=== PATIENT | female | born 1960 | race African-American/Black ===

== ENCOUNTER 2019-02-08 16:18 | Inpatient (IN) | payer OTHER ==
--- NOTE | 2019-02-08 17:44 | PDOC ---
History of Present Illness - General Chief Complaint: Alcohol intoxication Stated Complaint: Alcohol intoxication Time Seen by Provider: 02/08/19 16:52 - History of Present Illness Initial Comments: 02/08/19 17:26 58 yo F with h/o IDDM, Ascites, who BIBA from rehab facility (2 [facility]), for agitation, AMS. Patient behaving violently, and uncooperative in rehab waiting area. Patient non cooperative at bedside. Pt. poor historian. Endorses sadness, but unable to provide history. Denies SI, HI. Patient discharged from [facility] earlier today from ED. Patient recalls that she was at at [facility]. PMHx: as noted above ROS: as noted SHx: Denies Etoh, IVDA Allergies: NKDA Past History - Past Medical History Allergies/Adverse Reactions: Allergies Allergy/AdvReac Type Severity Reaction Status Date / Time Fish Containing Products Allergy Severe Itching Verified 02/08/19 16:26 tomato [Tomato] Allergy Mild Itching Verified 02/08/19 16:26 Home Medications: Ambulatory Orders Aspirin 81 mg PO DAILY 05/07/13 Insulin (Levemir) [Levemir Flexpen -] 48 units SQ HS #0 pen 06/09/13 Lactulose (Oral Use) [Cephulac -] 20 gm PO TID #0 ud 06/09/13 Lisinopril [Prinivil] 10 mg PO BID #0 tablet 06/09/13 Asthma: No Cardiac Disorders: No COPD: No Diabetes: Yes GI Disorders: No Disorders: No HTN: Yes Kidney Stones: No Seizures: No - Surgical History Abdominal Surgery: No Appendectomy: No Cardiac Surgery: No Cholecystectomy: No Lung Surgery: No Neurologic Surgery: No Orthopedic Surgery: No - Reproductive History PID: No - Immunization History Immunization Up to Date: (UNKNOWN) - Suicide/Smoking/Psychosocial Hx Smoking History: Current every day smoker Have you smoked in the past 12 months: Yes Number of Cigarettes Smoked Daily: 3 Cigars Per Day: 0 Information on smoking cessation initiated: No 'Breaking Loose' booklet given: 05/07/13 Hx Alcohol Use: Yes (TODAY) Drug/Substance Use Hx: No (DENIES) Substance Use Type: Alcohol, Cocaine Hx Substance Use Treatment: Yes Review of Systems - Review of Systems Comments:: 02/08/19 18:01 Patient unable to provide 13 point ROS inspection. *Physical Exam - Vital Signs Last Vital Signs Temp Pulse Resp BP Pulse Ox 97.9 F 95 H 18 178/85 H 100 02/08/19 16:28 02/08/19 16:28 02/08/19 16:28 02/08/19 16:28 02/08/19 16:28 - Physical Exam Comments: 02/08/19 18:02 GENERAL: Awake, alert, disoriented, in no acute distress. Patient agitated, attempting to climb out of bed. HEAD: No signs of trauma, normocephalic, atraumatic EYES: PERRLA, EOMI, sclera anicteric, conjunctiva clear ENT: Auricles normal inspection, hearing grossly normal, nares patent, oropharynx clear without exudates. Moist mucosa NECK: Normal ROM, supple, no lymphadenopathy, masses LUNGS: No distress, speaks full sentences, clear to auscultation bilaterally HEART: Regular rate and rhythm, normal S1 and S2, no murmurs, rubs or gallops, peripheral pulses normal and equal bilaterally. ABDOMEN: Distneded. Soft, nontender, normoactive bowel sounds. No guarding, no rebound. No masses. Neg CVA ttp. EXTREMITIES : Normal inspection, Normal range of motion, no edema. No clubbing or cyanosis. NEUROLOGICAL: Cranial nerves II through XII grossly intact. Slurred speech, ataxic gait, no focal sensorimotor deficits SKIN: Warm, Dry, normal turgor, no rashes or lesions noted Moderate Sedation - Procedure Monitoring Vital Signs: Procedure Monitoring Vital Signs Temperature 97.9 F 02/08/19 16:28 Pulse Rate 95 H 02/08/19 16:28 Respiratory Rate 18 02/08/19 16:28 Blood Pressure 178/85 H 02/08/19 16:28 O2 Sat by Pulse Oximetry (%) 100 02/08/19 16:28 ED Treatment Course - LABORATORY CBC & Chemistry Diagram: 02/08/19 18:00 02/08/19 18:00 Medical Decision Making - Medical Decision Making 02/08/19 18:07 58 yo F with h/o IDDM, HTN, HCV, Etoh dependence, Polysubstance drug use/ IVDA, CHF, Bipolar disorder, Ascites, who BIBA from rehab facility ( [facility]), for agitation, AMS. BP 175/85, vitals otherwise wnl, patient alert, disoriented, agitated, with ataxic gait, slurred speech. Uncooperative with exam. Will assess for VBI/TIA, cardiac dysarrythmias, hypoglycemia, electrolyte abnml, metabolic and toxic derangements, acid-base disturbances, infection. ED Course: Patient seen attempting to strike staff members, and elope from ED. Placed in [place] restraint. 02/08/19 18:34 EK02/08/19 18:38 Spoke to RN at [facility]. Patient last seen in hospital on prior admission for concern of SBP ( 12/16- 12/25/2018), received paracentesis ( 12/25) 2 Liters of fluid , with absent SBP. Patient was uncooperative, and documented poor historian at that visit. Lab work at that time noted to be normal. 02/08/19 19:46 PLT: 99 BUN/Cr: 39/1.8 Ammonia 98.2 Plan to admit for hepatic encephalopathy Lactulose rectal, CTH Laboratory Tests 02/08/19 02/08/19 18:00 18:00 Total Bilirubin 1.3 H AST 91 H Ammonia 98.20 H Total Protein 8.4 H Albumin 3.0 L 02/08/19 20:00 Pt. endorsed Fernanda Blackmon. Admitted to . *DC/Admit/Observation/Transfer Diagnosis at time of Disposition: Hepatic encephalopathy - Discharge Dispostion Decision to Admit order: Yes - Referrals - Patient Instructions - Post Discharge Activity
--- NOTE | 2019-02-08 17:47 | PDOC ---
Attending Attestation - Resident Resident Name: John Mathis - ED Attending Attestation I have performed the following: I have examined & evaluated the patient, The case was reviewed & discussed with the resident, I agree w/resident's findings & plan, Exceptions are as noted - HPI HPI: 02/08/19 17:51 58y F hx of acites presenting for evaluation of altered mental status from [facility] while getting intake for detox. The patient is not a cooperative historian. refuses tell us her name, where she lives or whether anything is bothering her. The patient is documented at being at [facility] by [facility], however the patient does mention having been at work all at some point for an unclera reason. The patient does endorse being sad, however refuses to go into why she is being sad. She refuses tell us if anything is bothering her or if she is in discomfort. Patient states "I'm going to hit you" if I ask further questions. Such the history is extremely limited. general: agitated, answering questions occasionally but noncooperative in general neck: supple, no massess Card: rrr, no mrg Pulm: CTA b/l Head: atraumatic abd: large distended nontender abdomen, no focal tenderness ext: no swelling neuro: moving all 4 ext spontaneously and symmetrically, no facial assymetry, mild tremulousness of upper extremities On exam the patient is mental status cannot be terminned - she seems to exhibit somewhat logical thought. It is unclear if her confusion is organic, metabolic or psychiatric. We'll obtain blood work to screen for intoxication, hyperammonenemia, metabolic derangements. consider CT for acute intracranial process although there is no signs of trauma. Will to find further information to the hospital that she was at as well as any possible family members. - Physicial Exam PE: 02/11/19 22:02 see above - Medical Decision Making 02/08/19 19:53 labs noted for hyerammonemia suspec tthat may be the cause of her AMS, howeve after d/w [facility], she also has a history of psychiatric disorder will give pt lactulose pt signed out to evening team for further mangaement anticipate admissoi for furhter management
[2019-02-08 18:15] LABS: BASO % 0.6 % (0-2.0); EOS % 2.7 % (0-4.5); HEMATOCRIT 32.1 % (32.4-45.2); HEMOGLOBIN 11.3 GM/dL (10.7-15.3); LYMPH % 21.1 % (8-40); MCH 32.8 pg (25.7-33.7); MCHC 35.1 g/dl (32.0-36.0); MEAN CELL VOLUME 93.4 fl (80-96); MEAN PLT VOLUME 8.7 fl (7.5-11.1); MONO % 8.5 % (3.8-10.2); NEUT % 67.1 % (42.8-82.8); PLATELET COUNT 99 K/MM3 (134-434); RBC 3.44 M/mm3 (3.60-5.2); RDW 20.1 % (11.6-15.6); WHITE BLOOD COUNT 5.4 K/mm3 (4.0-10.0)
[2019-02-08 18:45] LABS: ALK PHOS 102 U/L (45-117); ANION GAP 9 MMOL/L (8-16); BILIRUBIN,TOTAL 1.3 mg/dL (0.2-1); BLOOD UREA NITROGEN 39 mg/dL (7-18); CALCIUM 9.1 mg/dL (8.5-10.1); CHLORIDE 109 mmol/L (98-107); CO2 22 mmol/L (21-32); CREATININE 1.8 mg/dL (0.55-1.3); GLUCOSE,RANDOM 254 mg/dL (74-106); POTASSIUM 4.1 mmol/L (3.5-5.1); SGOT/AST 91 U/L (15-37); SGPT/ALT 56 U/L (13-61); SODIUM 140 mmol/L (136-145); TOT PROT 8.4 g/dl (6.4-8.2)
[2019-02-08] MEDS ORDERED: LORazepam 2 MG/ML SDV VIAL ONE (19:27)
--- NOTE | 2019-02-08 19:31 | PDOC ---
*Physical Exam - Vital Signs Last Vital Signs Temp Pulse Resp BP Pulse Ox 97.9 F 95 H 18 178/85 H 100 02/08/19 16:28 02/08/19 16:28 02/08/19 16:28 02/08/19 16:28 02/08/19 16:28 ED Treatment Course - LABORATORY CBC & Chemistry Diagram: 02/20/19 05:30 02/20/19 05:30 - ADDITIONAL ORDERS Additional order review: Laboratory Results 02/08/19 02/08/19 02/08/19 18:00 18:00 18:00 Sodium 140 Potassium 4.1 Chloride 109 H Carbon Dioxide 22 Anion Gap 9 BUN 39 H Creatinine 1.8 H Creat Clearance w eGFR 28.80 Random Glucose 254 H Calcium 9.1 Total Bilirubin 1.3 H AST 91 H ALT 56 Alkaline Phosphatase 102 Ammonia 98.20 H Total Protein 8.4 H Albumin 3.0 L Alcohol, Quantitative < 3.0 02/08/19 18:00 RBC 3.44 L MCV 93.4 MCHC 35.1 RDW 20.1 H MPV 8.7 D Neutrophils % 67.1 Lymphocytes % 21.1 Monocytes % 8.5 Eosinophils % 2.7 Basophils % 0.6 Medical Decision Making - Medical Decision Making 02/20/19 23:47 Pt signed out to me. Now calm. In mandy vest. Labs demonstrate elevated ammonia level and elevated Tbili. SHe has known ascites. Pt arrived here from [facility] facility as she was altered and acting violent, Head CT and CXR normal. Otherwise labs show slight elevation of BUN and Cr. Pt will be admitted to hospitalist service. *DC/Admit/Observation/Transfer Diagnosis at time of Disposition: Hepatic encephalopathy - Referrals - Patient Instructions - Post Discharge Activity
[2019-02-08 19:36] LABS: URINE APPEARANCE CLEAR; URINE BILIRUBIN NEGATIVE (<2.0 mg/dL); URINE COLOR YELLOW; URINE GLUCOSE (UA) NEGATIVE (NEGATIVE); URINE KETONE TRACE (NEGATIVE); URINE LEUK ESTERASE NEGATIVE (NEGATIVE); URINE NITRITE NEGATIVE (NEGATIVE); URINE PROTEIN 2+ (NEGATIVE)
[2019-02-08 19:51] LABS: COCAINE, UR NEGATIVE ng/ml (CUTOFF=300); METHADONE, UR NEGATIVE ng/ml (CUTOFF=300); OPIATES, URI NEGATIVE ng/ml (CUTOFF=300); PHENCYCLIDINE,URINE NEGATIVE ng/ml (CUTOFF=25); URINE AMPHETAMINES NEGATIVE ng/ml (CUTOFF=500); URINE BARBITURATES NEGATIVE ng/ml (CUTOFF=200)
[2019-02-08] MEDS ORDERED: LACTULOSE 20 GM/30 ML UDC (FOR RECTAL USE ONLY) PR ONE (19:57)
[2019-02-08 19:58] LABS: EPI CELLS RARE /HPF (FEW); URINE BACTERIA RARE /hpf (NONE SEEN); URINE MUCUS RARE
[2019-02-08 20:06] LABS: URINE BENZODIAZEPINES POSITIVE ng/ml (CUTOFF=200)
[2019-02-08] MEDS ORDERED: LACTULOSE 20 GM/30 ML UDC (FOR ORAL USE ONLY) ONE (21:23)
--- NOTE | 2019-02-08 21:27 | PN ---
Teaching Attending Note Name of Resident: Fernanda Vanessa ATTENDING PHYSICIAN STATEMENT I saw and evaluated the patient. I reviewed the resident's note and discussed the case with the resident. I agree with the resident's findings and plan as documented. SUBJECTIVE: Patient is a 58 year old woman with history of insulin-treated DM, HTN, HCV, Etoh dependence, Polysubstance drug use/IVDA, CHF, Bipolar disorder, Ascites, who presents from [facility] for agitation and AMS. Reportedly patient was behaving violently, and uncooperative in Rehab waiting area. Patient non cooperative at bedside, poor historian, says she is sad, but unable to provide history. Denies suicidal or homicidal ideation. Patient discharged from [facility] earlier today from the ER. Patient recalls that she was at at [facility]. ER staff spoke to an RN at [facility]. Patient last seen in hospital on prior admission for concern of SBP (12/16- 12/25/2018), received paracentesis (12/25) 2 Liters of fluid , with absent SBP. Patient was uncooperative, and documented poor historian at that visit. Lab work at that time noted to be normal. Today in our ER patient seen attempting to strike staff members, and elope from ED. Placed in Juan restraint and also got ativan. OBJECTIVE: Sedated with Ativan Vital Signs Period Temp Pulse Resp BP Sys/Aguilar Pulse Ox Last 24 Hr 97.9 F 95 18 178/85 100 HEENT: No Jaundice, eye redness or discharge, PERRLA; Missing a lot of teeth; facial assymetry - left side droop (chronic?), Normocephalic, atraumatic. External ears are normal. No nasal discharge. Neck: Supple, nontender. No palpable adenopathy or thyromegaly. No JVD Chest: Good effort. Clear to auscultation and percussion. Heart: Regular. No S3, rub or murmur Abdomen: Distended, ascites; soft, nontender and no HSM. No rebound or guarding. Normal bowel sounds. Ext: Peripheral pulses intact. No leg edema. Skin: Warm and dry. No petechiae, rash or ecchymosis. Neuro: Sedated. Moves all limbs. Chronic left facial droop?; Plantar reflexes are flexor. Psych: Unable to assess. Was agitated and had to be sedated. Current Medications Generic Name Dose Route Start Last Admin Trade Name Davonq PRN Reason Stop Dose Admin Folic Acid 1 mg 02/08/19 21:45 Folic Acid Injection - SQ DAILY [facility] Insulin Aspart 0 vial 02/08/19 22:00 Novolog Vial Sliding Scale - SQ ACHS [facility] Protocol Lactulose 200 gm 02/08/19 21:45 Cephulac (Rectal Use) ND Q6H SACHIN Lorazepam 0.5 mg 02/10/19 23:00 Ativan - PO 02/11/19 23:00 Q4H PRN Symptoms of Withdrawal Lorazepam 1 mg 02/08/19 21:39 Ativan - PO 02/10/19 23:00 Q4H PRN Symptoms of Withdrawal Thiamine HCl 100 mg 02/09/19 10:00 Vitamin B1 Injection - IM DAILY [facility] Home Medications Medication Instructions Recorded Aspirin 81 mg PO DAILY 05/07/13 Insulin (Levemir) [Levemir Flexpen 48 units SQ HS #0 pen 06/09/13 -] Lactulose (Oral Use) [Cephulac -] 20 gm PO TID #0 ud 06/09/13 Lisinopril [Prinivil] 10 mg PO BID #0 tablet 06/09/13 Abnormal Lab Results 02/08/19 02/08/19 02/08/19 18:00 18:00 18:00 RBC 3.44 L Hct 32.1 L RDW 20.1 H Plt Count 99 L D Chloride 109 H BUN 39 H Creatinine 1.8 H Random Glucose 254 H Total Bilirubin 1.3 H AST 91 H Ammonia 98.20 H Total Protein 8.4 H Albumin 3.0 L Urine Protein Urine Ketones Urine Urobilinogen Benzodiazepines Screen 02/08/19 02/08/19 19:04 19:04 RBC Hct RDW Plt Count Chloride BUN Creatinine Random Glucose Total Bilirubin AST Ammonia Total Protein Albumin Urine Protein 2+ H Urine Ketones Trace H Urine Urobilinogen 2.0 H Benzodiazepines Screen Positive A* ASSESSMENT AND PLAN: 1. Altered Mental Status/Agitation - Alcohol or drug withdrawal ay explain her presentation. Head CT, EKG, abdominal sonogram and CXR are yet to be done due to her agitation. Will implement CIWA ativan alcohol withdrawal protocol, neurochecks, seizure, fall and aspiration precautions. Treat with thiamine and folic acid and monitor electrolytes (Ca,Mg,K,P). When she awakens and is lucid, will licensed mental health counselor patient about abstaining from alcohol and refer to alcohol detox upon discharge. Treat associated hepatic encephalopathy with lactulose per rectum and PO Rifaximin once it is safe for her to take PO. Thrombocytopenia likely due to liver disease. Monitor platelet count daily. 2. Hypoalbuminemia - Possibly due to combined effects of malnutrition and inflammation associated with comorbid chronic conditions. Will ensure adequate dietary protein intake and also consult sheep herder. 3. DM For now, we will hold the home diabetes drugs and implement sliding scale insulin regimen. Provide comprehensive diabetes care with patient teaching and counseling about the importance of adherence to prescribed diabetes regimen, euglycemia, eye care and foot care. 4. BOB? - Has risk factors for CKD. BOB may be due to dehydration or hepatorenal syndrome. Will hydrate her gently and monitor urine output. Avoid nephrotoxic agents such as NSAIDS, aminoglycosides, contrast dyes and certain Alternative medicine products. 5. Anemia - Likely partly due to liver disease and alcoholism. Will do basic anemia work up including serial stool guaiacs, reticulocyte count and iron studies. 6. Hypertension - Restart outpatient antihypertensive drugs and revise regimen to ensure smooth [id number] good BP control. Once she awakens, nonpharmacologic measures to control hypertension like weight loss, salt restriction and exercise will be discussed. 7. DVT prophylaxis - Lovenox 40 mg SQ q 24 hours. (Monitor platelet count daily ) 8. Advance directives - Full code
[2019-02-08] MEDS ORDERED: LORazepam 0.5 MG TABLET PO PRN (21:30)
[2019-02-08] MEDS ORDERED: LORazepam 1 MG TABLET PO PRN (21:39)
--- NOTE | 2019-02-08 21:47 | HP ---
CHIEF COMPLAINT: agitation x 1 day PCP: HISTORY OF PRESENT ILLNESS: 58 y/o F with hx HTN, HCV, polysubstance abuse, ascites, IDDM, CHF, bipolar disorder, who presents to the ED, [facility] from [facility] for AMS and agitation that occurred during alcohol detox. Upon examination, pt lethargic and unable to provide information. As per ED staff documentation, pt was at [facility] today when she became agitated, developing AMS, disorientation, slurred speech and ataxia. For this reason, she was BIBA to [facility] ED for evaluation. It is unclear whether pt had already began detox, or whether she was rejected from the facility in order to receive medical w/u and clearance. While in the ED, pt was increasingly combatative, yelling out that she was going to hit the staff. She was subsquently placed in a mandy vest and given ativan 2mg IMx1. Pt was also apparently d/c from [facility] today, and had been admitted there in November from 12/16-12/25 for ascites. At the time, SBP was r/o, and pt underwent a paracentesis where 2L of fluid were drained. ER course was notable for: (1) ativan 2mg IMx1 (2) rectal lactulose [id number] (3) Recent Travel: unable to obtain PAST MEDICAL HISTORY: as above PAST SURGICAL HISTORY: unable to obtain Social History: unable to obtain Smoking: Alcohol: alcohol dependence Drugs: polysubstance abuse Family History: see above Allergies Fish Containing Products Allergy (Severe, Verified 02/08/19 16:26) Itching tomato [Tomato] Allergy (Mild, Verified 02/08/19 16:26) Itching HOME MEDICATIONS: Home Medications Medication Instructions Recorded Aspirin 81 mg PO DAILY 05/07/13 Insulin (Levemir) [Levemir Flexpen 48 units SQ HS #0 pen 06/09/13 -] Lactulose (Oral Use) [Cephulac -] 20 gm PO TID #0 ud 06/09/13 Lisinopril [Prinivil] 10 mg PO BID #0 tablet 06/09/13 pt was lethargic, unable to verify meds will need to call [facility] tomorrow or [facility] REVIEW OF SYSTEMS CONSTITUTIONAL: +combatative Absent: fever, chills, diaphoresis, generalized weakness, malaise, loss of appetite, weight change HEENT: Absent: rhinorrhea, nasal congestion, throat pain, throat swelling, difficulty swallowing, mouth swelling, ear pain, eye pain, visual changes CARDIOVASCULAR: Absent: chest pain, syncope, palpitations, irregular heart rate, lightheadedness , peripheral edema RESPIRATORY: Absent: cough, shortness of breath, dyspnea with exertion, orthopnea, wheezing, stridor, hemoptysis GASTROINTESTINAL: Absent: abdominal pain, abdominal distension, nausea, vomiting, diarrhea, constipation, melena, hematochezia GENITOURINARY: Absent: dysuria, frequency, urgency, hesitancy, hematuria, flank pain, genital pain MUSCULOSKELETAL: Absent: myalgia, arthralgia, joint swelling, back pain, neck pain SKIN: Absent: rash, itching, pallor HEMATOLOGIC/IMMUNOLOGIC: Absent: easy bleeding, easy bruising, lymphadenopathy, frequent infections ENDOCRINE: Absent: unexplained weight gain, unexplained weight loss, heat intolerance, cold intolerance NEUROLOGIC: Absent: headache, focal weakness or paresthesias, dizziness, unsteady gait, seizure, mental status changes, bladder or bowel incontinence PSYCHIATRIC: Absent: anxiety, depression, suicidal or homicidal ideation, hallucinations. PHYSICAL EXAMINATION Vital Signs - 24 hr 02/08/19 16:28 Temperature 97.9 F Pulse Rate 95 H Respiratory 18 Rate Blood Pressure 178/85 H O2 Sat by Pulse 100 Oximetry (%) GENERAL: sleeping, mildly arousable to sternal rub HEAD: Normal with no signs of trauma. EYES: Pupils equal, round and reactive to light, extraocular movements intact, sclera anicteric, conjunctiva clear. EARS, NOSE, THROAT: Ears normal, nares patent, oropharynx clear without exudates. Moist mucous membranes. NECK: Normal range of motion, supple LUNGS: Breath sounds equal, clear to auscultation bilaterally. No wheezes, and no crackles. No accessory muscle use. HEART: +tachycardic rate and rhythm, normal S1 and S2 without murmur, rub or gallop. ABDOMEN: Soft, +significantly distended abdomen. fluid wave appreciated. no guarding or rigidity LOWER EXTREMITIES: cachectic. 2+ pt pulses,well-perfused. No calf tenderness. No peripheral edema. NEUROLOGICAL: unable to assess d/t lethargy, however able to move UE, LE. PSYCHIATRIC: lethargic SKIN: Warm, dry Laboratory Results 02/08/19 02/08/19 02/08/19 18:00 18:00 18:00 WBC 5.4 Hgb 11.3 Hct 32.1 L Plt Count 99 L D Ammonia 98.20 H Alcohol, Quantitative < 3.0 02/08/19 02/08/19 02/08/19 18:00 19:04 19:04 Sodium 140 Potassium 4.1 Chloride 109 H Carbon Dioxide 22 BUN 39 H Creatinine 1.8 H Random Glucose 254 H Total Bilirubin 1.3 H AST 91 H ALT 56 Ammonia Albumin 3.0 L Urine Protein 2+ H Urine Ketones Trace H Urine Urobilinogen 2.0 H Opiates Screen Negative Barbiturate Screen Negative Phencyclidine Screen Negative Ur Amphetamines Screen Negative MDMA (Ecstasy) Screen Negative Benzodiazepines Screen Positive A* Cocaine Screen Negative U Marijuana (THC) Screen Negative EKG: ordered, pending CXR: ordered, pending abd sono prelim: +ascites. official read pending CTH: prelim: WNL. official read pending ASSESSMENT/PLAN: 58 y/o F with hx HTN, HCV, polysubstance abuse, ascites, IDDM, CHF, bipolar disorder, who presents to the ED, BIBA from [facility] for AMS and agitation that occurred during alcohol detox. #Agitation -possible this is 2/2 alcohol withdrawal, hepatic encephalopathy (HE), psych d/ o such as bipolar -c/w ativan protocol, CIWA scoring. thiamine, folic supplementation -for HE, with elevated ammonia, hx significant alc dependence. will get abdom sono to eval for cirrhosis, ascites. will also give lactulose 200gm q6h rectally- titrate to 3-4 BM's qd. Can also give rifaximin when can take PO. f/u coags -ascites: GI input whether needs paracentesis. less concerning now for SBP clinically, afebrile, without white count -GI consult: Dr. Monge -will also do Head CT to r/o intracranial path. prelim read (-), however follow official #HTN- uncontrolled -possible 2/2 agitation or withdrawal -hold lisinopril at this time d/t BOB -will start amlodipine 5mg BID #BOB possible 2/2 hepatorenal syndrome -possible may improve with hepatic sx tx -as CXR without effusion, will gently hydrate. will be careful based on hx CHF. -monitor I/O #normocytic anemia -f/u iron studies, retic ct #IDDM -BGM, ISS ACHS #HCV -need to get records whether this has been tx #hx CHF -consider ECHO when sx alleviate -does not appear to be vol overloaded overall #bipolar disorder -will need to get records to see if tx #F/E/N gentle hydration IV NS 42 cc/hr, not in overload now continue to follow lytes, replete PRN NPO d/t lethargy #PPX DVT: SCD's at this time 2/2 thrombocytopenia #Dispo admit to med-surg Visit type - Emergency Visit Emergency Visit: Yes ED Registration Date: 02/08/19 Care time: The patient presented to the Emergency Department on the above date and was hospitalized for further evaluation of their emergent condition. - New Patient This patient is new to me today: Yes Date on this admission: 02/09/19 - Critical Care Critical Care patient: No
[2019-02-08 22:07] LABS: VENOUS PC02 35.1 mmHg (41-51); VENOUS PH 7.45 (7.31-7.41); VENOUS PO2 31.8 mmHg (30-40)
[2019-02-08] MEDS: FOLIC ACID 5 MG/1 ML SQ SCH (22:14)
[2019-02-08 22:21] LABS: INR 1.13 (0.83-1.09); PROTHROMBIN TIME (PATIENT) 13.3 SEC (9.7-13.0)
[2019-02-08 22:23] LABS: ACTIVATED PTT 37.9 SECONDS (25.2-36.5)
[2019-02-08] MEDS: LACTULOSE 20 GM/30 ML UDC (FOR RECTAL USE ONLY) PR SCH (22:50)
[2019-02-08] MEDS: INSULIN SLIDING SCALE (NOVOLOG) 1 VIAL SQ SCH (23:14)
[2019-02-08] MEDS ORDERED: INSULIN (NOVOLOG) ASPART 100 UNITS/ML 10ML VIAL ONE (23:18)
[2019-02-09] MEDS ORDERED: SODIUM CHLORIDE 1,000 ML IV SCH (01:00)
[2019-02-09] MEDS ORDERED: METOPROLOL TARTRATE 5 MG/5 ML VIAL IVPUSH ONE (03:20)
[2019-02-09] MEDS ORDERED: METOPROLOL TARTRATE 5 MG/5 ML VIAL ONE (03:29)
[2019-02-09] MEDS: amLODIPine BESYLATE 5 MG TABLET (FP) PO SCH ×3 (03:57→23:00)
[2019-02-09] MEDS: LACTULOSE 20 GM/30 ML UDC (FOR RECTAL USE ONLY) PR SCH (06:25)
[2019-02-09 06:49] LABS: BASO % 0.5 % (0-2.0); HEMATOCRIT 30.6 % (32.4-45.2); HEMOGLOBIN 10.6 GM/dL (10.7-15.3); LYMPH % 25.3 % (8-40); MCH 32.3 pg (25.7-33.7); MCHC 34.6 g/dl (32.0-36.0); MEAN CELL VOLUME 93.3 fl (80-96); MEAN PLT VOLUME 8.7 fl (7.5-11.1); MONO % 9.7 % (3.8-10.2); NEUT % 60.5 % (42.8-82.8); PLATELET COUNT 94 K/MM3 (134-434); RBC 3.28 M/mm3 (3.60-5.2); RDW 20.3 % (11.6-15.6); WHITE BLOOD COUNT 5.2 K/mm3 (4.0-10.0)
[2019-02-09 07:33] LABS: ALBUMIN 2.4 g/dl (3.4-5.0); ALK PHOS 85 U/L (45-117); ANION GAP 7 MMOL/L (8-16); BILIRUBIN,TOTAL 1.2 mg/dL (0.2-1); BLOOD UREA NITROGEN 36 mg/dL (7-18); CALCIUM 8.3 mg/dL (8.5-10.1); CHLORIDE 112 mmol/L (98-107); CO2 23 mmol/L (21-32); CREATININE 1.7 mg/dL (0.55-1.3); GLUCOSE,RANDOM 181 mg/dL (74-106); PHOSPHOROUS 3.7 mg/dL (2.5-4.9); SGOT/AST 72 U/L (15-37); SGPT/ALT 48 U/L (13-61); SODIUM 143 mmol/L (136-145); TOT PROT 7.3 g/dl (6.4-8.2)
--- NOTE | 2019-02-09 09:25 | CON.GI ---
Consult Consult Specialty:: GI Referred by:: Hospitalist service Reason for Consultation:: Hepatic Encephalopathy - History of Present Illness Chief Complaint: Patient non verbal. Sent from [facility] for agitation History of Present Illness: History obtained from chart as patient non verbal. 58 y/o F with hx HTN, HCV, polysubstance abuse, ascites, DM II (insulin dependent, CHF, bipolar disorder, who presents, BIBA from [facility] for AMS and agitation that occurred during alcohol detox. Per the ED staff documentation, pt was at [facility] today when she became agitated, developing AMS, disorientation, slurred speech and ataxia. For this reason, she was BIBA to [facility] ED for evaluation. It is unclear whether pt had already began detox, or whether she was rejected from the facility in order to receive medical w/u and clearance. While in the ED, pt was increasingly combatative, yelling out that she was going to hit the staff. She was subsquently placed in a mandy vest and given ativan 2mg IMx1. Pt was also apparently d/c from [facility] yesterday, and had been admitted there in November from 12/16-12/25 for ascites. At the time, SBP was r/o, and pt underwent a paracentesis where 2L of fluid was drained. - History Source History Provided By: Medical Record Limitations to Obtaining History: Unresponsive - Past Medical History Cardio/Vascular: Yes: HTN Hepatobiliary: Yes: Hepatitis C ...LMP: 04/28/03 Psych: Yes: Addictions (polysubstance abuse), Bipolar Endocrine: Yes: Diabetes Mellitus - Past Surgical History Additional Surgical History: Unable to obtain - Alcohol/Substance Use Hx Alcohol Use: Yes (TODAY) - Smoking History Smoking history: Current every day smoker Have you smoked in the past 12 months: Yes Aproximately how many cigarettes per day: 3 Home Medications - Allergies Allergies/Adverse Reactions: Allergies Allergy/AdvReac Type Severity Reaction Status Date / Time Fish Containing Products Allergy Severe Itching Verified 02/08/19 16:26 tomato [Tomato] Allergy Mild Itching Verified 02/08/19 16:26 - Home Medications Home Medications: Ambulatory Orders Ascorbic Acid 500 mg PO DAILY 02/09/19 Calcium Carb/Vitamin D3/Vit K1 [Calcium + D Soft Chewable Tab] 1 each PO DAILY 02/09/19 Gabapentin 100 mg PO TID 02/09/19 Hydrocortisone 0.5% Cream [Hytone 0.5% Cream -] 1 applic RC BID 02/09/19 Insulin Glargine,Hum.rec.anlog [Lantus] 25 unit SQ HS 02/09/19 Insulin Lispro [Humalog] 8 unit SQ TID 02/09/19 Multivitamins [Tab-A-Vit -] 1 tab PO DAILY 02/09/19 Sennosides/Docusate Sodium [Docusate Sodium-Senna Tablet] 1 each PO HS PRN 02/09 Thiamine HCl [Vitamin B-1] 100 mg PO DAILY 02/09/19 Family Disease History - Family Disease History Family History: Unable to Obtain Review of Systems Unable to obtain ROS, reason: paatient non verbal Physical Exam-GI Vital Signs: Vital Signs Temperature 97.9 F 02/08/19 16:28 Pulse Rate 69 02/09/19 08:00 Respiratory Rate 16 02/09/19 08:00 Blood Pressure 153/89 02/09/19 08:00 O2 Sat by Pulse Oximetry (%) 98 02/09/19 05:16 Constitutional: Yes: Calm Eyes: Yes: PERRL Cardiovascular: Yes: Regular Rate and Rhythm Respiratory: Yes: Diminished (at bases bilaterally) Gastrointestinal Inspection: No: Distention ...Auscultate: Yes: Normoactive Bowel Sounds ...Palpate: No: Tenderness (No grimacing upon palpation) ...Percussion: No: Tympanitic Edema: No (No LE edema) Neurological: Yes: Other (Not responding to verbal or tactile stimuli) Labs: CBC, BMP 02/09/19 06:15 02/09/19 06:15 INR, PTT INR 1.13 (0.83-1.09) H 02/08/19 21:56 Problem List - Problems (1) Altered mental status Assessment/Plan: Agitated on admission with need for ativan administration in the ED. Combativenes not typical presentation for HE and while ammonia level was elevated, it is unclear what her baseline ammonia level is or if she has diagnosis of hepatic encephalopathy in the past. Now she is quite somnolent and did not respond to sternal rub Advise: NGT with lactulose 20g q3 hrs. Monitor for improvement in mental status / excessive diarrhea and titrate accordingly Gentle IV hydration Avoid benzodiazapines Psych eval when patient lucid If cannot tolerate NGT, Lactulose enemas 300cc w/700 mL water Q 4 hours If continued obtundation: Transfer to ICU Code(s): R41.82 - ALTERED MENTAL STATUS, UNSPECIFIED Qualifiers: Altered mental status type: stupor Qualified Code(s): R40.1 - Stupor
[2019-02-09 10:08] LABS: RETICULOCYTES 2.79 % (0.5-1.5)
[2019-02-09 11:07] LABS: ARTERIAL BLD GAS O2 SATURATION 98.8 % (95-98); ARTERIAL BLOOD GAS BASE EXCESS -1.2 meq/l (-2-2); ARTERIAL BLOOD GAS PCO2 25.4 mmHg (35-45); ARTERIAL BLOOD GAS PO2 114 mmHg (80-105); ARTERIAL BLOOD GAS pH 7.52 (7.35-7.45)
[2019-02-09] MEDS: LACTULOSE 20 GM/30 ML UDC (FOR ORAL USE ONLY) PO SCH ×5 (11:11→23:00)
[2019-02-09] MEDS: SODIUM CHLORIDE 1,000 ML IV SCH (11:11)
[2019-02-09 11:27] LABS: ALLENS TEST POSITIVE
--- NOTE | 2019-02-09 11:44 | CONSULT ---
Consultation: REQUESTING PROVIDER: Dr. Corrigan CONSULT REQUEST: We have been asked to medically evaluate this patient for ICU evaluation. HISTORY OF PRESENT ILLNESS: 58 y/o F with hx HTN, HCV, polysubstance abuse, ascites, IDDM, CHF, bipolar disorder admitted with likely hepatic metabolic encephalopathy vs intoxication/ detox. Asked to evaluate for possible ICU transfer as patient is now obtunded and barely arousable to sternal rub. Ammonia level noted 98 in the ED yesterday , pt given lactulose enema with small hard stool following enema. GI recommended placement of NG tube as patient will not tolerate PO Lactulose. Hx taken from chart as patient unable to respond to questioning at this time. It appears patient was brought in from [facility] detox however it seems pt was transferred prior to admission or treatment for detox. Given 2 mg Ativan for agitation and verbal threats in the ED yesterday evening. Pt also reportedly was seen at another institution where 2L ascites was drained and SBP was worked up and apparently ruled out at that time. REVIEW OF SYSTEMS: Unable to obtain due to patients current mental status PHYSICAL EXAMINATION Vital Signs - 24 hr 02/08/19 02/09/19 02/09/19 16:28 00:55 03:55 Temperature 97.9 F Pulse Rate 95 H Respiratory 18 Rate Blood Pressure 178/85 H 191/100 H Blood Pressure [Right Arm] O2 Sat by Pulse 100 96 Oximetry (%) 02/09/19 02/09/19 02/09/19 05:14 05:16 08:00 Temperature Pulse Rate 69 Respiratory 16 16 16 Rate Blood Pressure 153/89 Blood Pressure 156/91 [Right Arm] O2 Sat by Pulse 98 98 Oximetry (%) GEN: Obtunded, not responding to questioning or following commands HEENT: dry mucus membranes NECK: supple HEART: Regular rate and rhythm, no murmurs noted LUNGS: CTA b/l ABDOMEN: Soft, nontender EXTREMITIES: no peripheral edema noted, good peripheral pulses throughout NEURO: Obtunded, not responding to questioning or following commands Laboratory Results - last 24 hr 02/08/19 02/08/19 02/08/19 18:00 18:00 18:00 WBC 5.4 RBC 3.44 L Hgb 11.3 Hct 32.1 L MCV 93.4 MCH 32.8 MCHC 35.1 RDW 20.1 H Plt Count 99 L D MPV 8.7 D Absolute Neuts (auto) 3.6 Neutrophils % 67.1 Lymphocytes % 21.1 Monocytes % 8.5 Eosinophils % 2.7 Basophils % 0.6 Nucleated RBC % 0 Retic Count PT with INR INR PTT (Actin FS) Puncture Site ABG pH ABG pCO2 at Pt Temp ABG pO2 at Pt Temp ABG HCO3 ABG O2 Sat (Measured) ABG O2 Content ABG Base Excess Sumit Test VBG pH POC VBG pCO2 POC VBG pO2 VBG HCO3 VBG O2 Sat ([place]) VBG Base Excess O2 Delivery Device Oxygen Flow Rate Sodium Potassium Chloride Carbon Dioxide Anion Gap BUN Creatinine Creat Clearance w eGFR POC Glucometer Random Glucose Calcium Phosphorus Magnesium Ferritin Total Bilirubin AST ALT Alkaline Phosphatase Ammonia 98.20 H Total Protein Albumin Urine Color Urine Appearance Urine pH Ur Specific [place] Urine Protein Urine Glucose (UA) Urine Ketones Urine Blood Urine Nitrite Urine Bilirubin Urine Urobilinogen Ur Leukocyte Esterase Urine WBC (Auto) Urine RBC (Auto) Ur Epithelial Cells Urine Bacteria Urine Mucus Opiates Screen Methadone Screen Barbiturate Screen Phencyclidine Screen Ur Amphetamines Screen MDMA (Ecstasy) Screen Benzodiazepines Screen Cocaine Screen U Marijuana (THC) Screen Alcohol, Quantitative < 3.0 02/08/19 02/08/19 02/08/19 18:00 19:04 19:04 WBC RBC Hgb Hct MCV MCH MCHC RDW Plt Count MPV Absolute Neuts (auto) Neutrophils % Lymphocytes % Monocytes % Eosinophils % Basophils % Nucleated RBC % Retic Count PT with INR INR PTT (Actin FS) Puncture Site ABG pH ABG pCO2 at Pt Temp ABG pO2 at Pt Temp ABG HCO3 ABG O2 Sat (Measured) ABG O2 Content ABG Base Excess Sumit Test VBG pH POC VBG pCO2 POC VBG pO2 VBG HCO3 VBG O2 Sat ([place]) VBG Base Excess O2 Delivery Device Oxygen Flow Rate Sodium 140 Potassium 4.1 Chloride 109 H Carbon Dioxide 22 Anion Gap 9 BUN 39 H Creatinine 1.8 H Creat Clearance w eGFR 28.80 POC Glucometer Random Glucose 254 H Calcium 9.1 Phosphorus Magnesium Ferritin Total Bilirubin 1.3 H AST 91 H ALT 56 Alkaline Phosphatase 102 Ammonia Total Protein 8.4 H Albumin 3.0 L Urine Color Yellow Urine Appearance Clear Urine pH 5.0 Ur Specific [place] 1.015 Urine Protein 2+ H Urine Glucose (UA) Negative Urine Ketones Trace H Urine Blood Negative Urine Nitrite Negative Urine Bilirubin Negative Urine Urobilinogen 2.0 H Ur Leukocyte Esterase Negative Urine WBC (Auto) 2 Urine RBC (Auto) 1 Ur Epithelial Cells Rare Urine Bacteria Rare Urine Mucus Rare Opiates Screen Negative Methadone Screen Negative Barbiturate Screen Negative Phencyclidine Screen Negative Ur Amphetamines Screen Negative MDMA (Ecstasy) Screen Negative Benzodiazepines Screen Positive A* Cocaine Screen Negative U Marijuana (THC) Screen Negative Alcohol, Quantitative 02/08/19 02/08/19 02/08/19 19:38 21:51 21:56 WBC RBC Hgb Hct MCV MCH MCHC RDW Plt Count MPV Absolute Neuts (auto) Neutrophils % Lymphocytes % Monocytes % Eosinophils % Basophils % Nucleated RBC % Retic Count PT with INR 13.30 H INR 1.13 H PTT (Actin FS) 37.9 H Puncture Site ABG pH ABG pCO2 at Pt Temp ABG pO2 at Pt Temp ABG HCO3 ABG O2 Sat (Measured) ABG O2 Content ABG Base Excess Sumit Test VBG pH 7.45 H POC VBG pCO2 35.1 L POC VBG pO2 31.8 VBG HCO3 23.9 VBG O2 Sat ([place]) 55.5 L VBG Base Excess 0.7 O2 Delivery Device Oxygen Flow Rate Sodium Potassium Chloride Carbon Dioxide Anion Gap BUN Creatinine Creat Clearance w eGFR POC Glucometer Random Glucose Calcium Phosphorus Magnesium 1.9 Ferritin Total Bilirubin AST ALT Alkaline Phosphatase Ammonia Total Protein Albumin Urine Color Urine Appearance Urine pH Ur Specific [place] Urine Protein Urine Glucose (UA) Urine Ketones Urine Blood Urine Nitrite Urine Bilirubin Urine Urobilinogen Ur Leukocyte Esterase Urine WBC (Auto) Urine RBC (Auto) Ur Epithelial Cells Urine Bacteria Urine Mucus Opiates Screen Methadone Screen Barbiturate Screen Phencyclidine Screen Ur Amphetamines Screen MDMA (Ecstasy) Screen Benzodiazepines Screen Cocaine Screen U Marijuana (THC) Screen Alcohol, Quantitative 02/08/19 02/09/19 02/09/19 23:11 06:00 06:15 WBC 5.2 RBC 3.28 L Hgb 10.6 L Hct 30.6 L MCV 93.3 MCH 32.3 MCHC 34.6 RDW 20.3 H Plt Count 94 L MPV 8.7 Absolute Neuts (auto) 3.2 Neutrophils % 60.5 Lymphocytes % 25.3 Monocytes % 9.7 Eosinophils % 4.0 Basophils % 0.5 Nucleated RBC % 0 Retic Count Cancelled 2.79 H PT with INR INR PTT (Actin FS) Puncture Site ABG pH ABG pCO2 at Pt Temp ABG pO2 at Pt Temp ABG HCO3 ABG O2 Sat (Measured) ABG O2 Content ABG Base Excess Sumit Test VBG pH POC VBG pCO2 POC VBG pO2 VBG HCO3 VBG O2 Sat ([place]) VBG Base Excess O2 Delivery Device Oxygen Flow Rate Sodium Potassium Chloride Carbon Dioxide Anion Gap BUN Creatinine Creat Clearance w eGFR POC Glucometer 228 Random Glucose Calcium Phosphorus Magnesium Ferritin Total Bilirubin AST ALT Alkaline Phosphatase Ammonia Total Protein Albumin Urine Color Urine Appearance Urine pH Ur Specific [place] Urine Protein Urine Glucose (UA) Urine Ketones Urine Blood Urine Nitrite Urine Bilirubin Urine Urobilinogen Ur Leukocyte Esterase Urine WBC (Auto) Urine RBC (Auto) Ur Epithelial Cells Urine Bacteria Urine Mucus Opiates Screen Methadone Screen Barbiturate Screen Phencyclidine Screen Ur Amphetamines Screen MDMA (Ecstasy) Screen Benzodiazepines Screen Cocaine Screen U Marijuana (THC) Screen Alcohol, Quantitative 02/09/19 02/09/19 02/09/19 06:15 06:15 11:00 WBC RBC Hgb Hct MCV MCH MCHC RDW Plt Count MPV Absolute Neuts (auto) Neutrophils % Lymphocytes % Monocytes % Eosinophils % Basophils % Nucleated RBC % Retic Count PT with INR INR PTT (Actin FS) Puncture Site Right radial ABG pH 7.52 H ABG pCO2 at Pt Temp 25.4 L ABG pO2 at Pt Temp 114 H ABG HCO3 20.6 L ABG O2 Sat (Measured) 98.8 H ABG O2 Content 13.0 L ABG Base Excess -1.2 Sumit Test Positive VBG pH POC VBG pCO2 POC VBG pO2 VBG HCO3 VBG O2 Sat ([place]) VBG Base Excess O2 Delivery Device Room air Oxygen Flow Rate 21% Sodium 143 Potassium 4.0 Chloride 112 H Carbon Dioxide 23 Anion Gap 7 L BUN 36 H Creatinine 1.7 H Creat Clearance w eGFR 30.76 POC Glucometer Random Glucose 181 H Calcium 8.3 L Phosphorus 3.7 Magnesium 2.0 Ferritin 493.3 H Total Bilirubin 1.2 H AST 72 H ALT 48 Alkaline Phosphatase 85 Ammonia Total Protein 7.3 Albumin 2.4 L Urine Color Urine Appearance Urine pH Ur Specific [place] Urine Protein Urine Glucose (UA) Urine Ketones Urine Blood Urine Nitrite Urine Bilirubin Urine Urobilinogen Ur Leukocyte Esterase Urine WBC (Auto) Urine RBC (Auto) Ur Epithelial Cells Urine Bacteria Urine Mucus Opiates Screen Methadone Screen Barbiturate Screen Phencyclidine Screen Ur Amphetamines Screen MDMA (Ecstasy) Screen Benzodiazepines Screen Cocaine Screen U Marijuana (THC) Screen Alcohol, Quantitative Active Medications Generic Name Dose Route Start Last Admin Trade Name Jody PRN Reason Stop Dose Admin Amlodipine Besylate 5 mg 02/08/19 22:30 02/09/19 03:57 Norvasc - PO Not Given BID SACHIN Folic Acid 1 mg 02/08/19 21:45 02/08/19 22:14 Folic Acid Injection - SQ 1 mg DAILY SACHIN Administration Sodium Chloride 1,000 mls @ 100 mls/hr 02/09/19 10:30 02/09/19 11:11 Normal Saline - IV 100 mls/hr ASDIR SACHIN Administration Insulin Aspart 1 vial 02/08/19 22:00 02/08/19 23:14 Novolog Vial Sliding Scale - SQ 4 unit ACHS SACHIN Administration Protocol Lactulose 20 gm 02/09/19 10:15 02/09/19 11:11 Cephulac (Oral Use) PO 20 gm Q3H SACHIN Administration Thiamine HCl 100 mg 02/09/19 10:00 Vitamin B1 Injection - IM DAILY SACHIN ASSESSMENT/PLAN: 58 y/o F with hx HTN, HCV, polysubstance abuse, ascites, IDDM, bipolar disorder admitted with likely hepatic metabolic encephalopathy vs intoxication/detox NEURO -Hepatic Encephalopathy as below Monitor neuro status for improvement/worsening CARDIO -HTN Continue Norvasc -CHF As per chart, however no ECHO on record at this institution and seemingly no CHF medications on home med list PULMONARY -Currently no signs of airway compromise, continue to monitor -ABG noted, likely metabolic alkalosis with some respiratory compensation GI -Hepatic Metabolic Encephalopathy GI Consult appreciated NG tube placed and pt now receiving Lactulose Monitor for improvement of mental status Ammonia noted 98 yesterday RENAL -Likely BOB, though baseline unknown, normal BUN/Cr in 2013 last on our records here NS @ 100 cc/hr, monitor for signs of acute volume overload ENDOCRINE -IDDM BGMs and Insulin Sliding Scale for glycemic control PROPHYLAXIS -SCDs -Not on chemical DVT prophylaxis at this time -No GI prophylaxis indicated FEN -NS @ 100 cc/hr -Monitor and replete -NPO DISPOSITION Will continue to follow, however patient does not need ICU monitoring at this time, will reassess and pt would require ICU transfer if further obtunded following appropriate medical management with lactulose or if any concerns for airway compromise Dispo: We will continue to follow the patient. Thank you for this consultative opportunity. Visit type - Emergency Visit Emergency Visit: Yes ED Registration Date: 02/08/19 Care time: The patient presented to the Emergency Department on the above date and was hospitalized for further evaluation of their emergent condition. - New Patient This patient is new to me today: Yes Date on this admission: 02/09/19 - Critical Care Critical Care patient: No
[2019-02-09] MEDS: INSULIN SLIDING SCALE (NOVOLOG) 1 VIAL SQ SCH ×4 (13:37→23:00)
--- NOTE | 2019-02-09 15:38 | EKG ---
Test Reason : Blood Pressure : / mmHG Vent. Rate : 072 BPM Atrial Rate : 072 BPM P-R Int : 144 ms QRS Dur : 080 ms QT Int : 438 ms P-R-T Axes : 061 023 047 degrees QTc Int : 479 ms NORMAL SINUS RHYTHM MINIMAL VOLTAGE CRITERIA FOR LVH, MAY BE NORMAL VARIANT T WAVE ABNORMALITY, CONSIDER ANTERIOR ISCHEMIA ABNORMAL ECG Confirmed by MD RANDOLPH, NERY ([id number]) on 02/09/2019 3:37:39 PM Referred By: Nhan SAMANIEGO Confirmed By:NERY DICKSON MD
[2019-02-09] MEDS: THIAMINE HCL 200 MG/2 ML VIAL IM SCH (16:07)
[2019-02-09] MEDS: FOLIC ACID 5 MG/1 ML SQ SCH (16:08)
--- NOTE | 2019-02-09 18:39 | PN ---
Progress Note (short form) - Note Progress Note: SUBJECTIVE - Obtunded, poorly responsive, uncommunicative s/p Ativan 2mg x 1 in ED OBJECTIVE: Afebrile, Hemodynamcally Stable. Maintaining airway. Last Vital Signs Temp Pulse Resp BP Pulse Ox 97.7 F 96 H 16 163/90 98 02/09/19 15:35 02/09/19 15:35 02/09/19 08:00 02/09/19 15:35 02/09/19 05:16 HEENT - Atraumatic, Normocephalic Neuro- Pupile equal and responsive but sluggish. Obtunded. Not responding to sternal rub Heart - S1, S2, RRR Lungs - Clear to auscultation, no crackles/wheeze. Abdomen - Soft, non-tender. Bowel Sounds normal Extremities - No calf swelling, no edema Laboratory Results - last 24 hr 02/08/19 02/08/19 02/08/19 18:00 18:00 18:00 WBC RBC Hgb Hct MCV MCH MCHC RDW Plt Count MPV Absolute Neuts (auto) Neutrophils % Lymphocytes % Monocytes % Eosinophils % Basophils % Nucleated RBC % Retic Count PT with INR INR PTT (Actin FS) Puncture Site ABG pH ABG pCO2 at Pt Temp ABG pO2 at Pt Temp ABG HCO3 ABG O2 Sat (Measured) ABG O2 Content ABG Base Excess Sumit Test VBG pH POC VBG pCO2 POC VBG pO2 VBG HCO3 VBG O2 Sat ([place]) VBG Base Excess O2 Delivery Device Oxygen Flow Rate Sodium 140 Potassium 4.1 Chloride 109 H Carbon Dioxide 22 Anion Gap 9 BUN 39 H Creatinine 1.8 H Creat Clearance w eGFR 28.80 POC Glucometer Random Glucose 254 H Calcium 9.1 Phosphorus Magnesium Ferritin Total Bilirubin 1.3 H AST 91 H ALT 56 Alkaline Phosphatase 102 Ammonia 98.20 H Total Protein 8.4 H Albumin 3.0 L Urine Color Urine Appearance Urine pH Ur Specific [place] Urine Protein Urine Glucose (UA) Urine Ketones Urine Blood Urine Nitrite Urine Bilirubin Urine Urobilinogen Ur Leukocyte Esterase Urine WBC (Auto) Urine RBC (Auto) Ur Epithelial Cells Urine Bacteria Urine Mucus Opiates Screen Methadone Screen Barbiturate Screen Phencyclidine Screen Ur Amphetamines Screen MDMA (Ecstasy) Screen Benzodiazepines Screen Cocaine Screen U Marijuana (THC) Screen Alcohol, Quantitative < 3.0 02/08/19 02/08/19 02/08/19 19:04 19:04 19:38 WBC RBC Hgb Hct MCV MCH MCHC RDW Plt Count MPV Absolute Neuts (auto) Neutrophils % Lymphocytes % Monocytes % Eosinophils % Basophils % Nucleated RBC % Retic Count PT with INR INR PTT (Actin FS) Puncture Site ABG pH ABG pCO2 at Pt Temp ABG pO2 at Pt Temp ABG HCO3 ABG O2 Sat (Measured) ABG O2 Content ABG Base Excess Sumit Test VBG pH POC VBG pCO2 POC VBG pO2 VBG HCO3 VBG O2 Sat ([place]) VBG Base Excess O2 Delivery Device Oxygen Flow Rate Sodium Potassium Chloride Carbon Dioxide Anion Gap BUN Creatinine Creat Clearance w eGFR POC Glucometer Random Glucose Calcium Phosphorus Magnesium 1.9 Ferritin Total Bilirubin AST ALT Alkaline Phosphatase Ammonia Total Protein Albumin Urine Color Yellow Urine Appearance Clear Urine pH 5.0 Ur Specific [place] 1.015 Urine Protein 2+ H Urine Glucose (UA) Negative Urine Ketones Trace H Urine Blood Negative Urine Nitrite Negative Urine Bilirubin Negative Urine Urobilinogen 2.0 H Ur Leukocyte Esterase Negative Urine WBC (Auto) 2 Urine RBC (Auto) 1 Ur Epithelial Cells Rare Urine Bacteria Rare Urine Mucus Rare Opiates Screen Negative Methadone Screen Negative Barbiturate Screen Negative Phencyclidine Screen Negative Ur Amphetamines Screen Negative MDMA (Ecstasy) Screen Negative Benzodiazepines Screen Positive A* Cocaine Screen Negative U Marijuana (THC) Screen Negative Alcohol, Quantitative 02/08/19 02/08/19 02/08/19 21:51 21:56 23:11 WBC RBC Hgb Hct MCV MCH MCHC RDW Plt Count MPV Absolute Neuts (auto) Neutrophils % Lymphocytes % Monocytes % Eosinophils % Basophils % Nucleated RBC % Retic Count PT with INR 13.30 H INR 1.13 H PTT (Actin FS) 37.9 H Puncture Site ABG pH ABG pCO2 at Pt Temp ABG pO2 at Pt Temp ABG HCO3 ABG O2 Sat (Measured) ABG O2 Content ABG Base Excess Sumit Test VBG pH 7.45 H POC VBG pCO2 35.1 L POC VBG pO2 31.8 VBG HCO3 23.9 VBG O2 Sat ([place]) 55.5 L VBG Base Excess 0.7 O2 Delivery Device Oxygen Flow Rate Sodium Potassium Chloride Carbon Dioxide Anion Gap BUN Creatinine Creat Clearance w eGFR POC Glucometer 228 Random Glucose Calcium Phosphorus Magnesium Ferritin Total Bilirubin AST ALT Alkaline Phosphatase Ammonia Total Protein Albumin Urine Color Urine Appearance Urine pH Ur Specific [place] Urine Protein Urine Glucose (UA) Urine Ketones Urine Blood Urine Nitrite Urine Bilirubin Urine Urobilinogen Ur Leukocyte Esterase Urine WBC (Auto) Urine RBC (Auto) Ur Epithelial Cells Urine Bacteria Urine Mucus Opiates Screen Methadone Screen Barbiturate Screen Phencyclidine Screen Ur Amphetamines Screen MDMA (Ecstasy) Screen Benzodiazepines Screen Cocaine Screen U Marijuana (THC) Screen Alcohol, Quantitative 02/09/19 02/09/19 02/09/19 06:00 06:15 06:15 WBC 5.2 RBC 3.28 L Hgb 10.6 L Hct 30.6 L MCV 93.3 MCH 32.3 MCHC 34.6 RDW 20.3 H Plt Count 94 L MPV 8.7 Absolute Neuts (auto) 3.2 Neutrophils % 60.5 Lymphocytes % 25.3 Monocytes % 9.7 Eosinophils % 4.0 Basophils % 0.5 Nucleated RBC % 0 Retic Count Cancelled 2.79 H PT with INR INR PTT (Actin FS) Puncture Site ABG pH ABG pCO2 at Pt Temp ABG pO2 at Pt Temp ABG HCO3 ABG O2 Sat (Measured) ABG O2 Content ABG Base Excess Sumit Test VBG pH POC VBG pCO2 POC VBG pO2 VBG HCO3 VBG O2 Sat ([place]) VBG Base Excess O2 Delivery Device Oxygen Flow Rate Sodium 143 Potassium 4.0 Chloride 112 H Carbon Dioxide 23 Anion Gap 7 L BUN 36 H Creatinine 1.7 H Creat Clearance w eGFR 30.76 POC Glucometer Random Glucose 181 H Calcium 8.3 L Phosphorus 3.7 Magnesium 2.0 Ferritin Total Bilirubin 1.2 H AST 72 H ALT 48 Alkaline Phosphatase 85 Ammonia Total Protein 7.3 Albumin 2.4 L Urine Color Urine Appearance Urine pH Ur Specific [place] Urine Protein Urine Glucose (UA) Urine Ketones Urine Blood Urine Nitrite Urine Bilirubin Urine Urobilinogen Ur Leukocyte Esterase Urine WBC (Auto) Urine RBC (Auto) Ur Epithelial Cells Urine Bacteria Urine Mucus Opiates Screen Methadone Screen Barbiturate Screen Phencyclidine Screen Ur Amphetamines Screen MDMA (Ecstasy) Screen Benzodiazepines Screen Cocaine Screen U Marijuana (THC) Screen Alcohol, Quantitative 02/09/19 02/09/19 02/09/19 06:15 11:00 12:14 WBC RBC Hgb Hct MCV MCH MCHC RDW Plt Count MPV Absolute Neuts (auto) Neutrophils % Lymphocytes % Monocytes % Eosinophils % Basophils % Nucleated RBC % Retic Count PT with INR INR PTT (Actin FS) Puncture Site Right radial ABG pH 7.52 H ABG pCO2 at Pt Temp 25.4 L ABG pO2 at Pt Temp 114 H ABG HCO3 20.6 L ABG O2 Sat (Measured) 98.8 H ABG O2 Content 13.0 L ABG Base Excess -1.2 Sumit Test Positive VBG pH POC VBG pCO2 POC VBG pO2 VBG HCO3 VBG O2 Sat ([place]) VBG Base Excess O2 Delivery Device Room air Oxygen Flow Rate 21% Sodium Potassium Chloride Carbon Dioxide Anion Gap BUN Creatinine Creat Clearance w eGFR POC Glucometer 190 Random Glucose Calcium Phosphorus Magnesium Ferritin 493.3 H Total Bilirubin AST ALT Alkaline Phosphatase Ammonia Total Protein Albumin Urine Color Urine Appearance Urine pH Ur Specific [place] Urine Protein Urine Glucose (UA) Urine Ketones Urine Blood Urine Nitrite Urine Bilirubin Urine Urobilinogen Ur Leukocyte Esterase Urine WBC (Auto) Urine RBC (Auto) Ur Epithelial Cells Urine Bacteria Urine Mucus Opiates Screen Methadone Screen Barbiturate Screen Phencyclidine Screen Ur Amphetamines Screen MDMA (Ecstasy) Screen Benzodiazepines Screen Cocaine Screen U Marijuana (THC) Screen Alcohol, Quantitative 02/09/19 16:44 WBC RBC Hgb Hct MCV MCH MCHC RDW Plt Count MPV Absolute Neuts (auto) Neutrophils % Lymphocytes % Monocytes % Eosinophils % Basophils % Nucleated RBC % Retic Count PT with INR INR PTT (Actin FS) Puncture Site ABG pH ABG pCO2 at Pt Temp ABG pO2 at Pt Temp ABG HCO3 ABG O2 Sat (Measured) ABG O2 Content ABG Base Excess Sumit Test VBG pH POC VBG pCO2 POC VBG pO2 VBG HCO3 VBG O2 Sat ([place]) VBG Base Excess O2 Delivery Device Oxygen Flow Rate Sodium Potassium Chloride Carbon Dioxide Anion Gap BUN Creatinine Creat Clearance w eGFR POC Glucometer 216 Random Glucose Calcium Phosphorus Magnesium Ferritin Total Bilirubin AST ALT Alkaline Phosphatase Ammonia Total Protein Albumin Urine Color Urine Appearance Urine pH Ur Specific [place] Urine Protein Urine Glucose (UA) Urine Ketones Urine Blood Urine Nitrite Urine Bilirubin Urine Urobilinogen Ur Leukocyte Esterase Urine WBC (Auto) Urine RBC (Auto) Ur Epithelial Cells Urine Bacteria Urine Mucus Opiates Screen Methadone Screen Barbiturate Screen Phencyclidine Screen Ur Amphetamines Screen MDMA (Ecstasy) Screen Benzodiazepines Screen Cocaine Screen U Marijuana (THC) Screen Alcohol, Quantitative Current Medications Generic Name Dose Route Start Last Admin Trade Name Freq PRN Reason Stop Dose Admin Amlodipine Besylate 5 mg 02/08/19 22:30 02/09/19 13:39 Norvasc - PO Not Given BID SACHIN Folic Acid 1 mg 02/08/19 21:45 02/09/19 16:08 Folic Acid Injection - SQ 1 mg DAILY SACHIN Administration Sodium Chloride 1,000 mls @ 100 mls/hr 02/09/19 10:30 02/09/19 11:11 Normal Saline - IV 100 mls/hr ASDIR SACHIN Administration Insulin Aspart 1 vial 02/08/19 22:00 02/09/19 17:20 Novolog Vial Sliding Scale - SQ 4 unit ACHS SACHIN Administration Protocol Lactulose 20 gm 02/09/19 10:15 02/09/19 17:20 Cephulac (Oral Use) PO 20 gm Q3H SACHIN Administration Thiamine HCl 100 mg 02/09/19 10:00 02/09/19 16:07 Vitamin B1 Injection - IM 100 mg DAILY SACHIN Administration Home Medications Medication Instructions Recorded Ascorbic Acid 500 mg PO DAILY 02/09/19 Calcium Carb/Vitamin D3/Vit K1 1 each PO DAILY 02/09/19 [Calcium + D Soft Chewable Tab] Gabapentin 100 mg PO TID 02/09/19 Hydrocortisone 0.5% Cream [Hytone 1 applic RC BID 02/09/19 0.5% Cream -] Insulin Glargine,Hum.rec.anlog 25 unit SQ HS 02/09/19 [Lantus] Insulin Lispro [Humalog] 8 unit SQ TID 02/09/19 Multivitamins [Tab-A-Vit -] 1 tab PO DAILY 02/09/19 Sennosides/Docusate Sodium 1 each PO HS PRN 02/09/19 [Docusate Sodium-Senna Tablet] Thiamine HCl [Vitamin B-1] 100 mg PO DAILY 02/09/19 ASSESSMENT/PLAN 58 year old female with history of Liver Cirrhosis, Alcohol Abuse, Hepatitis C, recent history of SBP 12/14, DM 2, HTN, Polysubstance Abuse (including Alcohol), Bipolar Disorder, sent to ED from [facility] for agitation, combativeness, and altered mental status while undergoing detox. She received Ativan in ED and is now unresponsive and obtunded. 1. Acute Hepatic Encephalopathy versus Toxic Encephalopathy secondary to Ativan +/- Acute Alcohol withdrawal Head CT - negative for acute intracranial findings. Hold further Ativan for now. Continue Thiamine and Folic acid. NG tube for lactulose as patient not awake enough to safely swallow. GI Consulted. Transferred from [facility] where she was undergoing detox - will consult Addiction Medicine. If no improvement in mental status or deterioration in airway maintenance, will possibly require ICU, consult placed. 2. History of Liver Cirrhosis with prior SBP Abdominal US - Ascites. No evidence of SBP currently. Afebrile, Hemodynamically stable. 3. DM 2 Maintain on insulin sliding scale. 4. BOB - likely secondary to dehydration. Last Creat on record was normal in 2012. Will hydrate and request Renal US to exclude obstruction. 5. Thrombocytopenia - secondary to Liver Cirrhosis/Alcohol excess. No evidence of bruising/bleeding. 6. HTN - Started on Norvasc DVT Px - SCDs - Heparin/Lovenox held due to thrombocytopenia Visit type - Emergency Visit Emergency Visit: Yes ED Registration Date: 02/08/19 Care time: The patient presented to the Emergency Department on the above date and was hospitalized for further evaluation of their emergent condition. - New Patient This patient is new to me today: Yes Date on this admission: 02/09/19 - Critical Care Critical Care patient: No - Discharge Referral Referred to [facility] Med P.C.: No
[2019-02-10] MEDS: LACTULOSE 20 GM/30 ML UDC (FOR ORAL USE ONLY) PO SCH ×8 (02:44→22:19)
[2019-02-10] MEDS: INSULIN SLIDING SCALE (NOVOLOG) 1 VIAL SQ SCH ×4 (06:39→22:19)
[2019-02-10 07:07] LABS: SERUM IRON SATURATION 22 % (15-55); TOTAL IRON BINDING CAPACITY 223 ug/dL (250-450); UIBC 173 ug/dL (131-425)
[2019-02-10 09:25] LABS: ALBUMIN 2.8 g/dl (3.4-5.0); ALK PHOS 90 U/L (45-117); ANION GAP 11 MMOL/L (8-16); BILIRUBIN,TOTAL 1.3 mg/dL (0.2-1); BLOOD UREA NITROGEN 33 mg/dL (7-18); CHLORIDE 120 mmol/L (98-107); CO2 18 mmol/L (21-32); CREATININE 1.9 mg/dL (0.55-1.3); GLUCOSE,RANDOM 140 mg/dL (74-106); POTASSIUM 3.5 mmol/L (3.5-5.1); SGOT/AST 92 U/L (15-37); SGPT/ALT 53 U/L (13-61); SODIUM 148 mmol/L (136-145); TOT PROT 8.1 g/dl (6.4-8.2)
[2019-02-10] MEDS: amLODIPine BESYLATE 5 MG TABLET (FP) PO SCH (10:47)
[2019-02-10] MEDS: SODIUM CHLORIDE 1,000 ML IV SCH (10:47)
[2019-02-10] MEDS: THIAMINE HCL 200 MG/2 ML VIAL IM SCH (10:47)
[2019-02-10] MEDS: FOLIC ACID 5 MG/1 ML SQ SCH (10:47)
[2019-02-10] MEDS: LACTULOSE 20 GM/30 ML UDC (FOR RECTAL USE ONLY) PR SCH (11:45)
--- NOTE | 2019-02-10 12:36 | CONSULT ---
Admitting History and Physical - Primary Care Physician PCP: Tristen Corrigan - Admission History of Present Illness: 58 year old female with history of Liver Cirrhosis, Alcohol Abuse, Hepatitis C, recent history of SBP 12/14, DM 2, HTN, Polysubstance Abuse (including Alcohol), Bipolar Disorder, sent to ED from [facility] for agitation, combativeness, and altered mental status while undergoing detox. She received Ativan in ED and was unresponsive and obtunded. Eyes closed today but arousable, resistent to care, verbal, cofused History Source: Medical Record Limitations to Obtaining History: Clinical Condition - Past Medical History Cardiovascular: Yes: HTN Hepatobiliary: Yes: Hepatitis C ...LMP: 04/28/03 Psych: Yes: Addictions (polysubstance abuse), Bipolar Endocrine: Yes: Diabetes Mellitus - Smoking History Smoking history: Current every day smoker Have you smoked in the past 12 months: Yes Aproximately how many cigarettes per day: 3 - Alcohol/Substance Use Hx Alcohol Use: Yes (TODAY) History - Admission Reason For Visit: HEPATIC ENCEPHALOPATHY - Diagnostics X-ray: Report Reviewed CT Scan: Report Reviewed - General Mental Status: Able to Follow Commands, Combative (verbally), Confused, Lethargic Attention: Distractible, Mild Impairment, Moderate Impairment Ability to Follow Directions: Fair Head/Neck Control: Fair - Hearing Hearing: Normal Speech Evaluation - Communication Primary Language: [place] Communication: Yes: Within Normal Limits, Simple Responses - Speech Production Able to Make Needs Known: Yes: WNL Intelligibility: Yes: WNL - Speech Characteristics Voice Loudness: Normal Voice Pitch: Yes: Normal Voice Phonatory-based Quality: Yes: Normal Speech Pattern: Normal Speech Clarity: < 100% Nasal Resonance: Normal Articulation: Yes: Precise - Language/Auditory Comprehension Follows: Yes: 1 Stage Simple Commands - Language/Verbal Expression Able to Communicate Wants and Needs: Yes: WNL - Swallow Evaluation/Bedside Assessment Current Nutritional Intake: NPO, Other (meds with sips) Oral Secretions: Yes: WFL Dentition: Yes: Edentulous Facial Symmetry at Rest: Symmetrical Lingual Movement: Normal, Symmetric Velopharyngeal Movement: Normal Laryngeal Movement: Able to Palpate Rate of Intake: Slow/Holding (distractible. Needs reminders to swallow) Bolus Size: WFL Labial Seal: WFL Oral Prep Time: Increased Timing of Swallow: Delayed Coughing/Throat Clear: No Change in Voice: No Recommendations - Speech Evaluation, Impression/Plan Impression: Lethargic but arousable. Oral holding sec to lethargy and distractiblty. Swallow delayed byt brisk. Tolerated water via straw withut overt difficulty - Dysphagia Impressions/Plan Dysphagia Impressions: Risk of Aspiration (due to lethargy and distractibility) *Silent aspiration: cannot be R/O at bedside Dysphagia Treatment Plan: Small Bites, Chin Tuck/Down, Clear Pocket Food, Trial Feedings, Safe Rate, 1/2 tsp. at a time, Elevate HOB during feed, Other (tell pt to swallow with each 1/2 tsp, monitor for swallow reflex and po tolerance) Recommendations: Other (Feed only when sufficently alert) - Recommendations Diet Consistency: Dysphagia Pureed Medication Administration: Crushed with applesauce Liquids: Thin Liquids Supplement: Ensure, Magic Cup
[2019-02-10] MEDS ORDERED: ACETAMINOPHEN 325 MG TABLET (FP) PO ONE ×2 (12:53→23:59)
--- NOTE | 2019-02-10 13:30 | PN ---
Physical Exam: SUBJECTIVE: Patient seen and examined at bedside. Improving alertness and orientation. OBJECTIVE: Vital Signs Period Temp Pulse Resp BP Sys/Aguilar Pulse Ox Last 24 Hr 97.7 F-98.1 F 89-97 18-20 153-174/79-99 GENERAL: Lethargic but alerts to noxious stimuli, oriented to self only at time of encounter but mental status improving HEENT: NC/AT, PERRLA, EOMI, MMM NECK: Trachea midline, full range of motion, supple. LUNGS: CTA b/l HEART: RRR no m/r/g ABDOMEN: +bs, soft, NT, ND EXTREMITIES: 2+ pulses, warm, well-perfused, no edema. 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 SKIN: Warm, dry, normal turgor, no rashes or lesions noted Laboratory Results - last 24 hr 02/09/19 02/09/19 02/09/19 06:15 16:44 22:59 Sodium Potassium Chloride Carbon Dioxide Anion Gap BUN Creatinine Creat Clearance w eGFR POC Glucometer 216 128 Random Glucose Calcium Iron 50 TIBC 223 L Iron Saturation 22 Total Bilirubin AST ALT Alkaline Phosphatase Total Protein Albumin 02/10/19 02/10/19 02/10/19 06:38 08:40 11:29 Sodium 148 H Potassium 3.5 Chloride 120 H Carbon Dioxide 18 L Anion Gap 11 BUN 33 H Creatinine 1.9 H Creat Clearance w eGFR 27.06 POC Glucometer 162 125 Random Glucose 140 H Calcium 8.0 L Iron TIBC Iron Saturation Total Bilirubin 1.3 H AST 92 H ALT 53 Alkaline Phosphatase 90 Total Protein 8.1 Albumin 2.8 L Active Medications Generic Name Dose Route Start Last Admin Trade Name Freq PRN Reason Stop Dose Admin Amlodipine Besylate 5 mg 02/08/19 22:30 02/10/19 10:47 Norvasc - PO 5 mg BID SACHIN Administration Folic Acid 1 mg 02/08/19 21:45 02/10/19 10:47 Folic Acid Injection - SQ 1 mg DAILY SACHIN Administration Sodium Chloride 1,000 mls @ 100 mls/hr 02/09/19 10:30 02/10/19 10:47 Normal Saline - IV 100 mls/hr ASDIR SACHIN Administration Insulin Aspart 1 vial 02/08/19 22:00 02/10/19 11:33 Novolog Vial Sliding Scale - SQ Not Given ACHS SACHIN Protocol Lactulose 20 gm 02/09/19 10:15 02/10/19 10:47 Cephulac (Oral Use) PO 20 gm Q3H SACHIN Administration Thiamine HCl 100 mg 02/09/19 10:00 02/10/19 10:47 Vitamin B1 Injection - IM 100 mg DAILY SACHIN Administration ASSESSMENT/PLAN: 58 y/o F w/ PMHx cirrhosis, hep C, polysubstance abuse including EtOH, DM, HTN, bipolar disorder, recent h/o SBP 12/14, presents from [facility] for agitation, combativeness, AMS while undergoing detox #hepatic encephalopathy vs. acute withdrawal -HCT negative -mental status improving on lactulose -no further benzodiazepines at this time -cont thiamine, folate -cont lactulose, titrate to BMs -speech/swallow consulted, recommendations implemented -cont IVF #cirrhosis w/ prior SBP -ascites on US -afebrile, hemodynamically stable -GI consulted, recommendations appreciated #BOB vs CKD -last known Cr in 2012 was wnl -no obstruction on renal US -monitor BMP -cont IVF #DM -SSI, BGM #thrombocytopenia -likely 2/2 liver disease, no evidence of bleeding #HTN -cont amlodipine #bipolar -psych consult when fully alert or f/u as outpt #FEN -NS @ 100 -monitor and correct electrolytes -dysphagia puree w/ thin liquids as per S/S #PPx -DVT: mechanical only -GI: not indicated #code -full #dispo -cont to monitor on med/surg Visit type - Emergency Visit Emergency Visit: No - New Patient This patient is new to me today: Yes Date on this admission: 02/10/19 - Critical Care Critical Care patient: No
--- NOTE | 2019-02-10 14:56 | PN ---
Progress Note (short form) - Note Progress Note: GI follow up Patient is asleep in bed in vest and arm restraints Vital Signs Temp 98.1 F 02/10/19 09:20 Pulse 89 02/10/19 09:20 Resp 20 02/10/19 09:20 BP 160/79 02/10/19 09:20 Pulse Ox 98 02/09/19 05:16 Sleepy but arousable Abdomen soft, NT, moderate distension CBC, BMP 02/09/19 06:15 02/10/19 08:40 Hepatic Panel Total Bilirubin 1.3 mg/dL (0.2-1) H 02/10/19 08:40 AST 92 U/L (15-37) H 02/10/19 08:40 ALT 53 U/L (13-61) 02/10/19 08:40 Alkaline Phosphatase 90 U/L (45-117) 02/10/19 08:40 Albumin 2.8 g/dl (3.4-5.0) L 02/10/19 08:40 INR, PTT INR 1.13 (0.83-1.09) H 02/08/19 21:56 Impression: Xiao-systemic encephalopathy. Would bolaños culture (blood, urine), get CXR, needs diagnostic tap to rule out SBP. Continue lactulose, titrate to 3 bm per day.
[2019-02-10] MEDS ORDERED: ZINC OXIDE/PANTHENOL/VITAMIN E 56 GM TUBE TP PRN (15:16)
--- NOTE | 2019-02-10 15:21 | PN ---
Progress Note (short form) - Note Progress Note: Called by nurse to evaluate scantly bleeding and inflamed anorectal lesion. In setting of liver disease, may represent anorectal varices. Treating with topical zinc at this time. Avoid any rectal insertion/instrumentation.
[2019-02-10 15:24] LABS: URINE APPEARANCE SLCLOUDY; URINE BILIRUBIN NEGATIVE (<2.0 mg/dL); URINE COLOR YELLOW; URINE GLUCOSE (UA) NEGATIVE (NEGATIVE); URINE KETONE TRACE (NEGATIVE); URINE LEUK ESTERASE NEGATIVE (NEGATIVE); URINE NITRITE NEGATIVE (NEGATIVE); URINE PROTEIN 2+ (NEGATIVE)
[2019-02-10 15:26] LABS: URINE BACTERIA MANY /hpf (NONE SEEN); URINE HYALINE CAST 1 /lpf; URINE MUCUS RARE
[2019-02-10] MEDS ORDERED: amLODIPine BESYLATE 5 MG TABLET (FP) PO SCH ×2 (15:31→15:44)
[2019-02-10] MEDS ORDERED: hydrALAZINE HCL 25 MG TABLET (FP) PO ONE (16:45)
[2019-02-10] MEDS ORDERED: amLODIPine BESYLATE 5 MG TABLET (FP) PO ONE (16:45)
--- NOTE | 2019-02-10 18:57 | PN ---
Teaching Attending Note Name of Resident: Houston Melo ATTENDING PHYSICIAN STATEMENT I saw and evaluated the patient. I reviewed the resident's note and discussed the case with the resident. I agree with the resident's findings and plan as documented. SUBJECTIVE - More awake, making eye contact, still combative, verbally abusive. Pulled out NG tube overnight. OBJECTIVE: Afebrile, Hemodynamcally Stable. Last Vital Signs Temp Pulse Resp BP Pulse Ox 98.1 F 105 H 20 169/91 98 02/10/19 09:20 02/10/19 18:20 02/10/19 18:20 02/10/19 18:20 02/10/19 09:00 HEENT - Atraumatic, Normocephalic Neuro - Pupils equal and responsive to light. More awake, slightly agitated. Not oriented. Heart - S1, S2, SM Lungs - Clear to auscultation, no crackles/wheeze. Abdomen - Soft, non-tender. Bowel Sounds normal Extremities - No calf swelling, no edema Laboratory Results - last 24 hr 02/09/19 02/09/19 02/10/19 06:15 22:59 06:38 Sodium Potassium Chloride Carbon Dioxide Anion Gap BUN Creatinine Creat Clearance w eGFR POC Glucometer 128 162 Random Glucose Calcium Iron 50 TIBC 223 L Iron Saturation 22 Total Bilirubin AST ALT Alkaline Phosphatase Total Protein Albumin Urine Color Urine Appearance Urine pH Ur Specific [place] Urine Protein Urine Glucose (UA) Urine Ketones Urine Blood Urine Nitrite Urine Bilirubin Urine Urobilinogen Ur Leukocyte Esterase Urine WBC (Auto) Urine RBC (Auto) Urine Bacteria Hyaline Casts Urine Mucus 02/10/19 02/10/19 02/10/19 08:40 11:29 13:00 Sodium 148 H Potassium 3.5 Chloride 120 H Carbon Dioxide 18 L Anion Gap 11 BUN 33 H Creatinine 1.9 H Creat Clearance w eGFR 27.06 POC Glucometer 125 Random Glucose 140 H Calcium 8.0 L Iron TIBC Iron Saturation Total Bilirubin 1.3 H AST 92 H ALT 53 Alkaline Phosphatase 90 Total Protein 8.1 Albumin 2.8 L Urine Color Yellow Urine Appearance Slcloudy Urine pH 5.0 Ur Specific [place] 1.014 Urine Protein 2+ H Urine Glucose (UA) Negative Urine Ketones Trace H Urine Blood Negative Urine Nitrite Negative Urine Bilirubin Negative Urine Urobilinogen 2.0 H Ur Leukocyte Esterase Negative Urine WBC (Auto) 6 Urine RBC (Auto) 1 Urine Bacteria Many Hyaline Casts 1 Urine Mucus Rare 02/10/19 16:35 Sodium Potassium Chloride Carbon Dioxide Anion Gap BUN Creatinine Creat Clearance w eGFR POC Glucometer 284 Random Glucose Calcium Iron TIBC Iron Saturation Total Bilirubin AST ALT Alkaline Phosphatase Total Protein Albumin Urine Color Urine Appearance Urine pH Ur Specific [place] Urine Protein Urine Glucose (UA) Urine Ketones Urine Blood Urine Nitrite Urine Bilirubin Urine Urobilinogen Ur Leukocyte Esterase Urine WBC (Auto) Urine RBC (Auto) Urine Bacteria Hyaline Casts Urine Mucus Current Medications Generic Name Dose Route Start Last Admin Trade Name Freq PRN Reason Stop Dose Admin Amlodipine Besylate 5 mg 02/11/19 10:00 Norvasc - PO BID SACHIN Folic Acid 1 mg 02/08/19 21:45 02/10/19 10:47 Folic Acid Injection - SQ 1 mg DAILY SACHIN Administration Sodium Chloride 1,000 mls @ 100 mls/hr 02/09/19 10:30 02/10/19 10:47 Normal Saline - IV 100 mls/hr ASDIR SACHIN Administration Insulin Aspart 1 vial 02/08/19 22:00 02/10/19 16:46 Novolog Vial Sliding Scale - SQ 6 unit ACHS SACHIN Administration Protocol Lactulose 20 gm 02/09/19 10:15 02/10/19 18:48 Cephulac (Oral Use) PO Not Given Q3H SACHIN Thiamine HCl 100 mg 02/09/19 10:00 02/10/19 10:47 Vitamin B1 Injection - IM 100 mg DAILY SACHIN Administration Zinc Oxide/Panthenol/Vitamin E 1 applic 02/10/19 15:16 02/10/19 17:21 Balmex Cream - TP 1 applic ASDIR PRN Administration HYGEINE ASSESSMENT/PLAN 58 year old female with history of Liver Cirrhosis, Alcohol Abuse, Hepatitis C, recent history of SBP 12/14, DM 2, HTN, Polysubstance Abuse (including Alcohol), Bipolar Disorder, sent to ED from [facility] for agitation, combativeness, and altered mental status while undergoing detox. She received Ativan in ED and became unresponsive and obtunded. 1. Acute Hepatic Encephalopathy versus Toxic Encephalopathy secondary to Ativan +/- Acute Alcohol withdrawal Head CT - negative for acute intracranial findings. Hold further Ativan for now. Continue Thiamine and Folic acid. NG tube placed for lactulose but she pulled out overnight - now more awake and passed swallow eval. GI following - recommend bolaños-culture, CXR, and Paracentesis to exclude SBP Transferred from [facility] where she was undergoing detox - Addiction Medicine consulted. 2. History of Liver Cirrhosis with prior SBP Abdominal US - Ascites. No clinical evidence of SBP currently - for paracentesis Afebrile, Hemodynamically stable. 3. DM 2 Maintain on insulin sliding scale. 4. BOB - likely secondary to dehydration. Last Creat on record was normal in 2012. Renal US - echogenic kidneys suggestive of medical renal disease. Continue IV hydration - change to half-normal saline due to hypernatremia. 5. Thrombocytopenia - secondary to Liver Cirrhosis/Alcohol excess. No evidence of bruising/bleeding. 6. HTN - Started on Norvasc DVT Px - SCDs - Heparin/Lovenox held due to thrombocytopenia
[2019-02-10] MEDS ORDERED: SODIUM CHLORIDE 0.45% 1,000 ML IV SCH (19:15)
[2019-02-10] MEDS ORDERED: LORazepam 0.5 MG TABLET PO PRN (23:00)
[2019-02-10] MEDS ORDERED: METOPROLOL TARTRATE 5 MG/5 ML VIAL IVPUSH ONE (23:59)
[2019-02-11] MEDS ORDERED: METOPROLOL TARTRATE 25 MG TABLET (FP) PO ONE (00:30)
[2019-02-11] MEDS: LACTULOSE 20 GM/30 ML UDC (FOR ORAL USE ONLY) PO SCH ×4 (01:30→21:12)
[2019-02-11] MEDS: INSULIN SLIDING SCALE (NOVOLOG) 1 VIAL SQ SCH ×4 (06:42→21:18)
[2019-02-11 07:13] LABS: BASO % 0.5 % (0-2.0); EOS % 2.9 % (0-4.5); HEMATOCRIT 25.1 % (32.4-45.2); HEMOGLOBIN 8.5 GM/dL (10.7-15.3); LYMPH % 23.5 % (8-40); MCH 32.3 pg (25.7-33.7); MCHC 33.8 g/dl (32.0-36.0); MEAN CELL VOLUME 95.6 fl (80-96); MEAN PLT VOLUME 8.3 fl (7.5-11.1); MONO % 9.1 % (3.8-10.2); PLATELET COUNT 94 K/MM3 (134-434); RBC 2.62 M/mm3 (3.60-5.2); RDW 21.3 % (11.6-15.6); WHITE BLOOD COUNT 8.3 K/mm3 (4.0-10.0)
[2019-02-11 08:00] LABS: ALBUMIN 2.2 g/dl (3.4-5.0); ALK PHOS 92 U/L (45-117); ANION GAP 8 MMOL/L (8-16); BILIRUBIN,TOTAL 1.4 mg/dL (0.2-1); BLOOD UREA NITROGEN 36 mg/dL (7-18); CALCIUM 7.3 mg/dL (8.5-10.1); CHLORIDE 116 mmol/L (98-107); CO2 17 mmol/L (21-32); CREATININE 1.8 mg/dL (0.55-1.3); GLUCOSE,RANDOM 292 mg/dL (74-106); MAGNESIUM 1.8 mg/dL (1.8-2.4); PHOSPHOROUS 2.9 mg/dL (2.5-4.9); POTASSIUM 4.4 mmol/L (3.5-5.1); SGOT/AST 84 U/L (15-37); SGPT/ALT 49 U/L (13-61); SODIUM 141 mmol/L (136-145); TOT PROT 6.6 g/dl (6.4-8.2)
[2019-02-11] MEDS: THIAMINE HCL 100 MG TABLET (FP) PO SCH ×2 (09:50→12:02)
[2019-02-11] MEDS: FOLIC ACID 1 MG TABLET (FP) PO SCH ×2 (09:50→12:03)
[2019-02-11] MEDS: amLODIPine BESYLATE 5 MG TABLET (FP) PO SCH ×2 (09:50→12:03)
[2019-02-11] MEDS ORDERED: CEFTRIAXONE 1 GM in DEXTROSE 5%-WATER - 50 ML IVPB SCH (10:15)
--- NOTE | 2019-02-11 10:31 | PN ---
GI Progress Note Subjective: Somnolent today. Nurse states that NGT pulled out BGT yesterday but was able to cooperate with PO meds yesterday Nurse also describes dark BMs - Objective Vital Signs: Vital Signs Temperature 98.3 F 02/11/19 07:11 Pulse Rate 99 H 02/11/19 07:11 Respiratory Rate 02/11/19 07:11 Blood Pressure 145/40 L 02/11/19 07:11 O2 Sat by Pulse Oximetry (%) 98 02/10/19 21:00 Constitutional: Calm Eyes: No: Sclera Icterus Cardiovascular: Yes: Tachycardia Gastrointestinal Inspection: No: Distention ...Auscultate: Yes: Normoactive Bowel Sounds ...Percussion: No: Tympanitic ...Rectal Exam: Yes: Other (+ external hemorrhoids, maroon stool in rectal vault ) Edema: No Neurological: Yes: Other (somnolent) Labs: CBC, BMP 02/11/19 06:30 02/11/19 06:30 INR, PTT INR 1.13 (0.83-1.09) H 02/08/19 21:56 Hepatic Panel Total Bilirubin 1.4 mg/dL (0.2-1) H 02/11/19 06:30 AST 84 U/L (15-37) H 02/11/19 06:30 ALT 49 U/L (13-61) 02/11/19 06:30 Alkaline Phosphatase 92 U/L (45-117) 02/11/19 06:30 Albumin 2.2 g/dl (3.4-5.0) L 02/11/19 06:30 Problem List - Problems (1) Altered mental status Assessment/Plan: Receiving Abx. Having BM's still lethargic Monitor DAILY ammonia levels Continue evaluation for precipitating causes of altered mental status ? if bleeding playing a role. Given medical history, variceal bleeding would need to be considered in the differential. advised starting octreotide drip, transferring to ICU, NPO. Explained the current clinical situation to her sister , Leana Youngblood, who was the contact provided in the chart. Discussed plan for EGD to exclude gastric/esophageal varices along with alternate causes of upper GI bleeding. Discussed potential need for banding of esophageal varices. Discussed potential risks of the procedure like but not limited to bleeding, perforation requiring surgery to repair, infection, sedation medication effects all of which could be potentially life threatening. Explained that given Ms. Germain's altered mental status, she would likely need intubation prior to the procedure to protect her airway. She has agreed to the procedure but wanted to speak with her older sister as well as Ms. Germain's daughter Addy. I gave her my office number and she stated that she would have Addy call me to discuss the plan and obtain consent for the procedure. Her sister explained that her blood count was 6 at [facility] last week and that she was transfused. For now: NPO IV Hydration IV Abx Repeat CBC ordered for 1 pm Transfer to ICU notified and case discussed w/ Dr. Mckeon Primary team attending notified Start octreotide drip Protonix drip Will need eventual diagnostic paracentesis with fluid sent for culture, cell count with diff, albumin, total protein, cytology, AFB culture/smear, LDH, Glucose. Will need hepatic panel drawn the same day of the paracentesis. Code(s): R41.82 - ALTERED MENTAL STATUS, UNSPECIFIED Qualifiers: Altered mental status type: stupor Qualified Code(s): R40.1 - Stupor
--- NOTE | 2019-02-11 11:03 | PN ---
Teaching Attending Note Name of Resident: Coleen Cruz ATTENDING PHYSICIAN STATEMENT I saw and evaluated the patient. I reviewed the resident's note and discussed the case with the resident. I agree with the resident's findings and plan as documented. SUBJECTIVE: Called to assess patient due to being obtunded and GI bleed. History of HTN, HCV, polysubstance abuse, ascites, IDDM, CHF, and bipolar disorder. Admitted via the ER due to suspected hepatic/metabolic encephalopathy. Apparently has been receiving lactulose via NGT. Noted to have maroon colored/dark stool this AM by GI. Drop in H&H noted. Noted to be hypoxic to 80% on RA. Intake & Output 02/08/19 02/09/19 02/10/19 02/11/19 23:59 23:59 23:59 23:59 Intake Total 0 300 Output Total 250 Balance 0 50 Weight 115 lb 101 lb Last Vital Signs Temp Pulse Resp BP Pulse Ox 98.3 F 99 H 19 145/40 L 98 02/11/19 07:11 02/11/19 07:11 02/11/19 07:11 02/11/19 07:11 02/10/19 21:00 Active Medications Amlodipine Besylate (Norvasc -) 5 mg PO BID [facility] Last Admin: 02/11/19 09:50 Dose: 5 mg Folic Acid (Folic Acid -) 1 mg PO DAILY [facility] Last Admin: 02/11/19 09:50 Dose: 1 mg Sodium Chloride (1/2 Normal Saline) 1,000 mls @ 100 mls/hr IV ASDIR SACHIN Last Admin: 02/10/19 19:35 Dose: 100 mls/hr Ceftriaxone Sodium 1 gm/ (Dextrose) 50 mls @ 100 mls/hr IVPB DAILY [facility]; Protocol Insulin Aspart (Novolog Vial Sliding Scale -) 1 vial SQ ACHS SACHIN; Protocol Last Admin: 02/11/19 06:42 Dose: 6 unit Lactulose (Cephulac (Oral Use)) 20 gm PO TID SACHIN Thiamine HCl (Vitamin B1 -) 100 mg PO DAILY [facility] Last Admin: 02/11/19 09:50 Dose: 100 mg Zinc Oxide/Panthenol/Vitamin E (Balmex Cream -) 1 applic TP ASDIR PRN PRN Reason: HYGEINE Last Admin: 02/10/19 17:21 Dose: 1 applic GEN: Poorly responsive unable to arouse HEENT: dry mucus membranes NECK: supple HEART: Regular rate and rhythm, no murmurs noted LUNGS: few scattered rhonchi ABDOMEN: Soft, distended EXTREMITIES: no peripheral edema NEURO: Poorly responsive Laboratory Results - last 24 hr 02/10/19 02/10/19 02/10/19 11:29 13:00 16:35 WBC RBC Hgb Hct MCV MCH MCHC RDW Plt Count MPV Absolute Neuts (auto) Neutrophils % Lymphocytes % Monocytes % Eosinophils % Basophils % Nucleated RBC % Sodium Potassium Chloride Carbon Dioxide Anion Gap BUN Creatinine Creat Clearance w eGFR POC Glucometer 125 284 Random Glucose Calcium Phosphorus Magnesium Total Bilirubin AST ALT Alkaline Phosphatase Total Protein Albumin Urine Color Yellow Urine Appearance Slcloudy Urine pH 5.0 Ur Specific [place] 1.014 Urine Protein 2+ H Urine Glucose (UA) Negative Urine Ketones Trace H Urine Blood Negative Urine Nitrite Negative Urine Bilirubin Negative Urine Urobilinogen 2.0 H Ur Leukocyte Esterase Negative Urine WBC (Auto) 6 Urine RBC (Auto) 1 Urine Bacteria Many Hyaline Casts 1 Urine Mucus Rare 02/10/19 02/11/19 02/11/19 22:18 06:30 06:30 WBC 8.3 RBC 2.62 L Hgb 8.5 L Hct 25.1 L D MCV 95.6 MCH 32.3 MCHC 33.8 RDW 21.3 H Plt Count 94 L MPV 8.3 Absolute Neuts (auto) 5.3 Neutrophils % 64.0 Lymphocytes % 23.5 Monocytes % 9.1 Eosinophils % 2.9 Basophils % 0.5 Nucleated RBC % 0 Sodium 141 Potassium 4.4 Chloride 116 H Carbon Dioxide 17 L Anion Gap 8 BUN 36 H Creatinine 1.8 H Creat Clearance w eGFR 28.80 POC Glucometer 267 Random Glucose 292 H Calcium 7.3 L Phosphorus 2.9 Magnesium 1.8 Total Bilirubin 1.4 H AST 84 H ALT 49 Alkaline Phosphatase 92 Total Protein 6.6 Albumin 2.2 L Urine Color Urine Appearance Urine pH Ur Specific [place] Urine Protein Urine Glucose (UA) Urine Ketones Urine Blood Urine Nitrite Urine Bilirubin Urine Urobilinogen Ur Leukocyte Esterase Urine WBC (Auto) Urine RBC (Auto) Urine Bacteria Hyaline Casts Urine Mucus 02/11/19 06:41 WBC RBC Hgb Hct MCV MCH MCHC RDW Plt Count MPV Absolute Neuts (auto) Neutrophils % Lymphocytes % Monocytes % Eosinophils % Basophils % Nucleated RBC % Sodium Potassium Chloride Carbon Dioxide Anion Gap BUN Creatinine Creat Clearance w eGFR POC Glucometer 269 Random Glucose Calcium Phosphorus Magnesium Total Bilirubin AST ALT Alkaline Phosphatase Total Protein Albumin Urine Color Urine Appearance Urine pH Ur Specific [place] Urine Protein Urine Glucose (UA) Urine Ketones Urine Blood Urine Nitrite Urine Bilirubin Urine Urobilinogen Ur Leukocyte Esterase Urine WBC (Auto) Urine RBC (Auto) Urine Bacteria Hyaline Casts Urine Mucus ASSESSMENT/PLAN: Encephalopathy: Hepatic versus Metabolic. R/O hypercapnea GI Bleed: R/O Variceal Hypoxemia HTN HCV Polysubstance abuse Ascites R/O SBO IDDM Bipolar disorder Follow CBC Check ABG O2 to maintain saturation Aspiration precautions May need repeat paracentesis Check coags Check BGM Glycemic control Lactulose VTE prophylaxis Check CXR Low threshold for intubation Transfer to ICU Dr Mckeon Critical care time spent in reviewing chart, evaluating patient and formulating plan - 36 minutes.
[2019-02-11] MEDS ORDERED: PANTOPRAZOLE SODIUM 40 MG VIAL IVPUSH ONE (11:14)
[2019-02-11] MEDS ORDERED: OCTREOTIDE ACETATE 50 MCG/1 ML - 1 ML VIAL IVPB ONE (11:14)
[2019-02-11] MEDS ORDERED: PANTOPRAZOLE SODIUM 80 MG in SODIUM CHLORIDE 100 ML IVPB SCH (11:15)
[2019-02-11] MEDS ORDERED: OCTREOTIDE ACETATE 1,200 MCG in DEXTROSE 5%-WATER - 488 ML IVPB SCH (11:15)
[2019-02-11] MEDS ORDERED: cefTRIAXone SODIUM 1 GM VIAL ONE (12:04)
[2019-02-11] MEDS ORDERED: DEXTROSE 5%-WATER - 50 ML IVPB ONE (12:04)
[2019-02-11 12:23] LABS: ANISOCYTOSIS 1+; MACROCYTOSIS 1+; OVALOCYTE 1+
--- NOTE | 2019-02-11 12:25 | PN ---
Physical Exam: SUBJECTIVE: Patient seen and examined by me at bedside I was called to come assess patient for ICU transfer due to worsening altered mental status and Active rectal bleeding. On my examination, patient was altered and unable to follow commands or respond. When checking her diapers she had maroon and dark colored stools. Patient also had a 2gm drop in Hgb within two days. During my examination, patient was hypoxic to 80% on RA. NC was placed and patient saturated to 99%. Otherwise, unable to obtain any information from patient due to being obtunded and minimally responsive. OBJECTIVE: Vital Signs Period Temp Pulse Resp BP Sys/Aguilar Pulse Ox Last 24 Hr 98.3 F-98.4 F 79-113 19-20 134-197/40-113 98 GENERAL: Obtunded, minimally responsive HEAD: Normal with no signs of trauma. EYES: PERR ENT: Unable to assess as patient is uncooperative LUNGS: Breath sounds equal, clear to auscultation bilaterally, no wheezes, no crackles, no accessory muscle use. HEART: Regular rate and rhythm, S1, S2 without murmur, rub or gallop. ABDOMEN: Soft, nontender, nondistended, normoactive bowel sounds RECTAL: Maroon stool EXTREMITIES: 2+ pulses, warm, well-perfused, no edema. NEUROLOGICAL: Unable to assess due to patients medical condition and uncooperative Laboratory Results 02/11/19 06:30 02/11/19 06:30 02/11/19 06:30 Phosphorus 2.9 Magnesium 1.8 Total Bilirubin 1.4 H AST 84 H ALT 49 Alkaline Phosphatase 92 Active Medications Generic Name Dose Route Start Last Admin Trade Name Davonq PRN Reason Stop Dose Admin Amlodipine Besylate 5 mg 02/11/19 10:00 02/11/19 12:03 Norvasc - PO Not Given BID SACHIN Folic Acid 1 mg 02/11/19 10:00 02/11/19 12:03 Folic Acid - PO Not Given DAILY SACHIN Sodium Chloride 1,000 mls @ 100 mls/hr 02/10/19 19:15 02/10/19 19:35 1/2 Normal Saline IV 100 mls/hr ASDIR SACHIN Administration Ceftriaxone Sodium 1 gm/ 50 mls @ 100 mls/hr 02/11/19 10:15 02/11/19 12:13 Dextrose IVPB 100 mls/hr DAILY SACHIN Administration Protocol Octreotide Acetate 1,200 mcg/ 500 mls @ 20.83 mls/hr 02/11/19 11:15 Dextrose IVPB Q20H SACHIN 50 MCG/HR Pantoprazole Sodium 80 mg/ 100 mls @ 10 mls/hr 02/11/19 11:15 Sodium Chloride IVPB Q10H SACHIN 8 MG/HR Insulin Aspart 1 vial 02/08/19 22:00 02/11/19 11:46 Novolog Vial Sliding Scale - SQ Not Given ACHS SACHIN Protocol Lactulose 20 gm 02/11/19 14:00 Cephulac (Oral Use) PO TID SACHIN Thiamine HCl 100 mg 02/11/19 10:00 02/11/19 12:02 Vitamin B1 - PO Not Given DAILY SACHIN Zinc Oxide/Panthenol/Vitamin E 1 applic 02/10/19 15:16 02/10/19 17:21 Balmex Cream - TP 1 applic ASDIR PRN Administration HYGEINE ASSESSMENT/PLAN: Patient is a 58 year old female who presented with altered mental status and was found to have hepatic metabolic encephalopathy and GI bleed. Patient admitted to ICU and was then stable for transfer to the floors. However, patient had worsening AMS with Active GI bleed and is now transferred back to ICU for further monitoring and management. NEURO/PSYCH #Hepatic Encephalopathy -Patient was receiving Lactulose with >3 bowel movements daily -Remains Obtunded and will need ICU monitoring as patient may experience respiratory compromise -Avoid benozo's at this time #Polysubstance Abuse -Avoid benzo's -Currently obtunded -Continue folate and thiamine -Will need rehab after patient is stable CARDIO #HTN -Hold Anti-HTN medications as patient is actively bleeding -Continue to monitor BP and will treat as needed PULMONARY #Acute Hypoxic Respiratory Failire -Rule out Hypercapnea -ABG ordered -Patient now on NC and saturating well -Maintain 02 saturation >95% -Aspiration precautions GASTROENTEROLOGY #GI Bleed -Rule out Variceal bleeding -Octreotide drip started -Protonix drip started -Continue IV hydration @100CC/HR -Repeat CBC at 1300 today -Will likely require EGD today #Liver Cirrhosis with Hepatic Encephalopathy -History of prior SBP -Ascites on U/S -Will need diagnostic paracentesis with cytology once patient is stable #History of Hepatitis C -Unsure if patient was treated -Will need old records HEMATOLOGY #Thrombocytopenia -Likely secondary to liver disease -Will need to continue and monitor -Maintain >50 RENAL #BOB -Unsure if patient has CKD as last normal BUN/Cr in 2013 last on our records here -NS @ 100 cc/hr, monitor for signs of acute volume overload ENDOCRINE #IDDM II -BGM -ISS PROPHYLAXIS -SCDs for DVT. Avoid AC due to GI bleed -Protonix drip for GI FEN -NS @ 100 cc/hr -Monitor and replete -NPO Disposition -Full code -ICU monitoring due to active GI bleed. EGD to be done today Coleen Cruz [id number] Visit type - Emergency Visit Emergency Visit: Yes ED Registration Date: 02/08/19 Care time: The patient presented to the Emergency Department on the above date and was hospitalized for further evaluation of their emergent condition. - New Patient This patient is new to me today: Yes Date on this admission: 02/11/19 - Critical Care Critical Care patient: Yes Total Critical Care Time (in minutes): 36 Critical Care Statement: The care of this patient involved high complexity decision making to prevent further life threatening deterioration of the patient 's condition and/or to evaluate & treat vital organ system(s) failure or risk of failure.
--- NOTE | 2019-02-11 12:34 | PN ---
Physical Exam: SUBJECTIVE: Patient seen and examined at bedside. Highly disoriented. Dark blood per rectum collecting in diaper. OBJECTIVE: Vital Signs Period Temp Pulse Resp BP Sys/Aguilar Pulse Ox Last 24 Hr 98.3 F-98.4 F 79-113 19-20 134-197/40-113 98 GENERAL: Alternating lethargy and agitation, responds to her name, otherwise incoherent HEENT: NC/AT, PERRLA, EOMI, MMM NECK: Trachea midline, full range of motion, supple. LUNGS: CTA b/l HEART: RRR no m/r/g ABDOMEN: +bs, soft, NT, ND EXTREMITIES: 2+ pulses, warm, well-perfused, no edema. 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 SKIN: Warm, dry, normal turgor, no rashes or lesions noted Laboratory Results - last 24 hr 02/10/19 02/10/19 02/10/19 13:00 16:35 22:18 WBC RBC Hgb Hct MCV MCH MCHC RDW Plt Count MPV Absolute Neuts (auto) Neutrophils % Lymphocytes % Monocytes % Eosinophils % Basophils % Nucleated RBC % Sodium Potassium Chloride Carbon Dioxide Anion Gap BUN Creatinine Creat Clearance w eGFR POC Glucometer 284 267 Random Glucose Calcium Phosphorus Magnesium Total Bilirubin AST ALT Alkaline Phosphatase Total Protein Albumin Urine Color Yellow Urine Appearance Slcloudy Urine pH 5.0 Ur Specific [place] 1.014 Urine Protein 2+ H Urine Glucose (UA) Negative Urine Ketones Trace H Urine Blood Negative Urine Nitrite Negative Urine Bilirubin Negative Urine Urobilinogen 2.0 H Ur Leukocyte Esterase Negative Urine WBC (Auto) 6 Urine RBC (Auto) 1 Urine Bacteria Many Hyaline Casts 1 Urine Mucus Rare 02/11/19 02/11/19 02/11/19 06:30 06:30 06:41 WBC 8.3 RBC 2.62 L Hgb 8.5 L Hct 25.1 L D MCV 95.6 MCH 32.3 MCHC 33.8 RDW 21.3 H Plt Count 94 L MPV 8.3 Absolute Neuts (auto) 5.3 Neutrophils % 64.0 Lymphocytes % 23.5 Monocytes % 9.1 Eosinophils % 2.9 Basophils % 0.5 Nucleated RBC % 0 Sodium 141 Potassium 4.4 Chloride 116 H Carbon Dioxide 17 L Anion Gap 8 BUN 36 H Creatinine 1.8 H Creat Clearance w eGFR 28.80 POC Glucometer 269 Random Glucose 292 H Calcium 7.3 L Phosphorus 2.9 Magnesium 1.8 Total Bilirubin 1.4 H AST 84 H ALT 49 Alkaline Phosphatase 92 Total Protein 6.6 Albumin 2.2 L Urine Color Urine Appearance Urine pH Ur Specific [place] Urine Protein Urine Glucose (UA) Urine Ketones Urine Blood Urine Nitrite Urine Bilirubin Urine Urobilinogen Ur Leukocyte Esterase Urine WBC (Auto) Urine RBC (Auto) Urine Bacteria Hyaline Casts Urine Mucus 02/11/19 11:29 WBC RBC Hgb Hct MCV MCH MCHC RDW Plt Count MPV Absolute Neuts (auto) Neutrophils % Lymphocytes % Monocytes % Eosinophils % Basophils % Nucleated RBC % Sodium Potassium Chloride Carbon Dioxide Anion Gap BUN Creatinine Creat Clearance w eGFR POC Glucometer 130 Random Glucose Calcium Phosphorus Magnesium Total Bilirubin AST ALT Alkaline Phosphatase Total Protein Albumin Urine Color Urine Appearance Urine pH Ur Specific [place] Urine Protein Urine Glucose (UA) Urine Ketones Urine Blood Urine Nitrite Urine Bilirubin Urine Urobilinogen Ur Leukocyte Esterase Urine WBC (Auto) Urine RBC (Auto) Urine Bacteria Hyaline Casts Urine Mucus Active Medications Generic Name Dose Route Start Last Admin Trade Name Freq PRN Reason Stop Dose Admin Amlodipine Besylate 5 mg 02/11/19 10:00 02/11/19 12:03 Norvasc - PO Not Given BID SACHIN Folic Acid 1 mg 02/11/19 10:00 02/11/19 12:03 Folic Acid - PO Not Given DAILY SACHIN Sodium Chloride 1,000 mls @ 100 mls/hr 02/10/19 19:15 02/10/19 19:35 1/2 Normal Saline IV 100 mls/hr ASDIR SACHIN Administration Ceftriaxone Sodium 1 gm/ 50 mls @ 100 mls/hr 02/11/19 10:15 02/11/19 12:13 Dextrose IVPB 100 mls/hr DAILY SACHIN Administration Protocol Octreotide Acetate 1,200 mcg/ 500 mls @ 20.83 mls/hr 02/11/19 11:15 Dextrose IVPB Q20H SACHIN 50 MCG/HR Pantoprazole Sodium 80 mg/ 100 mls @ 10 mls/hr 02/11/19 11:15 Sodium Chloride IVPB Q10H SACHIN 8 MG/HR Insulin Aspart 1 vial 02/08/19 22:00 02/11/19 11:46 Novolog Vial Sliding Scale - SQ Not Given ACHS SACHIN Protocol Lactulose 20 gm 03/19/19 14:00 Cephulac (Oral Use) PO TID [facility] Thiamine HCl 100 mg 02/11/19 10:00 02/11/19 12:02 Vitamin B1 - PO Not Given DAILY [facility] Zinc Oxide/Panthenol/Vitamin E 1 applic 02/10/19 15:16 02/10/19 17:21 Balmex Cream - TP 1 applic ASDIR PRN Administration HYGEINE ASSESSMENT/PLAN: 58 y/o F w/ PMHx cirrhosis, hep C, polysubstance abuse including EtOH, DM, HTN, bipolar disorder, recent h/o SBP 12/14, presents from [facility] for agitation, combativeness, AMS while undergoing detox #GI -cirrhosis w/ prior SBP -ascites on US -GI consulted, recommendations appreciated -significant melenic blood noted -for transfer to ICU and endoscopic resolution -octreotide and PTX gtt -NPO #heme -thrombocytopenia 2/2 liver disease -treating active bleeding as per GI recommendations #CV -hold further anti-hypertensives while actively bleeding -maintain MAP > 65 -hemodynamic support as per ICU team #pulmonary -desaturating while actively bleeding, saturation restored on supplemental O2 -cont oxygen therapy as per ICU team #neuro -HCT negative -mental status improving on lactulose -no further benzodiazepines at this time -cont thiamine, folate -cont lactulose, titrate to BMs -cont IVF #ID -UCx growing enterococcus, BCx pending -ID consulted -initiated Ceftriaxone #renal -last known Cr in 2012 was wnl -no obstruction on renal US -monitor BMP -cont IVF #endocrine -SSI, BGM #FEN -IVF as per ICU team -monitor and correct electrolytes -NPO #PPx -DVT: mechanical only -GI: PTX gtt #code -full #dispo -transfer to ICU Visit type - Emergency Visit Emergency Visit: No - New Patient This patient is new to me today: No - Critical Care Critical Care patient: Yes Total Critical Care Time (in minutes): 40 Critical Care Statement: The care of this patient involved high complexity decision making to prevent further life threatening deterioration of the patient 's condition and/or to evaluate & treat vital organ system(s) failure or risk of failure.
--- NOTE | 2019-02-11 12:55 | PN ---
Progress Note, [facility] - Note Progress Note: Selected Entries 02/10/19 02/10/19 02/11/19 15:01 18:30 07:11 Lunch 75% Supper 75% Temperature 98.3 F Laboratory Tests 02/11/19 06:30 WBC 8.3
[2019-02-11 13:16] LABS: HEMATOCRIT 26.2 % (32.4-45.2); HEMOGLOBIN 8.8 GM/dL (10.7-15.3); MCH 32.1 pg (25.7-33.7); MCHC 33.8 g/dl (32.0-36.0); MEAN CELL VOLUME 94.9 fl (80-96); MEAN PLT VOLUME 8.7 fl (7.5-11.1); PLATELET COUNT 100 K/MM3 (134-434); RBC 2.76 M/mm3 (3.60-5.2); RDW 20.6 % (11.6-15.6); WHITE BLOOD COUNT 7.3 K/mm3 (4.0-10.0)
--- NOTE | 2019-02-11 13:19 | PN ---
Progress Note (short form) - Note Progress Note: Anesthesia note Attempted to obtain consent for anesthesia for EGD. Called the telephone number on the chart, spoke with the patient's sister. she is not the person who had the health care proxi. Another member of the patient' s family is, Pepe Germain tel [phone]. Number called, no answer.
[2019-02-11 13:46] LABS: INR 1.28 (0.83-1.09); PROTHROMBIN TIME (PATIENT) 15.1 SEC (9.7-13.0)
[2019-02-11 13:51] LABS: ALLENS TEST POSITIVE; ARTERIAL BLD GAS O2 SATURATION 99.6 % (95-98); ARTERIAL BLOOD GAS BASE EXCESS -4.2 meq/l (-2-2); ARTERIAL BLOOD GAS PCO2 21.8 mmHg (35-45); ARTERIAL BLOOD GAS PO2 145 mmHg (80-105); ARTERIAL BLOOD GAS pH 7.51 (7.35-7.45)
[2019-02-11] MEDS ORDERED: LACTULOSE 20 GM/30 ML UDC (FOR ORAL USE ONLY) PO SCH (14:00)
--- NOTE | 2019-02-11 14:39 | PN ---
Progress Note (short form) - Note Progress Note: ID consult dictated imp/reccd enterococcal UTI hepatic encephalopathy-patient is obtunded GI bleed poly substance use including etoh diabetes with CKD hep c unkown HIV status switch to unasyn to cover UTI icu transfer for possible endscopy Problem List - Problems (1) UTI (urinary tract infection) Code(s): N39.0 - URINARY TRACT INFECTION, SITE NOT SPECIFIED (2) Hepatic encephalopathy Code(s): K72.90 - HEPATIC FAILURE, UNSPECIFIED WITHOUT COMA (3) GI bleed Code(s): K92.2 - GASTROINTESTINAL HEMORRHAGE, UNSPECIFIED (4) Diabetes Code(s): E11.9 - TYPE 2 DIABETES MELLITUS WITHOUT COMPLICATIONS (5) CKD (chronic kidney disease) Code(s): N18.9 - CHRONIC KIDNEY DISEASE, UNSPECIFIED
[2019-02-11] MEDS ORDERED: SODIUM CHLORIDE 0.45% 1,000 ML IV SCH (16:03)
[2019-02-11] MEDS ORDERED: ZINC OXIDE/PANTHENOL/VITAMIN E 56 GM TUBE TP PRN (16:03)
[2019-02-11] MEDS: AMPICILLIN NA/SULBACTAM NA 1.5 GM in SODIUM CHLORIDE 100 ML IVPB SCH ×2 (16:04→18:36)
[2019-02-11] MEDS ORDERED: PT OWN MED DRAWER 7, Y5N ONE ×2 (17:51→17:52)
--- NOTE | 2019-02-11 18:44 | PN ---
Progress Note (short form) - Note Progress Note: Called back patient's king Dueñas as I had not received a call from her daughter as of yet. She gave me Addy Germain's (patient's daughter) number [phone]. Addy explained to me that she does not want to make decisions regarding her mother's care at this point and would prefer that her mother be "made comfortable". She feels that her mother would not want interventions. She feels that the remainder of her family should be making decisons, including her grandmother (Patient's mother). I called back Leana and discussed my converation with Addy. she stated that she would be calling her family to discuss. I gave her the number to the ICU. Prior to any interventions, the proper decision maker will need to be clarified. I explained this to the ICU team. Problem List - Problems (1) Altered mental status Code(s): R41.82 - ALTERED MENTAL STATUS, UNSPECIFIED Qualifiers: Altered mental status type: stupor Qualified Code(s): R40.1 - Stupor
--- NOTE | 2019-02-11 20:17 | PN ---
Teaching Attending Note Name of Resident: Houston Melo ATTENDING PHYSICIAN STATEMENT I saw and evaluated the patient. I reviewed the resident's note and discussed the case with the resident. I agree with the resident's findings and plan as documented. SUBJECTIVE - Awake, making eye contact, still slightly agitated. Nursing report bleeding hemorrhoid. OBJECTIVE: Afebrile, Hemodynamcally Stable. Last Vital Signs Temp Pulse Resp BP Pulse Ox 97.5 F L 82 22 H 107/62 98 02/11/19 18:05 02/11/19 18:00 02/11/19 18:00 02/11/19 18:00 02/11/19 15:10 HEENT - Atraumatic, Normocephalic Neuro - Pupils equal and responsive to light. Awake, Not oriented. Heart - S1, S2, SM Lungs - Clear to auscultation, no crackles/wheeze. Abdomen - Soft, non-tender. Bowel Sounds normal Extremities - No calf swelling, no edema Rectum - external hemorrhoid, not bleeding currently. Digital exam deferred due to concern for rectal varices. Laboratory Results - last 24 hr 02/10/19 02/11/19 02/11/19 22:18 06:30 06:30 WBC 8.3 RBC 2.62 L Hgb 8.5 L Hct 25.1 L D MCV 95.6 MCH 32.3 MCHC 33.8 RDW 21.3 H Plt Count 94 L MPV 8.3 Absolute Neuts (auto) 5.3 Neutrophils % 64.0 Lymphocytes % 23.5 Monocytes % 9.1 Eosinophils % 2.9 Basophils % 0.5 Nucleated RBC % 0 Anisocytosis 1+ Macrocytosis 1+ Ovalocytes 1+ PT with INR INR Anticoagulation Therapy Puncture Site ABG pH ABG pCO2 at Pt Temp ABG pO2 at Pt Temp ABG HCO3 ABG O2 Sat (Measured) ABG O2 Content ABG Base Excess Sumit Test O2 Delivery Device Oxygen Flow Rate Vent Mode Vent Rate Mechanical Rate Pressure Support Vent Sodium 141 Potassium 4.4 Chloride 116 H Carbon Dioxide 17 L Anion Gap 8 BUN 36 H Creatinine 1.8 H Creat Clearance w eGFR 28.80 POC Glucometer 267 Random Glucose 292 H Calcium 7.3 L Phosphorus 2.9 Magnesium 1.8 Total Bilirubin 1.4 H AST 84 H ALT 49 Alkaline Phosphatase 92 Total Protein 6.6 Albumin 2.2 L Stool Occult Blood 02/11/19 02/11/19 02/11/19 06:41 09:00 11:29 WBC RBC Hgb Hct MCV MCH MCHC RDW Plt Count MPV Absolute Neuts (auto) Neutrophils % Lymphocytes % Monocytes % Eosinophils % Basophils % Nucleated RBC % Anisocytosis Macrocytosis Ovalocytes PT with INR INR Anticoagulation Therapy Puncture Site ABG pH ABG pCO2 at Pt Temp ABG pO2 at Pt Temp ABG HCO3 ABG O2 Sat (Measured) ABG O2 Content ABG Base Excess Sumit Test O2 Delivery Device Oxygen Flow Rate Vent Mode Vent Rate Mechanical Rate Pressure Support Vent Sodium Potassium Chloride Carbon Dioxide Anion Gap BUN Creatinine Creat Clearance w eGFR POC Glucometer 269 130 Random Glucose Calcium Phosphorus Magnesium Total Bilirubin AST ALT Alkaline Phosphatase Total Protein Albumin Stool Occult Blood Positive 02/11/19 02/11/19 02/11/19 13:05 13:05 13:36 WBC 7.3 RBC 2.76 L Hgb 8.8 L Hct 26.2 L MCV 94.9 MCH 32.1 MCHC 33.8 RDW 20.6 H Plt Count 100 L MPV 8.7 Absolute Neuts (auto) Neutrophils % Lymphocytes % Monocytes % Eosinophils % Basophils % Nucleated RBC % Anisocytosis Macrocytosis Ovalocytes PT with INR 15.10 H INR 1.28 H Anticoagulation Therapy No Result Required. Puncture Site Right brachial ABG pH 7.51 H ABG pCO2 at Pt Temp 21.8 L ABG pO2 at Pt Temp 145 H ABG HCO3 17.5 L ABG O2 Sat (Measured) 99.6 H ABG O2 Content 12.6 L ABG Base Excess -4.2 L Sumit Test Positive O2 Delivery Device No Result Required. Oxygen Flow Rate 2l Vent Mode No Result Required. Vent Rate No Result Required. Mechanical Rate No Result Required. Pressure Support Vent No Result Required. Sodium Potassium Chloride Carbon Dioxide Anion Gap BUN Creatinine Creat Clearance w eGFR POC Glucometer Random Glucose Calcium Phosphorus Magnesium Total Bilirubin AST ALT Alkaline Phosphatase Total Protein Albumin Stool Occult Blood 02/11/19 15:15 WBC RBC Hgb Hct MCV MCH MCHC RDW Plt Count MPV Absolute Neuts (auto) Neutrophils % Lymphocytes % Monocytes % Eosinophils % Basophils % Nucleated RBC % Anisocytosis Macrocytosis Ovalocytes PT with INR INR Anticoagulation Therapy Puncture Site ABG pH ABG pCO2 at Pt Temp ABG pO2 at Pt Temp ABG HCO3 ABG O2 Sat (Measured) ABG O2 Content ABG Base Excess Sumit Test O2 Delivery Device Oxygen Flow Rate Vent Mode Vent Rate Mechanical Rate Pressure Support Vent Sodium Potassium Chloride Carbon Dioxide Anion Gap BUN Creatinine Creat Clearance w eGFR POC Glucometer 144 Random Glucose Calcium Phosphorus Magnesium Total Bilirubin AST ALT Alkaline Phosphatase Total Protein Albumin Stool Occult Blood Current Medications Generic Name Dose Route Start Last Admin Trade Name Freq PRN Reason Stop Dose Admin Chlorhexidine Gluconate 1 applic 02/11/19 22:00 Hibiclens For Decolonization - TP HS SACHIN Folic Acid 1 mg 02/12/19 10:00 Folic Acid - PO DAILY SACHIN Ampicillin Sodium/Sulbactam 100 mls @ 200 mls/hr 02/11/19 15:00 02/11/19 18: 36 Sodium 1.5 gm/ Sodium Chloride IVPB 200 mls/hr Q8H-IV SACHIN Administration Pantoprazole Sodium 80 mg/ 100 mls @ 10 mls/hr 02/11/19 21:15 Sodium Chloride IVPB Q10H SACHIN 8 MG/HR Octreotide Acetate 1,200 mcg/ 500 mls @ 20.83 mls/hr 02/12/19 07:15 Dextrose IVPB Q20H SACHIN 50 MCG/HR Sodium Chloride 1,000 mls @ 100 mls/hr 02/11/19 16:03 02/11/19 15:00 1/2 Normal Saline IV 100 mls/hr ASDIR SACHIN Administration Insulin Aspart 1 vial 02/11/19 16:30 02/11/19 17:05 Novolog Vial Sliding Scale - SQ Not Given ACHS [facility] Protocol Lactulose 20 gm 02/11/19 22:00 Cephulac (Oral Use) PO TID SACHIN Mupirocin 1 applic 02/11/19 22:00 Bactroban Ointment (For Decolonization) - NS 02/16/19 21:59 BID SACHIN Thiamine HCl 100 mg 02/12/19 10:00 Vitamin B1 - PO DAILY SACHIN Zinc Oxide/Panthenol/Vitamin E 1 applic 02/11/19 16:03 Balmex Cream - TP DAILY PRN HYGEINE ASSESSMENT/PLAN 58 year old female with history of Liver Cirrhosis, Alcohol Abuse, Hepatitis C, recent history of SBP 12/14, DM 2, HTN, Polysubstance Abuse (including Alcohol), Bipolar Disorder, sent to ED from [facility] for agitation, combativeness, and altered mental status while undergoing detox. She received Ativan in ED and became unresponsive and obtunded. 1. Acute Hepatic Encephalopathy versus Toxic Encephalopathy secondary to Ativan +/- Acute Alcohol withdrawal Head CT - negative for acute intracranial findings. Hold further Ativan for now. Continue Thiamine and Folic acid. NG tube placed for lactulose but she pulled out - now more awake, passed swallow eval, tolerated PO meds yesterday. . GI following - recommend diagnostic Paracentesis to exclude SBP She was transferred from [facility] where she was undergoing detox - Addiction Medicine consulted. 2. Bleeding per Rectum ?Lower secondary to possible rectal varices/hemorrhoids versus upper GI from possible esophageal varices but no hematemesis currently as would be expected from esophageal variceal bleeding H/H down from 11.3/32.1 to 8.8/26.2 - no active bleeding currently. GI following - for possible EGD. Started on Octreotide and Protonix drips. Monitor H/H 3. UTI - Urine Cx positive for Group D strep and enterococcus - Started on Unasyn. Afebrile.Hemodynamically stable. 4. History of Liver Cirrhosis with prior SBP Abdominal US - Ascites. No clinical evidence of SBP currently - paracentesis requested by GI Afebrile, Hemodynamically stable. 5. DM 2 Maintain on insulin sliding scale. 6. BOB versus CKD. Creat 1.8. Last Creat on record was normal in 2012. Renal US - echogenic kidneys suggestive of medical renal disease, no obstruction/ hydronephrosis. Continue IV hydration and monitor renal response. 7. Thrombocytopenia - secondary to Liver Cirrhosis/Alcohol excess. Bleeding per rectum currently. Plts above transfusion threshold. 8. HTN - Started on Norvasc DVT Px - SCDs - Heparin/Lovenox held due to thrombocytopenia and rectal bleeding.
--- NOTE | 2019-02-11 20:33 | CONS ---
DATE OF CONSULTATION: DATE OF DICTATION: 02/11/2019 INFECTIOUS DISEASE CONSULTATION REQUESTING PHYSICIAN: Hospitalist Service CONSULTING PHYSICIAN: Tiara Polanco M.D. HISTORY OF PRESENT ILLNESS: This is a 58-year-old woman who is sent from [facility] on the from the emergency room, apparently earlier that day she was seen at [facility] and sent over for detox admission. She was noted to be lethargic and transferred from [facility]. She was apparently agitated, disoriented, with slurred speech. She has a past medical history of hypertension, hepatitis C, polysubstance use, ascites, diabetes, heart failure, bipolar disorder. History of her HIV status is not known. She was apparently recently discharged from [facility] in November when she was there for ascites; at that time, spontaneous bacterial peritonitis was ruled out, and she had had a paracentesis. No other history was obtainable. ALLERGIES: She is allergic to FISH and TOMATOES. MEDICATION: Medication list was aspirin, insulin, lactulose, and lisinopril, which were not verified. After a hospital stay she was noted to have an elevated ammonia level and she was started on treatment with lactulose. She pulled out her NG tube. This morning she was apparently awake, requesting food, as the morning progressed she developed GI bleeding and she became progressively more obtunded. She is currently quite lethargic. She sometimes spontaneously opens her eyes and is following no commands. PHYSICAL EXAMINATION: GENERAL: She is a thin woman resting comfortably. VITAL SIGNS: Temperature 97.4, blood pressure 138/77, respiratory rate 20, pulse is 78, she is saturating 98% on 2 L. HEENT: Normocephalic. Eyes are anicteric. NECK: Completely supple. She has no meningeal signs. LUNGS: Clear to auscultation. HEART: Regular rate and rhythm. ABDOMEN: Soft. It is distended. She has a fluid wave. EXTREMITIES: Without edema. LABORATORY: Her white count is 7.3, hemoglobin 8.8. It was 11.3 on admission, and her platelets are 100,000. Her INR is 1.2. BUN and creatinine are 36 and 1.8. Total bilirubin at 1.4 with an AST of 84. Urinalysis is 6 white cells. Stool occult blood is positive, and her toxicology screen was notable for benzodiazepines. She had a head CT in the ER that was normal. And she has had a chest x-ray yesterday that was normal as well. Her blood cultures are negative at 24 hours, and urine culture has greater than 100,000 group B enterococcus. IMPRESSION: In summary, this is a woman with history of liver disease with progressive encephalopathy in the setting of a gastrointestinal bleed. I suspect this is hepatic encephalopathy. She has polysubstance use including alcohol and it is unknown what her HIV status is. I would switch her to Unasyn to cover for urinary tract infection. She has had no fever since admission. White count is normal. She has nothing to suggest an acute , and she is without fever. She is for intensive care unit transfer and possible endoscopy. Further recommendations to follow. TIARA POLANCO M.D. [id number]
[2019-02-11] MEDS: PANTOPRAZOLE SODIUM 80 MG in SODIUM CHLORIDE 100 ML IVPB SCH (21:12)
[2019-02-11] MEDS: MUPIROCIN 2% TOPICAL OINTMENT FOR DECOLONIZATION NS SCH (21:17)
[2019-02-11] MEDS: CHLORHEXIDINE GLUCONATE 4% CLEANSER FOR DECOLONIZATION TP SCH (21:18)
--- NOTE | 2019-02-11 21:32 | PN ---
[facility] Progress Note (SOAP) Subjective: 58 y.o. female patient w/ PMHX IDDM, HTN, HCV, Etoh dependence, Polysubstance drug use/ IVDA, CHF, Bipolar disorder, Ascites , transferred from [facility] prior to admission for dehydration, admitted for hepatic enephalopathy / BOB , on 02/08/19 per MR pt denied etoh use . Pt currently in ICU , lethargic , does not respond to verbal commands . Seen by ID today with dx enterococcal UTI , hepatic encephalopathy, GI bleed, diabetes with CKD , hep c, unkown HIV status . Active Medications Chlorhexidine Gluconate (Hibiclens For Decolonization -) 1 applic TP HS SACHIN Last Admin: 02/11/19 21:18 Dose: 1 applic Folic Acid (Folic Acid -) 1 mg PO DAILY [facility] Ampicillin Sodium/Sulbactam (Sodium 1.5 gm/ Sodium Chloride) 100 mls @ 200 mls/ hr IVPB Q8H-IV SACHIN Last Admin: 02/11/19 18:36 Dose: 200 mls/hr Pantoprazole Sodium 80 mg/ (Sodium Chloride) 100 mls @ 10 mls/hr IVPB Q10H SACHIN Last Admin: 02/11/19 21:12 Dose: Not Given Octreotide Acetate 1,200 mcg/ (Dextrose) 500 mls @ 20.83 mls/hr IVPB Q20H SACHIN Sodium Chloride (1/2 Normal Saline) 1,000 mls @ 100 mls/hr IV ASDIR SACHIN Last Admin: 02/11/19 15:00 Dose: 100 mls/hr Insulin Aspart (Novolog Vial Sliding Scale -) 1 vial SQ ACHS [facility]; Protocol Last Admin: 02/11/19 21:18 Dose: Not Given Lactulose (Cephulac (Oral Use)) 20 gm PO TID SACHIN Last Admin: 02/11/19 21:12 Dose: Not Given Mupirocin (Bactroban Ointment (For Decolonization) -) 1 applic NS BID SACHIN Stop: 02/16/19 21:59 Last Admin: 02/11/19 21:17 Dose: 1 applic Thiamine HCl (Vitamin B1 Injection -) 200 mg IVPB DAILY SACHIN Zinc Oxide/Panthenol/Vitamin E (Balmex Cream -) 1 applic TP DAILY PRN PRN Reason: HYGEINE Objective: pt in ICU bed , does not answer to verbal commands , does not open eyes , spontaneously breathing , O2 NC . ext : mild dependent edema GCS 3 CBC, BMP 02/11/19 13:05 02/11/19 06:30 Vital Signs - 24 hr 02/10/19 02/11/19 02/11/19 23:45 03:00 07:11 Temperature 98.3 F Pulse Rate 113 H 79 99 H Respiratory 19 Rate Blood Pressure 167/97 134/79 145/40 L O2 Sat by Pulse Oximetry (%) 02/11/19 02/11/19 02/11/19 11:00 13:29 15:00 Temperature 97.4 F L Pulse Rate 78 67 Respiratory 20 18 Rate Blood Pressure 138/77 97/59 L O2 Sat by Pulse 100 Oximetry (%) 02/11/19 02/11/19 02/11/19 15:10 16:00 17:00 Temperature Pulse Rate 75 78 Respiratory 19 20 21 H Rate Blood Pressure 108/63 117/55 L O2 Sat by Pulse 98 Oximetry (%) 02/11/19 02/11/19 02/11/19 18:00 18:05 20:57 Temperature 97.8 F 97.5 F L Pulse Rate 82 Respiratory 22 H 22 H Rate Blood Pressure 107/62 O2 Sat by Pulse 98 Oximetry (%) utox 02/08/19 negative for ETOH , + benzodiazepine , negative for opiates, methadone, cocaine, PCP . 02/11/19 21:41 02/11/19 21:46 Assessment: alcohol use - unclear history from chart pt denied alcohol use upon initial interview at [facility] 02/08/19 , utox negative for ETOH Plan: suggest neurology evaluation . pt denies etoh use on arrival to detox 02/08/19
--- NOTE | 2019-02-11 23:07 | PN ---
Progress Note (short form) - Note Progress Note: Case discussed with Dr. Garner. Recommends neurology evaluation. Placed Neurology consult.
[2019-02-12] MEDS: AMPICILLIN NA/SULBACTAM NA 1.5 GM in SODIUM CHLORIDE 100 ML IVPB SCH (01:14)
[2019-02-12] MEDS ORDERED: FUROSEMIDE 100 MG/10 ML INJECTABLE VIAL IVPB ONE (01:46)
[2019-02-12 02:23] LABS: ARTERIAL BLD GAS O2 SATURATION 99.7 % (95-98); ARTERIAL BLOOD GAS BASE EXCESS -9.7 meq/l (-2-2); ARTERIAL BLOOD GAS PO2 144 mmHg (80-105)
[2019-02-12 02:24] LABS: ALLENS TEST POSITIVE; ARTERIAL BLOOD GAS pH 7.56 (7.35-7.45); HEMATOCRIT 22.2 % (32.4-45.2); HEMOGLOBIN 7.7 GM/dL (10.7-15.3); MCH 32.7 pg (25.7-33.7); MCHC 34.7 g/dl (32.0-36.0); MEAN CELL VOLUME 94.3 fl (80-96); PLATELET COUNT 103 K/MM3 (134-434); RBC 2.35 M/mm3 (3.60-5.2); RDW 20.5 % (11.6-15.6); WHITE BLOOD COUNT 6.2 K/mm3 (4.0-10.0)
[2019-02-12] MEDS ORDERED: RAPID SEQUENCE INTUBATION KIT NR ONE (03:12)
--- NOTE | 2019-02-12 04:01 | PN ---
Progress Note (short form) - Note Progress Note: Anesthesia Intubation Called to ICU for Intubation. Pat with Hepatic Encephalopathy, in respiratory distress/ pulmonary edema. Non responsive. Bilateral crackles. EZ intubation. VSS after intubation. See Anesthesia chart.
[2019-02-12] MEDS ORDERED: VANCOMYCIN 1 GRAM (PRE-DOCKED) 1,000 MG/250 ML BAG IVPB ONE (04:45)
--- NOTE | 2019-02-12 04:54 | PROC ---
Intubation - Intubation Reason for Intubation: Respiratory Insufficiency, Airway Protection Intubation Method: orotracheal Blade used: Mac Tube Size (cm): 7.5 Tube position confirmed by: Chest x-ray Breath Sounds after Intubation: equal Post Intubation Xray: Yes (Intubated by Dr. Tee.)
[2019-02-12] MEDS ORDERED: fentaNYL CITRATE 250 MCG/5 ML VIAL ONE (05:20)
[2019-02-12] MEDS: FENTANYL INJECTION 500 MCG in DEXTROSE 5%-WATER - 90 ML IVPB SCH (05:46)
[2019-02-12 05:54] LABS: ARTERIAL BLD GAS O2 SATURATION 98.1 % (95-98); ARTERIAL BLOOD GAS BASE EXCESS -10.4 meq/l (-2-2)
[2019-02-12 05:55] LABS: ALLENS TEST POSITIVE; ARTERIAL BLOOD GAS PCO2 15.1 mmHg (35-45)
[2019-02-12] MEDS ORDERED: LORazepam 2 MG/ML SDV VIAL ONE (06:03)
[2019-02-12 06:22] LABS: BASO % 0.3 % (0-2.0); EOS % 2.5 % (0-4.5); HEMATOCRIT 21.7 % (32.4-45.2); HEMOGLOBIN 7.4 GM/dL (10.7-15.3); LYMPH % 23.2 % (8-40); MCH 32.2 pg (25.7-33.7); MCHC 34.3 g/dl (32.0-36.0); MEAN CELL VOLUME 93.9 fl (80-96); MEAN PLT VOLUME 8.7 fl (7.5-11.1); MONO % 7.9 % (3.8-10.2); NEUT % 66.1 % (42.8-82.8); PLATELET COUNT 100 K/MM3 (134-434); RBC 2.31 M/mm3 (3.60-5.2); RDW 20.1 % (11.6-15.6); WHITE BLOOD COUNT 6.5 K/mm3 (4.0-10.0)
[2019-02-12] MEDS: INSULIN SLIDING SCALE (NOVOLOG) 1 VIAL SQ SCH ×5 (06:44→23:55)
[2019-02-12 06:47] LABS: ALK PHOS 71 U/L (45-117); ANION GAP 13 MMOL/L (8-16); BILIRUBIN,TOTAL 1.4 mg/dL (0.2-1); BLOOD UREA NITROGEN 42 mg/dL (7-18); CHLORIDE 119 mmol/L (98-107); CO2 12 mmol/L (21-32); CREATININE 2.2 mg/dL (0.55-1.3); GLUCOSE,RANDOM 184 mg/dL (74-106); MAGNESIUM 1.7 mg/dL (1.8-2.4); PHOSPHOROUS 2.8 mg/dL (2.5-4.9); POTASSIUM 4.1 mmol/L (3.5-5.1); SGOT/AST 100 U/L (15-37); SGPT/ALT 50 U/L (13-61); SODIUM 143 mmol/L (136-145); TOT PROT 5.9 g/dl (6.4-8.2)
[2019-02-12] MEDS ORDERED: PIPERACILLIN/TAZOB 2.25 GM 2.25 GM in DEXTROSE 5%-WATER - 50 ML IVPB ONE (06:52)
[2019-02-12] MEDS ORDERED: ALBUMIN HUMAN 25% 12.5 GM/50 ML VIAL IVPB ONE (06:53)
[2019-02-12] MEDS: LACTULOSE 20 GM/30 ML UDC (FOR ORAL USE ONLY) PO SCH ×3 (06:59→23:53)
[2019-02-12 07:06] LABS: CALCIUM 6.9 mg/dL (8.5-10.1)
[2019-02-12] MEDS ORDERED: OCTREOTIDE ACETATE 1,200 MCG in DEXTROSE 5%-WATER - 488 ML IVPB SCH (07:15)
[2019-02-12 07:31] LABS: INR 1.69 (0.83-1.09)
[2019-02-12] MEDS ORDERED: MAGNESIUM SULF 50% (8.12 MEQ/2 ML-1 GM VIAL) IVPB ONE (07:35)
[2019-02-12] MEDS ORDERED: NAPH,MB-DB/K PH,MBDB POWDER PACKET PO ONE (07:36)
[2019-02-12] MEDS ORDERED: LACTATED RINGERS SOLUTION 1,000 ML/1,000 ML INFUS.BAG IV SCH (07:45)
[2019-02-12] MEDS ORDERED: PT OWN MED DRAWER 7, Y5N ONE (08:09)
[2019-02-12] MEDS ORDERED: DEXTROSE 5%-WATER - 50 ML IVPB ONE ×2 (08:10→10:31)
[2019-02-12] MEDS ORDERED: PIPERACILLIN/TAZOBACTAM 2.25 GM VIAL IVPB ONE (08:10)
[2019-02-12] MEDS: DEXTROSE 5%-0.45% SALINE 1,000 ML IV SCH (08:30)
--- NOTE | 2019-02-12 08:40 | PN ---
Physical Exam: SUBJECTIVE: Patient seen and examined at bedside. Transferred to ICU for presumed UGIB yesterday. Developed pulmonary edema requiring intubation overnight. OBJECTIVE: Vital Signs Period Temp Pulse Resp BP Sys/Aguilar Pulse Ox Last 24 Hr 96.0 F-97.8 F 67-87 12-26 97-156/55-77 98-100 GENERAL: Intubated and sedated. Cachectic HEENT: NC/AT, PERRLA, +icterus NECK: Trachea midline, supple LUNGS: Limited exam, no adventitious sounds appreciated over ventilator HEART: RRR no m/r/g ABDOMEN: +bs, soft, NT, ND EXTREMITIES: 2+ pulses, wwp, no edema appreciated NEUROLOGICAL: Intubated and sedated PSYCH: Unable to assess SKIN: Warm, dry, jaundiced Laboratory Results - last 24 hr 02/11/19 02/11/19 02/11/19 06:30 09:00 11:29 WBC RBC Hgb Hct MCV MCH MCHC RDW Plt Count MPV Absolute Neuts (auto) Neutrophils % Lymphocytes % Monocytes % Eosinophils % Basophils % Nucleated RBC % Anisocytosis 1+ Macrocytosis 1+ Ovalocytes 1+ PT with INR INR Anticoagulation Therapy Puncture Site ABG pH ABG pCO2 at Pt Temp ABG pO2 at Pt Temp ABG HCO3 ABG O2 Sat (Measured) ABG O2 Content ABG Base Excess Sumit Test O2 Delivery Device Oxygen Flow Rate Vent Mode Vent Rate Mechanical Rate PEEP Pressure Support Vent Sodium Potassium Chloride Carbon Dioxide Anion Gap BUN Creatinine Creat Clearance w eGFR POC Glucometer 130 Random Glucose Calcium Phosphorus Magnesium Total Bilirubin AST ALT Alkaline Phosphatase Ammonia Total Protein Albumin Stool Occult Blood Positive Blood Type Antibody Screen Crossmatch 02/11/19 02/11/19 02/11/19 13:05 13:05 13:05 WBC 7.3 RBC 2.76 L Hgb 8.8 L Hct 26.2 L MCV 94.9 MCH 32.1 MCHC 33.8 RDW 20.6 H Plt Count 100 L MPV 8.7 Absolute Neuts (auto) Neutrophils % Lymphocytes % Monocytes % Eosinophils % Basophils % Nucleated RBC % Anisocytosis Macrocytosis Ovalocytes PT with INR 15.10 H INR 1.28 H Anticoagulation Therapy Puncture Site ABG pH ABG pCO2 at Pt Temp ABG pO2 at Pt Temp ABG HCO3 ABG O2 Sat (Measured) ABG O2 Content ABG Base Excess Sumit Test O2 Delivery Device Oxygen Flow Rate Vent Mode Vent Rate Mechanical Rate PEEP Pressure Support Vent Sodium Potassium Chloride Carbon Dioxide Anion Gap BUN Creatinine Creat Clearance w eGFR POC Glucometer Random Glucose Calcium Phosphorus Magnesium Total Bilirubin AST ALT Alkaline Phosphatase Ammonia Total Protein Albumin Stool Occult Blood Blood Type O POSITIVE Antibody Screen Crossmatch 02/11/19 02/11/19 02/11/19 13:36 15:15 21:13 WBC RBC Hgb Hct MCV MCH MCHC RDW Plt Count MPV Absolute Neuts (auto) Neutrophils % Lymphocytes % Monocytes % Eosinophils % Basophils % Nucleated RBC % Anisocytosis Macrocytosis Ovalocytes PT with INR INR Anticoagulation Therapy No Result Required. Puncture Site Right brachial ABG pH 7.51 H ABG pCO2 at Pt Temp 21.8 L ABG pO2 at Pt Temp 145 H ABG HCO3 17.5 L ABG O2 Sat (Measured) 99.6 H ABG O2 Content 12.6 L ABG Base Excess -4.2 L Sumit Test Positive O2 Delivery Device No Result Required. Oxygen Flow Rate 2l Vent Mode No Result Required. Vent Rate No Result Required. Mechanical Rate No Result Required. PEEP Pressure Support Vent No Result Required. Sodium Potassium Chloride Carbon Dioxide Anion Gap BUN Creatinine Creat Clearance w eGFR POC Glucometer 144 147 Random Glucose Calcium Phosphorus Magnesium Total Bilirubin AST ALT Alkaline Phosphatase Ammonia Total Protein Albumin Stool Occult Blood Blood Type Antibody Screen Crossmatch 02/12/19 02/12/19 02/12/19 02:00 02:00 02:00 WBC 6.2 RBC 2.35 L Hgb 7.7 L Hct 22.2 L D MCV 94.3 MCH 32.7 MCHC 34.7 RDW 20.5 H Plt Count 103 L MPV 9.0 Absolute Neuts (auto) Neutrophils % Lymphocytes % Monocytes % Eosinophils % Basophils % Nucleated RBC % Anisocytosis Macrocytosis Ovalocytes PT with INR INR Anticoagulation Therapy No Result Required. Puncture Site Right radial ABG pH 7.56 H ABG pCO2 at Pt Temp 13.0 L* ABG pO2 at Pt Temp 144 H ABG HCO3 11.7 L ABG O2 Sat (Measured) 99.7 H ABG O2 Content 10.3 L ABG Base Excess -9.7 L Sumit Test Positive O2 Delivery Device Nasal Oxygen Flow Rate 2l Vent Mode No Result Required. Vent Rate No Result Required. Mechanical Rate No Result Required. PEEP 0.0 Pressure Support Vent No Result Required. Sodium Potassium Chloride Carbon Dioxide Anion Gap BUN Creatinine Creat Clearance w eGFR POC Glucometer Random Glucose Calcium Phosphorus Magnesium Total Bilirubin AST ALT Alkaline Phosphatase Ammonia 272.70 H Total Protein Albumin Stool Occult Blood Blood Type Antibody Screen Crossmatch 02/12/19 02/12/19 02/12/19 02:00 05:30 05:30 WBC 6.5 RBC 2.31 L Hgb 7.4 L Hct 21.7 L MCV 93.9 MCH 32.2 MCHC 34.3 RDW 20.1 H Plt Count 100 L MPV 8.7 Absolute Neuts (auto) 4.3 Neutrophils % 66.1 Lymphocytes % 23.2 Monocytes % 7.9 Eosinophils % 2.5 Basophils % 0.3 Nucleated RBC % 0 Anisocytosis Macrocytosis Ovalocytes PT with INR 20.00 H INR 1.69 H Anticoagulation Therapy Puncture Site ABG pH ABG pCO2 at Pt Temp ABG pO2 at Pt Temp ABG HCO3 ABG O2 Sat (Measured) ABG O2 Content ABG Base Excess Sumit Test O2 Delivery Device Oxygen Flow Rate Vent Mode Vent Rate Mechanical Rate PEEP Pressure Support Vent Sodium Potassium Chloride Carbon Dioxide Anion Gap BUN Creatinine Creat Clearance w eGFR POC Glucometer Random Glucose Calcium Phosphorus Magnesium Total Bilirubin AST ALT Alkaline Phosphatase Ammonia Total Protein Albumin Stool Occult Blood Blood Type O POSITIVE Antibody Screen Negative Crossmatch See Detail 02/12/19 02/12/19 02/12/19 05:30 05:50 06:30 WBC RBC Hgb Hct MCV MCH MCHC RDW Plt Count MPV Absolute Neuts (auto) Neutrophils % Lymphocytes % Monocytes % Eosinophils % Basophils % Nucleated RBC % Anisocytosis Macrocytosis Ovalocytes PT with INR INR Anticoagulation Therapy Puncture Site Left radial ABG pH 7.50 H ABG pCO2 at Pt Temp 15.1 L ABG pO2 at Pt Temp 99.0 ABG HCO3 11.7 L ABG O2 Sat (Measured) 98.1 H ABG O2 Content 10.0 L ABG Base Excess -10.4 L Sumit Test Positive O2 Delivery Device Mech vent Oxygen Flow Rate 35% Vent Mode A/c Vent Rate 12 Mechanical Rate Yes PEEP 5.0 Pressure Support Vent 400 Sodium 143 Potassium 4.1 Chloride 119 H Carbon Dioxide 12 L Anion Gap 13 BUN 42 H Creatinine 2.2 H Creat Clearance w eGFR 22.85 POC Glucometer 231 Random Glucose 184 H Calcium 6.9 L* Phosphorus 2.8 Magnesium 1.7 L Total Bilirubin 1.4 H AST 100 H ALT 50 Alkaline Phosphatase 71 Ammonia Total Protein 5.9 L Albumin 2.0 L Stool Occult Blood Blood Type Antibody Screen Crossmatch Active Medications Generic Name Dose Route Start Last Admin Trade Name Davonq PRN Reason Stop Dose Admin Chlorhexidine Gluconate 1 applic 02/11/19 22:00 02/11/19 21:18 Hibiclens For Decolonization - TP 1 applic HS SACHIN Administration Folic Acid 1 mg 02/12/19 10:00 Folic Acid - PO DAILY SACHIN Ampicillin Sodium/Sulbactam 100 mls @ 200 mls/hr 02/11/19 15:00 02/12/19 01: 14 Sodium 1.5 gm/ Sodium Chloride IVPB 200 mls/hr Q8H-IV SACHIN Administration Pantoprazole Sodium 80 mg/ 100 mls @ 10 mls/hr 02/11/19 21:15 02/11/19 21:12 Sodium Chloride IVPB Not Given Q10H SACHIN 8 MG/HR Octreotide Acetate 1,200 mcg/ 500 mls @ 20.83 mls/hr 02/12/19 07:15 Dextrose IVPB Q20H SACHIN 50 MCG/HR Fentanyl 500 mcg/ Dextrose 100 mls @ 5 mls/hr 02/12/19 05:15 02/12/19 05:46 IVPB 25 mcg/hr TITR SACHIN 5 mls/hr Administration Protocol 25 MCG/HR Dextrose/Sodium Chloride 1,000 mls @ 100 mls/hr 02/12/19 08:30 D5-1/2ns - IV ASDIR SACHIN Insulin Aspart 1 vial 02/11/19 16:30 02/12/19 06:59 Novolog Vial Sliding Scale - SQ Not Given ACHS SACHIN Protocol Lactulose 20 gm 02/11/19 22:00 02/12/19 06:59 Cephulac (Oral Use) PO 20 gm TID SACHIN Administration Mupirocin 1 applic 02/11/19 22:00 02/11/19 21:17 Bactroban Ointment (For Decolonization) - NS 02/16/19 21:59 1 applic BID SACHIN Administration Rifaximin 550 mg 02/12/19 10:00 Xifaxan - PO BID SACHIN Thiamine HCl 200 mg 02/12/19 10:00 Vitamin B1 Injection - IVPB DAILY SACHIN Zinc Oxide/Panthenol/Vitamin E 1 applic 02/11/19 16:03 Balmex Cream - TP DAILY PRN HYGEINE ASSESSMENT/PLAN: 58 y/o F w/ PMHx cirrhosis, hep C, polysubstance abuse including EtOH, DM, HTN, bipolar disorder, recent h/o SBP 12/14, presents from [facility] for agitation, combativeness, AMS while undergoing detox #GI -cirrhosis w/ prior SBP -ascites on US -GI consulted, recommendations appreciated -significant melenic blood noted -pending endoscopy w/ consent from family -octreotide and PTX gtt -albumin infusions as per ICU team -initiating steroids given Maddrey score >40 -NPO -D51/2NS #heme -thrombocytopenia 2/2 liver disease -Hb continues to drop, now 7.4 (11.3 on admission) -2U PRBC on deck -1U Plts on deck -worsening INR now 1.69 #CV -hold further anti-hypertensives while actively bleeding -maintain MAP > 65 -no indication for pressors -hemodynamic support as per ICU team #pulmonary -pulmonary edema developed overnight non-responsive to Lasix, required intubation -vent settings as per ICU team #neuro -on sedation -cont thiamine, folate -cont lactulose, titrate to BMs -cont IVF #ID -UCx growing enterococcus, BCx pending -ID consulted -Unasyn day 1, ABx day 2 #renal -progressively worsening Cr, now 2.2 -hepatorenal picture -monitor BMP -cont IVF #endocrine -SSI, BGM #GOC -grave prognosis -extensive family, multiple children and siblings, no appointed HCP -will attempt to identify single decision maker -consider comfort care -palliative team consulted #FEN -D51/2NS @ 100cc/hr -monitor and correct electrolytes -NPO #PPx -DVT: mechanical only -GI: PTX gtt #code -full #dispo -cont to monitor in ICU Visit type - Emergency Visit Emergency Visit: No - New Patient This patient is new to me today: No - Critical Care Critical Care patient: Yes Total Critical Care Time (in minutes): 40 Critical Care Statement: The care of this patient involved high complexity decision making to prevent further life threatening deterioration of the patient 's condition and/or to evaluate & treat vital organ system(s) failure or risk of failure.
--- NOTE | 2019-02-12 09:06 | PN ---
Progress Note (short form) - Note Progress Note: ammonia level 272 obtunded and intubated +GI bleed no fever no hypotension required intubation overnight Vital Signs Period Temp Pulse Resp BP Sys/Aguilar Pulse Ox Last 24 Hr 96.0 F-97.8 F 67-87 12-26 97-156/55-77 98-100 cor-rrr lungs decreased bs at bases abd soft,+fluid wave, not tense shrestha with clear urine ext no edema CBC, BMP 02/12/19 05:30 02/12/19 05:30 Microbiology 02/10/19 11:18 Blood - Peripheral Venous Blood Culture - Preliminary NO GROWTH OBTAINED AFTER 24 HOURS, INCUBATION TO CONTINUE FOR 4 DAYS. 02/10/19 11:10 Blood - Peripheral Venous Blood Culture - Preliminary NO GROWTH OBTAINED AFTER 24 HOURS, INCUBATION TO CONTINUE FOR 4 DAYS. 02/10/19 13:00 Urine - Urine - Catheterized Urine Culture - Preliminary Group D Strep Or Entero Coccus imp/reccd enterococcal UTI hepatic encephalopathy-patient is obtunded GI bleed poly substance use including etoh diabetes with CKD hep c unkown HIV status received rocephin/unasyn yesterday vanco/zosyn this am resume rocephin for GI coverage f/u vancomycin level in am possible endoscopy d/w ICU resident
[2019-02-12] MEDS ORDERED: THIAMINE HCL 100 MG TABLET (FP) PO SCH (10:00)
[2019-02-12] MEDS ORDERED: THIAMINE HCL 200 MG/2 ML VIAL IVPB SCH ×2 (10:00→14:00)
[2019-02-12] MEDS ORDERED: PIPERACILLIN/TAZOB 2.25 GM 2.25 GM in DEXTROSE 5%-WATER - 50 ML IVPB SCH (10:00)
[2019-02-12] MEDS ORDERED: VANCOMYCIN 750 MG in DEXTROSE 5%-WATER - 250 ML IVPB ONE (10:00)
[2019-02-12] MEDS: FOLIC ACID 1 MG TABLET (FP) PO SCH (10:22)
[2019-02-12] MEDS: RIFAXIMIN 550 MG TABLET (UD) PO SCH ×2 (10:22→23:56)
[2019-02-12] MEDS: MUPIROCIN 2% TOPICAL OINTMENT FOR DECOLONIZATION NS SCH ×2 (10:29→23:53)
[2019-02-12] MEDS ORDERED: cefTRIAXone SODIUM 1 GM VIAL ONE (10:30)
[2019-02-12] MEDS: CEFTRIAXONE 1 GM in DEXTROSE 5%-WATER - 50 ML IVPB SCH (10:31)
[2019-02-12] MEDS: methylPREDNISolone NA SUCC 40 MG/1 ML VIAL IVPUSH SCH (10:33)
[2019-02-12] MEDS ORDERED: INSULIN (NOVOLOG) ASPART 100 UNITS/ML 10ML VIAL ONE (10:50)
--- NOTE | 2019-02-12 10:58 | CONSULT ---
Consult - text type - Consultation Consultation Note: NEUROLOGY CONSULT APPRECIATED: Events reviewed and discussed with staff. Consults read and appreciated. This 58 yo F with pmhx of IDDM, HTN, HCV, ETOH dependence, Polysubstance drug use/ IVDA, CHF, Bipolar disorder, alcoholoc cirrhosis and ascites. Initially admitted for agitation from presumed ETOH withdrawal, sedated with IV Ativan. Stay complicated by GI bleeding and respiratory depression. Transferred to ICU, now on NGT and intubated. In interim, required transfusion for dropping HCT. On Ceftriaxone for Pos UTI. Sedated on Fentanyl IV. Head CT (reviewed): some motion artifact, essentially normal study alb 2.2 ammonia 98 -> 272 PTT, INR, PT are all elevated LEIF: thin, frail. Intubated on vent. NGT in place. Vanegas in situ. Ab distended. NEURO: Unresponsive. No response to voice or sternum rub. Eyes closed. Fixed and dilated pupils. No EOM's to Doll's head maneuver. Corneals depressed. No purposefull movement. Reflexes brisk throughout. Toes downgoing. No withdrawal to pinch in all 4's Impression: 1. Severe B/L cerebral dysfunction due to Toxic-Metabolic Encephalopathy (hyperammonemia) 2. Iatrogenic contribution Suggest: Increase Thiamine to 250 mg IVP TID Continue supportive care GI F/U appreciated, treatment of GI bleed may improve ammonia level and level of consciousness Decrease sedatives, including IV Fentanyl 25 mcg drip Thank you very much, Koffi Ravi MD
--- NOTE | 2019-02-12 11:01 | PN ---
Teaching Attending Note Name of Resident: Houston Melo ATTENDING PHYSICIAN STATEMENT I saw and evaluated the patient. I reviewed the resident's note and discussed the case with the resident. I agree with the resident's findings and plan as documented. SUBJECTIVE:intubated/sedated OBJECTIVE: Last Vital Signs Temp Pulse Resp BP Pulse Ox 96.0 F L 75 15 98/69 100 02/12/19 02:00 02/12/19 08:23 02/12/19 09:30 02/12/19 06:00 02/12/19 09:30 Intake & Output 02/09/19 02/10/19 02/11/19 02/12/19 23:59 23:59 23:59 23:59 Intake Total 0 300 1770 960 Output Total 250 900 Balance 0 50 1770 60 Weight 101 lb 102 lb 6.4 oz 97 lb 9 oz General intubated/sedated CV S1 S2 RRR Lungs coarse breath sounds anteriorly Abdomen soft slightly distended, +BS Extremities no pedal edema ASSESSMENT AND PLAN: 58 year old female with history of Liver Cirrhosis, Alcohol Abuse, Hepatitis C, recent history of SBP 12/14, DM 2, HTN, Polysubstance Abuse (including Alcohol), Bipolar Disorder, sent to ED from [facility] for agitation, combativeness, and altered mental status while undergoing detox. with no improvement and was intubated 02/11 to protect airway and now in the MICU with course complicated with development of melena. 1. Acute Hepatic Encephalopathy versus Toxic Encephalopathy secondary to Ativan and decompensating liver failure- with worsening ammonia level. on lactulose which was increased yesterday. add rifampin. Head CT on admission was negative for acute pathology. UTox on admission only +BZD. 2. Acute respiratory failure- intubated last night to protect airway with worsening mental status. full vent support. management per ICU team 3. Melena- likely upper GI bleed with high suspicion for esophageal varices. acute drop in hgb with thrombocytopenia leads for suspicion of active bleeding. will transfuse 2 unit PRBC. would recommend platelets at this time but will hold based on GI recommendations. plan for EGD today. cont NPO, on PPI and octreotide ggt. 4. Acute blood loss anemia- due to suspected Esophageal varices. 2 units PRBC ordered. check post-transfusion CBC. monitor Hgb Q8H. 5. Acute decompensated liver failure- uptrending INR/thrombocytopenia/ encephalopathic. madrys score 35. will start steroids at this time. monitor INR and bilirubin. 6. UTI- on ceftriaxone 7. Ascites- seen on u/s. had recent treatment for SBP. will need to consider SBP at this time however unable to perform paracentesis. will try to obtain one once more stabilized. empiric treatement with ceftriaxone. ID on board 8. Thrombocytopenia-due to cirrhosis. +active bleeding. platelet transfusion on hold. monitor platelet count 9. BOB- unknown baseline Cr. on IVF. will need to monitor closely for hepatorenal syndrome. albumin given by ICU team. on IVF. avoid nephrotoxic agents. 10. DM- hold oral agents. iss and Bgm. 11. Continuous ETOH abuse- no signs of withdrawals. counselling once medically stabilized. on thiamine/folate/MVI 12. HTN- on norvasc. 13. DVT PPI- SCD. hold pharmacologic in setting of active bleeding 14. MICU monitoring The care of this patient involved high complexity decision making to prevent further life threatening deterioration of the patient's condition and/or to evaluate & treat vital organ system(s) failure or risk of failure. 45 mins
--- NOTE | 2019-02-12 11:17 | PN ---
Teaching Attending Note Name of Resident: Huy Mejia ATTENDING PHYSICIAN STATEMENT I saw and evaluated the patient. I reviewed the resident's note and discussed the case with the resident. I agree with the resident's findings and plan as documented. SUBJECTIVE: Pt seen and examined in the ICU. Intubated overnight for increasing labored breaths and altered mental status. OBJECTIVE: Vital Signs Period Temp Pulse Resp BP Sys/Aguilar Pulse Ox Last 24 Hr 96.0 F-97.8 F 67-87 12-26 97-156/55-77 98-100 Intake & Output 02/09/19 02/10/19 02/11/19 02/12/19 23:59 23:59 23:59 23:59 Intake Total 0 300 1770 960 Output Total 250 900 Balance 0 50 1770 60 Weight 45.813 kg 46.448 kg 44.254 kg Gen: intubated, obtunded Heart: RRR Lung: decreased breath sounds at the bases Abd: softly distended, nontender Ext: no edema CBC, BMP 02/12/19 05:30 02/12/19 05:30 Active Medications Chlorhexidine Gluconate (Hibiclens For Decolonization -) 1 applic TP HS SACHIN Last Admin: 02/11/19 21:18 Dose: 1 applic Folic Acid (Folic Acid -) 1 mg PO DAILY SACHIN Last Admin: 02/12/19 10:22 Dose: 1 mg Pantoprazole Sodium 80 mg/ (Sodium Chloride) 100 mls @ 10 mls/hr IVPB Q10H SACHIN Last Admin: 02/11/19 21:12 Dose: Not Given Octreotide Acetate 1,200 mcg/ (Dextrose) 500 mls @ 20.83 mls/hr IVPB Q20H SACHIN Fentanyl 500 mcg/ Dextrose 100 mls @ 5 mls/hr IVPB TITR SACHIN; Protocol Last Admin: 02/12/19 05:46 Dose: 25 mcg/hr, 5 mls/hr Dextrose/Sodium Chloride (D5-1/2ns -) 1,000 mls @ 100 mls/hr IV ASDIR SACHIN Last Admin: 02/12/19 08:30 Dose: 100 mls/hr Ceftriaxone Sodium 1 gm/ (Dextrose) 50 mls @ 100 mls/hr IVPB DAILY SACHIN; Protocol Last Admin: 02/12/19 10:31 Dose: 100 mls/hr Insulin Aspart (Novolog Vial Sliding Scale -) 1 vial SQ ACHS [facility]; Protocol Last Admin: 02/12/19 06:59 Dose: Not Given Lactulose (Cephulac (Oral Use)) 20 gm PO TID [facility] Last Admin: 02/12/19 06:59 Dose: 20 gm Methylprednisolone Sodium Succinate (Solu-Medrol -) 40 mg IVPUSH DAILY [facility] Last Admin: 02/12/19 10:33 Dose: 40 mg Mupirocin (Bactroban Ointment (For Decolonization) -) 1 applic NS BID [facility] Stop: 02/16/19 21:59 Last Admin: 02/12/19 10:29 Dose: 1 applic Rifaximin (Xifaxan -) 550 mg PO BID [facility] Last Admin: 02/12/19 10:22 Dose: 550 mg Thiamine HCl (Vitamin B1 Injection -) 250 mg IVPB TID [facility] Zinc Oxide/Panthenol/Vitamin E (Balmex Cream -) 1 applic TP DAILY PRN PRN Reason: HYGEINE ASSESSMENT AND PLAN: Acute Respiratory Failure Hepatic Encephalopathy GI Bleed Acute Blood Loss Anemia Acute Kidney Injury Liver Cirrhosis Alcohol Abuse Hep C Thrombocytopenia h/o SBP UTI HTN DM - monitor H/H, coags - transfuse as needed - lactulose, rifaximin - trend ammonia level - GI f/u for EGD - continue protonix, octreotide gtts - continue antibiotics - IVF - monitor urine output, creatinine - keep intubated for airway protection - spontaneous breathing trials as tolerated - DVT/GI prophylaxis - continue ICU monitoring critical care time spent in reviewing chart, evaluating patient and formulating plan 35 min
[2019-02-12] MEDS ORDERED: PHYTONADIONE 10 MG/1 ML AMP SQ ONE (11:30)
--- NOTE | 2019-02-12 11:38 | PN ---
Physical Exam: SUBJECTIVE: Patient seen and examined this AM. Intubated and Sedated OBJECTIVE: Vital Signs Period Temp Pulse Resp BP Sys/Aguilar Pulse Ox Last 24 Hr 96.0 F-97.8 F 67-87 12-26 97-156/55-77 98-100 GEN: Intubated and sedated HEENT: dry mucus membranes NECK: supple HEART: Regular rate and rhythm, no murmurs noted LUNGS: CTA b/l ABDOMEN: Soft, nontender, distension noted EXTREMITIES: no peripheral edema noted, good peripheral pulses throughout NEURO: Intubated and sedated Laboratory Results - last 24 hr 02/11/19 02/11/19 02/11/19 06:30 09:00 13:05 WBC 7.3 RBC 2.76 L Hgb 8.8 L Hct 26.2 L MCV 94.9 MCH 32.1 MCHC 33.8 RDW 20.6 H Plt Count 100 L MPV 8.7 Absolute Neuts (auto) Neutrophils % Lymphocytes % Monocytes % Eosinophils % Basophils % Nucleated RBC % Anisocytosis 1+ Macrocytosis 1+ Ovalocytes 1+ PT with INR INR Anticoagulation Therapy Puncture Site ABG pH ABG pCO2 at Pt Temp ABG pO2 at Pt Temp ABG HCO3 ABG O2 Sat (Measured) ABG O2 Content ABG Base Excess Sumit Test O2 Delivery Device Oxygen Flow Rate Vent Mode Vent Rate Mechanical Rate PEEP Pressure Support Vent Sodium Potassium Chloride Carbon Dioxide Anion Gap BUN Creatinine Creat Clearance w eGFR POC Glucometer Random Glucose Calcium Phosphorus Magnesium Total Bilirubin AST ALT Alkaline Phosphatase Ammonia Total Protein Albumin Stool Occult Blood Positive Blood Type Antibody Screen Crossmatch 02/11/19 02/11/19 02/11/19 13:05 13:05 13:36 WBC RBC Hgb Hct MCV MCH MCHC RDW Plt Count MPV Absolute Neuts (auto) Neutrophils % Lymphocytes % Monocytes % Eosinophils % Basophils % Nucleated RBC % Anisocytosis Macrocytosis Ovalocytes PT with INR 15.10 H INR 1.28 H Anticoagulation Therapy No Result Required. Puncture Site Right brachial ABG pH 7.51 H ABG pCO2 at Pt Temp 21.8 L ABG pO2 at Pt Temp 145 H ABG HCO3 17.5 L ABG O2 Sat (Measured) 99.6 H ABG O2 Content 12.6 L ABG Base Excess -4.2 L Sumit Test Positive O2 Delivery Device No Result Required. Oxygen Flow Rate 2l Vent Mode No Result Required. Vent Rate No Result Required. Mechanical Rate No Result Required. PEEP Pressure Support Vent No Result Required. Sodium Potassium Chloride Carbon Dioxide Anion Gap BUN Creatinine Creat Clearance w eGFR POC Glucometer Random Glucose Calcium Phosphorus Magnesium Total Bilirubin AST ALT Alkaline Phosphatase Ammonia Total Protein Albumin Stool Occult Blood Blood Type O POSITIVE Antibody Screen Crossmatch 02/11/19 02/11/19 02/12/19 15:15 21:13 02:00 WBC RBC Hgb Hct MCV MCH MCHC RDW Plt Count MPV Absolute Neuts (auto) Neutrophils % Lymphocytes % Monocytes % Eosinophils % Basophils % Nucleated RBC % Anisocytosis Macrocytosis Ovalocytes PT with INR INR Anticoagulation Therapy Puncture Site ABG pH ABG pCO2 at Pt Temp ABG pO2 at Pt Temp ABG HCO3 ABG O2 Sat (Measured) ABG O2 Content ABG Base Excess Sumit Test O2 Delivery Device Oxygen Flow Rate Vent Mode Vent Rate Mechanical Rate PEEP Pressure Support Vent Sodium Potassium Chloride Carbon Dioxide Anion Gap BUN Creatinine Creat Clearance w eGFR POC Glucometer 144 147 Random Glucose Calcium Phosphorus Magnesium Total Bilirubin AST ALT Alkaline Phosphatase Ammonia 272.70 H Total Protein Albumin Stool Occult Blood Blood Type Antibody Screen Crossmatch 02/12/19 02/12/19 02/12/19 02:00 02:00 02:00 WBC 6.2 RBC 2.35 L Hgb 7.7 L Hct 22.2 L D MCV 94.3 MCH 32.7 MCHC 34.7 RDW 20.5 H Plt Count 103 L MPV 9.0 Absolute Neuts (auto) Neutrophils % Lymphocytes % Monocytes % Eosinophils % Basophils % Nucleated RBC % Anisocytosis Macrocytosis Ovalocytes PT with INR INR Anticoagulation Therapy No Result Required. Puncture Site Right radial ABG pH 7.56 H ABG pCO2 at Pt Temp 13.0 L* ABG pO2 at Pt Temp 144 H ABG HCO3 11.7 L ABG O2 Sat (Measured) 99.7 H ABG O2 Content 10.3 L ABG Base Excess -9.7 L Sumit Test Positive O2 Delivery Device Nasal Oxygen Flow Rate 2l Vent Mode No Result Required. Vent Rate No Result Required. Mechanical Rate No Result Required. PEEP 0.0 Pressure Support Vent No Result Required. Sodium Potassium Chloride Carbon Dioxide Anion Gap BUN Creatinine Creat Clearance w eGFR POC Glucometer Random Glucose Calcium Phosphorus Magnesium Total Bilirubin AST ALT Alkaline Phosphatase Ammonia Total Protein Albumin Stool Occult Blood Blood Type O POSITIVE Antibody Screen Negative Crossmatch See Detail 02/12/19 02/12/19 02/12/19 05:30 05:30 05:30 WBC 6.5 RBC 2.31 L Hgb 7.4 L Hct 21.7 L MCV 93.9 MCH 32.2 MCHC 34.3 RDW 20.1 H Plt Count 100 L MPV 8.7 Absolute Neuts (auto) 4.3 Neutrophils % 66.1 Lymphocytes % 23.2 Monocytes % 7.9 Eosinophils % 2.5 Basophils % 0.3 Nucleated RBC % 0 Anisocytosis Macrocytosis Ovalocytes PT with INR 20.00 H INR 1.69 H Anticoagulation Therapy Puncture Site ABG pH ABG pCO2 at Pt Temp ABG pO2 at Pt Temp ABG HCO3 ABG O2 Sat (Measured) ABG O2 Content ABG Base Excess Sumit Test O2 Delivery Device Oxygen Flow Rate Vent Mode Vent Rate Mechanical Rate PEEP Pressure Support Vent Sodium 143 Potassium 4.1 Chloride 119 H Carbon Dioxide 12 L Anion Gap 13 BUN 42 H Creatinine 2.2 H Creat Clearance w eGFR 22.85 POC Glucometer Random Glucose 184 H Calcium 6.9 L* Phosphorus 2.8 Magnesium 1.7 L Total Bilirubin 1.4 H AST 100 H ALT 50 Alkaline Phosphatase 71 Ammonia Total Protein 5.9 L Albumin 2.0 L Stool Occult Blood Blood Type Antibody Screen Crossmatch 02/12/19 02/12/19 05:50 06:30 WBC RBC Hgb Hct MCV MCH MCHC RDW Plt Count MPV Absolute Neuts (auto) Neutrophils % Lymphocytes % Monocytes % Eosinophils % Basophils % Nucleated RBC % Anisocytosis Macrocytosis Ovalocytes PT with INR INR Anticoagulation Therapy Puncture Site Left radial ABG pH 7.50 H ABG pCO2 at Pt Temp 15.1 L ABG pO2 at Pt Temp 99.0 ABG HCO3 11.7 L ABG O2 Sat (Measured) 98.1 H ABG O2 Content 10.0 L ABG Base Excess -10.4 L Sumit Test Positive O2 Delivery Device Mech vent Oxygen Flow Rate 35% Vent Mode A/c Vent Rate 12 Mechanical Rate Yes PEEP 5.0 Pressure Support Vent 400 Sodium Potassium Chloride Carbon Dioxide Anion Gap BUN Creatinine Creat Clearance w eGFR POC Glucometer 231 Random Glucose Calcium Phosphorus Magnesium Total Bilirubin AST ALT Alkaline Phosphatase Ammonia Total Protein Albumin Stool Occult Blood Blood Type Antibody Screen Crossmatch Active Medications Generic Name Dose Route Start Last Admin Trade Name Freq PRN Reason Stop Dose Admin Chlorhexidine Gluconate 1 applic 02/11/19 22:00 02/11/19 21:18 Hibiclens For Decolonization - TP 1 applic HS SACHIN Administration Folic Acid 1 mg 02/12/19 10:00 02/12/19 10:22 Folic Acid - PO 1 mg DAILY SACHIN Administration Pantoprazole Sodium 80 mg/ 100 mls @ 10 mls/hr 02/11/19 21:15 02/11/19 21:12 Sodium Chloride IVPB Not Given Q10H SACHIN 8 MG/HR Octreotide Acetate 1,200 mcg/ 500 mls @ 20.83 mls/hr 02/12/19 07:15 Dextrose IVPB Q20H SACHIN 50 MCG/HR Fentanyl 500 mcg/ Dextrose 100 mls @ 5 mls/hr 02/12/19 05:15 02/12/19 05:46 IVPB 25 mcg/hr TITR SACHIN 5 mls/hr Administration Protocol 25 MCG/HR Dextrose/Sodium Chloride 1,000 mls @ 100 mls/hr 02/12/19 08:30 02/12/19 08:30 D5-1/2ns - IV 100 mls/hr ASDIR SACHIN Administration Ceftriaxone Sodium 1 gm/ 50 mls @ 100 mls/hr 02/12/19 10:00 02/12/19 10:31 Dextrose IVPB 100 mls/hr DAILY SACHIN Administration Protocol Insulin Aspart 1 vial 02/11/19 16:30 02/12/19 06:59 Novolog Vial Sliding Scale - SQ Not Given ACHS SACHIN Protocol Lactulose 20 gm 02/11/19 22:00 02/12/19 06:59 Cephulac (Oral Use) PO 20 gm TID SACHIN Administration Methylprednisolone Sodium Succinate 40 mg 02/12/19 10:00 02/12/19 10:33 Solu-Medrol - IVPUSH 40 mg DAILY SACHIN Administration Mupirocin 1 applic 02/11/19 22:00 02/12/19 10:29 Bactroban Ointment (For Decolonization) - NS 02/16/19 21:59 1 applic BID SACHIN Administration Phytonadione 2.5 mg 02/12/19 11:30 Aqua Mephyton Injection - SQ 02/12/19 11:31 ONCE ONE Rifaximin 550 mg 02/12/19 10:00 02/12/19 10:22 Xifaxan - PO 550 mg BID SACHIN Administration Thiamine HCl 250 mg 02/12/19 14:00 Vitamin B1 Injection - IVPB TID SACHIN Zinc Oxide/Panthenol/Vitamin E 1 applic 02/11/19 16:03 Balmex Cream - TP DAILY PRN HYGEINE ASSESSMENT/PLAN: Patient is a 58 year old female who presented with altered mental status and was found to have hepatic metabolic encephalopathy and GI bleed. Patient evaluated by ICU and deemed stable for Med/Surg initially. However, patient had worsening AMS with Active GI bleed and is now transferred to ICU for further monitoring and management. NEURO/PSYCH -Hepatic Encephalopathy Continue Laculose and Rifaximin GI consult appreciated Repeat ammonia 270, increasing from admission -Polysubstance Abuse Avoid benzo's Continue folate and thiamine Will need rehab after patient is stable CARDIO -HTN Hold Anti-HTN medications as patient is actively bleeding Continue to monitor BP and will treat as needed PULMONARY -Acute Hypoxic Respiratory Failire Intubated overnight, currently saturating well on CPAP, will maintain for now and convert to AC if needed Maintain 02 saturation >95% Will maintain airway protection with ET tube until neuro status improves GASTROENTEROLOGY -GI Bleed Rule out Variceal bleeding Octreotide drip Protonix drip Continue IV hydration Trend CBC, 2units PRBCs ordered due to acute bleeding and dropping H/H, repeat CBC to monitor for appropriate response and further bleeding Plan for EGD today once consented by family -Liver Cirrhosis with Hepatic Encephalopathy History of prior SBP Ascites on U/S Diagnostic paracentesis with cytology once patient is stable -History of Hepatitis C Unsure if patient was treated Likely source of Liver cirrhosis HEMATOLOGY -Thrombocytopenia Likely secondary to liver disease Will need to continue and monitor currently > 100, maintain > 50 with active bleeding RENAL -BOB Unsure of baseline Renal Consulted and will evaluate IV fluids, monitor for overload ENDOCRINE -IDDM II BGMs ISS PROPHYLAXIS -SCDs for DVT. Avoid AC due to GI bleed -Protonix drip FEN -D5 1/2 NS @ 100 cc/hr -Monitor and replete -NPO Disposition -Full code -ICU monitoring due to active GI bleed. EGD to be done today Visit type - Emergency Visit Emergency Visit: Yes ED Registration Date: 02/08/19 Care time: The patient presented to the Emergency Department on the above date and was hospitalized for further evaluation of their emergent condition. - New Patient This patient is new to me today: No - Critical Care Critical Care patient: Yes Total Critical Care Time (in minutes): 50 Critical Care Statement: The care of this patient involved high complexity decision making to prevent further life threatening deterioration of the patient 's condition and/or to evaluate & treat vital organ system(s) failure or risk of failure.
--- NOTE | 2019-02-12 13:46 | CONSULT ---
Consult Consult Specialty:: Nephrology Reason for Consultation:: BOB - History of Present Illness Chief Complaint: initially presented from rehab with violent behavior History of Present Illness: Pt is a 58 year old female with pmhx of DM, etoh abuse, hep c, liver cirrhosis and ascites who initially presented from rehab with violent behavior and change in mental status. She has history of etoh abuse. She was admitted to the hospital. She was intubated for airway protection. She is unable to give history. I was called to evaluate her today for elevated creatinine. She is now intubated and lethargic. She was given lasix yesterday for presumed congestion. She did have melena. I discussed the care with the ICU team. - History Source History Provided By: Medical Record - Past Medical History Cardio/Vascular: Yes: HTN Hepatobiliary: Yes: Cirrhosis, Hepatitis C ...LMP: 04/28/03 Psych: Yes: Addictions (polysubstance abuse), Bipolar Endocrine: Yes: Diabetes Mellitus - Past Surgical History Additional Surgical History: Unable to obtain - Alcohol/Substance Use Hx Alcohol Use: Yes (TODAY) - Smoking History Smoking history: Current every day smoker Have you smoked in the past 12 months: Yes Aproximately how many cigarettes per day: 3 Home Medications - Allergies Allergies/Adverse Reactions: Allergies Allergy/AdvReac Type Severity Reaction Status Date / Time Fish Containing Products Allergy Severe Itching Verified 02/08/19 16:26 tomato [Tomato] Allergy Mild Itching Verified 02/08/19 16:26 - Home Medications Home Medications: Ambulatory Orders Calcium Carb/Vitamin D3/Vit K1 [Calcium + D Soft Chewable Tab] 1 each PO DAILY 02/09/19 Gabapentin 100 mg PO TID 02/09/19 Multivitamins [Tab-A-Vit -] 1 tab PO DAILY 02/09/19 Sennosides/Docusate Sodium [Docusate Sodium-Senna Tablet] 1 each PO HS PRN 02/09 Amlodipine Besylate 10 mg PO DAILY 02/10/19 Furosemide 20 mg PO DAILY 02/10/19 Insulin Aspart [Novolog] 0.1 ml IM DAILY 02/10/19 Insulin Detemir [Levemir Flextouch] 0.25 ml IM HS 02/10/19 Spironolactone 50 mg PO DAILY 02/10/19 Family Disease History - Family Disease History Family History: Unable to Obtain Review of Systems Unable to obtain ROS, reason: pt intubated Physical Exam Vital Signs: Vital Signs Temperature 96.0 F L 02/12/19 02:00 Pulse Rate 75 02/12/19 08:23 Respiratory Rate 14 02/12/19 10:56 Blood Pressure 98/69 02/12/19 06:00 O2 Sat by Pulse Oximetry (%) 100 02/12/19 09:30 Constitutional: Yes: Calm HENT: Yes: Atraumatic Cardiovascular: Yes: S1, S2 Respiratory: Yes: Mechanically Ventilated Gastrointestinal: Yes: Soft Renal/: Yes: Vanegas Present Musculoskeletal: Yes: Muscle Weakness Edema: No Neurological: Yes: Lethargy Labs: CBC, BMP 02/12/19 05:30 02/12/19 05:30 Laboratory Tests 05/07/13 05/23/13 02/08/19 12:50 08:50 18:00 BUN Creatinine 0.7 0.5 L D 1.8 H 02/09/19 02/10/19 02/11/19 06:15 08:40 06:30 BUN Creatinine 1.7 H 1.9 H 1.8 H 02/12/19 05:30 BUN 42 H Creatinine 2.2 H Imaging - Results Chest X-ray: Report Reviewed Ultrasound: Report Reviewed Problem List - Problems (1) Altered mental status Code(s): R41.82 - ALTERED MENTAL STATUS, UNSPECIFIED Qualifiers: Altered mental status type: stupor Qualified Code(s): R40.1 - Stupor (2) Hepatic encephalopathy Code(s): K72.90 - HEPATIC FAILURE, UNSPECIFIED WITHOUT COMA (3) Alcohol dependence Code(s): F10.20 - ALCOHOL DEPENDENCE, UNCOMPLICATED (4) Cocaine dependence Code(s): F14.20 - COCAINE DEPENDENCE, UNCOMPLICATED Assessment/Plan Current Medications Generic Name Dose Route Start Last Admin Trade Name Freq PRN Reason Stop Dose Admin Chlorhexidine Gluconate 1 applic 02/11/19 22:00 02/11/19 21:18 Hibiclens For Decolonization - TP 1 applic HS SACHIN Administration Folic Acid 1 mg 02/12/19 10:00 02/12/19 10:22 Folic Acid - PO 1 mg DAILY SACHIN Administration Pantoprazole Sodium 80 mg/ 100 mls @ 10 mls/hr 02/11/19 21:15 02/11/19 21:12 Sodium Chloride IVPB Not Given Q10H SACHIN 8 MG/HR Octreotide Acetate 1,200 mcg/ 500 mls @ 20.83 mls/hr 02/12/19 07:15 Dextrose IVPB Q20H SACHIN 50 MCG/HR Fentanyl 500 mcg/ Dextrose 100 mls @ 5 mls/hr 02/12/19 05:15 02/12/19 05:46 IVPB 25 mcg/hr TITR SACHIN 5 mls/hr Administration Protocol 25 MCG/HR Dextrose/Sodium Chloride 1,000 mls @ 100 mls/hr 02/12/19 08:30 02/12/19 08:30 D5-1/2ns - IV 100 mls/hr ASDIR SACHIN Administration Ceftriaxone Sodium 1 gm/ 50 mls @ 100 mls/hr 02/12/19 10:00 02/12/19 10:31 Dextrose IVPB 100 mls/hr DAILY SACHIN Administration Protocol Insulin Aspart 1 vial 02/11/19 16:30 02/12/19 06:59 Novolog Vial Sliding Scale - SQ Not Given ACHS [facility] Protocol Lactulose 20 gm 02/11/19 22:00 02/12/19 06:59 Cephulac (Oral Use) PO 20 gm TID SACHIN Administration Methylprednisolone Sodium Succinate 40 mg 02/12/19 10:00 02/12/19 10:33 Solu-Medrol - IVPUSH 40 mg DAILY SACHIN Administration Mupirocin 1 applic 02/11/19 22:00 02/12/19 10:29 Bactroban Ointment (For Decolonization) - NS 02/16/19 21:59 1 applic BID SACHIN Administration Rifaximin 550 mg 02/12/19 10:00 02/12/19 10:22 Xifaxan - PO 550 mg BID SACHIN Administration Thiamine HCl 250 mg 02/12/19 14:00 Vitamin B1 Injection - IVPB TID SACHIN Zinc Oxide/Panthenol/Vitamin E 1 applic 02/11/19 16:03 Balmex Cream - TP DAILY PRN HYGEINE Impression 1. CKD 2. BOB 3. resp failure 4. etoh abuse 5. liver cirrhosis 6. bipolar 7. change in mental status 8. 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
[2019-02-12] MEDS ORDERED: CALCIUM GLUCONATE 10% - 1,000 MG/10 ML VIAL IVPUSH ONE (13:51)
[2019-02-12] MEDS ORDERED: SODIUM BICARBONATE 8.4% 50 MEQ/50 ML DISP.SYRIN IVPUSH ONE (13:51)
[2019-02-12] MEDS: PANTOPRAZOLE SODIUM 80 MG in SODIUM CHLORIDE 100 ML IVPB SCH (14:29)
[2019-02-12] MEDS ORDERED: FUROSEMIDE 40 MG/4 ML INJECTABLE VIAL IVPUSH ONE (14:45)
[2019-02-12] MEDS ORDERED: FUROSEMIDE 40 MG/4 ML INJECTABLE VIAL ONE (14:51)
--- NOTE | 2019-02-12 15:38 | PN ---
Progress Note (short form) - Note Progress Note: Post endoscopy today: Bright red blood noted in oropharynx on intubation, possibly ET or NGT trauma. Possible small distal esophageal varices with 1-2 cords, flattening on insufflation, no high risk stigmata Small erosion near the GEJ, without bleeding Mild portal HTN gastropathy Mild antral erythema 10mm ulceration in duod bulb /sweep with pigmentation, no high risk stigmata or evidence of bleeding Biopsies not taken in setting of coagulopathy/thrombocytopenia Recommendations per GI: ICU monitoring Hgb monitoring dc octreotide IV PPI bid Avoid NSAIDS Check stool H pylori Ag Notify GI if further Hgb drop for therapeutic EGD
--- NOTE | 2019-02-12 15:49 | PN ---
Progress Note (short form) - Note Progress Note: EGD performed today to evaluate melena and anemia, revealing bright red blood in oropharynx on intubation, possibly ET or NGT trauma. Possible small distal esophageal varices with 1-2 cords, flattening on insufflation, no high risk stigmata, mild portal HTN gastropathy, and 10mm ulceration in duodenal bulb /sweep with pigmentation, no high risk stigmata or evidence of bleeding. Suspected duodenal ulceration to be the likely source of bleeding at this time. See scanned report for full details. Recommendations: -Continue ICU monitoring -Continue to closely monitor Hb and for evidence of bleeding, maintain plts >50 , aim Hb >7 though avoid overtransfusion in setting of portal htn -DC octreotide -IV PPI BID -Check stool H pylori -If further overt bleeding with acute drop in Hb not responding to prbc transfusion please notify GI for possible repeat EGD with therapeutic intent
[2019-02-12] MEDS ORDERED: THIAMINE HCL 200 MG/2 ML VIAL IVPB ONE (16:11)
[2019-02-12] MEDS ORDERED: NOREPINEPHRINE BITARTRATE 8,000 MCG in DEXTROSE 5%-WATER - 492 ML IV SCH (16:15)
[2019-02-12 17:28] LABS: BASO % 0.1 % (0-2.0); EOS % 0.4 % (0-4.5); HEMATOCRIT 30.6 % (32.4-45.2); HEMOGLOBIN 10.7 GM/dL (10.7-15.3); LYMPH % 5.5 % (8-40); MCH 32.6 pg (25.7-33.7); MEAN CELL VOLUME 93.1 fl (80-96); MEAN PLT VOLUME 8.9 fl (7.5-11.1); MONO % 2.9 % (3.8-10.2); NEUT % 91.1 % (42.8-82.8); PLATELET COUNT 102 K/MM3 (134-434); RBC 3.28 M/mm3 (3.60-5.2); WHITE BLOOD COUNT 7.2 K/mm3 (4.0-10.0)
[2019-02-12 18:01] LABS: ANISOCYTOSIS 1+; PLATELET ESTIMATE DECREASED
[2019-02-12 18:10] LABS: EPI CELLS 0.6 /HPF (FEW); HYALINE CASTS 9 /hpf (NEGATIVE); URINE APPEARANCE CLEAR; URINE BACTERIA 1.512 /hpf (NEGATIVE); URINE BILIRUBIN NEGATIVE (<2.0 mg/dL); URINE COLOR YELLOW; URINE GLUCOSE (UA) NEGATIVE (NEGATIVE); URINE KETONE NEGATIVE (NEGATIVE); URINE LEUK ESTERASE TRACE (NEGATIVE); URINE NITRITE NEGATIVE (NEGATIVE); URINE PROTEIN NEGATIVE (NEGATIVE); URINE RBC 1 /hpf (0-3); URINE UROBILINOGEN 0.2 mg/dL (0.2-1.0); URINE WBC 8 /hpf (3-5)
[2019-02-12 19:51] LABS: ALBUMIN 2.5 g/dl (3.4-5.0); ALK PHOS 78 U/L (45-117); ANION GAP 12 MMOL/L (8-16); BILIRUBIN,TOTAL 1.9 mg/dL (0.2-1); BLOOD UREA NITROGEN 42 mg/dL (7-18); CHLORIDE 113 mmol/L (98-107); CO2 17 mmol/L (21-32); CREATININE 2.4 mg/dL (0.55-1.3); PHOSPHOROUS 4.2 mg/dL (2.5-4.9); POTASSIUM 3.4 mmol/L (3.5-5.1); SGOT/AST 98 U/L (15-37); SGPT/ALT 51 U/L (13-61); SODIUM 142 mmol/L (136-145); TOT PROT 6.6 g/dl (6.4-8.2)
[2019-02-12 19:54] LABS: GLUCOSE,RANDOM 302 mg/dL (74-106)
[2019-02-12] MEDS: CHLORHEXIDINE GLUCONATE 4% CLEANSER FOR DECOLONIZATION TP SCH (23:54)
[2019-02-13] MEDS: FENTANYL INJECTION 500 MCG in DEXTROSE 5%-WATER - 90 ML IVPB SCH (05:51)
[2019-02-13] MEDS: LACTULOSE 20 GM/30 ML UDC (FOR ORAL USE ONLY) PO SCH ×3 (06:15→21:23)
[2019-02-13] MEDS: INSULIN SLIDING SCALE (NOVOLOG) 1 VIAL SQ SCH ×4 (06:16→21:34)
[2019-02-13 07:03] LABS: BASO % 0.2 % (0-2.0); HEMATOCRIT 29.7 % (32.4-45.2); HEMOGLOBIN 10.5 GM/dL (10.7-15.3); LYMPH % 10.9 % (8-40); MCH 32.2 pg (25.7-33.7); MCHC 35.4 g/dl (32.0-36.0); MEAN CELL VOLUME 90.9 fl (80-96); MEAN PLT VOLUME 8.8 fl (7.5-11.1); MONO % 9.6 % (3.8-10.2); NEUT % 79.3 % (42.8-82.8); PLATELET COUNT 128 K/MM3 (134-434); RBC 3.26 M/mm3 (3.60-5.2); RDW 17.7 % (11.6-15.6); WHITE BLOOD COUNT 8.9 K/mm3 (4.0-10.0)
[2019-02-13 07:31] LABS: ALBUMIN 2.4 g/dl (3.4-5.0); ALK PHOS 80 U/L (45-117); ANION GAP 13 MMOL/L (8-16); BILIRUBIN,TOTAL 1.1 mg/dL (0.2-1); BLOOD UREA NITROGEN 48 mg/dL (7-18); CHLORIDE 113 mmol/L (98-107); CO2 16 mmol/L (21-32); CREATININE 2.7 mg/dL (0.55-1.3); GLUCOSE,RANDOM 297 mg/dL (74-106); PHOSPHOROUS 3.8 mg/dL (2.5-4.9); POTASSIUM 3.5 mmol/L (3.5-5.1); SGOT/AST 104 U/L (15-37); SGPT/ALT 55 U/L (13-61); SODIUM 141 mmol/L (136-145); TOT PROT 6.8 g/dl (6.4-8.2)
[2019-02-13 07:40] LABS: CALCIUM 6.8 mg/dL (8.5-10.1)
[2019-02-13 07:50] LABS: INR 1.29 (0.83-1.09); PROTHROMBIN TIME (PATIENT) 15.3 SEC (9.7-13.0)
[2019-02-13 08:25] LABS: ARTERIAL BLD GAS O2 SATURATION 99.5 % (95-98); ARTERIAL BLOOD GAS PCO2 19.4 mmHg (35-45); ARTERIAL BLOOD GAS PO2 161 mmHg (80-105); ARTERIAL BLOOD GAS pH 7.53 (7.35-7.45)
[2019-02-13 08:27] LABS: ALLENS TEST POSITIVE
[2019-02-13] MEDS ORDERED: DEXTROSE 5%-WATER - 50 ML IVPB ONE (08:29)
[2019-02-13] MEDS ORDERED: cefTRIAXone SODIUM 1 GM VIAL ONE (08:29)
[2019-02-13] MEDS: methylPREDNISolone NA SUCC 40 MG/1 ML VIAL IVPUSH SCH (09:04)
[2019-02-13] MEDS: PANTOPRAZOLE SODIUM 40 MG VIAL IVPUSH SCH ×3 (09:04→21:23)
[2019-02-13] MEDS: CEFTRIAXONE 1 GM in DEXTROSE 5%-WATER - 50 ML IVPB SCH (09:04)
--- NOTE | 2019-02-13 09:08 | PN ---
Physical Exam: SUBJECTIVE: Patient seen and examined this AM. Intubated but off sedation, not responding or following commands OBJECTIVE: Vital Signs Period Temp Pulse Resp BP Sys/Aguilar Pulse Ox Last 24 Hr 98 F-99.4 F 83-98 14-20 137-155/70-92 100-100 GEN: Intubated, off sedation, not responding or following commands. unresponsive to sternal rub/nail bed pressure HEENT: dry mucus membranes NECK: supple HEART: Regular rate and rhythm, no murmurs noted LUNGS: CTA b/l ABDOMEN: Soft, nontender, distension noted EXTREMITIES: no peripheral edema noted, good peripheral pulses throughout NEURO: Intubated and sedated Laboratory Results - last 24 hr 02/12/19 02/12/19 02/12/19 02:00 12:00 12:00 WBC RBC Hgb Hct MCV MCH MCHC RDW Plt Count MPV Absolute Neuts (auto) Total Counted Neutrophils % Neutrophils % (Manual) Band Neutrophils % Lymphocytes % Lymphocytes % (Manual) Monocytes % Monocytes % (Manual) Eosinophils % Eosinophils % (Manual) Basophils % Nucleated RBC % Hypochromia Platelet Estimate Platelet Comment Polychromasia Anisocytosis Microcytosis PT with INR INR Puncture Site ABG pH ABG pCO2 at Pt Temp ABG pO2 at Pt Temp ABG HCO3 ABG O2 Sat (Measured) ABG O2 Content ABG Base Excess Sumit Test O2 Delivery Device Oxygen Flow Rate Vent Mode Mechanical Rate PEEP Sodium Potassium Chloride Carbon Dioxide Anion Gap BUN Creatinine Creat Clearance w eGFR POC Glucometer Random Glucose Calcium Phosphorus Magnesium Total Bilirubin AST ALT Alkaline Phosphatase Ammonia Total Protein Albumin Urine Color Urine Appearance Urine pH Ur Specific [place] Urine Protein Urine Glucose (UA) Urine Ketones Urine Blood Urine Nitrite Urine Bilirubin Urine Urobilinogen Ur Leukocyte Esterase Urine WBC (Auto) Urine RBC (Auto) Urine Casts (Auto) U Epithel Cells (Auto) Urine Crystals (Auto) Urine Bacteria (Auto) Calcium Oxalate Crystal Uric Acid Crystals Triple Phos Crystals Amorphous Phosphates Amorphous Urates Amorphous Sediment Hyaline Casts Granular Casts Waxy Casts RBC Casts WBC Casts Urine Mucus Urine Other Urine Trichomonas Urine Yeast (Auto) Ur Random Sodium 96 Ur Random Potassium 34.1 Ur Random Chloride 131 Ur Random Urea Nitrogn 185 L Cancelled Urine Creatinine 31.0 Cancelled Random Vancomycin Vancomycin Pre-Dose Blood Type O POSITIVE Antibody Screen Negative Crossmatch See Detail 02/12/19 02/12/1919 12:03 16:15 16:45 WBC 7.2 RBC 3.28 L Hgb 10.7 Hct 30.6 L D MCV 93.1 MCH 32.6 MCHC 35.0 RDW 18.0 H Plt Count 102 L MPV 8.9 Absolute Neuts (auto) 6.5 Total Counted 100 Neutrophils % 91.1 H D Neutrophils % (Manual) 90.0 H Band Neutrophils % 2.0 Lymphocytes % 5.5 L D Lymphocytes % (Manual) 4.0 L Monocytes % 2.9 L Monocytes % (Manual) 3 L Eosinophils % 0.4 D Eosinophils % (Manual) 1.0 Basophils % 0.1 Nucleated RBC % 0 Hypochromia 1+ Platelet Estimate Decreased Platelet Comment No clumping noted Polychromasia 1+ Anisocytosis 1+ Microcytosis 1+ PT with INR INR Puncture Site ABG pH ABG pCO2 at Pt Temp ABG pO2 at Pt Temp ABG HCO3 ABG O2 Sat (Measured) ABG O2 Content ABG Base Excess Sumit Test O2 Delivery Device Oxygen Flow Rate Vent Mode Mechanical Rate PEEP Sodium Potassium Chloride Carbon Dioxide Anion Gap BUN Creatinine Creat Clearance w eGFR POC Glucometer 244 Random Glucose Calcium Phosphorus Magnesium Total Bilirubin AST ALT Alkaline Phosphatase Ammonia Total Protein Albumin Urine Color Urine Appearance Urine pH Ur Specific [place] Urine Protein Urine Glucose (UA) Urine Ketones Urine Blood Urine Nitrite Urine Bilirubin Urine Urobilinogen Ur Leukocyte Esterase Urine WBC (Auto) Urine RBC (Auto) Urine Casts (Auto) U Epithel Cells (Auto) Urine Crystals (Auto) Urine Bacteria (Auto) Calcium Oxalate Crystal Uric Acid Crystals Triple Phos Crystals Amorphous Phosphates Amorphous Urates Amorphous Sediment Hyaline Casts Granular Casts Waxy Casts RBC Casts WBC Casts Urine Mucus Urine Other Urine Trichomonas Urine Yeast (Auto) Ur Random Sodium 125 Ur Random Potassium 18.0 L Ur Random Chloride 141 Ur Random Urea Nitrogn Urine Creatinine Random Vancomycin Vancomycin Pre-Dose Blood Type Antibody Screen Crossmatch 02/12/19 02/12/19 02/12/19 16:45 16:45 16:45 WBC RBC Hgb Hct MCV MCH MCHC RDW Plt Count MPV Absolute Neuts (auto) Total Counted Neutrophils % Neutrophils % (Manual) Band Neutrophils % Lymphocytes % Lymphocytes % (Manual) Monocytes % Monocytes % (Manual) Eosinophils % Eosinophils % (Manual) Basophils % Nucleated RBC % Hypochromia Platelet Estimate Platelet Comment Polychromasia Anisocytosis Microcytosis PT with INR INR Puncture Site ABG pH ABG pCO2 at Pt Temp ABG pO2 at Pt Temp ABG HCO3 ABG O2 Sat (Measured) ABG O2 Content ABG Base Excess Sumit Test O2 Delivery Device Oxygen Flow Rate Vent Mode Mechanical Rate PEEP Sodium Potassium Chloride Carbon Dioxide Anion Gap BUN Creatinine Creat Clearance w eGFR POC Glucometer Random Glucose Calcium Phosphorus Magnesium Total Bilirubin AST ALT Alkaline Phosphatase Ammonia Total Protein Albumin Urine Color Yellow Urine Appearance Clear Urine pH 5.0 Ur Specific [place] 1.008 L Urine Protein Negative Urine Glucose (UA) Negative Urine Ketones Negative Urine Blood Negative Urine Nitrite Negative Urine Bilirubin Negative Urine Urobilinogen 0.2 Ur Leukocyte Esterase Trace Urine WBC (Auto) 8 Urine RBC (Auto) 1 Urine Casts (Auto) 9 Cancelled U Epithel Cells (Auto) 0.6 Cancelled Urine Crystals (Auto) Cancelled Urine Bacteria (Auto) 1.512 Cancelled Calcium Oxalate Crystal Cancelled Uric Acid Crystals Cancelled Triple Phos Crystals Cancelled Amorphous Phosphates Cancelled Amorphous Urates Cancelled Amorphous Sediment Cancelled Hyaline Casts Cancelled Granular Casts Cancelled Waxy Casts Cancelled RBC Casts Cancelled WBC Casts Cancelled Urine Mucus Cancelled Urine Other Cancelled Urine Trichomonas Cancelled Urine Yeast (Auto) Cancelled Ur Random Sodium Ur Random Potassium Ur Random Chloride Ur Random Urea Nitrogn Urine Creatinine < 13.0 L Random Vancomycin Vancomycin Pre-Dose Blood Type Antibody Screen Crossmatch 02/12/19 02/12/19 02/12/19 17:30 18:00 21:47 WBC RBC Hgb Hct MCV MCH MCHC RDW Plt Count MPV Absolute Neuts (auto) Total Counted Neutrophils % Neutrophils % (Manual) Band Neutrophils % Lymphocytes % Lymphocytes % (Manual) Monocytes % Monocytes % (Manual) Eosinophils % Eosinophils % (Manual) Basophils % Nucleated RBC % Hypochromia Platelet Estimate Platelet Comment Polychromasia Anisocytosis Microcytosis PT with INR INR Puncture Site ABG pH ABG pCO2 at Pt Temp ABG pO2 at Pt Temp ABG HCO3 ABG O2 Sat (Measured) ABG O2 Content ABG Base Excess Sumit Test O2 Delivery Device Oxygen Flow Rate Vent Mode Mechanical Rate PEEP Sodium 142 Potassium 3.4 L Chloride 113 H Carbon Dioxide 17 L Anion Gap 12 BUN 42 H Creatinine 2.4 H Creat Clearance w eGFR 20.66 POC Glucometer 290 276 Random Glucose 302 H* Calcium 7.0 L Phosphorus 4.2 Magnesium 2.0 Total Bilirubin 1.9 H AST 98 H ALT 51 Alkaline Phosphatase 78 Ammonia Total Protein 6.6 Albumin 2.5 L Urine Color Urine Appearance Urine pH Ur Specific [place] Urine Protein Urine Glucose (UA) Urine Ketones Urine Blood Urine Nitrite Urine Bilirubin Urine Urobilinogen Ur Leukocyte Esterase Urine WBC (Auto) Urine RBC (Auto) Urine Casts (Auto) U Epithel Cells (Auto) Urine Crystals (Auto) Urine Bacteria (Auto) Calcium Oxalate Crystal Uric Acid Crystals Triple Phos Crystals Amorphous Phosphates Amorphous Urates Amorphous Sediment Hyaline Casts Granular Casts Waxy Casts RBC Casts WBC Casts Urine Mucus Urine Other Urine Trichomonas Urine Yeast (Auto) Ur Random Sodium Ur Random Potassium Ur Random Chloride Ur Random Urea Nitrogn Urine Creatinine Random Vancomycin Vancomycin Pre-Dose Blood Type Antibody Screen Crossmatch 02/13/19 02/13/19 02/13/19 05:30 05:30 05:30 WBC 8.9 RBC 3.26 L Hgb 10.5 L Hct 29.7 L MCV 90.9 MCH 32.2 MCHC 35.4 RDW 17.7 H Plt Count 128 L D MPV 8.8 Absolute Neuts (auto) 7.1 Total Counted Neutrophils % 79.3 Neutrophils % (Manual) Band Neutrophils % Lymphocytes % 10.9 D Lymphocytes % (Manual) Monocytes % 9.6 D Monocytes % (Manual) Eosinophils % 0.0 D Eosinophils % (Manual) Basophils % 0.2 Nucleated RBC % 0 Hypochromia Platelet Estimate Platelet Comment Polychromasia Anisocytosis Microcytosis PT with INR 15.30 H INR 1.29 H Puncture Site ABG pH ABG pCO2 at Pt Temp ABG pO2 at Pt Temp ABG HCO3 ABG O2 Sat (Measured) ABG O2 Content ABG Base Excess Sumit Test O2 Delivery Device Oxygen Flow Rate Vent Mode Mechanical Rate PEEP Sodium Potassium Chloride Carbon Dioxide Anion Gap BUN Creatinine Creat Clearance w eGFR POC Glucometer Random Glucose Calcium Phosphorus Magnesium Total Bilirubin AST ALT Alkaline Phosphatase Ammonia 39.30 H Total Protein Albumin Urine Color Urine Appearance Urine pH Ur Specific [place] Urine Protein Urine Glucose (UA) Urine Ketones Urine Blood Urine Nitrite Urine Bilirubin Urine Urobilinogen Ur Leukocyte Esterase Urine WBC (Auto) Urine RBC (Auto) Urine Casts (Auto) U Epithel Cells (Auto) Urine Crystals (Auto) Urine Bacteria (Auto) Calcium Oxalate Crystal Uric Acid Crystals Triple Phos Crystals Amorphous Phosphates Amorphous Urates Amorphous Sediment Hyaline Casts Granular Casts Waxy Casts RBC Casts WBC Casts Urine Mucus Urine Other Urine Trichomonas Urine Yeast (Auto) Ur Random Sodium Ur Random Potassium Ur Random Chloride Ur Random Urea Nitrogn Urine Creatinine Random Vancomycin Vancomycin Pre-Dose Blood Type Antibody Screen Crossmatch 02/13/19 02/13/19 02/13/19 05:59 06:00 06:00 WBC RBC Hgb Hct MCV MCH MCHC RDW Plt Count MPV Absolute Neuts (auto) Total Counted Neutrophils % Neutrophils % (Manual) Band Neutrophils % Lymphocytes % Lymphocytes % (Manual) Monocytes % Monocytes % (Manual) Eosinophils % Eosinophils % (Manual) Basophils % Nucleated RBC % Hypochromia Platelet Estimate Platelet Comment Polychromasia Anisocytosis Microcytosis PT with INR INR Puncture Site ABG pH ABG pCO2 at Pt Temp ABG pO2 at Pt Temp ABG HCO3 ABG O2 Sat (Measured) ABG O2 Content ABG Base Excess Sumit Test O2 Delivery Device Oxygen Flow Rate Vent Mode Mechanical Rate PEEP Sodium Potassium Chloride Carbon Dioxide Anion Gap BUN Creatinine Creat Clearance w eGFR POC Glucometer 138 Random Glucose Calcium Phosphorus Magnesium Total Bilirubin AST ALT Alkaline Phosphatase Ammonia Total Protein Albumin Urine Color Urine Appearance Urine pH Ur Specific [place] Urine Protein Urine Glucose (UA) Urine Ketones Urine Blood Urine Nitrite Urine Bilirubin Urine Urobilinogen Ur Leukocyte Esterase Urine WBC (Auto) Urine RBC (Auto) Urine Casts (Auto) U Epithel Cells (Auto) Urine Crystals (Auto) Urine Bacteria (Auto) Calcium Oxalate Crystal Uric Acid Crystals Triple Phos Crystals Amorphous Phosphates Amorphous Urates Amorphous Sediment Hyaline Casts Granular Casts Waxy Casts RBC Casts WBC Casts Urine Mucus Urine Other Urine Trichomonas Urine Yeast (Auto) Ur Random Sodium Ur Random Potassium Ur Random Chloride Ur Random Urea Nitrogn Urine Creatinine Random Vancomycin 16.9 L Vancomycin Pre-Dose 14.3 L Blood Type Antibody Screen Crossmatch 02/13/19 02/13/19 02/13/19 06:00 06:09 08:10 WBC RBC Hgb Hct MCV MCH MCHC RDW Plt Count MPV Absolute Neuts (auto) Total Counted Neutrophils % Neutrophils % (Manual) Band Neutrophils % Lymphocytes % Lymphocytes % (Manual) Monocytes % Monocytes % (Manual) Eosinophils % Eosinophils % (Manual) Basophils % Nucleated RBC % Hypochromia Platelet Estimate Platelet Comment Polychromasia Anisocytosis Microcytosis PT with INR INR Puncture Site Right radial ABG pH 7.53 H ABG pCO2 at Pt Temp 19.4 L ABG pO2 at Pt Temp 161 H ABG HCO3 16.2 L ABG O2 Sat (Measured) 99.5 H ABG O2 Content 14.2 L ABG Base Excess -5.0 L Sumit Test Positive O2 Delivery Device Other Oxygen Flow Rate 35% Vent Mode Cpap ps+7 Mechanical Rate Espirit PEEP 5.0 Sodium 141 Potassium 3.5 Chloride 113 H Carbon Dioxide 16 L Anion Gap 13 BUN 48 H Creatinine 2.7 H Creat Clearance w eGFR 18.04 POC Glucometer 297 Random Glucose 297 H Calcium 6.8 L* Phosphorus 3.8 Magnesium 2.0 Total Bilirubin 1.1 H AST 104 H ALT 55 Alkaline Phosphatase 80 Ammonia Total Protein 6.8 Albumin 2.4 L Urine Color Urine Appearance Urine pH Ur Specific [place] Urine Protein Urine Glucose (UA) Urine Ketones Urine Blood Urine Nitrite Urine Bilirubin Urine Urobilinogen Ur Leukocyte Esterase Urine WBC (Auto) Urine RBC (Auto) Urine Casts (Auto) U Epithel Cells (Auto) Urine Crystals (Auto) Urine Bacteria (Auto) Calcium Oxalate Crystal Uric Acid Crystals Triple Phos Crystals Amorphous Phosphates Amorphous Urates Amorphous Sediment Hyaline Casts Granular Casts Waxy Casts RBC Casts WBC Casts Urine Mucus Urine Other Urine Trichomonas Urine Yeast (Auto) Ur Random Sodium Ur Random Potassium Ur Random Chloride Ur Random Urea Nitrogn Urine Creatinine Random Vancomycin Vancomycin Pre-Dose Blood Type Antibody Screen Crossmatch Active Medications Generic Name Dose Route Start Last Admin Trade Name Davonq PRN Reason Stop Dose Admin Chlorhexidine Gluconate 1 applic 02/11/19 22:00 02/12/19 23:54 Hibiclens For Decolonization - TP 1 applic HS SACHIN Administration Folic Acid 1 mg 02/12/19 10:00 02/12/19 10:22 Folic Acid - PO 1 mg DAILY SACHIN Administration Fentanyl 500 mcg/ Dextrose 100 mls @ 5 mls/hr 02/12/19 05:15 02/13/19 05:51 IVPB Not Given TITR SACHIN Protocol 25 MCG/HR Dextrose/Sodium Chloride 1,000 mls @ 100 mls/hr 02/12/19 08:30 02/12/19 08:30 D5-1/2ns - IV 100 mls/hr ASDIR SACHIN Administration Ceftriaxone Sodium 1 gm/ 50 mls @ 100 mls/hr 02/12/19 10:00 02/13/19 09:04 Dextrose IVPB 100 mls/hr DAILY SACHIN Administration Protocol Insulin Aspart 1 vial 02/11/19 16:30 02/13/19 06:16 Novolog Vial Sliding Scale - SQ 6 units ACHS SACHIN Administration Protocol Lactulose 20 gm 02/11/19 22:00 02/13/19 06:15 Cephulac (Oral Use) PO Not Given TID SACHIN Methylprednisolone Sodium Succinate 40 mg 02/12/19 10:00 02/13/19 09:04 Solu-Medrol - IVPUSH 40 mg DAILY SACHIN Administration Mupirocin 1 applic 02/11/19 22:00 02/12/19 23:53 Bactroban Ointment (For Decolonization) - NS 02/16/19 21:59 1 applic BID SACHIN Administration Pantoprazole Sodium 40 mg 02/12/19 22:00 02/13/19 09:04 Protonix Iv IVPUSH 40 mg BID SACHIN Administration Rifaximin 550 mg 02/12/19 10:00 02/12/19 23:56 Xifaxan - PO Not Given BID SACHIN Zinc Oxide/Panthenol/Vitamin E 1 applic 02/11/19 16:03 Balmex Cream - TP DAILY PRN HYGEINE ASSESSMENT/PLAN: Patient is a 58 year old female who presented with altered mental status and was found to have hepatic metabolic encephalopathy and GI bleed. Patient evaluated by ICU and deemed stable for Med/Surg initially. However, patient had worsening AMS with Active GI bleed and is now transferred to ICU for further monitoring and management. NEURO/PSYCH -Hepatic Encephalopathy Continue Laculose and Rifaximin GI consult appreciated Ammonia down to 39 from 279, continue Lactulose [place] if unable to place NG tube due to recent NG tube trauma Head CT pending as pt off sedation and no improvement in mental status for 2 days -Polysubstance Abuse Avoid benzo's Continue folate and thiamine Consider rehab placement once stable for d/c CARDIO -HTN Hold Anti-HTN medications as patient is actively bleeding Continue to monitor BP and will treat as needed PULMONARY -Acute Hypoxic Respiratory Failire Intubated, currently saturating well on CPAP, will maintain for now and convert to AC if needed Maintain 02 saturation >95% Will maintain airway protection with ET tube until neuro status improves GASTROENTEROLOGY -GI Bleed Rule out Variceal bleeding Protonix BID Continue IV hydration s/p 2 units PRBCs with appropriate response, H/H stable EGD without signs of significant varices or bleeding source Lactic acid pending -Liver Cirrhosis with Hepatic Encephalopathy History of prior SBP Ascites on U/S Diagnostic paracentesis with cytology once patient is stable -History of Hepatitis C Unsure if patient was treated Likely source of Liver cirrhosis HEMATOLOGY -Thrombocytopenia Likely secondary to liver disease Will need to continue and monitor currently > 100, maintain > 50 with active bleeding RENAL -BOB Unsure of baseline Renal Consult appreciated Workup pending, given NaHCO3 yesterday IV fluids, monitor for overload ENDOCRINE -IDDM II BGMs ISS PROPHYLAXIS -SCDs -Protonix BID FEN -D5 1/2 NS @ 100 cc/hr -Monitor and replete -NPO Disposition -Full code -Continue to monitor in the ICU Visit type - Emergency Visit Emergency Visit: Yes ED Registration Date: 02/08/19 Care time: The patient presented to the Emergency Department on the above date and was hospitalized for further evaluation of their emergent condition. - New Patient This patient is new to me today: No - Critical Care Critical Care patient: Yes Total Critical Care Time (in minutes): 40 Critical Care Statement: The care of this patient involved high complexity decision making to prevent further life threatening deterioration of the patient 's condition and/or to evaluate & treat vital organ system(s) failure or risk of failure.
[2019-02-13] MEDS: DEXTROSE 5%-0.45% SALINE 1,000 ML IV SCH (11:37)
[2019-02-13] MEDS: RIFAXIMIN 550 MG TABLET (UD) PO SCH ×2 (11:38→21:23)
[2019-02-13] MEDS: FOLIC ACID 1 MG TABLET (FP) PO SCH (11:38)
[2019-02-13] MEDS: MUPIROCIN 2% TOPICAL OINTMENT FOR DECOLONIZATION NS SCH ×2 (11:38→21:22)
[2019-02-13] MEDS ORDERED: INSULIN (NOVOLOG) ASPART 100 UNITS/ML 10ML VIAL ONE (11:41)
--- NOTE | 2019-02-13 11:59 | PN ---
Teaching Attending Note Name of Resident: Houston Melo ATTENDING PHYSICIAN STATEMENT I saw and evaluated the patient. I reviewed the resident's note and discussed the case with the resident. I agree with the resident's findings and plan as documented. SUBJECTIVE:intubated OBJECTIVE: Last Vital Signs Temp Pulse Resp BP Pulse Ox 98.9 F 90 17 146/83 100 02/13/19 08:00 02/13/19 08:15 02/13/19 10:40 02/13/19 08:00 02/13/19 10:34 Intake & Output 02/10/19 02/11/19 02/12/19 02/13/19 23:59 23:59 23:59 23:59 Intake Total 300 1770 3477.2 1400 Output Total 250 2750 300 Balance 50 1770 727.2 1100 Weight 102 lb 6.4 oz 97 lb 9 oz 100 lb 15.547 oz General intubated, +gag, sluggish pupil reflex. does not withdraw to pain, no decorticate posturing CV S1 S2 RRR Lungs coarse breath sounds anteriorly Abdomen soft slightly distended, +BS Extremities no pedal edema ASSESSMENT AND PLAN: 58 year old female with history of Liver Cirrhosis, Alcohol Abuse, Hepatitis C, recent history of SBP 12/14, DM 2, HTN, Polysubstance Abuse (including Alcohol), Bipolar Disorder, sent to ED from [facility] for agitation, combativeness, and altered mental status while undergoing detox. with no improvement and was intubated 02/11 to protect airway and now in the MICU with course complicated with development of melena. 1. Acute Hepatic Encephalopathy versus Toxic Encephalopathy secondary to Ativan and decompensating liver failure- no response now off sedation. will cont to do frequent neuro checks. ammonia level near normal at this time. cont lactulose and rifampin. treating empirically for infection. Head CT on admission was negative for acute pathology. UTox on admission only +BZD. 2. Acute respiratory failure- s/p intubation for airway protection. not breathing over the vent. full vent support. management per ICU team 3. Melena-s/p EGD 02/12 showing esophageal ulcer and esophageal varices but no stigmata of recent bleeding. received 2 units PRBC and HGb is stable. off octreotide ggt. if Hgb remains stable can consider TF. GI on board. PPI BID 4. Acute blood loss anemia- due to suspected Esophageal varices. s/p 2 units PRBC this hospital stay. cont to trend Q12H. normal transfusion threshold. 5. Acute decompensated liver failure-now all improving. bili 1.1 with decreased INR. s/p vit K on medrol 40mg daily. 6. UTI- on ceftriaxone 7. Ascites- seen on u/s. had recent treatment for SBP. will d/w GI about tap at this point to check for Cx. on empiric ceftriaxone/vanco dosed by level. GI and ID on board 8. Thrombocytopenia-due to cirrhosis. s/p 1 unit platelets. no signs of bleeding. monitor platelet count 9. BOB- unknown baseline Cr. continues to trend up. nephro on board. workup sent. on low dose IVF. monitor UOP. avoid nephrotoxic agents. 10. DM- hold oral agents. iss and Bgm. 11. Continuous ETOH abuse- no signs of withdrawals. counselling once medically stabilized. on thiamine/folate/MVI 12. HTN- currently normotensive off oral agents 13. DVT PPI- SCD. hold pharmacologic in setting of active bleeding 14. MICU monitoring The care of this patient involved high complexity decision making to prevent further life threatening deterioration of the patient's condition and/or to evaluate & treat vital organ system(s) failure or risk of failure. 40 mins
[2019-02-13] MEDS ORDERED: LACTULOSE 20 GM/30 ML UDC (FOR RECTAL USE ONLY) PR SCH (12:00)
--- NOTE | 2019-02-13 12:16 | PN ---
Teaching Attending Note Name of Resident: Huy Mejia ATTENDING PHYSICIAN STATEMENT I saw and evaluated the patient. I reviewed the resident's note and discussed the case with the resident. I agree with the resident's findings and plan as documented. SUBJECTIVE: Pt seen and examined in the ICU. Remains intubated, obtunded off sedation. s/p EGD showing nonbleeding distal esophageal varices, portal gastropathy, small ulcer. H/H stable. OBJECTIVE: Vital Signs Period Temp Pulse Resp BP Sys/Aguilar Pulse Ox Last 24 Hr 98.4 F-99.4 F 90-98 15-20 137-155/82-92 98-100 Intake & Output 02/10/19 02/11/19 02/12/19 02/13/19 23:59 23:59 23:59 23:59 Intake Total 300 1770 3477.2 1400 Output Total 250 2750 300 Balance 50 1770 727.2 1100 Weight 46.448 kg 44.254 kg 45.8 kg Gen: intubated, obtunded Heart: RRR Lung: decreased breath sounds at the bases Abd: soft, +ascites Ext: no edema CBC, BMP 02/13/19 05:30 02/13/19 06:00 Active Medications Chlorhexidine Gluconate (Hibiclens For Decolonization -) 1 applic TP HS SACHIN Last Admin: 02/12/19 23:54 Dose: 1 applic Folic Acid (Folic Acid -) 1 mg PO DAILY SACHIN Last Admin: 02/13/19 11:38 Dose: Not Given Fentanyl 500 mcg/ Dextrose 100 mls @ 5 mls/hr IVPB TITR SACHIN; Protocol Last Admin: 02/13/19 05:51 Dose: Not Given Dextrose/Sodium Chloride (D5-1/2ns -) 1,000 mls @ 100 mls/hr IV ASDIR SACHIN Last Admin: 02/13/19 11:37 Dose: 100 mls/hr Ceftriaxone Sodium 1 gm/ (Dextrose) 50 mls @ 100 mls/hr IVPB DAILY [facility]; Protocol Last Admin: 02/13/19 09:04 Dose: 100 mls/hr Insulin Aspart (Novolog Vial Sliding Scale -) 1 vial SQ ACHS SACHIN; Protocol Last Admin: 02/13/19 11:44 Dose: 6 units Lactulose (Cephulac (Rectal Use)) 200 gm MT Q6HPO SACHIN Methylprednisolone Sodium Succinate (Solu-Medrol -) 40 mg IVPUSH DAILY [facility] Last Admin: 02/13/19 09:04 Dose: 40 mg Mupirocin (Bactroban Ointment (For Decolonization) -) 1 applic NS BID [facility] Stop: 02/16/19 21:59 Last Admin: 02/13/19 11:38 Dose: 1 applic Pantoprazole Sodium (Protonix Iv) 40 mg IVPUSH BID [facility] Last Admin: 02/13/19 09:04 Dose: 40 mg Rifaximin (Xifaxan -) 550 mg PO BID [facility] Last Admin: 02/13/19 11:38 Dose: Not Given Zinc Oxide/Panthenol/Vitamin E (Balmex Cream -) 1 applic TP DAILY PRN PRN Reason: HYGEINE ASSESSMENT AND PLAN: Acute Respiratory Failure Altered Mental Status Hepatic Encephalopathy GI Bleed Acute Blood Loss Anemia Acute Kidney Injury Liver Cirrhosis Alcohol Abuse Hep C Thrombocytopenia h/o SBP UTI HTN DM - check CT head today - monitor H/H, coags - transfuse as needed - lactulose, rifaximin - protonix - continue antibiotics - IVF - monitor urine output, creatinine - keep intubated for airway protection - spontaneous breathing trials as tolerated - DVT/GI prophylaxis - continue ICU monitoring - prognosis guarded critical care time spent in reviewing chart, evaluating patient and formulating plan 35 min
[2019-02-13] MEDS ORDERED: PT OWN MED DRAWER 7, Y5N ONE (13:15)
--- NOTE | 2019-02-13 13:26 | PN.GI ---
GI Progress Note Subjective: Remains intubated No overt bleeding Reviewed Dr. Hernandez's EGD findings. No obvious bleeding source. Small esophageal varices without stigmata of hemorrhage - Objective Vital Signs: Vital Signs Temperature 98.9 F 02/13/19 08:00 Pulse Rate 107 H 02/13/19 12:00 Respiratory Rate 22 H 02/13/19 13:10 Blood Pressure 156/78 02/13/19 12:00 O2 Sat by Pulse Oximetry (%) 100 02/13/19 10:34 Constitutional: Calm Eyes: No: Sclera Icterus Cardiovascular: Yes: Tachycardia Gastrointestinal Inspection: Yes: Distention (Softly protuberant) ...Auscultate: Yes: Normoactive Bowel Sounds ...Palpate: Yes: Soft. No: Tenderness (No grimacing or involuntary guarding upon palpation) ...Percussion: No: Tympanitic Edema: No (No LE edema) Neurological: Yes: Other (Intubated) Labs: CBC, BMP 02/13/19 05:30 02/13/19 06:00 INR, PTT INR 1.29 (0.83-1.09) H 02/13/19 05:30 Laboratory Tests 02/13/19 05:30 Ammonia 39.30 H Problem List - Problems (1) Altered mental status Assessment/Plan: Ammonia level improved OK for OGT placement for med administration Diagnostic paracentesis when able by IR: Fluid should be sent for culture, cell count with diff, AFB culture/smear, cytology, albumin, total protein, LDH, Glucose Evaluate for alternate causes of altered mental status Continue Rifaximin / Lactulose. Code(s): R41.82 - ALTERED MENTAL STATUS, UNSPECIFIED Qualifiers: Altered mental status type: stupor Qualified Code(s): R40.1 - Stupor
--- NOTE | 2019-02-13 14:25 | PN ---
Physical Exam: SUBJECTIVE: Patient seen and examined at bedside in ICU. Intubated, off sedation , however mental status is vegetative. OBJECTIVE: Vital Signs Period Temp Pulse Resp BP Sys/Aguilar Pulse Ox Last 24 Hr 98.4 F-99.4 F 90-107 15-22 137-156/78-92 98-100 GENERAL: Intubated, off sedation, mental status is vegetative, spontaneous eye opening but does not alert to noxious stimuli HEENT: NC/AT, PERRLA, +icterus NECK: Trachea midline LUNGS: Limited exam, no adventitious sounds appreciated over ventilator HEART: RRR no m/r/g ABDOMEN: +bs, soft EXTREMITIES: 2+ pulses, wwp, no edema appreciated NEUROLOGICAL: Intubated and sedated PSYCH: Unable to assess SKIN: Warm, dry, jaundiced Laboratory Results - last 24 hr 02/12/19 02/12/19 02/12/19 12:00 16:15 16:45 WBC 7.2 RBC 3.28 L Hgb 10.7 Hct 30.6 L D MCV 93.1 MCH 32.6 MCHC 35.0 RDW 18.0 H Plt Count 102 L MPV 8.9 Absolute Neuts (auto) 6.5 Total Counted 100 Neutrophils % 91.1 H D Neutrophils % (Manual) 90.0 H Band Neutrophils % 2.0 Lymphocytes % 5.5 L D Lymphocytes % (Manual) 4.0 L Monocytes % 2.9 L Monocytes % (Manual) 3 L Eosinophils % 0.4 D Eosinophils % (Manual) 1.0 Basophils % 0.1 Nucleated RBC % 0 Hypochromia 1+ Platelet Estimate Decreased Platelet Comment No clumping noted Polychromasia 1+ Anisocytosis 1+ Microcytosis 1+ PT with INR INR Puncture Site ABG pH ABG pCO2 at Pt Temp ABG pO2 at Pt Temp ABG HCO3 ABG O2 Sat (Measured) ABG O2 Content ABG Base Excess Sumit Test O2 Delivery Device Oxygen Flow Rate Vent Mode Mechanical Rate PEEP Sodium Potassium Chloride Carbon Dioxide Anion Gap BUN Creatinine Creat Clearance w eGFR POC Glucometer Random Glucose Lactic Acid Calcium Phosphorus Magnesium Total Bilirubin AST ALT Alkaline Phosphatase Ammonia Total Protein Albumin Urine Color Urine Appearance Urine pH Ur Specific [place] Urine Protein Urine Glucose (UA) Urine Ketones Urine Blood Urine Nitrite Urine Bilirubin Urine Urobilinogen Ur Leukocyte Esterase Urine WBC (Auto) Urine RBC (Auto) Urine Casts (Auto) U Epithel Cells (Auto) Urine Crystals (Auto) Urine Bacteria (Auto) Calcium Oxalate Crystal Uric Acid Crystals Triple Phos Crystals Amorphous Phosphates Amorphous Urates Amorphous Sediment Hyaline Casts Granular Casts Waxy Casts RBC Casts WBC Casts Urine Mucus Urine Other Urine Trichomonas Urine Yeast (Auto) Ur Random Sodium 125 Ur Random Potassium 34.1 18.0 L Ur Random Chloride 141 Urine Creatinine Random Vancomycin Vancomycin Pre-Dose 02/12/19 02/12/19 02/12/19 16:45 16:45 16:45 WBC RBC Hgb Hct MCV MCH MCHC RDW Plt Count MPV Absolute Neuts (auto) Total Counted Neutrophils % Neutrophils % (Manual) Band Neutrophils % Lymphocytes % Lymphocytes % (Manual) Monocytes % Monocytes % (Manual) Eosinophils % Eosinophils % (Manual) Basophils % Nucleated RBC % Hypochromia Platelet Estimate Platelet Comment Polychromasia Anisocytosis Microcytosis PT with INR INR Puncture Site ABG pH ABG pCO2 at Pt Temp ABG pO2 at Pt Temp ABG HCO3 ABG O2 Sat (Measured) ABG O2 Content ABG Base Excess Sumit Test O2 Delivery Device Oxygen Flow Rate Vent Mode Mechanical Rate PEEP Sodium Potassium Chloride Carbon Dioxide Anion Gap BUN Creatinine Creat Clearance w eGFR POC Glucometer Random Glucose Lactic Acid Calcium Phosphorus Magnesium Total Bilirubin AST ALT Alkaline Phosphatase Ammonia Total Protein Albumin Urine Color Yellow Urine Appearance Clear Urine pH 5.0 Ur Specific [place] 1.008 L Urine Protein Negative Urine Glucose (UA) Negative Urine Ketones Negative Urine Blood Negative Urine Nitrite Negative Urine Bilirubin Negative Urine Urobilinogen 0.2 Ur Leukocyte Esterase Trace Urine WBC (Auto) 8 Urine RBC (Auto) 1 Urine Casts (Auto) 9 Cancelled U Epithel Cells (Auto) 0.6 Cancelled Urine Crystals (Auto) Cancelled Urine Bacteria (Auto) 1.512 Cancelled Calcium Oxalate Crystal Cancelled Uric Acid Crystals Cancelled Triple Phos Crystals Cancelled Amorphous Phosphates Cancelled Amorphous Urates Cancelled Amorphous Sediment Cancelled Hyaline Casts Cancelled Granular Casts Cancelled Waxy Casts Cancelled RBC Casts Cancelled WBC Casts Cancelled Urine Mucus Cancelled Urine Other Cancelled Urine Trichomonas Cancelled Urine Yeast (Auto) Cancelled Ur Random Sodium Ur Random Potassium Ur Random Chloride Urine Creatinine < 13.0 L Random Vancomycin Vancomycin Pre-Dose 02/12/19 02/12/19 02/12/19 17:30 18:00 21:47 WBC RBC Hgb Hct MCV MCH MCHC RDW Plt Count MPV Absolute Neuts (auto) Total Counted Neutrophils % Neutrophils % (Manual) Band Neutrophils % Lymphocytes % Lymphocytes % (Manual) Monocytes % Monocytes % (Manual) Eosinophils % Eosinophils % (Manual) Basophils % Nucleated RBC % Hypochromia Platelet Estimate Platelet Comment Polychromasia Anisocytosis Microcytosis PT with INR INR Puncture Site ABG pH ABG pCO2 at Pt Temp ABG pO2 at Pt Temp ABG HCO3 ABG O2 Sat (Measured) ABG O2 Content ABG Base Excess Sumit Test O2 Delivery Device Oxygen Flow Rate Vent Mode Mechanical Rate PEEP Sodium 142 Potassium 3.4 L Chloride 113 H Carbon Dioxide 17 L Anion Gap 12 BUN 42 H Creatinine 2.4 H Creat Clearance w eGFR 20.66 POC Glucometer 290 276 Random Glucose 302 H* Lactic Acid Calcium 7.0 L Phosphorus 4.2 Magnesium 2.0 Total Bilirubin 1.9 H AST 98 H ALT 51 Alkaline Phosphatase 78 Ammonia Total Protein 6.6 Albumin 2.5 L Urine Color Urine Appearance Urine pH Ur Specific [place] Urine Protein Urine Glucose (UA) Urine Ketones Urine Blood Urine Nitrite Urine Bilirubin Urine Urobilinogen Ur Leukocyte Esterase Urine WBC (Auto) Urine RBC (Auto) Urine Casts (Auto) U Epithel Cells (Auto) Urine Crystals (Auto) Urine Bacteria (Auto) Calcium Oxalate Crystal Uric Acid Crystals Triple Phos Crystals Amorphous Phosphates Amorphous Urates Amorphous Sediment Hyaline Casts Granular Casts Waxy Casts RBC Casts WBC Casts Urine Mucus Urine Other Urine Trichomonas Urine Yeast (Auto) Ur Random Sodium Ur Random Potassium Ur Random Chloride Urine Creatinine Random Vancomycin Vancomycin Pre-Dose 02/13/19 02/13/19 02/13/19 05:30 05:30 05:30 WBC 8.9 RBC 3.26 L Hgb 10.5 L Hct 29.7 L MCV 90.9 MCH 32.2 MCHC 35.4 RDW 17.7 H Plt Count 128 L D MPV 8.8 Absolute Neuts (auto) 7.1 Total Counted Neutrophils % 79.3 Neutrophils % (Manual) Band Neutrophils % Lymphocytes % 10.9 D Lymphocytes % (Manual) Monocytes % 9.6 D Monocytes % (Manual) Eosinophils % 0.0 D Eosinophils % (Manual) Basophils % 0.2 Nucleated RBC % 0 Hypochromia Platelet Estimate Platelet Comment Polychromasia Anisocytosis Microcytosis PT with INR 15.30 H INR 1.29 H Puncture Site ABG pH ABG pCO2 at Pt Temp ABG pO2 at Pt Temp ABG HCO3 ABG O2 Sat (Measured) ABG O2 Content ABG Base Excess Sumit Test O2 Delivery Device Oxygen Flow Rate Vent Mode Mechanical Rate PEEP Sodium Potassium Chloride Carbon Dioxide Anion Gap BUN Creatinine Creat Clearance w eGFR POC Glucometer Random Glucose Lactic Acid Calcium Phosphorus Magnesium Total Bilirubin AST ALT Alkaline Phosphatase Ammonia 39.30 H Total Protein Albumin Urine Color Urine Appearance Urine pH Ur Specific [place] Urine Protein Urine Glucose (UA) Urine Ketones Urine Blood Urine Nitrite Urine Bilirubin Urine Urobilinogen Ur Leukocyte Esterase Urine WBC (Auto) Urine RBC (Auto) Urine Casts (Auto) U Epithel Cells (Auto) Urine Crystals (Auto) Urine Bacteria (Auto) Calcium Oxalate Crystal Uric Acid Crystals Triple Phos Crystals Amorphous Phosphates Amorphous Urates Amorphous Sediment Hyaline Casts Granular Casts Waxy Casts RBC Casts WBC Casts Urine Mucus Urine Other Urine Trichomonas Urine Yeast (Auto) Ur Random Sodium Ur Random Potassium Ur Random Chloride Urine Creatinine Random Vancomycin Vancomycin Pre-Dose 02/13/19 02/13/19 02/13/19 05:59 06:00 06:00 WBC RBC Hgb Hct MCV MCH MCHC RDW Plt Count MPV Absolute Neuts (auto) Total Counted Neutrophils % Neutrophils % (Manual) Band Neutrophils % Lymphocytes % Lymphocytes % (Manual) Monocytes % Monocytes % (Manual) Eosinophils % Eosinophils % (Manual) Basophils % Nucleated RBC % Hypochromia Platelet Estimate Platelet Comment Polychromasia Anisocytosis Microcytosis PT with INR INR Puncture Site ABG pH ABG pCO2 at Pt Temp ABG pO2 at Pt Temp ABG HCO3 ABG O2 Sat (Measured) ABG O2 Content ABG Base Excess Sumit Test O2 Delivery Device Oxygen Flow Rate Vent Mode Mechanical Rate PEEP Sodium Potassium Chloride Carbon Dioxide Anion Gap BUN Creatinine Creat Clearance w eGFR POC Glucometer 138 Random Glucose Lactic Acid Calcium Phosphorus Magnesium Total Bilirubin AST ALT Alkaline Phosphatase Ammonia Total Protein Albumin Urine Color Urine Appearance Urine pH Ur Specific [place] Urine Protein Urine Glucose (UA) Urine Ketones Urine Blood Urine Nitrite Urine Bilirubin Urine Urobilinogen Ur Leukocyte Esterase Urine WBC (Auto) Urine RBC (Auto) Urine Casts (Auto) U Epithel Cells (Auto) Urine Crystals (Auto) Urine Bacteria (Auto) Calcium Oxalate Crystal Uric Acid Crystals Triple Phos Crystals Amorphous Phosphates Amorphous Urates Amorphous Sediment Hyaline Casts Granular Casts Waxy Casts RBC Casts WBC Casts Urine Mucus Urine Other Urine Trichomonas Urine Yeast (Auto) Ur Random Sodium Ur Random Potassium Ur Random Chloride Urine Creatinine Random Vancomycin 16.9 L Vancomycin Pre-Dose 14.3 L 02/13/19 02/13/19 02/13/19 06:00 06:09 08:10 WBC RBC Hgb Hct MCV MCH MCHC RDW Plt Count MPV Absolute Neuts (auto) Total Counted Neutrophils % Neutrophils % (Manual) Band Neutrophils % Lymphocytes % Lymphocytes % (Manual) Monocytes % Monocytes % (Manual) Eosinophils % Eosinophils % (Manual) Basophils % Nucleated RBC % Hypochromia Platelet Estimate Platelet Comment Polychromasia Anisocytosis Microcytosis PT with INR INR Puncture Site Right radial ABG pH 7.53 H ABG pCO2 at Pt Temp 19.4 L ABG pO2 at Pt Temp 161 H ABG HCO3 16.2 L ABG O2 Sat (Measured) 99.5 H ABG O2 Content 14.2 L ABG Base Excess -5.0 L Sumit Test Positive O2 Delivery Device Other Oxygen Flow Rate 35% Vent Mode Cpap ps+7 Mechanical Rate Espirit PEEP 5.0 Sodium 141 Potassium 3.5 Chloride 113 H Carbon Dioxide 16 L Anion Gap 13 BUN 48 H Creatinine 2.7 H Creat Clearance w eGFR 18.04 POC Glucometer 297 Random Glucose 297 H Lactic Acid Calcium 6.8 L* Phosphorus 3.8 Magnesium 2.0 Total Bilirubin 1.1 H AST 104 H ALT 55 Alkaline Phosphatase 80 Ammonia Total Protein 6.8 Albumin 2.4 L Urine Color Urine Appearance Urine pH Ur Specific [place] Urine Protein Urine Glucose (UA) Urine Ketones Urine Blood Urine Nitrite Urine Bilirubin Urine Urobilinogen Ur Leukocyte Esterase Urine WBC (Auto) Urine RBC (Auto) Urine Casts (Auto) U Epithel Cells (Auto) Urine Crystals (Auto) Urine Bacteria (Auto) Calcium Oxalate Crystal Uric Acid Crystals Triple Phos Crystals Amorphous Phosphates Amorphous Urates Amorphous Sediment Hyaline Casts Granular Casts Waxy Casts RBC Casts WBC Casts Urine Mucus Urine Other Urine Trichomonas Urine Yeast (Auto) Ur Random Sodium Ur Random Potassium Ur Random Chloride Urine Creatinine Random Vancomycin Vancomycin Pre-Dose 02/13/19 02/13/19 11:10 12:40 WBC RBC Hgb Hct MCV MCH MCHC RDW Plt Count MPV Absolute Neuts (auto) Total Counted Neutrophils % Neutrophils % (Manual) Band Neutrophils % Lymphocytes % Lymphocytes % (Manual) Monocytes % Monocytes % (Manual) Eosinophils % Eosinophils % (Manual) Basophils % Nucleated RBC % Hypochromia Platelet Estimate Platelet Comment Polychromasia Anisocytosis Microcytosis PT with INR INR Puncture Site ABG pH ABG pCO2 at Pt Temp ABG pO2 at Pt Temp ABG HCO3 ABG O2 Sat (Measured) ABG O2 Content ABG Base Excess Sumit Test O2 Delivery Device Oxygen Flow Rate Vent Mode Mechanical Rate PEEP Sodium Potassium Chloride Carbon Dioxide Anion Gap BUN Creatinine Creat Clearance w eGFR POC Glucometer 295 Random Glucose Lactic Acid 1.9 Calcium Phosphorus Magnesium Total Bilirubin AST ALT Alkaline Phosphatase Ammonia Total Protein Albumin Urine Color Urine Appearance Urine pH Ur Specific [place] Urine Protein Urine Glucose (UA) Urine Ketones Urine Blood Urine Nitrite Urine Bilirubin Urine Urobilinogen Ur Leukocyte Esterase Urine WBC (Auto) Urine RBC (Auto) Urine Casts (Auto) U Epithel Cells (Auto) Urine Crystals (Auto) Urine Bacteria (Auto) Calcium Oxalate Crystal Uric Acid Crystals Triple Phos Crystals Amorphous Phosphates Amorphous Urates Amorphous Sediment Hyaline Casts Granular Casts Waxy Casts RBC Casts WBC Casts Urine Mucus Urine Other Urine Trichomonas Urine Yeast (Auto) Ur Random Sodium Ur Random Potassium Ur Random Chloride Urine Creatinine Random Vancomycin Vancomycin Pre-Dose Active Medications Generic Name Dose Route Start Last Admin Trade Name Freq PRN Reason Stop Dose Admin Chlorhexidine Gluconate 1 applic 02/11/19 22:00 02/12/19 23:54 Hibiclens For Decolonization - TP 1 applic HS SACHIN Administration Folic Acid 1 mg 02/12/19 10:00 02/13/19 11:38 Folic Acid - PO Not Given DAILY SACHIN Dextrose/Sodium Chloride 1,000 mls @ 100 mls/hr 02/12/19 08:30 02/13/19 11:37 D5-1/2ns - IV 100 mls/hr ASDIR SACHIN Administration Ceftriaxone Sodium 1 gm/ 50 mls @ 100 mls/hr 02/12/19 10:00 02/13/19 09:04 Dextrose IVPB 100 mls/hr DAILY SACHIN Administration Protocol Insulin Aspart 1 vial 02/11/19 16:30 02/13/19 11:44 Novolog Vial Sliding Scale - SQ 6 units ACHS SACHIN Administration Protocol Lactulose 200 gm 02/13/19 12:00 Cephulac (Rectal Use) IL Q6HPO SACHIN Methylprednisolone Sodium Succinate 40 mg 02/12/19 10:00 02/13/19 09:04 Solu-Medrol - IVPUSH 40 mg DAILY SACHIN Administration Mupirocin 1 applic 02/11/19 22:00 02/13/19 11:38 Bactroban Ointment (For Decolonization) - NS 02/16/19 21:59 1 applic BID SACHIN Administration Pantoprazole Sodium 40 mg 02/12/19 22:00 02/13/19 09:04 Protonix Iv IVPUSH 40 mg BID SACHIN Administration Rifaximin 550 mg 02/12/19 10:00 02/13/19 11:38 Xifaxan - PO Not Given BID SACHIN Zinc Oxide/Panthenol/Vitamin E 1 applic 02/11/19 16:03 Balmex Cream - TP DAILY PRN HYGEINE ASSESSMENT/PLAN: 58 y/o F w/ PMHx cirrhosis, hep C, polysubstance abuse including EtOH, DM, HTN, bipolar disorder, recent h/o SBP 12/14, presents from [facility] for agitation, combativeness, AMS while undergoing detox #GI -cirrhosis w/ prior SBP -ascites on US -GI consulted -no active bleeding identified on EGD -H/H stable this AM -transitioned to BID IV PTX, no further octreotide -albumin infusions as per ICU team -cont steroids -NPO -D51/2NS -for paracentesis -NH3 improved to 40 -T bilirubin improved to 1.1 #heme -thrombocytopenia 2/2 liver disease -H/H stable s/p 2U PRBC and 1 U Plts -INR improved to 1.29 #CV -holding anti-hypertensives -maintain MAP > 65 -no indication for pressors at this time -hemodynamic support as per ICU team #pulmonary -vent settings as per ICU team -unable to protect airway at this time #neuro -vegetative off sedation, no response to noxious stimuli, does open eyes sporadically, pupils are reactive -cont thiamine, folate -cont lactulose, titrate to BMs -cont IVF #ID -UCx growing enterococcus, BCx NGTD -ID consulted -cont Ceftriaxone #renal -progressively worsening Cr, now 2.7 -hepatorenal picture -monitor BMP -cont IVF -multiple immunologic/serologic panels pending #endocrine -SSI, BGM #GOC -grave prognosis -extensive family, multiple children and siblings, no appointed HCP -will attempt to identify single decision maker -consider comfort care -palliative team consulted #FEN -D51/2NS @ 100cc/hr -monitor and correct electrolytes -NPO #PPx -DVT: mechanical only -GI: IV PTX BID #code -full #dispo -cont to monitor in ICU Visit type - Emergency Visit Emergency Visit: No - New Patient This patient is new to me today: No - Critical Care Critical Care patient: Yes Total Critical Care Time (in minutes): 40 Critical Care Statement: The care of this patient involved high complexity decision making to prevent further life threatening deterioration of the patient 's condition and/or to evaluate & treat vital organ system(s) failure or risk of failure.
--- NOTE | 2019-02-13 14:51 | PN ---
Progress Note (short form) - Note Progress Note: remains intubated remains unresponsive egd didnot show any active bleeding Vital Signs Period Temp Pulse Resp BP Sys/Aguilar Pulse Ox Last 24 Hr 98.4 F-99.4 F 90-107 15-22 137-156/78-92 98-100 no nuchal rigidity cor-rrr llungs decreased bs at bases abd soft, +ascites ext no edema Microbiology 02/10/19 11:18 Blood - Peripheral Venous Blood Culture - Preliminary NO GROWTH OBTAINED AFTER 72 HOURS, INCUBATION TO CONTINUE FOR 2 DAYS. 02/10/19 11:10 Blood - Peripheral Venous Blood Culture - Preliminary NO GROWTH OBTAINED AFTER 72 HOURS, INCUBATION TO CONTINUE FOR 2 DAYS. 02/10/19 13:00 Urine - Urine - Catheterized Urine Culture - Final Enterococcus Faecalis CBC, BMP 02/13/19 05:30 02/13/19 06:00 Current Medications Chlorhexidine Gluconate (Hibiclens For Decolonization -) 1 applic TP HS [facility] Last Admin: 02/12/19 23:54 Dose: 1 applic Folic Acid (Folic Acid -) 1 mg PO DAILY [facility] Last Admin: 02/13/19 11:38 Dose: Not Given Dextrose/Sodium Chloride (D5-1/2ns -) 1,000 mls @ 100 mls/hr IV ASDIR [facility] Last Admin: 02/13/19 11:37 Dose: 100 mls/hr Ceftriaxone Sodium 1 gm/ (Dextrose) 50 mls @ 100 mls/hr IVPB DAILY [facility]; Protocol Last Admin: 02/13/19 09:04 Dose: 100 mls/hr Insulin Aspart (Novolog Vial Sliding Scale -) 1 vial SQ ACHS [facility]; Protocol Last Admin: 02/13/19 11:44 Dose: 6 units Lactulose (Cephulac (Oral Use)) 20 gm PO TID [facility] Methylprednisolone Sodium Succinate (Solu-Medrol -) 40 mg IVPUSH DAILY [facility] Last Admin: 02/13/19 09:04 Dose: 40 mg Mupirocin (Bactroban Ointment (For Decolonization) -) 1 applic NS BID [facility] Stop: 02/16/19 21:59 Last Admin: 02/13/19 11:38 Dose: 1 applic Pantoprazole Sodium (Protonix Iv) 40 mg IVPUSH BID [facility] Last Admin: 02/13/19 09:04 Dose: 40 mg Rifaximin (Xifaxan -) 550 mg PO BID SACHIN Last Admin: 02/13/19 11:38 Dose: Not Given Zinc Oxide/Panthenol/Vitamin E (Balmex Cream -) 1 applic TP DAILY PRN PRN Reason: HYGEINE imp/reccd enterococcal UTI hepatic encephalopathy-remains obtunded-ct scan unchanged GI bleed poly substance use including etoh diabetes with CKD hep c unkown HIV status- check serum cryptococcal antigen neurology f/u consider LP if she fails to improve neurologically was briefly on a fentanyl drip 02/12 vanco level in am continue ceftriaxone d/w icu team
--- NOTE | 2019-02-13 15:29 | PN ---
Progress Note, Physician History of Present Illness: Pt seen and examined at bedside. She remains in the ICU. She remains intubated. Her mental status has not improved. - Current Medication List Current Medications: Active Medications Chlorhexidine Gluconate (Hibiclens For Decolonization -) 1 applic TP HS [facility] Last Admin: 02/12/19 23:54 Dose: 1 applic Folic Acid (Folic Acid -) 1 mg PO DAILY [facility] Last Admin: 02/13/19 11:38 Dose: Not Given Dextrose/Sodium Chloride (D5-1/2ns -) 1,000 mls @ 100 mls/hr IV [facility]IR [facility] Last Admin: 02/13/19 11:37 Dose: 100 mls/hr Ceftriaxone Sodium 1 gm/ (Dextrose) 50 mls @ 100 mls/hr IVPB DAILY [facility]; Protocol Last Admin: 02/13/19 09:04 Dose: 100 mls/hr Insulin Aspart (Novolog Vial Sliding Scale -) 1 vial SQ ACHS [facility]; Protocol Last Admin: 02/13/19 11:44 Dose: 6 units Lactulose (Cephulac (Oral Use)) 20 gm PO TID [facility] Last Admin: 02/13/19 15:24 Dose: 20 gm Methylprednisolone Sodium Succinate (Solu-Medrol -) 40 mg IVPUSH DAILY [facility] Last Admin: 02/13/19 09:04 Dose: 40 mg Mupirocin (Bactroban Ointment (For Decolonization) -) 1 applic NS BID [facility] Stop: 02/16/19 21:59 Last Admin: 02/13/19 11:38 Dose: 1 applic Pantoprazole Sodium (Protonix Iv) 40 mg IVPUSH BID [facility] Last Admin: 02/13/19 09:04 Dose: 40 mg Rifaximin (Xifaxan -) 550 mg PO BID [facility] Last Admin: 02/13/19 11:38 Dose: Not Given Zinc Oxide/Panthenol/Vitamin E (Balmex Cream -) 1 applic TP DAILY PRN PRN Reason: HYGEINE - Objective Vital Signs: Vital Signs Temperature 98.9 F 02/13/19 08:00 Pulse Rate 107 H 02/13/19 12:00 Respiratory Rate 22 H 02/13/19 13:10 Blood Pressure 156/78 02/13/19 12:00 O2 Sat by Pulse Oximetry (%) 100 02/13/19 10:34 Constitutional: Yes: Calm Eyes: Yes: Conjunctiva Clear Cardiovascular: Yes: S1, S2 Respiratory: Yes: Mechanically Ventilated Gastrointestinal: Yes: Soft Genitourinary: Yes: Vanegas Present Musculoskeletal: Yes: Muscle Weakness Edema: No Neurological: Yes: Lethargy Labs: CBC, BMP 02/13/19 05:30 02/13/19 06:00 INR, PTT INR 1.29 (0.83-1.09) H 02/13/19 05:30 - ....Imaging Chest X-ray: Report Reviewed Problem List - Problems (1) Altered mental status Code(s): R41.82 - ALTERED MENTAL STATUS, UNSPECIFIED Qualifiers: Altered mental status type: stupor Qualified Code(s): R40.1 - Stupor (2) Hepatic encephalopathy Code(s): K72.90 - HEPATIC FAILURE, UNSPECIFIED WITHOUT COMA (3) Alcohol dependence Code(s): F10.20 - ALCOHOL DEPENDENCE, UNCOMPLICATED (4) Cocaine dependence Code(s): F14.20 - COCAINE DEPENDENCE, UNCOMPLICATED Assessment/Plan Current Medications Generic Name Dose Route Start Last Admin Trade Name Davonq PRN Reason Stop Dose Admin Chlorhexidine Gluconate 1 applic 02/11/19 22:00 02/12/19 23:54 Hibiclens For Decolonization - TP 1 applic HS [facility] Administration Folic Acid 1 mg 02/12/19 10:00 02/13/19 11:38 Folic Acid - PO Not Given DAILY [facility] Dextrose/Sodium Chloride 1,000 mls @ 100 mls/hr 02/12/19 08:30 02/13/19 11:37 D5-1/2ns - IV 100 mls/hr ASDIR SACH[facility] Administration Ceftriaxone Sodium 1 gm/ 50 mls @ 100 mls/hr 02/12/19 10:00 02/13/19 09:04 Dextrose IVPB 100 mls/hr DAILY [facility] Administration Protocol Insulin Aspart 1 vial 02/11/19 16:30 02/13/19 11:44 Novolog Vial Sliding Scale - SQ 6 units ACHS [facility] Administration Protocol Lactulose 20 gm 02/13/19 14:30 02/13/19 15:24 Cephulac (Oral Use) PO 20 gm TID [facility] Administration Methylprednisolone Sodium Succinate 40 mg 02/12/19 10:00 02/13/19 09:04 Solu-Medrol - IVPUSH 40 mg DAILY [facility] Administration Mupirocin 1 applic 02/11/19 22:00 02/13/19 11:38 Bactroban Ointment (For Decolonization) - NS 02/16/19 21:59 1 applic BID [facility] Administration Pantoprazole Sodium 40 mg 02/12/19 22:00 02/13/19 09:04 Protonix Iv IVPUSH 40 mg BID [facility] Administration Rifaximin 550 mg 02/12/19 10:00 02/13/19 11:38 Xifaxan - PO Not Given BID [facility] Zinc Oxide/Panthenol/Vitamin E 1 applic 02/11/19 16:03 Balmex Cream - TP DAILY PRN HYGEINE Laboratory Tests 02/12/19 16:45 Urine Protein Negative Urine Blood Negative Impression 1. CKD 2. BOB 3. resp failure 4. etoh abuse 5. liver cirrhosis 6. bipolar 7. change in mental status 8. metabolic acidosis Plan - renal function is worsening - hold of giving lasix - cont fluids until feeds started - mental status not improved - bicarb is improved - monitor urine output - follow renal workup - discussed with ICU team Dr Jarrett
[2019-02-13] MEDS: CHLORHEXIDINE GLUCONATE 4% CLEANSER FOR DECOLONIZATION TP SCH (21:22)
--- NOTE | 2019-02-13 21:29 | PN ---
Progress Note (short form) - Note Progress Note: NEUROLOGY F/U: Events reviewed and discussed with Dr. Keane. Pt remains intubated but off sedation. Ammonia level is down from 270-> 40. CT of head (repeated today and compared to 02/08/19): Some suggestion of brain swelling. No CVA or acute processes. No mass effect. LEIF: Neck supple. NEURO: No response to name. + spontaneous respirations Downward eye deviation. Full EOM;s to Doll's head Opens eyes to sternal pressure. Brisk reflexes. B/L Babinkis. IMP: Non-focal exam Hepatic encephalopathy/ GI Bleed SUGGEST: Continue current regimen. Thank you very much, Koffi Ravi MD
--- NOTE | 2019-02-14 06:00 | PN ---
Progress Note (short form) - Note Progress Note: Large amount of bright red blood noticed in the diapers. Restarted IV Protonix drip. Patient is intubated on A/C, not in any sedation Vitals: BP 139/79 mmHg, P-85 bpm, Spo2-97 % Stat CBC drawn, pending H/H, will transfuse if needed
[2019-02-14 06:18] LABS: BASO % 0.1 % (0-2.0); EOS % 0.9 % (0-4.5); HEMATOCRIT 25.9 % (32.4-45.2); HEMOGLOBIN 9.2 GM/dL (10.7-15.3); LYMPH % 17.4 % (8-40); MCH 32.3 pg (25.7-33.7); MCHC 35.4 g/dl (32.0-36.0); MEAN CELL VOLUME 91.2 fl (80-96); MEAN PLT VOLUME 8.8 fl (7.5-11.1); MONO % 10.2 % (3.8-10.2); NEUT % 71.4 % (42.8-82.8); PLATELET COUNT 141 K/MM3 (134-434); RBC 2.84 M/mm3 (3.60-5.2); RDW 18.9 % (11.6-15.6); WHITE BLOOD COUNT 10.2 K/mm3 (4.0-10.0)
[2019-02-14] MEDS: LACTULOSE 20 GM/30 ML UDC (FOR ORAL USE ONLY) PO SCH ×3 (06:38→21:04)
[2019-02-14] MEDS: INSULIN SLIDING SCALE (NOVOLOG) 1 VIAL SQ SCH ×4 (06:38→21:17)
[2019-02-14] MEDS: PANTOPRAZOLE SODIUM 80 MG in SODIUM CHLORIDE 100 ML IVPB SCH ×2 (06:39→17:46)
[2019-02-14 07:38] LABS: ALBUMIN 2.1 g/dl (3.4-5.0); ALK PHOS 66 U/L (45-117); ANION GAP 10 MMOL/L (8-16); BILIRUBIN,TOTAL 0.9 mg/dL (0.2-1); BLOOD UREA NITROGEN 52 mg/dL (7-18); CHLORIDE 113 mmol/L (98-107); CO2 16 mmol/L (21-32); CREATININE 2.4 mg/dL (0.55-1.3); GLUCOSE,RANDOM 206 mg/dL (74-106); POTASSIUM 3.4 mmol/L (3.5-5.1); SGOT/AST 69 U/L (15-37); SGPT/ALT 43 U/L (13-61); SODIUM 139 mmol/L (136-145)
--- NOTE | 2019-02-14 08:26 | PN ---
Physical Exam: SUBJECTIVE: Patient seen and examined this AM. Intubated, off sedation, not following commands. OBJECTIVE: Vital Signs Period Temp Pulse Resp BP Sys/Aguilar Pulse Ox Last 24 Hr 98.8 F-99.3 F 74-107 16-24 137-157/66-85 98-100 GEN: Intubated, off sedation, not responding or following commands. HEENT: dry mucus membranes NECK: supple HEART: Regular rate and rhythm, no murmurs noted LUNGS: CTA b/l ABDOMEN: Soft, nontender, distension noted EXTREMITIES: no peripheral edema noted, good peripheral pulses throughout NEURO: Intubated, off sedation, appears mildly agitated. Laboratory Results - last 24 hr 02/12/19 02/13/19 02/13/19 02:00 08:10 11:10 WBC RBC Hgb Hct MCV MCH MCHC RDW Plt Count MPV Absolute Neuts (auto) Neutrophils % Lymphocytes % Monocytes % Eosinophils % Basophils % Nucleated RBC % Puncture Site Right radial ABG pH 7.53 H ABG pCO2 at Pt Temp 19.4 L ABG pO2 at Pt Temp 161 H ABG HCO3 16.2 L ABG O2 Sat (Measured) 99.5 H ABG O2 Content 14.2 L ABG Base Excess -5.0 L Sumit Test Positive O2 Delivery Device Other Oxygen Flow Rate 35% Vent Mode Cpap ps+7 Mechanical Rate Espirit PEEP 5.0 Sodium Potassium Chloride Carbon Dioxide Anion Gap BUN Creatinine Creat Clearance w eGFR POC Glucometer 295 Random Glucose Lactic Acid Calcium Phosphorus Magnesium Total Bilirubin AST ALT Alkaline Phosphatase Total Protein Albumin Random Vancomycin Crossmatch See Detail 02/13/19 02/13/19 02/13/19 12:40 17:51 21:33 WBC RBC Hgb Hct MCV MCH MCHC RDW Plt Count MPV Absolute Neuts (auto) Neutrophils % Lymphocytes % Monocytes % Eosinophils % Basophils % Nucleated RBC % Puncture Site ABG pH ABG pCO2 at Pt Temp ABG pO2 at Pt Temp ABG HCO3 ABG O2 Sat (Measured) ABG O2 Content ABG Base Excess Sumit Test O2 Delivery Device Oxygen Flow Rate Vent Mode Mechanical Rate PEEP Sodium Potassium Chloride Carbon Dioxide Anion Gap BUN Creatinine Creat Clearance w eGFR POC Glucometer 341 300 Random Glucose Lactic Acid 1.9 Calcium Phosphorus Magnesium Total Bilirubin AST ALT Alkaline Phosphatase Total Protein Albumin Random Vancomycin Crossmatch 02/14/19 02/14/19 02/14/19 05:30 05:30 05:30 WBC 10.2 H RBC 2.84 L Hgb 9.2 L Hct 25.9 L MCV 91.2 MCH 32.3 MCHC 35.4 RDW 18.9 H Plt Count 141 MPV 8.8 Absolute Neuts (auto) 7.3 Neutrophils % 71.4 Lymphocytes % 17.4 D Monocytes % 10.2 Eosinophils % 0.9 D Basophils % 0.1 Nucleated RBC % 0 Puncture Site ABG pH ABG pCO2 at Pt Temp ABG pO2 at Pt Temp ABG HCO3 ABG O2 Sat (Measured) ABG O2 Content ABG Base Excess Sumit Test O2 Delivery Device Oxygen Flow Rate Vent Mode Mechanical Rate PEEP Sodium 139 Potassium 3.4 L Chloride 113 H Carbon Dioxide 16 L Anion Gap 10 BUN 52 H Creatinine 2.4 H Creat Clearance w eGFR 20.66 POC Glucometer Random Glucose 206 H Lactic Acid Calcium 7.0 L Phosphorus 3.0 Magnesium 2.0 Total Bilirubin 0.9 AST 69 H ALT 43 Alkaline Phosphatase 66 Total Protein 6.0 L Albumin 2.1 L Random Vancomycin 8.6 L Crossmatch 02/14/19 05:38 WBC RBC Hgb Hct MCV MCH MCHC RDW Plt Count MPV Absolute Neuts (auto) Neutrophils % Lymphocytes % Monocytes % Eosinophils % Basophils % Nucleated RBC % Puncture Site ABG pH ABG pCO2 at Pt Temp ABG pO2 at Pt Temp ABG HCO3 ABG O2 Sat (Measured) ABG O2 Content ABG Base Excess Sumit Test O2 Delivery Device Oxygen Flow Rate Vent Mode Mechanical Rate PEEP Sodium Potassium Chloride Carbon Dioxide Anion Gap BUN Creatinine Creat Clearance w eGFR POC Glucometer 262 Random Glucose Lactic Acid Calcium Phosphorus Magnesium Total Bilirubin AST ALT Alkaline Phosphatase Total Protein Albumin Random Vancomycin Crossmatch Active Medications Generic Name Dose Route Start Last Admin Trade Name Freq PRN Reason Stop Dose Admin Chlorhexidine Gluconate 1 applic 02/11/19 22:00 02/13/19 21:22 Hibiclens For Decolonization - TP 1 applic HS [facility] Administration Folic Acid 1 mg 02/12/19 10:00 02/13/19 11:38 Folic Acid - PO Not Given DAILY [facility] Dextrose/Sodium Chloride 1,000 mls @ 100 mls/hr 02/12/19 08:30 02/13/19 11:37 D5-1/2ns - IV 100 mls/hr ASDIR SACHIN Administration Ceftriaxone Sodium 1 gm/ 50 mls @ 100 mls/hr 02/12/19 10:00 02/13/19 09:04 Dextrose IVPB 100 mls/hr DAILY [facility] Administration Protocol Pantoprazole Sodium 80 mg/ 100 mls @ 10 mls/hr 02/14/19 05:45 02/14/19 06:39 Sodium Chloride IVPB 10 mls/hr Q10H [facility] Administration 8 MG/HR Insulin Aspart 1 vial 02/11/19 16:30 02/14/19 06:38 Novolog Vial Sliding Scale - SQ 4 units ACHS [facility] Administration Protocol Lactulose 20 gm 02/13/19 14:30 02/14/19 06:38 Cephulac (Oral Use) PO Not Given TID [facility] Methylprednisolone Sodium Succinate 40 mg 02/12/19 10:00 02/13/19 09:04 Solu-Medrol - IVPUSH 40 mg DAILY [facility] Administration Mupirocin 1 applic 02/11/19 22:00 02/13/19 21:22 Bactroban Ointment (For Decolonization) - NS 02/16/19 21:59 1 applic BID [facility] Administration Rifaximin 550 mg 02/12/19 10:00 02/13/19 21:23 Xifaxan - PO 550 mg BID [facility] Administration Zinc Oxide/Panthenol/Vitamin E 1 applic 02/11/19 16:03 Balmex Cream - TP DAILY PRN HYGEINE ASSESSMENT/PLAN: Patient is a 58 year old female who presented with altered mental status and was found to have hepatic metabolic encephalopathy and GI bleed. Patient evaluated by ICU and deemed stable for Med/Surg initially. However, patient had worsening AMS with Active GI bleed and is now transferred to ICU for further monitoring and management. NEURO/PSYCH -Hepatic Encephalopathy Holding Laculose and rifaximin with Acute GI bleeding, for Endo today GI consult appreciated Ammonia down to 39 from 279, continue Lactulose MD if unable to place NG tube due to recent NG tube trauma Head CT without significant changes/pathology/bleeding noted -Polysubstance Abuse Avoid benzo's Continue folate and thiamine Consider rehab placement once stable for d/c CARDIO -HTN Hold Anti-HTN medications as patient is actively bleeding Continue to monitor BP and will treat as needed PULMONARY -Acute Hypoxic Respiratory Failire Intubated, currently saturating well on CPAP, will maintain for now and convert to AC if needed Maintain 02 saturation >95% Will maintain airway protection with ET tube until neuro status improves GASTROENTEROLOGY -GI Bleed Rule out Variceal bleeding Protonix BID Continue IV hydration s/p 2 units PRBCs with appropriate response, H/H stable EGD without signs of significant varices or bleeding source Repeat EGD with Colonoscopy today due to further episodes of melena this AM Lactic acid 1.9 yesterday -Liver Cirrhosis with Hepatic Encephalopathy History of prior SBP Ascites on U/S Diagnostic paracentesis with cytology once patient is stable -History of Hepatitis C Unsure if patient was treated Likely source of Liver cirrhosis HEMATOLOGY -Thrombocytopenia Likely secondary to liver disease Will need to continue and monitor currently > 100, maintain > 50 with active bleeding RENAL -BOB Unsure of baseline, worsening BUN Renal Consult appreciated Workup pending IV fluids, monitor for overload ENDOCRINE -IDDM II BGMs ISS PROPHYLAXIS -SCDs -Protonix BID FEN -D5 1/2 NS @ 100 cc/hr -Monitor and replete -NPO Disposition -Full code -Continue to monitor in the ICU Visit type - Emergency Visit Emergency Visit: Yes ED Registration Date: 02/08/19 Care time: The patient presented to the Emergency Department on the above date and was hospitalized for further evaluation of their emergent condition. - New Patient This patient is new to me today: No - Critical Care Critical Care patient: Yes Total Critical Care Time (in minutes): 36 Critical Care Statement: The care of this patient involved high complexity decision making to prevent further life threatening deterioration of the patient 's condition and/or to evaluate & treat vital organ system(s) failure or risk of failure.
--- NOTE | 2019-02-14 09:28 | PN ---
Progress Note (short form) - Note Progress Note: remains intubated opens eyes, more responsive Vital Signs Period Temp Pulse Resp BP Sys/Aguilar Pulse Ox Last 24 Hr 98.8 F-99.3 F 74-107 16-24 137-161/66-85 100-100 cor-rrr lungs decreased bs at bases abd soft,nt ext no edema CBC, BMP 02/14/19 05:30 02/14/19 05:30 Microbiology 02/10/19 11:18 Blood - Peripheral Venous Blood Culture - Preliminary NO GROWTH OBTAINED AFTER 72 HOURS, INCUBATION TO CONTINUE FOR 2 DAYS. 02/10/19 11:10 Blood - Peripheral Venous Blood Culture - Preliminary NO GROWTH OBTAINED AFTER 72 HOURS, INCUBATION TO CONTINUE FOR 2 DAYS. 02/10/19 13:00 Urine - Urine - Catheterized Urine Culture - Final Enterococcus Faecalis Current Medications Chlorhexidine Gluconate (Hibiclens For Decolonization -) 1 applic TP HS [facility] Last Admin: 02/13/19 21:22 Dose: 1 applic Folic Acid (Folic Acid -) 1 mg PO DAILY [facility] Last Admin: 02/13/19 11:38 Dose: Not Given Dextrose/Sodium Chloride (D5-1/2ns -) 1,000 mls @ 100 mls/hr IV [facility] Last Admin: 02/13/19 11:37 Dose: 100 mls/hr Ceftriaxone Sodium 1 gm/ (Dextrose) 50 mls @ 100 mls/hr IVPB DAILY [facility]; Protocol Last Admin: 02/13/19 09:04 Dose: 100 mls/hr Pantoprazole Sodium 80 mg/ (Sodium Chloride) 100 mls @ 10 mls/hr IVPB Q10H [facility] Last Admin: 02/14/19 06:39 Dose: 10 mls/hr Insulin Aspart (Novolog Vial Sliding Scale -) 1 vial SQ ACHS [facility]; Protocol Last Admin: 02/14/19 06:38 Dose: 4 units Lactulose (Cephulac (Oral Use)) 20 gm PO TID [facility] Last Admin: 02/14/19 06:38 Dose: Not Given Methylprednisolone Sodium Succinate (Solu-Medrol -) 40 mg IVPUSH DAILY [facility] Last Admin: 02/13/19 09:04 Dose: 40 mg Mupirocin (Bactroban Ointment (For Decolonization) -) 1 applic NS BID [facility] Stop: 02/16/19 21:59 Last Admin: 02/13/19 21:22 Dose: 1 applic Rifaximin (Xifaxan -) 550 mg PO BID [facility] Last Admin: 02/13/19 21:23 Dose: 550 mg Zinc Oxide/Panthenol/Vitamin E (Balmex Cream -) 1 applic TP DAILY PRN PRN Reason: HYGEINE imp/reccd enterococcal UTI hepatic encephalopathy-improved, on rifaximin GI bleed subsided, source not clear poly substance use including etoh diabetes with CKD-improving hep c unkown HIV status- check serum cryptococcal antigen mental status improving can d/c rocephin/vancomycin switch to ampicillin for UTI- day #3 antibiotics-treat 7 days adjust for ckd vent management per ICU
[2019-02-14] MEDS: MUPIROCIN 2% TOPICAL OINTMENT FOR DECOLONIZATION NS SCH ×2 (09:46→21:16)
[2019-02-14] MEDS: methylPREDNISolone NA SUCC 40 MG/1 ML VIAL IVPUSH SCH (09:46)
[2019-02-14] MEDS: RIFAXIMIN 550 MG TABLET (UD) PO SCH ×2 (09:46→21:05)
[2019-02-14] MEDS: FOLIC ACID 1 MG TABLET (FP) PO SCH (09:46)
[2019-02-14] MEDS ORDERED: PT OWN MED DRAWER 7, Y5N ONE ×2 (10:35→17:49)
[2019-02-14] MEDS: AMPICILLIN - 1 GM in SODIUM CHLORIDE 100 ML IVPB SCH ×2 (10:39→17:45)
[2019-02-14] MEDS: DEXTROSE 5%-0.45% SALINE 1,000 ML IV SCH ×2 (10:39→22:00)
[2019-02-14] MEDS ORDERED: PEG 3350/NA SULF BICARB CL/KCL 4000 ML SOLN.RECON NGT STA (11:00)
--- NOTE | 2019-02-14 11:09 | PN.GI ---
GI Progress Note Subjective: Advised by nurse that patient with continued bleeding last night: blood with clots and large bloody BM with clots this morning. Remains intubated on vent. - Objective Vital Signs: Vital Signs Temperature 99.3 F 02/14/19 06:00 Pulse Rate 106 H 02/14/19 10:34 Respiratory Rate 28 H 02/14/19 09:00 Blood Pressure 161/77 02/14/19 08:00 O2 Sat by Pulse Oximetry (%) 100 02/14/19 10:34 Constitutional: Calm Eyes: No: Sclera Icterus Cardiovascular: Yes: Tachycardia Respiratory: Yes: Diminished (at bases bilaterally) Gastrointestinal Inspection: Yes: Distention ...Auscultate: Yes: Normoactive Bowel Sounds ...Palpate: Yes: Soft ...Percussion: No: Tympanitic Edema: No (No LE edema) Neurological: Yes: Other (Opens eyes) Labs: CBC, BMP 02/14/19 05:30 02/14/19 05:30 INR, PTT INR 1.29 (0.83-1.09) H 02/13/19 05:30 Problem List - Problems (1) GI bleed Assessment/Plan: Continued bleeding. BP stable, remains tachycardic Discussed with daughter armando via telephone today. Explained that to reassess recurrent bleeding repeat upper endoscopy along with colonoscopy can be performed. We discussed potential risks of the procedure like but not limited to bleeding, perforation requiring surgery to repair, infection, sedation medication effects all of ehich could be potentially life threatening. She has agreed to the procedures. telephone consent was obtained. Repeat CBC @ noon Continue IV Abx Rapid Prep with golytely For EGD/Colon today Replete K Code(s): K92.2 - GASTROINTESTINAL HEMORRHAGE, UNSPECIFIED
[2019-02-14 11:22] LABS: INR 1.37 (0.83-1.09); PROTHROMBIN TIME (PATIENT) 16.2 SEC (9.7-13.0)
[2019-02-14] MEDS: KCL 10 MEQ IVPB 10 MEQ/100 ML INFUS.BAG IVPB SCH ×3 (11:25→13:48)
[2019-02-14 11:36] LABS: HEMATOCRIT 25.9 % (32.4-45.2); HEMOGLOBIN 8.9 GM/dL (10.7-15.3); MCH 32.5 pg (25.7-33.7); MCHC 34.4 g/dl (32.0-36.0); MEAN CELL VOLUME 94.7 fl (80-96); MEAN PLT VOLUME 9.6 fl (7.5-11.1); PLATELET COUNT 197 K/MM3 (134-434); RBC 2.74 M/mm3 (3.60-5.2); WHITE BLOOD COUNT 14.6 K/mm3 (4.0-10.0)
--- NOTE | 2019-02-14 11:44 | PN ---
Physical Exam: SUBJECTIVE: Patient seen and examined at bedside in ICU. Intubated, off sedation , remains vegetative. Dark red clotted blood in stool overnight. OBJECTIVE: Vital Signs Period Temp Pulse Resp BP Sys/Aguilar Pulse Ox Last 24 Hr 98.4 F-99.3 F 74-107 16-28 137-164/66-86 100-100 GENERAL: Intubated, off sedation, mental status is vegetative, spontaneous eye opening but does not alert to noxious stimuli HEENT: NC/AT, PERRLA, +icterus NECK: Trachea midline LUNGS: Limited exam, no adventitious sounds appreciated over ventilator HEART: borderline tachycardia, holosystolic murmur newly appreciated ABDOMEN: +bs, soft, increased fluid appreciated EXTREMITIES: 2+ pulses, wwp, no edema appreciated NEUROLOGICAL: Intubated and sedated PSYCH: Unable to assess SKIN: Warm, dry, jaundiced Laboratory Results - last 24 hr 02/12/19 02/13/19 02/13/19 02:00 12:40 17:51 WBC RBC Hgb Hct MCV MCH MCHC RDW Plt Count MPV Absolute Neuts (auto) Neutrophils % Lymphocytes % Monocytes % Eosinophils % Basophils % Nucleated RBC % PT with INR INR Sodium Potassium Chloride Carbon Dioxide Anion Gap BUN Creatinine Creat Clearance w eGFR POC Glucometer 341 Random Glucose Lactic Acid 1.9 Calcium Phosphorus Magnesium Total Bilirubin AST ALT Alkaline Phosphatase LD Total Total Protein Albumin Random Vancomycin Blood Type O POSITIVE Antibody Screen Negative Crossmatch See Detail 02/13/19 02/14/19 02/14/19 21:33 05:30 05:30 WBC 10.2 H RBC 2.84 L Hgb 9.2 L Hct 25.9 L MCV 91.2 MCH 32.3 MCHC 35.4 RDW 18.9 H Plt Count 141 MPV 8.8 Absolute Neuts (auto) 7.3 Neutrophils % 71.4 Lymphocytes % 17.4 D Monocytes % 10.2 Eosinophils % 0.9 D Basophils % 0.1 Nucleated RBC % 0 PT with INR INR Sodium Potassium Chloride Carbon Dioxide Anion Gap BUN Creatinine Creat Clearance w eGFR POC Glucometer 300 Random Glucose Lactic Acid Calcium Phosphorus Magnesium Total Bilirubin AST ALT Alkaline Phosphatase LD Total Total Protein Albumin Random Vancomycin 8.6 L Blood Type Antibody Screen Crossmatch 02/14/19 02/14/19 02/14/19 05:30 05:38 10:00 WBC RBC Hgb Hct MCV MCH MCHC RDW Plt Count MPV Absolute Neuts (auto) Neutrophils % Lymphocytes % Monocytes % Eosinophils % Basophils % Nucleated RBC % PT with INR 16.20 H INR 1.37 H Sodium 139 Potassium 3.4 L Chloride 113 H Carbon Dioxide 16 L Anion Gap 10 BUN 52 H Creatinine 2.4 H Creat Clearance w eGFR 20.66 POC Glucometer 262 Random Glucose 206 H Lactic Acid Calcium 7.0 L Phosphorus 3.0 Magnesium 2.0 Total Bilirubin 0.9 AST 69 H ALT 43 Alkaline Phosphatase 66 LD Total Total Protein 6.0 L Albumin 2.1 L Random Vancomycin Blood Type Antibody Screen Crossmatch 02/14/19 10:00 WBC RBC Hgb Hct MCV MCH MCHC RDW Plt Count MPV Absolute Neuts (auto) Neutrophils % Lymphocytes % Monocytes % Eosinophils % Basophils % Nucleated RBC % PT with INR INR Sodium Potassium Chloride Carbon Dioxide Anion Gap BUN Creatinine Creat Clearance w eGFR POC Glucometer Random Glucose Lactic Acid Calcium Phosphorus Magnesium Total Bilirubin AST ALT Alkaline Phosphatase LD Total Cancelled Total Protein Albumin Random Vancomycin Blood Type Antibody Screen Crossmatch Active Medications Generic Name Dose Route Start Last Admin Trade Name Freq PRN Reason Stop Dose Admin Chlorhexidine Gluconate 1 applic 02/11/19 22:00 02/13/19 21:22 Hibiclens For Decolonization - TP 1 applic HS SACHIN Administration Folic Acid 1 mg 02/12/19 10:00 02/14/19 09:46 Folic Acid - PO 1 mg DAILY SACHIN Administration Dextrose/Sodium Chloride 1,000 mls @ 100 mls/hr 02/12/19 08:30 02/14/19 10:39 D5-1/2ns - IV 100 mls/hr ASDIR SACHIN Administration Pantoprazole Sodium 80 mg/ 100 mls @ 10 mls/hr 02/14/19 05:45 02/14/19 06:39 Sodium Chloride IVPB 10 mls/hr Q10H SACHIN Administration 8 MG/HR Ampicillin Sodium 1 gm/ Sodium 100 mls @ 200 mls/hr 02/14/19 10:00 02/14/19 10:39 Chloride IVPB 200 mls/hr Q8H-IV SACHIN Administration Protocol Potassium Chloride 10 meq in 100 mls @ 100 mls/hr 02/14/19 11:15 02/14/19 11: 25 Potassium Chloride 10 Meq Premix Ivpb - IVPB 02/14/19 14:14 100 mls/hr Q60M SACHIN Administration Insulin Aspart 1 vial 02/11/19 16:30 02/14/19 11:22 Novolog Vial Sliding Scale - SQ 8 units ACHS SACHIN Administration Protocol Lactulose 20 gm 02/13/19 14:30 02/14/19 06:38 Cephulac (Oral Use) PO Not Given TID SACHIN Methylprednisolone Sodium Succinate 40 mg 02/12/19 10:00 02/14/19 09:46 Solu-Medrol - IVPUSH 40 mg DAILY SACHIN Administration Mupirocin 1 applic 02/11/19 22:00 02/14/19 09:46 Bactroban Ointment (For Decolonization) - NS 02/16/19 21:59 1 applic BID SACHIN Administration Rifaximin 550 mg 02/12/19 10:00 02/14/19 09:46 Xifaxan - PO 550 mg BID SACHIN Administration Zinc Oxide/Panthenol/Vitamin E 1 applic 02/11/19 16:03 Balmex Cream - TP DAILY PRN HYGEINE ASSESSMENT/PLAN: 58 y/o F w/ PMHx cirrhosis, hep C, polysubstance abuse including EtOH, DM, HTN, bipolar disorder, recent h/o SBP 12/14, presents from [facility] for agitation, combativeness, AMS while undergoing detox #GI -cirrhosis w/ prior SBP -ascites on US -GI consulted -no active bleeding identified on initial EGD -transitioned to BID IV PTX, no further octreotide -albumin infusions as per ICU team -bleeding overnight, decreased Hb -repeat CBC -GI to perform repeat EGD and colonoscopy, consent given by daughter as documented in GI note -cont steroids -NPO -D51/2NS -paracentesis planned -T bilirubin improved to 0.9 #heme -thrombocytopenia 2/2 liver disease -INR 1.29 -->1.37 #CV -holding anti-hypertensives -maintain MAP > 65 -no indication for pressors at this time -hemodynamic support as per ICU team #pulmonary -vent settings as per ICU team -unable to protect airway at this time #neuro -vegetative off sedation, no response to noxious stimuli, does open eyes sporadically, pupils are reactive -cont thiamine, folate -cont lactulose, titrate to BMs -cont IVF -neurology following -considering LP #ID -UCx growing enterococcus, BCx NGTD -ID consulted -transitioned to Ampicillin, day 3 of overall ABx of 7 days planned #renal -Cr improved to 2.4 -hepatorenal picture -monitor BMP -cont IVF -multiple immunologic/serologic panels pending #endocrine -SSI, BGM #GOC -grave prognosis -extensive family, multiple children and siblings, no appointed HCP -will attempt to identify single decision maker -consider comfort care -palliative team consulted #FEN -D51/2NS @ 100cc/hr -monitor and correct electrolytes -NPO #PPx -DVT: mechanical only -GI: IV PTX BID #code -full #dispo -cont to monitor in ICU Visit type - Emergency Visit Emergency Visit: No - New Patient This patient is new to me today: No - Critical Care Critical Care patient: Yes Total Critical Care Time (in minutes): 40 Critical Care Statement: The care of this patient involved high complexity decision making to prevent further life threatening deterioration of the patient 's condition and/or to evaluate & treat vital organ system(s) failure or risk of failure.
--- NOTE | 2019-02-14 11:47 | PN ---
Teaching Attending Note Name of Resident: Huy Mejia ATTENDING PHYSICIAN STATEMENT I saw and evaluated the patient. I reviewed the resident's note and discussed the case with the resident. I agree with the resident's findings and plan as documented. SUBJECTIVE: Patient seen and examined in the ICU. Remains intubated, obtunded off sedation. Noted drift in H&H. No pressors. OBJECTIVE: Intake & Output 02/11/19 02/12/19 02/13/19 02/14/19 23:59 23:59 23:59 23:59 Intake Total 1770 3477.2 2600 1200 Output Total 2750 800 200 Balance 1770 727.2 1800 1000 Weight 102 lb 6.4 oz 97 lb 9 oz 100 lb 15.547 oz 100 lb 6 oz Last Vital Signs Temp Pulse Resp BP Pulse Ox 98.4 F 106 H 20 164/86 100 02/14/19 10:00 02/14/19 10:34 02/14/19 10:00 02/14/19 10:00 02/14/19 10:34 Active Medications Chlorhexidine Gluconate (Hibiclens For Decolonization -) 1 applic TP HS [facility] Last Admin: 02/13/19 21:22 Dose: 1 applic Folic Acid (Folic Acid -) 1 mg PO DAILY [facility] Last Admin: 02/14/19 09:46 Dose: 1 mg Dextrose/Sodium Chloride (D5-1/2ns -) 1,000 mls @ 100 mls/hr IV ASDIR SACHIN Last Admin: 02/14/19 10:39 Dose: 100 mls/hr Pantoprazole Sodium 80 mg/ (Sodium Chloride) 100 mls @ 10 mls/hr IVPB Q10H SACHIN Last Admin: 02/14/19 06:39 Dose: 10 mls/hr Ampicillin Sodium 1 gm/ Sodium (Chloride) 100 mls @ 200 mls/hr IVPB Q8H-IV SACHIN ; Protocol Last Admin: 02/14/19 10:39 Dose: 200 mls/hr Potassium Chloride (Potassium Chloride 10 Meq Premix Ivpb -) 10 meq in 100 mls @ 100 mls/hr IVPB Q60M [facility] Stop: 02/14/19 14:14 Last Admin: 02/14/19 11:25 Dose: 100 mls/hr Insulin Aspart (Novolog Vial Sliding Scale -) 1 vial SQ ACHS SACHIN; Protocol Last Admin: 02/14/19 11:22 Dose: 8 units Lactulose (Cephulac (Oral Use)) 20 gm PO TID [facility] Last Admin: 02/14/19 06:38 Dose: Not Given Methylprednisolone Sodium Succinate (Solu-Medrol -) 40 mg IVPUSH DAILY [facility] Last Admin: 02/14/19 09:46 Dose: 40 mg Mupirocin (Bactroban Ointment (For Decolonization) -) 1 applic NS BID [facility] Stop: 02/16/19 21:59 Last Admin: 02/14/19 09:46 Dose: 1 applic Rifaximin (Xifaxan -) 550 mg PO BID [facility] Last Admin: 02/14/19 09:46 Dose: 550 mg Zinc Oxide/Panthenol/Vitamin E (Balmex Cream -) 1 applic TP DAILY PRN PRN Reason: HYGEINE Gen: intubated, obtunded Heart: RRR Lung: decreased breath sounds at the bases Abd: soft, +ascites Ext: no edema Laboratory Results - last 24 hr 02/12/19 02/13/19 02/13/19 02:00 12:40 17:51 WBC RBC Hgb Hct MCV MCH MCHC RDW Plt Count MPV Absolute Neuts (auto) Neutrophils % Lymphocytes % Monocytes % Eosinophils % Basophils % Nucleated RBC % PT with INR INR Sodium Potassium Chloride Carbon Dioxide Anion Gap BUN Creatinine Creat Clearance w eGFR POC Glucometer 341 Random Glucose Lactic Acid 1.9 Calcium Phosphorus Magnesium Total Bilirubin AST ALT Alkaline Phosphatase LD Total Total Protein Albumin Random Vancomycin Blood Type O POSITIVE Antibody Screen Negative Crossmatch See Detail 02/13/19 02/14/19 02/14/19 21:33 05:30 05:30 WBC 10.2 H RBC 2.84 L Hgb 9.2 L Hct 25.9 L MCV 91.2 MCH 32.3 MCHC 35.4 RDW 18.9 H Plt Count 141 MPV 8.8 Absolute Neuts (auto) 7.3 Neutrophils % 71.4 Lymphocytes % 17.4 D Monocytes % 10.2 Eosinophils % 0.9 D Basophils % 0.1 Nucleated RBC % 0 PT with INR INR Sodium Potassium Chloride Carbon Dioxide Anion Gap BUN Creatinine Creat Clearance w eGFR POC Glucometer 300 Random Glucose Lactic Acid Calcium Phosphorus Magnesium Total Bilirubin AST ALT Alkaline Phosphatase LD Total Total Protein Albumin Random Vancomycin 8.6 L Blood Type Antibody Screen Crossmatch 02/14/19 02/14/19 02/14/19 05:30 05:38 09:55 WBC 14.6 H RBC 2.74 L Hgb 8.9 L Hct 25.9 L MCV 94.7 MCH 32.5 MCHC 34.4 RDW 19.0 H Plt Count 197 D MPV 9.6 Absolute Neuts (auto) Neutrophils % Lymphocytes % Monocytes % Eosinophils % Basophils % Nucleated RBC % PT with INR INR Sodium 139 Potassium 3.4 L Chloride 113 H Carbon Dioxide 16 L Anion Gap 10 BUN 52 H Creatinine 2.4 H Creat Clearance w eGFR 20.66 POC Glucometer 262 Random Glucose 206 H Lactic Acid Calcium 7.0 L Phosphorus 3.0 Magnesium 2.0 Total Bilirubin 0.9 AST 69 H ALT 43 Alkaline Phosphatase 66 LD Total Total Protein 6.0 L Albumin 2.1 L Random Vancomycin Blood Type Antibody Screen Crossmatch 02/14/19 02/14/19 10:00 10:00 WBC RBC Hgb Hct MCV MCH MCHC RDW Plt Count MPV Absolute Neuts (auto) Neutrophils % Lymphocytes % Monocytes % Eosinophils % Basophils % Nucleated RBC % PT with INR 16.20 H INR 1.37 H Sodium Potassium Chloride Carbon Dioxide Anion Gap BUN Creatinine Creat Clearance w eGFR POC Glucometer Random Glucose Lactic Acid Calcium Phosphorus Magnesium Total Bilirubin AST ALT Alkaline Phosphatase LD Total Cancelled Total Protein Albumin Random Vancomycin Blood Type Antibody Screen Crossmatch ASSESSMENT AND PLAN: Acute Respiratory Failure Altered Mental Status Hepatic Encephalopathy GI Bleed Acute Blood Loss Anemia Acute Kidney Injury Liver Cirrhosis Alcohol Abuse Hep C Thrombocytopenia h/o SBP UTI HTN DM - For Endoscopic evaluation - monitor H/H, coags - Normal transfusion thresholds - lactulose, rifaximin - protonix - continue antibiotics - IVF - monitor urine output, creatinine - spontaneous breathing trials as tolerated once mental status improved - DVT/GI prophylaxis - continue ICU monitoring - prognosis guarded Dr Mckeon Critical care time spent in reviewing chart, evaluating patient and formulating plan 35 min
--- NOTE | 2019-02-14 11:53 | PN ---
Teaching Attending Note Name of Resident: Houston Melo ATTENDING PHYSICIAN STATEMENT I saw and evaluated the patient. I reviewed the resident's note and discussed the case with the resident. I agree with the resident's findings and plan as documented. SUBJECTIVE:spontaneous eye opening and movements. currently on cpap and holding volumes. 3 large bloody BM since last night with clots OBJECTIVE: Last Vital Signs Temp Pulse Resp BP Pulse Ox 98.4 F 106 H 20 164/86 100 02/14/19 10:00 02/14/19 10:34 02/14/19 10:00 02/14/19 10:00 02/14/19 10:34 Intake & Output 02/11/19 02/12/19 02/13/19 02/14/19 23:59 23:59 23:59 23:59 Intake Total 1770 3477.2 2600 1200 Output Total 2750 800 200 Balance 1770 727.2 1800 1000 Weight 102 lb 6.4 oz 97 lb 9 oz 100 lb 15.547 oz 100 lb 6 oz General intubated, spontaneous movements, does not withdraw to pain CV S1 S2 RRR Lungs coarse breath sounds anteriorly Abdomen soft + distended,NT +BS Extremities no pedal edema ASSESSMENT AND PLAN: 58 year old female with history of Liver Cirrhosis, Alcohol Abuse, Hepatitis C, recent history of SBP 12/14, DM 2, HTN, Polysubstance Abuse (including Alcohol), Bipolar Disorder, sent to ED from [facility] for agitation, combativeness, and altered mental status while undergoing detox. with no improvement and was intubated 02/11 to protect airway and now in the MICU with course complicated with development of melena. 1. Acute Hepatic Encephalopathy versus Toxic Encephalopathy secondary to Ativan and decompensating liver failure- concern also remains for status ellipticus with no convulsions vs menningitis. however pt is having non purposeful movements and more alert. will check EEG. consider LP if does not improve. repeat Head CT done with no acute pathology. ID and neuro on board. 2. Acute respiratory failure- s/p intubation for airway protection. tolerating cpap trials. management per ICU team 3. Melena-s/p EGD 02/12 showing esophageal ulcer and esophageal varices but no stigmata of recent bleeding. with repeat bleeding. plan for EGD/colonoscopy today. trend cbc. GI on board. PPI BID 4. Acute blood loss anemia- due to suspected Esophageal varices. s/p 2 units PRBC this hospital stay. cont to trend Q8H. normal transfusion threshold. 5. Acute decompensated liver failure-now all improving. bili 1.1 with decreased INR. s/p vit K. on medrol 40mg daily. 6. E. Faecalis UTI- ceftriaxone switched to ampicillin day 3 of 7 7. Ascites- seen on u/s. had recent treatment for SBP. plan was for paracentesis today but will need to be held in light of bleeding. GI and ID on board 8. Thrombocytopenia-due to cirrhosis. s/p 1 unit platelets. no signs of bleeding. resolved 9. BOB- unknown baseline Cr. now stabilized. nephro on board. workup sent. on low dose IVF. monitor UOP. avoid nephrotoxic agents. 10. DM- hold oral agents. iss and Bgm. 11. Continuous ETOH abuse- no signs of withdrawals. counselling once medically stabilized. on thiamine/folate/MVI 12. HTN- currently normotensive off oral agents 13. DVT PPI- SCD. hold pharmacologic in setting of active bleeding 14. MICU monitoring The care of this patient involved high complexity decision making to prevent further life threatening deterioration of the patient's condition and/or to evaluate & treat vital organ system(s) failure or risk of failure. 38 mins
[2019-02-14 12:00] LABS: LDH 291 U/L (84-246)
[2019-02-14 13:15] LABS: HBSAG SCREEN Negative (Negative); HEP A AB, IGM Negative (Negative); HEP B CORE AB, TOT Negative (Negative)
--- NOTE | 2019-02-14 13:18 | ECHO ---
Name: MARTINA QUINTANA Exam:Adult Echocardiogram Study Date: 02/14/2019 11:37 AM Age: 58 yrs Reason For Study: FRANCINE ARGUELLES [facility] [place] Height: 61 in Weight: 100 lb BSA: 1.4 m2 MMode/2D Measurements & Calculations IVSd: 0.94 cm Ao root diam: 2.6 cm LVIDd: 3.3 cm LA dimension: 3.3 cm LVIDs: 2.0 cm LVPWd: 0.81 cm EDV(Teich): 42.6 ml LVOT diam: 2.0 cm ESV(Teich): 13.1 ml LAV (MOD-bp): 38.0 ml TAPSE: 1.8 cm Doppler Measurements & Calculations MV E max jaret: 85.7 cm/sec Ao V2 max: 181.1 cm/sec MV A max jaret: 114.3 cm/sec Ao max P.3 mmHg MV E/A: 0.75 Ao V2 mean: 119.1 cm/sec MV dec time: 0.14 sec Ao mean P.7 mmHg Ao V2 VTI: 31.7 cm MARY(I,D): 3.0 cm2 MARY(V,D): 2.7 cm2 LV V1 max P.5 mmHg MR max jaret: 588.1 cm/sec LV V1 mean P.1 mmHg MR max P.5 mmHg LV V1 max: 162.0 cm/sec LV V1 mean: 117.6 cm/sec LV V1 VTI: 31.5 cm SV(LVOT): 95.8 ml TR max jaret: 231.3 cm/sec TR max P.4 mmHg Med Peak E' Jaret: 6.0 cm/sec Med E/e': 14.3 Lat Peak E' Jaret: 8.9 cm/sec Lat E/e': 9.7 Left Ventricle There is moderate concentric left ventricular hypertrophy. The left ventricle is hyperdynamic. Ejecti on Fraction = 65-70%. Right Ventricle The right ventricle is grossly normal size. The right ventricular systolic function is grossly normal . Mitral Valve There is moderate mitral annular calcification. There is no mitral valve stenosis. There is mild mitr al regurgitation. Tricuspid Valve The tricuspid valve is normal in structure and function. There is mild tricuspid regurgitation. Aortic Valve The aortic valve opens well. No hemodynamically significant valvular aortic stenosis. No aortic regur gitation is present. Pulmonic Valve The pulmonic valve is not well seen, but is grossly normal. Great Vessels The aortic root is normal size. Pericardium/Pleura Trivial pericardial effusion not hemodynamically significant. There is a pleural effusion present. Th ere is a ascites present. Interpretation Summary The left ventricle is hyperdynamic. There is moderate concentric left ventricular hypertrophy. Ejection Fraction = 65-70%. Trivial pericardial effusion not hemodynamically significant There is a pleural effusion present. There is moderate mitral annular calcification. There is mild mitral regurgitation. There is a ascites present. MD Alatorre *Tiffany 02/14/2019 01:17 PM
--- NOTE | 2019-02-14 13:46 | PN ---
Progress Note, Physician History of Present Illness: Pt seen and examined at bedside. She remains in the ICU. She remains intubated. Her eyes are open today. - Current Medication List Current Medications: Active Medications Chlorhexidine Gluconate (Hibiclens For Decolonization -) 1 applic TP HS [facility] Last Admin: 02/13/19 21:22 Dose: 1 applic Folic Acid (Folic Acid -) 1 mg PO DAILY [facility] Last Admin: 02/14/19 09:46 Dose: 1 mg Dextrose/Sodium Chloride (D5-1/2ns -) 1,000 mls @ 100 mls/hr IV ASDIR [facility] Last Admin: 02/14/19 10:39 Dose: 100 mls/hr Pantoprazole Sodium 80 mg/ (Sodium Chloride) 100 mls @ 10 mls/hr IVPB Q10H [facility] Last Admin: 02/14/19 06:39 Dose: 10 mls/hr Ampicillin Sodium 1 gm/ Sodium (Chloride) 100 mls @ 200 mls/hr IVPB Q8H-IV SACHIN ; Protocol Last Admin: 02/14/19 10:39 Dose: 200 mls/hr Potassium Chloride (Potassium Chloride 10 Meq Premix Ivpb -) 10 meq in 100 mls @ 100 mls/hr IVPB Q60M [facility] Stop: 02/14/19 14:14 Last Admin: 02/14/19 12:31 Dose: 100 mls/hr Fentanyl 500 mcg/ Dextrose 100 mls @ 5 mls/hr IVPB TITR SACHIN; Protocol Insulin Aspart (Novolog Vial Sliding Scale -) 1 vial SQ ACHS [facility]; Protocol Last Admin: 02/14/19 11:22 Dose: 8 units Lactulose (Cephulac (Oral Use)) 20 gm PO TID [facility] Last Admin: 02/14/19 06:38 Dose: Not Given Methylprednisolone Sodium Succinate (Solu-Medrol -) 40 mg IVPUSH DAILY [facility] Last Admin: 02/14/19 09:46 Dose: 40 mg Mupirocin (Bactroban Ointment (For Decolonization) -) 1 applic NS BID [facility] Stop: 02/16/19 21:59 Last Admin: 02/14/19 09:46 Dose: 1 applic Rifaximin (Xifaxan -) 550 mg PO BID [facility] Last Admin: 02/14/19 09:46 Dose: 550 mg Zinc Oxide/Panthenol/Vitamin E (Balmex Cream -) 1 applic TP DAILY PRN PRN Reason: HYGEINE - Objective Vital Signs: Vital Signs Temperature 98.4 F 02/14/19 10:00 Pulse Rate 96 H 02/14/19 12:00 Respiratory Rate 20 02/14/19 12:00 Blood Pressure 155/82 02/14/19 12:00 O2 Sat by Pulse Oximetry (%) 99 02/14/19 11:30 Constitutional: Yes: Calm HENT: Yes: Atraumatic Cardiovascular: Yes: S1, S2 Respiratory: Yes: Mechanically Ventilated Gastrointestinal: Yes: Soft Genitourinary: Yes: Vanegas Present Musculoskeletal: Yes: Muscle Weakness Edema: No Neurological: Yes: Lethargy Labs: CBC, BMP 02/14/19 09:55 02/14/19 05:30 INR, PTT INR 1.37 (0.83-1.09) H 02/14/19 10:00 Problem List - Problems (1) Altered mental status Code(s): R41.82 - ALTERED MENTAL STATUS, UNSPECIFIED Qualifiers: Altered mental status type: stupor Qualified Code(s): R40.1 - Stupor (2) Hepatic encephalopathy Code(s): K72.90 - HEPATIC FAILURE, UNSPECIFIED WITHOUT COMA (3) Alcohol dependence Code(s): F10.20 - ALCOHOL DEPENDENCE, UNCOMPLICATED (4) Cocaine dependence Code(s): F14.20 - COCAINE DEPENDENCE, UNCOMPLICATED Assessment/Plan Current Medications Generic Name Dose Route Start Last Admin Trade Name Freq PRN Reason Stop Dose Admin Chlorhexidine Gluconate 1 applic 02/11/19 22:00 02/13/19 21:22 Hibiclens For Decolonization - TP 1 applic HS SACHIN Administration Folic Acid 1 mg 02/12/19 10:00 02/14/19 09:46 Folic Acid - PO 1 mg DAILY SACHIN Administration Dextrose/Sodium Chloride 1,000 mls @ 100 mls/hr 02/12/19 08:30 02/14/19 10:39 D5-1/2ns - IV 100 mls/hr ASDIR SACHIN Administration Pantoprazole Sodium 80 mg/ 100 mls @ 10 mls/hr 02/14/19 05:45 02/14/19 06:39 Sodium Chloride IVPB 10 mls/hr Q10H SACHIN Administration 8 MG/HR Ampicillin Sodium 1 gm/ Sodium 100 mls @ 200 mls/hr 02/14/19 10:00 02/14/19 10:39 Chloride IVPB 200 mls/hr Q8H-IV SACHIN Administration Protocol Potassium Chloride 10 meq in 100 mls @ 100 mls/hr 02/14/19 11:15 02/14/19 12: 31 Potassium Chloride 10 Meq Premix Ivpb - IVPB 02/14/19 14:14 100 mls/hr Q60M SACHIN Administration Fentanyl 500 mcg/ Dextrose 100 mls @ 5 mls/hr 02/14/19 13:30 IVPB TITR SACHIN Protocol 25 MCG/HR Insulin Aspart 1 vial 02/11/19 16:30 02/14/19 11:22 Novolog Vial Sliding Scale - SQ 8 units ACHS SACHIN Administration Protocol Lactulose 20 gm 02/13/19 14:30 02/14/19 06:38 Cephulac (Oral Use) PO Not Given TID SACHIN Methylprednisolone Sodium Succinate 40 mg 02/12/19 10:00 02/14/19 09:46 Solu-Medrol - IVPUSH 40 mg DAILY SACHIN Administration Mupirocin 1 applic 02/11/19 22:00 02/14/19 09:46 Bactroban Ointment (For Decolonization) - NS 02/16/19 21:59 1 applic BID SACHIN Administration Rifaximin 550 mg 02/12/19 10:00 02/14/19 09:46 Xifaxan - PO 550 mg BID SACHIN Administration Zinc Oxide/Panthenol/Vitamin E 1 applic 02/11/19 16:03 Balmex Cream - TP DAILY PRN HYGEINE Impression 1. CKD 2. BOB 3. resp failure 4. etoh abuse 5. liver cirrhosis 6. bipolar 7. change in mental status 8. metabolic acidosis Plan - renal function is improving - replace potassium - monitor lytes - monitor hg - monitor urine output - follow renal workup - discussed with ICU team Dr Jarrett
[2019-02-14] MEDS ORDERED: CEFTRIAXONE 1 GM in DEXTROSE 5%-WATER - 50 ML IVPB SCH (17:00)
[2019-02-14] MEDS ORDERED: cefTRIAXone SODIUM 1 GM VIAL ONE (18:50)
[2019-02-14] MEDS ORDERED: DEXTROSE 5%-WATER - 50 ML IVPB ONE (18:51)
--- NOTE | 2019-02-14 18:54 | PN ---
Progress Note (short form) - Note Progress Note: Discussed findings of EGD/Colon with her daughter Addy Germain Problem List - Problems (1) GI bleed Code(s): K92.2 - GASTROINTESTINAL HEMORRHAGE, UNSPECIFIED
[2019-02-14] MEDS: CEFTRIAXONE 1 GM in DEXTROSE 5%-WATER - 50 ML IVPB SCH (18:55)
[2019-02-14] MEDS: CHLORHEXIDINE GLUCONATE 4% CLEANSER FOR DECOLONIZATION TP SCH (21:16)
[2019-02-14] MEDS ORDERED: fentaNYL CITRATE 250 MCG/5 ML VIAL ONE (22:21)
[2019-02-14] MEDS: FENTANYL INJECTION 500 MCG in DEXTROSE 5%-WATER - 90 ML IVPB SCH (22:42)
[2019-02-15] MEDS: PANTOPRAZOLE SODIUM 80 MG in SODIUM CHLORIDE 100 ML IVPB SCH ×3 (02:05→21:54)
[2019-02-15] MEDS: AMPICILLIN - 1 GM in SODIUM CHLORIDE 100 ML IVPB SCH ×3 (02:06→17:02)
[2019-02-15] MEDS: LACTULOSE 20 GM/30 ML UDC (FOR ORAL USE ONLY) PO SCH ×3 (06:26→21:58)
[2019-02-15] MEDS: INSULIN SLIDING SCALE (NOVOLOG) 1 VIAL SQ SCH ×4 (06:31→21:57)
[2019-02-15 06:39] LABS: INR 1.43 (0.83-1.09); PROTHROMBIN TIME (PATIENT) 16.9 SEC (9.7-13.0)
--- NOTE | 2019-02-15 07:23 | PN ---
Progress Note (short form) - Note Progress Note: intubated Current Medications Generic Name Dose Route Start Last Admin Trade Name Jody PRN Reason Stop Dose Admin Chlorhexidine Gluconate 1 applic 02/11/19 22:00 02/14/19 21:16 Hibiclens For Decolonization - TP 1 applic HS SACHIN Administration Folic Acid 1 mg 02/12/19 10:00 02/14/19 09:46 Folic Acid - PO 1 mg DAILY SACHIN Administration Dextrose/Sodium Chloride 1,000 mls @ 100 mls/hr 02/12/19 08:30 02/14/19 22:00 D5-1/2ns - IV 100 mls/hr ASDIR SACHIN Administration Pantoprazole Sodium 80 mg/ 100 mls @ 10 mls/hr 02/14/19 05:45 02/15/19 02:05 Sodium Chloride IVPB 10 mls/hr Q10H SACHIN Administration 8 MG/HR Ampicillin Sodium 1 gm/ Sodium 100 mls @ 200 mls/hr 02/14/19 10:00 02/15/19 02:06 Chloride IVPB 200 mls/hr Q8H-IV SACHIN Administration Protocol Fentanyl 500 mcg/ Dextrose 100 mls @ 5 mls/hr 02/14/19 13:30 02/15/19 01:00 IVPB 100 mcg/hr TITR SACHIN 20 mls/hr Titration Protocol 25 MCG/HR Ceftriaxone Sodium 1 gm/ 50 mls @ 100 mls/hr 02/14/19 18:30 02/14/19 18:55 Dextrose IVPB 100 mls/hr DAILY SACHIN Administration Protocol Insulin Aspart 1 vial 02/11/19 16:30 02/15/19 06:31 Novolog Vial Sliding Scale - SQ 6 units ACHS SACHIN Administration Protocol Lactulose 20 gm 02/13/19 14:30 02/15/19 06:26 Cephulac (Oral Use) PO Not Given TID SACHIN Methylprednisolone Sodium Succinate 40 mg 02/12/19 10:00 02/14/19 09:46 Solu-Medrol - IVPUSH 40 mg DAILY SACHIN Administration Mupirocin 1 applic 02/11/19 22:00 02/14/19 21:16 Bactroban Ointment (For Decolonization) - NS 02/16/19 21:59 1 applic BID SACHIN Administration Rifaximin 550 mg 02/12/19 10:00 02/14/19 21:05 Xifaxan - PO Not Given BID SACHIN Zinc Oxide/Panthenol/Vitamin E 1 applic 02/11/19 16:03 Balmex Cream - TP DAILY PRN HYGEINE Last Vital Signs Temp Pulse Resp BP Pulse Ox 97.5 F L 60 15 123/77 100 02/15/19 06:00 02/15/19 06:00 02/15/19 07:02 02/15/19 06:00 02/14/19 20:04 Intake & Output 02/12/19 02/13/19 02/14/19 02/15/19 23:59 23:59 23:59 23:59 Intake Total 3477.2 2600 3120 1520 Output Total 2750 800 400 200 Balance 727.2 1800 2720 1320 Weight 97 lb 9 oz 100 lb 15.547 oz 100 lb 6 oz 120 lb 5 oz General intubated, sluggish pupil reflex. does not withdraw to pain CV S1 S2 RRR Lungs coarse breath sounds anteriorly Abdomen soft + distended,NT +BS Extremities no pedal edema CBCD WBC 14.6 K/mm3 (4.0-10.0) H 02/14/19 09:55 RBC 2.74 M/mm3 (3.60-5.2) L 02/14/19 09:55 Hgb 8.9 GM/dL (10.7-15.3) L 02/14/19 09:55 Hct 25.9 % (32.4-45.2) L 02/14/19 09:55 MCV 94.7 fl (80-96) 02/14/19 09:55 MCHC 34.4 g/dl (32.0-36.0) 02/14/19 09:55 RDW 19.0 % (11.6-15.6) H 02/14/19 09:55 Plt Count 197 K/MM3 (134-434) D 02/14/19 09:55 MPV 9.6 fl (7.5-11.1) 02/14/19 09:55 CMP Sodium 134 mmol/L (136-145) L 02/15/19 05:30 Potassium 3.9 mmol/L (3.5-5.1) 02/15/19 05:30 Chloride 108 mmol/L (98-107) H 02/15/19 05:30 Carbon Dioxide 17 mmol/L (21-32) L 02/15/19 05:30 Anion Gap 9 MMOL/L (8-16) 02/15/19 05:30 BUN 54 mg/dL (7-18) H 02/15/19 05:30 Creatinine 2.7 mg/dL (0.55-1.3) H 02/15/19 05:30 Creat Clearance w eGFR 18.04 (>60) 02/15/19 05:30 Calcium 6.3 mg/dL (8.5-10.1) L* 02/15/19 05:30 Total Bilirubin 1.0 mg/dL (0.2-1) 02/15/19 05:30 AST 69 U/L (15-37) H 02/15/19 05:30 ALT 38 U/L (13-61) 02/15/19 05:30 Alkaline Phosphatase 61 U/L (45-117) 02/15/19 05:30 Total Protein 5.4 g/dl (6.4-8.2) L 02/15/19 05:30 Albumin 1.8 g/dl (3.4-5.0) L 02/15/19 05:30 ASSESSMENT AND PLAN: 58 year old female with history of Liver Cirrhosis, Alcohol Abuse, Hepatitis C, recent history of SBP 12/14, DM 2, HTN, Polysubstance Abuse (including Alcohol), Bipolar Disorder, sent to ED from [facility] for agitation, combativeness, and altered mental status while undergoing detox. with no improvement and was intubated 02/11 to protect airway and now in the MICU with course complicated with development of melena. 1. Acute Hepatic Encephalopathy versus Toxic Encephalopathy secondary to Ativan and decompensating liver failure- concern also remains for status ellipticus with no convulsions vs menningitis. no purposedul movement. EEG pending. consider LP if does not improve. repeat Head CT done with no acute pathology. ID and neuro on board. 2. Acute respiratory failure- s/p intubation for airway protection. tolerating cpap trials. management per ICU team 3. Melena-repeat EGD 02/14 showing duodenal ulcer with adherent clot. cont NPO x72H. PPI ggt re-started. no repeat episodes of bleeding. Hgb stable. CT abdomen and pelvis done to evaluate sigmoid. f/u report 4. esophageal varicces- with portal HTN. no stigmata of recent bleeding. will need routine surveillance 5. Acute blood loss anemia- due to duodenal ulcer s/p 2 units PRBC this hospital stay. cont to trend Q12H. normal transfusion threshold. 6. hypocalcemia- Corrected Ca 8.1. ca via NGT 7. Acute decompensated liver failure-now improving. will d/c steroids. 8. E. Faecalis UTI- ceftriaxone switched to ampicillin day 4 of 7 9. Ascites- seen on u/s. had recent treatment for SBP. plan was for paracentesis when medically optimized. GI and ID on board 10. Thrombocytopenia-due to cirrhosis. s/p 1 unit platelets. no signs of bleeding. resolved 11. BOB- unknown baseline Cr. now stabilized. nephro on board. workup sent. on low dose IVF. monitor UOP. avoid nephrotoxic agents. 12. DM- hold oral agents. iss and Bgm. 13. Continuous ETOH abuse- no signs of withdrawals. counselling once medically stabilized. on thiamine/folate/MVI 14. HTN- currently normotensive off oral agents 15. DVT PPI- SCD. hold pharmacologic in setting of active bleeding 16. MICU monitoring The care of this patient involved high complexity decision making to prevent further life threatening deterioration of the patient's condition and/or to evaluate & treat vital organ system(s) failure or risk of failure. 35 mins Visit type - Emergency Visit Emergency Visit: Yes ED Registration Date: 02/08/19 Care time: The patient presented to the Emergency Department on the above date and was hospitalized for further evaluation of their emergent condition. - New Patient This patient is new to me today: No - Critical Care Critical Care patient: Yes Total Critical Care Time (in minutes): 36 Critical Care Statement: The care of this patient involved high complexity decision making to prevent further life threatening deterioration of the patient 's condition and/or to evaluate & treat vital organ system(s) failure or risk of failure. - Discharge Referral Referred to [facility] No
[2019-02-15 07:27] LABS: ALBUMIN 1.8 g/dl (3.4-5.0); ALK PHOS 61 U/L (45-117); ANION GAP 9 MMOL/L (8-16); BLOOD UREA NITROGEN 54 mg/dL (7-18); CHLORIDE 108 mmol/L (98-107); CO2 17 mmol/L (21-32); CREATININE 2.7 mg/dL (0.55-1.3); GLUCOSE,RANDOM 268 mg/dL (74-106); MAGNESIUM 1.8 mg/dL (1.8-2.4); PHOSPHOROUS 4.2 mg/dL (2.5-4.9); POTASSIUM 3.9 mmol/L (3.5-5.1); SGOT/AST 69 U/L (15-37); SGPT/ALT 38 U/L (13-61); SODIUM 134 mmol/L (136-145); TOT PROT 5.4 g/dl (6.4-8.2)
[2019-02-15 08:01] LABS: CALCIUM 6.3 mg/dL (8.5-10.1)
[2019-02-15 08:19] LABS: BASO % 0.1 % (0-2.0); EOS % 0.1 % (0-4.5); LYMPH % 16.9 % (8-40); MCH 32.5 pg (25.7-33.7); MCHC 34.5 g/dl (32.0-36.0); MEAN CELL VOLUME 94.1 fl (80-96); MEAN PLT VOLUME 8.5 fl (7.5-11.1); MONO % 8.8 % (3.8-10.2); NEUT % 74.1 % (42.8-82.8); PLATELET COUNT 120 K/MM3 (134-434); RBC 2.02 M/mm3 (3.60-5.2); WHITE BLOOD COUNT 8.7 K/mm3 (4.0-10.0)
--- NOTE | 2019-02-15 08:38 | PN ---
Progress Note (short form) - Note Progress Note: PULM/CCM Pt Seen & Examined in the ICU. Remains intubated & Sedated. Active Medications Chlorhexidine Gluconate (Hibiclens For Decolonization -) 1 applic TP HS [facility] Last Admin: 02/15/19 21:57 Dose: 1 applic Folic Acid (Folic Acid -) 1 mg PO DAILY [facility] Last Admin: 02/15/19 10:07 Dose: 1 mg Dextrose/Sodium Chloride (D5-1/2ns -) 1,000 mls @ 100 mls/hr IV ASDIR SACHIN Last Admin: 02/15/19 09:42 Dose: 100 mls/hr Pantoprazole Sodium 80 mg/ (Sodium Chloride) 100 mls @ 10 mls/hr IVPB Q10H [facility] Last Admin: 02/15/19 21:54 Dose: 10 mls/hr Ampicillin Sodium 1 gm/ Sodium (Chloride) 100 mls @ 200 mls/hr IVPB Q8H-IV SACHIN ; Protocol Last Admin: 02/15/19 17:02 Dose: 200 mls/hr Fentanyl 500 mcg/ Dextrose 100 mls @ 5 mls/hr IVPB TITR SACHIN; Protocol Last Admin: 02/15/19 17:02 Dose: Not Given Ceftriaxone Sodium 1 gm/ (Dextrose) 50 mls @ 100 mls/hr IVPB DAILY [facility]; Protocol Last Admin: 02/15/19 10:07 Dose: 100 mls/hr Octreotide Acetate 1,200 mcg/ (Dextrose) 500 mls @ 20.83 mls/hr IVPB Q24H [facility] Last Admin: 02/15/19 11:34 Dose: 20.83 mls/hr Insulin Aspart (Novolog Vial Sliding Scale -) 1 vial SQ ACHS [facility]; Protocol Last Admin: 02/15/19 21:57 Dose: 2 units Lactulose (Cephulac (Oral Use)) 20 gm PO TID [facility] Last Admin: 02/15/19 21:58 Dose: 20 gm Mupirocin (Bactroban Ointment (For Decolonization) -) 1 applic NS BID [facility] Stop: 02/16/19 21:59 Last Admin: 02/15/19 21:56 Dose: 1 applic Rifaximin (Xifaxan -) 550 mg PO BID [facility] Last Admin: 02/15/19 21:58 Dose: 550 mg Zinc Oxide/Panthenol/Vitamin E (Balmex Cream -) 1 applic TP DAILY PRN PRN Reason: HYGEINE Vital Signs Period Temp Pulse Resp BP Sys/Aguilar Pulse Ox Last 24 Hr 97.3 F-97.7 F 60-74 10-21 115-152/72-82 100-100 Intake & Output 02/13/19 02/14/19 02/15/19 02/16/19 23:59 23:59 23:59 23:59 Intake Total 2600 3120 3726 Output Total 800 400 900 Balance 1800 2720 2826 Weight 45.8 kg 45.529 kg 54.573 kg Gen: intubated, obtunded Heart: RRR Lung: decreased breath sounds at the bases Abd: soft, +ascites Ext: no edema CBC, BMP 02/15/19 06:30 02/15/19 05:30 Microbiology 02/10/19 11:18 Blood - Peripheral Venous Blood Culture - Final NO GROWTH AFTER 5 DAYS INCUBATION 02/10/19 11:10 Blood - Peripheral Venous Blood Culture - Final NO GROWTH AFTER 5 DAYS INCUBATION 02/10/19 13:00 Urine - Urine - Catheterized Urine Culture - Final Enterococcus Faecalis CXR 02/14: 3 views of the chest have been submitted. An NG tube tip is in the stomach similar to that seen at 0541 hours. Endotracheal tube is present and the tip is well above the annamarie. The lungs are clear. The angles are sharp and the soft tissues are intact. Impression: NG tube tip in stomach. ASSESSMENT AND PLAN: Acute Respiratory Failure Altered Mental Status Hepatic Encephalopathy GI Bleed Acute Blood Loss Anemia Acute Kidney Injury Liver Cirrhosis Alcohol Abuse Hep C Thrombocytopenia h/o SBP UTI HTN DM - PLV - Nebs - SBTs - monitor H/H, coags - Normal transfusion thresholds - lactulose, rifaximin - protonix - continue antibiotics - IVF - monitor urine output, creatinine - DVT/GI prophylaxis - continue ICU monitoring - prognosis guarded DGL, ACNP-BC [facility] ICU PULM/CCM 0320 Critical Care Total Critical Care Time (in minutes): 35 Critical Care Statement: The care of this patient involved high complexity decision making to prevent further life threatening deterioration of the patient 's condition and/or to evaluate & treat vital organ system(s) failure or risk of failure.
[2019-02-15 08:57] LABS: HEMOGLOBIN 6.6 GM/dL (10.7-15.3)
[2019-02-15] MEDS ORDERED: PT OWN MED DRAWER 7, Y5N ONE ×4 (09:37→16:54)
[2019-02-15] MEDS ORDERED: DEXTROSE 5%-WATER - 50 ML IVPB ONE (09:37)
[2019-02-15] MEDS ORDERED: cefTRIAXone SODIUM 1 GM VIAL ONE (09:37)
[2019-02-15] MEDS: DEXTROSE 5%-0.45% SALINE 1,000 ML IV SCH (09:42)
[2019-02-15] MEDS: MUPIROCIN 2% TOPICAL OINTMENT FOR DECOLONIZATION NS SCH ×2 (10:07→21:56)
[2019-02-15] MEDS: FOLIC ACID 1 MG TABLET (FP) PO SCH (10:07)
[2019-02-15] MEDS: CEFTRIAXONE 1 GM in DEXTROSE 5%-WATER - 50 ML IVPB SCH (10:07)
[2019-02-15] MEDS: RIFAXIMIN 550 MG TABLET (UD) PO SCH ×2 (10:07→21:58)
--- NOTE | 2019-02-15 10:15 | PN.GI ---
GI Progress Note Subjective: GI NOte( covering Dr Monge) : Hb has dropped significantly but no melena reported. NG lavaged and yielded slight bile tinge but no blood. Full endoscopic options were implemented by Dr Monge yesterday. Next option would be CTA and possible embolization but this would likely cause renal failure given her azotemia. Surgery may be her best next option. Will empirically add octerotide and transfuse - Objective Vital Signs: Vital Signs Temperature 97.5 F L 02/15/19 06:00 Pulse Rate 60 02/15/19 08:18 Respiratory Rate 13 02/15/19 08:31 Blood Pressure 137/78 02/15/19 08:00 O2 Sat by Pulse Oximetry (%) 100 02/15/19 08:31 Laboratory Tests 02/14/19 02/15/19 02/15/19 09:55 05:30 06:30 WBC 8.7 Hgb 8.9 L 6.6 L* Plt Count 197 D 120 L D BUN 54 H Creatinine 2.7 H Constitutional: Other (intubated) ...Auscultate: Yes: Hypoactive Bowel Sounds ...Palpate: Yes: Soft, Other (nontender) Labs: CBC, BMP 02/15/19 06:30 02/15/19 05:30 INR, PTT INR 1.43 (0.83-1.09) H 02/15/19 05:30 Assessment/Plan Impression Despite lack of melena and blood on NG suspect recurrent DU bleed. Hepatic encephalopathy Cirrhosis with ascites related to HCV Plan: Transfuse Bolus octreotide and start drip Surgical evaluation- will discuss with Gopi Cortez If hemorrhage ensues and if surgery not an option then will need CTA embolization as she is failure to respond to endoscopic measures Problem List - Problems (1) GI bleed Code(s): K92.2 - GASTROINTESTINAL HEMORRHAGE, UNSPECIFIED (2) Hepatic encephalopathy Code(s): K72.90 - HEPATIC FAILURE, UNSPECIFIED WITHOUT COMA (3) DM Diabetes mellitus type 1 Code(s): E10.9 - TYPE 1 DIABETES MELLITUS WITHOUT COMPLICATIONS (4) Duodenal ulcer Code(s): K26.9 - DUODENAL ULCER, UNSP ACUTE OR CHRONIC, W/O HEMOR OR PERF (5) Esophageal varices determined by endoscopy Code(s): I85.00 - ESOPHAGEAL VARICES WITHOUT BLEEDING (6) Decompensated cirrhosis related to hepatitis C virus (HCV) Code(s): B19.20 - UNSPECIFIED VIRAL HEPATITIS C WITHOUT HEPATIC COMA; K74.69 - OTHER CIRRHOSIS OF LIVER
[2019-02-15] MEDS ORDERED: OCTREOTIDE ACETATE 50 MCG/1 ML - 1 ML VIAL IVPUSH ONE (10:29)
--- NOTE | 2019-02-15 10:39 | PN ---
Progress Note, Physician History of Present Illness: SEDATED ON VENTILATOR AFEBRILE WBC IMPROVED - Current Medication List Current Medications: Active Medications Chlorhexidine Gluconate (Hibiclens For Decolonization -) 1 applic TP HS SACHIN Last Admin: 02/14/19 21:16 Dose: 1 applic Folic Acid (Folic Acid -) 1 mg PO DAILY SACHIN Last Admin: 02/15/19 10:07 Dose: 1 mg Dextrose/Sodium Chloride (D5-1/2ns -) 1,000 mls @ 100 mls/hr IV ASDIR SACHIN Last Admin: 02/15/19 09:42 Dose: 100 mls/hr Pantoprazole Sodium 80 mg/ (Sodium Chloride) 100 mls @ 10 mls/hr IVPB Q10H SACHIN Last Admin: 02/15/19 02:05 Dose: 10 mls/hr Ampicillin Sodium 1 gm/ Sodium (Chloride) 100 mls @ 200 mls/hr IVPB Q8H-IV SACHIN ; Protocol Last Admin: 02/15/19 10:06 Dose: 200 mls/hr Fentanyl 500 mcg/ Dextrose 100 mls @ 5 mls/hr IVPB TITR SACHIN; Protocol Last Titration: 02/15/19 01:00 Dose: 100 mcg/hr, 20 mls/hr Ceftriaxone Sodium 1 gm/ (Dextrose) 50 mls @ 100 mls/hr IVPB DAILY [facility]; Protocol Last Admin: 02/15/19 10:07 Dose: 100 mls/hr Octreotide Acetate 1,200 mcg/ (Dextrose) 500 mls @ 20.83 mls/hr IVPB ASDIR SACHIN Insulin Aspart (Novolog Vial Sliding Scale -) 1 vial SQ ACHS [facility]; Protocol Last Admin: 02/15/19 06:31 Dose: 6 units Lactulose (Cephulac (Oral Use)) 20 gm PO TID [facility]ACHIN Last Admin: 02/15/19 06:26 Dose: Not Given Mupirocin (Bactroban Ointment (For Decolonization) -) 1 applic NS BID [facility] Stop: 02/16/19 21:59 Last Admin: 02/15/19 10:07 Dose: 1 applic Octreotide Acetate (Sandostatin -) 50 mcg IVPUSH ONCE ONE Stop: 02/15/19 10:30 Rifaximin (Xifaxan -) 550 mg PO BID [facility] Last Admin: 03/23/19 10:07 Dose: 550 mg Zinc Oxide/Panthenol/Vitamin E (Balmex Cream -) 1 applic TP DAILY PRN PRN Reason: HYGEINE - Objective Vital Signs: Vital Signs Temperature 97.3 F L 02/15/19 10:00 Pulse Rate 62 02/15/19 10:00 Respiratory Rate 11 02/15/19 10:00 Blood Pressure 137/77 02/15/19 10:00 O2 Sat by Pulse Oximetry (%) 100 02/15/19 08:31 Constitutional: Yes: No Distress, Cachectic Cardiovascular: Yes: Regular Rate and Rhythm, S1, S2 Respiratory: Yes: Mechanically Ventilated Gastrointestinal: Yes: Normal Bowel Sounds, Soft, Other (DISTENDED, TYMPANITIC) . No: Tenderness Edema: LUE: 1+, RUE: 1+, LLE: 1+, RLE: 1+ Labs: CBC, BMP 02/15/19 06:30 02/15/19 05:30 INR, PTT INR 1.43 (0.83-1.09) H 02/15/19 05:30 Assessment/Plan ENTEROCOCCAL UTI RESP FAILURE HEPATIC ENCEPHALOPATHY RENAL FAILURE S/P GI BLEED CONTINUE AMPICILLIN
[2019-02-15] MEDS: OCTREOTIDE ACETATE 1,200 MCG in DEXTROSE 5%-WATER - 488 ML IVPB SCH (11:34)
--- NOTE | 2019-02-15 14:41 | PN ---
Progress Note, Physician History of Present Illness: Pt seen and examined at [facility], [place]. She remains in the ICU. She remains intubated. - Current Medication List Current Medications: Active Medications Chlorhexidine Gluconate (Hibiclens For Decolonization -) 1 applic TP HS [facility] Last Admin: 02/14/19 21:16 Dose: 1 applic Folic Acid (Folic Acid -) 1 mg PO DAILY [facility] Last Admin: 02/15/19 10:07 Dose: 1 mg Dextrose/Sodium Chloride (D5-1/2ns -) 1,000 mls @ 100 mls/hr IV ASDIR SACHIN Last Admin: 02/15/19 09:42 Dose: 100 mls/hr Pantoprazole Sodium 80 mg/ (Sodium Chloride) 100 mls @ 10 mls/hr IVPB Q10H [facility] Last Admin: 02/15/19 11:37 Dose: 10 mls/hr Ampicillin Sodium 1 gm/ Sodium (Chloride) 100 mls @ 200 mls/hr IVPB Q8H-IV SACH[facility] ; Protocol Last Admin: 02/15/19 10:06 Dose: 200 mls/hr Fentanyl 500 mcg/ Dextrose 100 mls @ 5 mls/hr IVPB TITR [facility]; Protocol Last Titration: 02/15/19 11:34 Dose: 0 mcg/hr, 0 mls/hr Ceftriaxone Sodium 1 gm/ (Dextrose) 50 mls @ 100 mls/hr IVPB DAILY [facility]; Protocol Last Admin: 02/15/19 10:07 Dose: 100 mls/hr Octreotide Acetate 1,200 mcg/ (Dextrose) 500 mls @ 20.83 mls/hr IVPB Q24H [facility] Last Admin: 02/15/19 11:34 Dose: 20.83 mls/hr Insulin Aspart (Novolog Vial Sliding Scale -) 1 vial SQ ACHS [facility]; Protocol Last Admin: 02/15/19 12:06 Dose: 4 units Lactulose (Cephulac (Oral Use)) 20 gm PO TID [facility] Last Admin: 02/15/19 13:28 Dose: Not Given Mupirocin (Bactroban Ointment (For Decolonization) -) 1 applic NS BID [facility] Stop: 02/16/19 21:59 Last Admin: 02/15/19 10:07 Dose: 1 applic Rifaximin (Xifaxan -) 550 mg PO BID [facility] Last Admin: 02/15/19 10:07 Dose: 550 mg Zinc Oxide/Panthenol/Vitamin E (Balmex Cream -) 1 applic TP DAILY PRN PRN Reason: HYGEINE - Objective Vital Signs: Vital Signs Temperature 97.3 F L 02/15/19 14:00 Pulse Rate 68 02/15/19 14:00 Respiratory Rate 11 02/15/19 14:00 Blood Pressure 149/72 02/15/19 14:00 O2 Sat by Pulse Oximetry (%) 100 02/15/19 08:31 Constitutional: Yes: Calm Eyes: Yes: Conjunctiva Clear HENT: Yes: Atraumatic Cardiovascular: Yes: S1, S2 Respiratory: Yes: Mechanically Ventilated Gastrointestinal: Yes: Soft Genitourinary: Yes: Vanegas Present Musculoskeletal: Yes: Muscle Weakness Edema: No Neurological: Yes: Lethargy Labs: CBC, BMP 02/15/19 06:30 02/15/19 05:30 INR, PTT INR 1.43 (0.83-1.09) H 02/15/19 05:30 Problem List - Problems (1) Altered mental status Code(s): R41.82 - ALTERED MENTAL STATUS, UNSPECIFIED Qualifiers: Altered mental status type: stupor Qualified Code(s): R40.1 - Stupor (2) Hepatic encephalopathy Code(s): K72.90 - HEPATIC FAILURE, UNSPECIFIED WITHOUT COMA (3) Alcohol dependence Code(s): F10.20 - ALCOHOL DEPENDENCE, UNCOMPLICATED (4) Cocaine dependence Code(s): F14.20 - COCAINE DEPENDENCE, UNCOMPLICATED Assessment/Plan Current Medications Generic Name Dose Route Start Last Admin Trade Name Freq PRN Reason Stop Dose Admin Chlorhexidine Gluconate 1 applic 02/11/19 22:00 02/14/19 21:16 Hibiclens For Decolonization - TP 1 applic HS SACHIN Administration Folic Acid 1 mg 02/12/19 10:00 02/15/19 10:07 Folic Acid - PO 1 mg DAILY SACHIN Administration Dextrose/Sodium Chloride 1,000 mls @ 100 mls/hr 02/12/19 08:30 02/15/19 09:42 D5-1/2ns - IV 100 mls/hr ASDIR SACHIN Administration Pantoprazole Sodium 80 mg/ 100 mls @ 10 mls/hr 02/14/19 05:45 02/15/19 11:37 Sodium Chloride IVPB 10 mls/hr Q10H SACHIN Administration 8 MG/HR Ampicillin Sodium 1 gm/ Sodium 100 mls @ 200 mls/hr 02/14/19 10:00 02/15/19 10:06 Chloride IVPB 200 mls/hr Q8H-IV SACH[facility] Administration Protocol Fentanyl 500 mcg/ Dextrose 100 mls @ 5 mls/hr 02/14/19 13:30 02/15/19 11:34 IVPB 0 mcg/hr TITR SACHIN 0 mls/hr Titration Protocol 25 MCG/HR Ceftriaxone Sodium 1 gm/ 50 mls @ 100 mls/hr 02/14/19 18:30 02/15/19 10:07 Dextrose IVPB 100 mls/hr DAILY SACHIN Administration Protocol Octreotide Acetate 1,200 mcg/ 500 mls @ 20.83 mls/hr 02/15/19 11:00 02/15/19 11:34 Dextrose IVPB 20.83 mls/hr Q24H SACHIN Administration 50 MCG/HR Insulin Aspart 1 vial 02/11/19 16:30 02/15/19 12:06 Novolog Vial Sliding Scale - SQ 4 units ACHS SACHIN Administration Protocol Lactulose 20 gm 02/13/19 14:30 02/15/19 13:28 Cephulac (Oral Use) PO Not Given TID [facility]ACH[facility] Mupirocin 1 applic 02/11/19 22:00 02/15/19 10:07 Bactroban Ointment (For Decolonization) - NS 02/16/19 21:59 1 applic BID [facility] Administration Rifaximin 550 mg 02/12/19 10:00 02/15/19 10:07 Xifaxan - PO 550 mg BID [facility] Administration Zinc Oxide/Panthenol/Vitamin E 1 applic 02/11/19 16:03 Balmex Cream - TP DAILY PRN HYGEINE Laboratory Tests 02/13/19 05:30 VICENTE Screen Negative c-ANCA Pending Proteinase 3 (PR3) Pending p-ANCA Pending Atypical p-ANCA Pending Myeloperoxidase Ab Pending Double Strand DNA Ab <1 Glomerular Base Memb Ab Pending Impression 1. CKD 2. BOB 3. resp failure 4. etoh abuse 5. liver cirrhosis 6. bipolar 7. change in mental status 8. metabolic acidosis Plan - cont to monitor renal function - anemia may be contributing to worsening renal failure - follow serologies - renal workup in progress - monitor hg - monitor urine output - discussed with ICU team Dr Jarrett
[2019-02-15] MEDS: FENTANYL INJECTION 500 MCG in DEXTROSE 5%-WATER - 90 ML IVPB SCH (17:02)
[2019-02-15] MEDS: CHLORHEXIDINE GLUCONATE 4% CLEANSER FOR DECOLONIZATION TP SCH (21:57)
[2019-02-16] MEDS: AMPICILLIN - 1 GM in SODIUM CHLORIDE 100 ML IVPB SCH ×3 (03:22→17:41)
[2019-02-16] MEDS ORDERED: MIDAZOLAM HCL 2 MG/2 ML SINGLE DOSE VIAL IVPUSH STA ×2 (05:02→18:07)
[2019-02-16 06:15] LABS: HEMATOCRIT 28.4 % (32.4-45.2); MCH 31.8 pg (25.7-33.7); MCHC 35.1 g/dl (32.0-36.0); MEAN CELL VOLUME 90.7 fl (80-96); MEAN PLT VOLUME 8.3 fl (7.5-11.1); PLATELET COUNT 100 K/MM3 (134-434); RBC 3.13 M/mm3 (3.60-5.2); WHITE BLOOD COUNT 7.2 K/mm3 (4.0-10.0)
[2019-02-16] MEDS: LACTULOSE 20 GM/30 ML UDC (FOR ORAL USE ONLY) PO SCH ×3 (06:28→22:40)
[2019-02-16] MEDS: INSULIN SLIDING SCALE (NOVOLOG) 1 VIAL SQ SCH ×4 (06:41→22:40)
[2019-02-16 06:50] LABS: ALBUMIN 1.9 g/dl (3.4-5.0); ALK PHOS 73 U/L (45-117); ANION GAP 8 MMOL/L (8-16); BILIRUBIN,TOTAL 1.8 mg/dL (0.2-1); BLOOD UREA NITROGEN 45 mg/dL (7-18); CHLORIDE 107 mmol/L (98-107); CO2 17 mmol/L (21-32); CREATININE 2.2 mg/dL (0.55-1.3); GLUCOSE,RANDOM 272 mg/dL (74-106); MAGNESIUM 1.6 mg/dL (1.8-2.4); POTASSIUM 3.5 mmol/L (3.5-5.1); SGOT/AST 88 U/L (15-37); SGPT/ALT 43 U/L (13-61); SODIUM 132 mmol/L (136-145); TOT PROT 5.6 g/dl (6.4-8.2)
[2019-02-16 06:59] LABS: CALCIUM 6.6 mg/dL (8.5-10.1)
[2019-02-16] MEDS ORDERED: PT OWN MED DRAWER 7, Y5N ONE ×2 (07:59→17:41)
[2019-02-16] MEDS ORDERED: MAGNESIUM SULF 50% (8.12 MEQ/2 ML-1 GM VIAL) IVPB ONE (08:30)
--- NOTE | 2019-02-16 09:07 | PN ---
Progress Note (short form) - Note Progress Note: PULM/CCM Pt Seen & Examined in the ICU. Remains intubated, Sz activity early this AM ~ 0500 suppressed w/ IVP Versed. Pt remains Obtunded. Active Medications Chlorhexidine Gluconate (Hibiclens For Decolonization -) 1 applic TP HS [facility] Last Admin: 02/15/19 21:57 Dose: 1 applic Folic Acid (Folic Acid -) 1 mg PO DAILY SACHIN Last Admin: 02/16/19 09:14 Dose: 1 mg Dextrose/Sodium Chloride (D5-1/2ns -) 1,000 mls @ 100 mls/hr IV ASDIR SACHIN Last Admin: 02/16/19 09:41 Dose: 100 mls/hr Pantoprazole Sodium 80 mg/ (Sodium Chloride) 100 mls @ 10 mls/hr IVPB Q10H SACHIN Last Admin: 02/16/19 09:47 Dose: 10 mls/hr Ampicillin Sodium 1 gm/ Sodium (Chloride) 100 mls @ 200 mls/hr IVPB Q8H-IV SACHIN ; Protocol Last Admin: 02/16/19 09:20 Dose: 200 mls/hr Fentanyl 500 mcg/ Dextrose 100 mls @ 5 mls/hr IVPB TITR SACHIN; Protocol Last Admin: 02/15/19 17:02 Dose: Not Given Ceftriaxone Sodium 1 gm/ (Dextrose) 50 mls @ 100 mls/hr IVPB DAILY [facility]; Protocol Last Admin: 02/16/19 09:13 Dose: 100 mls/hr Octreotide Acetate 1,200 mcg/ (Dextrose) 500 mls @ 20.83 mls/hr IVPB Q24H [facility] Last Admin: 02/16/19 11:51 Dose: 20.83 mls/hr Insulin Aspart (Novolog Vial Sliding Scale -) 1 vial SQ ACHS SACHIN; Protocol Last Admin: 02/16/19 06:41 Dose: 6 units Lactulose (Cephulac (Oral Use)) 20 gm PO TID [facility] Last Admin: 02/16/19 06:28 Dose: 20 gm Mupirocin (Bactroban Ointment (For Decolonization) -) 1 applic NS BID [facility] Stop: 02/16/19 21:59 Last Admin: 02/16/19 09:19 Dose: 1 applic Rifaximin (Xifaxan -) 550 mg PO BID [facility] Last Admin: 02/16/19 09:14 Dose: 550 mg Zinc Oxide/Panthenol/Vitamin E (Balmex Cream -) 1 applic TP DAILY PRN PRN Reason: HYGEINE Vital Signs Period Temp Pulse Resp BP Sys/Aguilar Pulse Ox Last 24 Hr 97.3 F-97.8 F 61-76 10-20 137-171/72-82 100-100 Intake & Output 02/13/19 02/14/19 02/15/19 02/16/19 23:59 23:59 23:59 23:59 Intake Total 2600 3120 3726 1300 Output Total 800 400 900 200 Balance 1800 2720 2826 1100 Weight 45.8 kg 45.529 kg 54.573 kg 58.258 kg Gen: intubated, obtunded Heart: nml S1, S2, RRR, unable to appreciate any G/M/R Lung: decreased breath sounds at the bases Abd: soft, +ascites Ext: no edema CBC, BMP 02/16/19 05:30 02/16/19 05:30 Laboratory Results - last 24 hr 02/15/19 02/15/19 02/15/19 10:50 16:25 21:54 WBC RBC Hgb Hct MCV MCH MCHC RDW Plt Count MPV Sodium Potassium Chloride Carbon Dioxide Anion Gap BUN Creatinine Creat Clearance w eGFR POC Glucometer 227 157 Random Glucose Calcium Magnesium Total Bilirubin AST ALT Alkaline Phosphatase Total Protein Albumin Blood Type O POSITIVE Antibody Screen Negative Crossmatch See Detail 02/16/19 02/16/19 02/16/19 05:30 05:30 06:39 WBC 7.2 RBC 3.13 L Hgb 10.0 L Hct 28.4 L D MCV 90.7 MCH 31.8 MCHC 35.1 RDW 18.0 H Plt Count 100 L MPV 8.3 Sodium 132 L Potassium 3.5 Chloride 107 Carbon Dioxide 17 L Anion Gap 8 BUN 45 H Creatinine 2.2 H Creat Clearance w eGFR 22.85 POC Glucometer 273 Random Glucose 272 H Calcium 6.6 L* Magnesium 1.6 L Total Bilirubin 1.8 H AST 88 H ALT 43 Alkaline Phosphatase 73 Total Protein 5.6 L Albumin 1.9 L Blood Type Antibody Screen Crossmatch Microbiology 02/10/19 11:18 Blood - Peripheral Venous Blood Culture - Final NO GROWTH AFTER 5 DAYS INCUBATION 02/10/19 11:10 Blood - Peripheral Venous Blood Culture - Final NO GROWTH AFTER 5 DAYS INCUBATION 02/10/19 13:00 Urine - Urine - Catheterized Urine Culture - Final Enterococcus Faecalis CXR 02/14: 3 views of the chest have been submitted. An NG tube tip is in the stomach similar to that seen at 0541 hours. Endotracheal tube is present and the tip is well above the annamarie. The lungs are clear. The angles are sharp and the soft tissues are intact. Impression: NG tube tip in stomach. ASSESS: Acute Respiratory Failure Altered Mental Status Hepatic Encephalopathy GI Bleed Acute Blood Loss Anemia Acute Kidney Injury Liver Cirrhosis Alcohol Abuse Hep C Thrombocytopenia h/o SBP UTI HTN DM PLAN: - PLV - Nebs - SBTs - monitor H/H, coags - Normal transfusion thresholds - lactulose, rifaximin - protonix - continue antibiotics - IVF - monitor urine output, creatinine - Consider LP - DVT/GI prophylaxis - continue ICU monitoring - prognosis guarded - GOC DGL, ACNP-BC [facility] ICU PULM/CCM 2743 Critical Care Total Critical Care Time (in minutes): 36 Critical Care Statement: The care of this patient involved high complexity decision making to prevent further life threatening deterioration of the patient 's condition and/or to evaluate & treat vital organ system(s) failure or risk of failure.
[2019-02-16] MEDS ORDERED: cefTRIAXone SODIUM 1 GM VIAL ONE (09:11)
[2019-02-16] MEDS ORDERED: DEXTROSE 5%-WATER - 50 ML IVPB ONE (09:12)
[2019-02-16] MEDS: CEFTRIAXONE 1 GM in DEXTROSE 5%-WATER - 50 ML IVPB SCH (09:13)
[2019-02-16] MEDS: FOLIC ACID 1 MG TABLET (FP) PO SCH (09:14)
[2019-02-16] MEDS: RIFAXIMIN 550 MG TABLET (UD) PO SCH ×2 (09:14→21:09)
[2019-02-16] MEDS: CALCIUM GLUCONATE 10% - 1,000 MG/10 ML VIAL IVPB SCH ×2 (09:14→11:51)
[2019-02-16] MEDS: MUPIROCIN 2% TOPICAL OINTMENT FOR DECOLONIZATION NS SCH (09:19)
--- NOTE | 2019-02-16 09:25 | PN ---
Teaching Attending Note Name of Resident: Houston Melo ATTENDING PHYSICIAN STATEMENT I saw and evaluated the patient. I reviewed the resident's note and discussed the case with the resident. I agree with the resident's findings and plan as documented. SUBJECTIVE:non purposeful movements OBJECTIVE: Last Vital Signs Temp Pulse Resp BP Pulse Ox 97.7 F 64 14 144/79 100 02/16/19 06:00 02/16/19 08:24 02/16/19 08:26 02/16/19 08:00 02/16/19 08:26 General intubated, does not withdraw to pain, PERRL, +Gag non purposeful movements CV S1 S2 RRR no murmur/rub/gallop Lungs Coarse breath sounds anteriorly Abdomen soft + distended extremities no pedal edema ASSESSMENT AND PLAN: 58 year old female with history of Liver Cirrhosis, Alcohol Abuse, Hepatitis C, recent history of SBP 12/14, DM 2, HTN, Polysubstance Abuse (including Alcohol), Bipolar Disorder, sent to ED from [facility] for agitation, combativeness, and altered mental status while undergoing detox. with no improvement and was intubated 02/11 to protect airway and now in the MICU with course complicated with development of melena. 1. Acute Hepatic Encephalopathy versus Toxic Encephalopathy secondary to Ativan and decompensating liver failure- concern also remains for status ellipticus with no convulsions vs menningitis. non purposeful movement. EEG pending. consider LP if does not improve. repeat Head CT done with no acute pathology. ID and neuro on board. 2. Acute respiratory failure- s/p intubation for airway protection. became apnic during cpap trial yesterday. management per ICU team 3. Melena-repeat EGD 02/14 showing duodenal ulcer with adherent clot. cont NPO x72H. on PPI/octreotide ggt. no repeat episodes of bleeding. Hgb stable. CT abdomen and pelvis done to evaluate sigmoid. f/u report 4. esophageal varicces- with portal HTN. no stigmata of recent bleeding. will need routine surveillance 5. Acute blood loss anemia- due to duodenal ulcer s/p 4 units PRBC this hospital stay. cont to trend Q12H. normal transfusion threshold. 6. hypocalcemia- Corrected Ca 8.1. ca via NGT 7. Acute decompensated liver failure-now improved 8. E. Faecalis UTI- ceftriaxone and ampicillin day 5 of 7 9. Ascites- seen on u/s. had recent treatment for SBP. plan was for paracentesis when medically optimized. GI and ID on board 10. Thrombocytopenia-due to cirrhosis. s/p 1 unit platelets. no signs of bleeding. resolved 11. BOB- unknown baseline Cr. slowly trending down. nephro on board. workup sent. on low dose IVF. monitor UOP. avoid nephrotoxic agents. 12. DM- hold oral agents. iss and Bgm. 13. Continuous ETOH abuse- no signs of withdrawals. counselling once medically stabilized. on thiamine/folate/MVI 14. HTN- currently normotensive off oral agents 15. DVT PPI- SCD. hold pharmacologic in setting of active bleeding 16. MICU monitoring The care of this patient involved high complexity decision making to prevent further life threatening deterioration of the patient's condition and/or to evaluate & treat vital organ system(s) failure or risk of failure. 37 mins
[2019-02-16] MEDS: DEXTROSE 5%-0.45% SALINE 1,000 ML IV SCH (09:41)
[2019-02-16] MEDS: PANTOPRAZOLE SODIUM 80 MG in SODIUM CHLORIDE 100 ML IVPB SCH ×2 (09:47→17:39)
--- NOTE | 2019-02-16 11:24 | PN ---
Physical Exam: SUBJECTIVE: Patient seen and examined at bedside in ICU. Intubated, off sedation , remains vegetative. Stools have not been bloody overnight. 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 OBJECTIVE: Vital Signs Period Temp Pulse Resp BP Sys/Aguilar Pulse Ox Last 24 Hr 97.3 F-97.8 F 61-76 10-20 135-171/72-82 100-100 GENERAL: Intubated, off sedation, mental status is vegetative HEENT: NC/AT, PERRLA NECK: Trachea midline LUNGS: Limited exam, no adventitious sounds appreciated over ventilator HEART: RRR no m/r/g ABDOMEN: +bs, soft, increased fluid appreciated EXTREMITIES: 2+ pulses, wwp, no edema appreciated NEUROLOGICAL: non-purposeful spontaneous movement, eye opening, no response to noxious stimuli, +gag PSYCH: Unable to assess SKIN: Warm, dry, jaundiced Laboratory Results - last 24 hr 02/12/19 02/15/19 02/15/19 02:00 10:50 12:03 WBC RBC Hgb Hct MCV MCH MCHC RDW Plt Count MPV Sodium Potassium Chloride Carbon Dioxide Anion Gap BUN Creatinine Creat Clearance w eGFR POC Glucometer 208 Random Glucose Calcium Magnesium Total Bilirubin AST ALT Alkaline Phosphatase Total Protein Albumin Blood Type O POSITIVE O POSITIVE Antibody Screen Negative Negative Crossmatch See Detail See Detail 02/15/19 02/15/19 02/16/19 16:25 21:54 05:30 WBC 7.2 RBC 3.13 L Hgb 10.0 L Hct 28.4 L D MCV 90.7 MCH 31.8 MCHC 35.1 RDW 18.0 H Plt Count 100 L MPV 8.3 Sodium Potassium Chloride Carbon Dioxide Anion Gap BUN Creatinine Creat Clearance w eGFR POC Glucometer 227 157 Random Glucose Calcium Magnesium Total Bilirubin AST ALT Alkaline Phosphatase Total Protein Albumin Blood Type Antibody Screen Crossmatch 02/16/19 02/16/19 05:30 06:39 WBC RBC Hgb Hct MCV MCH MCHC RDW Plt Count MPV Sodium 132 L Potassium 3.5 Chloride 107 Carbon Dioxide 17 L Anion Gap 8 BUN 45 H Creatinine 2.2 H Creat Clearance w eGFR 22.85 POC Glucometer 273 Random Glucose 272 H Calcium 6.6 L* Magnesium 1.6 L Total Bilirubin 1.8 H AST 88 H ALT 43 Alkaline Phosphatase 73 Total Protein 5.6 L Albumin 1.9 L Blood Type Antibody Screen Crossmatch Active Medications Generic Name Dose Route Start Last Admin Trade Name Jody PRN Reason Stop Dose Admin Chlorhexidine Gluconate 1 applic 02/11/19 22:00 02/15/19 21:57 Hibiclens For Decolonization - TP 1 applic HS SACHIN Administration Folic Acid 1 mg 02/12/19 10:00 02/16/19 09:14 Folic Acid - PO 1 mg DAILY SACHIN Administration Dextrose/Sodium Chloride 1,000 mls @ 100 mls/hr 02/12/19 08:30 02/16/19 09:41 D5-1/2ns - IV 100 mls/hr ASDIR SACHIN Administration Pantoprazole Sodium 80 mg/ 100 mls @ 10 mls/hr 02/14/19 05:45 02/16/19 09:47 Sodium Chloride IVPB 10 mls/hr Q10H SACHIN Administration 8 MG/HR Ampicillin Sodium 1 gm/ Sodium 100 mls @ 200 mls/hr 02/14/19 10:00 02/16/19 09:20 Chloride IVPB 200 mls/hr Q8H-IV SACHIN Administration Protocol Fentanyl 500 mcg/ Dextrose 100 mls @ 5 mls/hr 02/14/19 13:30 02/15/19 17:02 IVPB Not Given TITR SACHIN Protocol 25 MCG/HR Ceftriaxone Sodium 1 gm/ 50 mls @ 100 mls/hr 02/14/19 18:30 02/16/19 09:13 Dextrose IVPB 100 mls/hr DAILY SACHIN Administration Protocol Octreotide Acetate 1,200 mcg/ 500 mls @ 20.83 mls/hr 02/15/19 11:00 02/15/19 11:34 Dextrose IVPB 20.83 mls/hr Q24H SACHIN Administration 50 MCG/HR Insulin Aspart 1 vial 02/11/19 16:30 02/16/19 06:41 Novolog Vial Sliding Scale - SQ 6 units ACHS SACHIN Administration Protocol Lactulose 20 gm 02/13/19 14:30 02/16/19 06:28 Cephulac (Oral Use) PO 20 gm TID SACHIN Administration Mupirocin 1 applic 02/11/19 22:00 02/16/19 09:19 Bactroban Ointment (For Decolonization) - NS 02/16/19 21:59 1 applic BID SACHIN Administration Rifaximin 550 mg 02/12/19 10:00 02/16/19 09:14 Xifaxan - PO 550 mg BID SACHIN Administration Zinc Oxide/Panthenol/Vitamin E 1 applic 02/11/19 16:03 Balmex Cream - TP DAILY PRN HYGEINE ASSESSMENT/PLAN: 58 y/o F w/ PMHx cirrhosis, hep C, polysubstance abuse including EtOH, DM, HTN, bipolar disorder, recent h/o SBP 12/14, presents from [facility] for agitation, combativeness, AMS while undergoing detox #GI -cirrhosis w/ prior SBP -ascites on US -GI consulted -albumin infusions as per ICU team -no active bleeding identified on initial EGD -on repeat EGD, colonoscopy, esophageal ulcer identified and clipped -had rebleed 02/14-02/15, Hb dropped to 6.6, received 2 further units PRBC (5U total + 1U Plts) -PTX gtt and octreotide gtt restarted in setting of portal HTN -monitor CBC -hold steroids as hepatic stigmata improved -NPO -D51/2NS -paracentesis planned #heme -thrombocytopenia 2/2 liver disease -INR 1.29 -->1.37-->1.43 #CV -holding anti-hypertensives -maintain MAP > 65 -no indication for pressors at this time -hemodynamic support as per ICU team #pulmonary -vent settings as per ICU team -unable to protect airway at this time #neuro -vegetative off sedation, no response to noxious stimuli, does open eyes sporadically, pupils are reactive -cont thiamine, folate -cont lactulose, titrate to BMs -cont IVF -neurology following -LP planned for today, EEG at earliest opportunity tomorrow #ID -UCx growing enterococcus, BCx NGTD -ID consulted -transitioned to Ampicillin, day 3 of overall ABx of 7 days planned #renal -remains in BOB, Cr 2.7 to 2.2 overnight -hepatorenal picture -monitor BMP -cont IVF -multiple immunologic/serologic panels pending #endocrine -SSI, BGM #GOC -grave prognosis -extensive family, multiple children and siblings, no appointed HCP -will attempt to identify single decision maker -consider comfort care -palliative team consulted #FEN -D51/2NS @ 100cc/hr -monitor and correct electrolytes -NPO #PPx -DVT: mechanical only -GI: PTX gtt #code -full #dispo -cont to monitor in ICU Visit type - Emergency Visit Emergency Visit: No - New Patient This patient is new to me today: No - Critical Care Critical Care patient: Yes Total Critical Care Time (in minutes): 40 Critical Care Statement: The care of this patient involved high complexity decision making to prevent further life threatening deterioration of the patient 's condition and/or to evaluate & treat vital organ system(s) failure or risk of failure.
[2019-02-16] MEDS: OCTREOTIDE ACETATE 1,200 MCG in DEXTROSE 5%-WATER - 488 ML IVPB SCH (11:51)
--- NOTE | 2019-02-16 12:00 | PN ---
Progress Note, Physician History of Present Illness: OFF SEDATION UNRESPONSIVE ON VENTILATOR AFEBRILE WBC IMPROVED - Current Medication List Current Medications: Active Medications Chlorhexidine Gluconate (Hibiclens For Decolonization -) 1 applic TP HS [facility] Last Admin: 02/15/19 21:57 Dose: 1 applic Folic Acid (Folic Acid -) 1 mg PO DAILY [facility] Last Admin: 02/16/19 09:14 Dose: 1 mg Dextrose/Sodium Chloride (D5-1/2ns -) 1,000 mls @ 100 mls/hr IV ASDIR SACHIN Last Admin: 02/16/19 09:41 Dose: 100 mls/hr Pantoprazole Sodium 80 mg/ (Sodium Chloride) 100 mls @ 10 mls/hr IVPB Q10H [facility] Last Admin: 02/16/19 09:47 Dose: 10 mls/hr Ampicillin Sodium 1 gm/ Sodium (Chloride) 100 mls @ 200 mls/hr IVPB Q8H-IV SACHIN ; Protocol Last Admin: 02/16/19 09:20 Dose: 200 mls/hr Fentanyl 500 mcg/ Dextrose 100 mls @ 5 mls/hr IVPB TITR SACHIN; Protocol Last Admin: 02/15/19 17:02 Dose: Not Given Ceftriaxone Sodium 1 gm/ (Dextrose) 50 mls @ 100 mls/hr IVPB DAILY [facility]; Protocol Last Admin: 02/16/19 09:13 Dose: 100 mls/hr Octreotide Acetate 1,200 mcg/ (Dextrose) 500 mls @ 20.83 mls/hr IVPB Q24H [facility] Last Admin: 02/16/19 11:51 Dose: 20.83 mls/hr Insulin Aspart (Novolog Vial Sliding Scale -) 1 vial SQ ACHS [facility]; Protocol Last Admin: 02/16/19 06:41 Dose: 6 units Lactulose (Cephulac (Oral Use)) 20 gm PO TID [facility] Last Admin: 02/16/19 06:28 Dose: 20 gm Mupirocin (Bactroban Ointment (For Decolonization) -) 1 applic NS BID [facility] Stop: 02/16/19 21:59 Last Admin: 02/16/19 09:19 Dose: 1 applic Rifaximin (Xifaxan -) 550 mg PO BID [facility] Last Admin: 02/16/19 09:14 Dose: 550 mg Zinc Oxide/Panthenol/Vitamin E (Balmex Cream -) 1 applic TP DAILY PRN PRN Reason: HYGEINE - Objective Vital Signs: Vital Signs Temperature 97.8 F 02/16/19 10:00 Pulse Rate 62 02/16/19 10:00 Respiratory Rate 14 02/16/19 11:19 Blood Pressure 144/78 02/16/19 10:00 O2 Sat by Pulse Oximetry (%) 100 02/16/19 11:36 Constitutional: Yes: No Distress Eyes: Yes: Conjunctiva Clear Cardiovascular: Yes: Regular Rate and Rhythm, S1, S2 Respiratory: Yes: Mechanically Ventilated Gastrointestinal: Yes: Normal Bowel Sounds, Soft, Other (SL DISTENDED). No: Tenderness Edema: No Labs: CBC, BMP 02/16/19 05:30 02/16/19 05:30 INR, PTT INR 1.43 (0.83-1.09) H 02/15/19 05:30 Assessment/Plan ENTEROCOCCAL UTI RESP FAILURE HEPATIC ENCEPHALOPATHY RENAL FAILURE S/P GI BLEED CONTINUE AMPICILLIN
--- NOTE | 2019-02-16 15:11 | PN ---
Progress Note, Physician History of Present Illness: Pt seen and examined at bedside. She remains in the ICU. She remains intubated. - Current Medication List Current Medications: Active Medications Chlorhexidine Gluconate (Hibiclens For Decolonization -) 1 applic TP HS [facility] Last Admin: 02/15/19 21:57 Dose: 1 applic Folic Acid (Folic Acid -) 1 mg PO DAILY [facility] Last Admin: 02/16/19 09:14 Dose: 1 mg Dextrose/Sodium Chloride (D5-1/2ns -) 1,000 mls @ 100 mls/hr IV ASDIR SACHIN Last Admin: 02/16/19 09:41 Dose: 100 mls/hr Pantoprazole Sodium 80 mg/ (Sodium Chloride) 100 mls @ 10 mls/hr IVPB Q10H [facility] Last Admin: 02/16/19 09:47 Dose: 10 mls/hr Ampicillin Sodium 1 gm/ Sodium (Chloride) 100 mls @ 200 mls/hr IVPB Q8H-IV SACHIN ; Protocol Last Admin: 02/16/19 09:20 Dose: 200 mls/hr Fentanyl 500 mcg/ Dextrose 100 mls @ 5 mls/hr IVPB TITR SACHIN; Protocol Last Admin: 02/15/19 17:02 Dose: Not Given Ceftriaxone Sodium 1 gm/ (Dextrose) 50 mls @ 100 mls/hr IVPB DAILY [facility]; Protocol Last Admin: 02/16/19 09:13 Dose: 100 mls/hr Octreotide Acetate 1,200 mcg/ (Dextrose) 500 mls @ 20.83 mls/hr IVPB Q24H [facility] Last Admin: 02/16/19 11:51 Dose: 20.83 mls/hr Insulin Aspart (Novolog Vial Sliding Scale -) 1 vial SQ ACHS [facility]; Protocol Last Admin: 02/16/19 13:13 Dose: 2 units Lactulose (Cephulac (Oral Use)) 20 gm PO TID [facility] Last Admin: 02/16/19 13:24 Dose: 20 gm Mupirocin (Bactroban Ointment (For Decolonization) -) 1 applic NS BID [facility] Stop: 02/16/19 21:59 Last Admin: 02/16/19 09:19 Dose: 1 applic Rifaximin (Xifaxan -) 550 mg PO BID [facility] Last Admin: 02/16/19 09:14 Dose: 550 mg Zinc Oxide/Panthenol/Vitamin E (Balmex Cream -) 1 applic TP DAILY PRN PRN Reason: HYGEINE - Objective Vital Signs: Vital Signs Temperature 97.8 F 02/16/19 10:00 Pulse Rate 65 02/16/19 12:00 Respiratory Rate 14 02/16/19 14:00 Blood Pressure 149/89 02/16/19 12:00 O2 Sat by Pulse Oximetry (%) 100 02/16/19 11:36 Constitutional: Yes: Calm Eyes: Yes: Conjunctiva Clear HENT: Yes: Atraumatic Neck: Yes: Supple Cardiovascular: Yes: S1, S2 Respiratory: Yes: Mechanically Ventilated Gastrointestinal: Yes: Normal Bowel Sounds, Soft Genitourinary: Yes: Vanegas Present Musculoskeletal: Yes: Muscle Weakness Edema: Yes Edema: LLE: Trace, RLE: Trace Neurological: Yes: Lethargy Labs: CBC, BMP 02/16/19 05:30 02/16/19 05:30 INR, PTT INR 1.43 (0.83-1.09) H 02/15/19 05:30 Problem List - Problems (1) Altered mental status Code(s): R41.82 - ALTERED MENTAL STATUS, UNSPECIFIED Qualifiers: Altered mental status type: stupor Qualified Code(s): R40.1 - Stupor (2) Hepatic encephalopathy Code(s): K72.90 - HEPATIC FAILURE, UNSPECIFIED WITHOUT COMA (3) Alcohol dependence Code(s): F10.20 - ALCOHOL DEPENDENCE, UNCOMPLICATED (4) Cocaine dependence Code(s): F14.20 - COCAINE DEPENDENCE, UNCOMPLICATED Assessment/Plan Current Medications Generic Name Dose Route Start Last Admin Trade Name Freq PRN Reason Stop Dose Admin Chlorhexidine Gluconate 1 applic 02/11/19 22:00 02/15/19 21:57 Hibiclens For Decolonization - TP 1 applic HS SACIHN Administration Folic Acid 1 mg 02/12/19 10:00 02/16/19 09:14 Folic Acid - PO 1 mg DAILY SACHIN Administration Dextrose/Sodium Chloride 1,000 mls @ 100 mls/hr 02/12/19 08:30 02/16/19 09:41 D5-1/2ns - IV 100 mls/hr ASDIR SACHIN Administration Pantoprazole Sodium 80 mg/ 100 mls @ 10 mls/hr 02/14/19 05:45 03/24/19 09:47 Sodium Chloride IVPB 10 mls/hr Q10H SACHIN Administration 8 MG/HR Ampicillin Sodium 1 gm/ Sodium 100 mls @ 200 mls/hr 02/14/19 10:00 02/16/19 09:20 Chloride IVPB 200 mls/hr Q8H-IV SACHIN Administration Protocol Fentanyl 500 mcg/ Dextrose 100 mls @ 5 mls/hr 02/14/19 13:30 02/15/19 17:02 IVPB Not Given TITR SACHIN Protocol 25 MCG/HR Ceftriaxone Sodium 1 gm/ 50 mls @ 100 mls/hr 02/14/19 18:30 02/16/19 09:13 Dextrose IVPB 100 mls/hr DAILY SACHIN Administration Protocol Octreotide Acetate 1,200 mcg/ 500 mls @ 20.83 mls/hr 02/15/19 11:00 02/16/19 11:51 Dextrose IVPB 20.83 mls/hr Q24H SACHIN Administration 50 MCG/HR Insulin Aspart 1 vial 02/11/19 16:30 02/16/19 13:13 Novolog Vial Sliding Scale - SQ 2 units ACHS SACHIN Administration Protocol Lactulose 20 gm 02/13/19 14:30 02/16/19 13:24 Cephulac (Oral Use) PO 20 gm TID SACHIN Administration Mupirocin 1 applic 02/11/19 22:00 02/16/19 09:19 Bactroban Ointment (For Decolonization) - NS 02/16/19 21:59 1 applic BID SACHIN Administration Rifaximin 550 mg 02/12/19 10:00 02/16/19 09:14 Xifaxan - PO 550 mg BID SACHIN Administration Zinc Oxide/Panthenol/Vitamin E 1 applic 02/11/19 16:03 Balmex Cream - TP DAILY PRN HYGEINE Impression 1. CKD 2. BOB 3. resp failure 4. etoh abuse 5. liver cirrhosis 6. bipolar 7. change in mental status 8. metabolic acidosis Plan - renal function is improving - follow renal workup - replace mag - d/c fluids once feeds started - discussed with ICU team Dr Jarrett
[2019-02-16] MEDS ORDERED: MIDAZOLAM HCL 2 MG/2 ML SINGLE DOSE VIAL ONE (16:48)
[2019-02-16] MEDS: FENTANYL INJECTION 500 MCG in DEXTROSE 5%-WATER - 90 ML IVPB SCH (17:06)
--- NOTE | 2019-02-16 17:22 | PN.GI ---
GI Progress Note Subjective: GI ( covering Dr Monge): No overt bleeding. Hb 10. Feedings and lactulose started - Objective Vital Signs: Vital Signs Temperature 97.9 F 02/16/19 14:00 Pulse Rate 68 02/16/19 16:00 Respiratory Rate 16 02/16/19 16:00 Blood Pressure 153/83 02/16/19 16:00 O2 Sat by Pulse Oximetry (%) 100 02/16/19 11:36 Laboratory Tests 02/15/19 02/16/19 06:30 05:30 Hgb 6.6 L* 10.0 L Constitutional: Other (intubated) ...Auscultate: Yes: Normoactive Bowel Sounds ...Palpate: Yes: Soft Labs: CBC, BMP 02/16/19 05:30 02/16/19 05:30 INR, PTT INR 1.43 (0.83-1.09) H 02/15/19 05:30 Assessment/Plan Impression Resolved DU bleed. Hepatic encephalopathy Cirrhosis with ascites related to HCV Plan: Wean off octreotide drip Dr Monge will return tomorrow Problem List - Problems (1) GI bleed Code(s): K92.2 - GASTROINTESTINAL HEMORRHAGE, UNSPECIFIED (2) Hepatic encephalopathy Code(s): K72.90 - HEPATIC FAILURE, UNSPECIFIED WITHOUT COMA (3) DM Diabetes mellitus type 1 Code(s): E10.9 - TYPE 1 DIABETES MELLITUS WITHOUT COMPLICATIONS (4) Duodenal ulcer Code(s): K26.9 - DUODENAL ULCER, UNSP ACUTE OR CHRONIC, W/O HEMOR OR PERF (5) Esophageal varices determined by endoscopy Code(s): I85.00 - ESOPHAGEAL VARICES WITHOUT BLEEDING (6) Decompensated cirrhosis related to hepatitis C virus (HCV) Code(s): B19.20 - UNSPECIFIED VIRAL HEPATITIS C WITHOUT HEPATIC COMA; K74.69 - OTHER CIRRHOSIS OF LIVER
[2019-02-16] MEDS ORDERED: WATER IVPB SCH (17:45)
[2019-02-16] MEDS ORDERED: OCTREOTIDE ACETATE IVPB SCH (17:45)
[2019-02-16] MEDS ORDERED: DEXTROSE 5% IVPB SCH (17:45)
[2019-02-16] MEDS: CHLORHEXIDINE GLUCONATE 4% CLEANSER FOR DECOLONIZATION TP SCH (21:10)
--- NOTE | 2019-02-16 23:46 | PN ---
Progress Note (short form) - Note Progress Note: Patient's daughter Ms.Ryan Germain at bed side this evening. States she has four siblings. Ms. Daly is the decision maker but doesn't have a HCP form . Can discuss case with patients children: Addy (Eldest), Second child Ms. Wally Steen [phone]), Third child Ms. Johana Germain ([phone]), Fourth child Ron Germain (can call after 6 pm at [phone]), Fifth child is at [facility].
[2019-02-17] MEDS ORDERED: PT OWN MED DRAWER 7, Y5N ONE ×4 (02:13→17:11)
[2019-02-17] MEDS: AMPICILLIN - 1 GM in SODIUM CHLORIDE 100 ML IVPB SCH ×3 (02:26→17:34)
[2019-02-17] MEDS: INSULIN SLIDING SCALE (NOVOLOG) 1 VIAL SQ SCH ×4 (06:10→22:50)
[2019-02-17] MEDS: PANTOPRAZOLE SODIUM 80 MG in SODIUM CHLORIDE 100 ML IVPB SCH ×2 (06:11→16:30)
[2019-02-17 06:39] LABS: EOS % 2.4 % (0-4.5); HEMATOCRIT 28.9 % (32.4-45.2); HEMOGLOBIN 10.5 GM/dL (10.7-15.3); LYMPH % 11.1 % (8-40); MCHC 36.5 g/dl (32.0-36.0); MEAN CELL VOLUME 90.3 fl (80-96); MEAN PLT VOLUME 8.3 fl (7.5-11.1); MONO % 9.3 % (3.8-10.2); NEUT % 77.2 % (42.8-82.8); PLATELET COUNT 109 K/MM3 (134-434); RDW 17.5 % (11.6-15.6); WHITE BLOOD COUNT 8.5 K/mm3 (4.0-10.0)
[2019-02-17 06:50] LABS: ALBUMIN 1.8 g/dl (3.4-5.0); ALK PHOS 78 U/L (45-117); ANION GAP 8 MMOL/L (8-16); BLOOD UREA NITROGEN 37 mg/dL (7-18); CHLORIDE 109 mmol/L (98-107); CO2 17 mmol/L (21-32); CREATININE 1.9 mg/dL (0.55-1.3); GLUCOSE,RANDOM 182 mg/dL (74-106); MAGNESIUM 1.9 mg/dL (1.8-2.4); POTASSIUM 3.1 mmol/L (3.5-5.1); SGOT/AST 105 U/L (15-37); SGPT/ALT 47 U/L (13-61); SODIUM 134 mmol/L (136-145); TOT PROT 5.6 g/dl (6.4-8.2)
[2019-02-17 07:30] LABS: CALCIUM 6.9 mg/dL (8.5-10.1)
[2019-02-17 07:36] LABS: INR 1.27 (0.83-1.09)
[2019-02-17] MEDS ORDERED: NAPH,MB-DB/K PH,MBDB POWDER PACKET PO ONE (07:45)
[2019-02-17] MEDS ORDERED: MAGNESIUM SULF 50% (8.12 MEQ/2 ML-1 GM VIAL) IVPB ONE (07:45)
[2019-02-17] MEDS ORDERED: DEXTROSE 5%-WATER - 50 ML IVPB ONE (08:29)
[2019-02-17] MEDS ORDERED: cefTRIAXone SODIUM 1 GM VIAL ONE (08:29)
--- NOTE | 2019-02-17 08:50 | PN ---
Physical Exam: SUBJECTIVE: Patient seen and examined this AM. Intubated, not responding or following commands. OBJECTIVE: Vital Signs Period Temp Pulse Resp BP Sys/Aguilar Pulse Ox Last 24 Hr 97.8 F-98.5 F 62-87 12-20 140-163/78-98 100-100 GEN: Intubated, off sedation, not responding or following commands. HEENT: dry mucus membranes NECK: supple HEART: Regular rate and rhythm, 5/6 systolic murmur noted LUNGS: CTA b/l ABDOMEN: Soft, nontender, distension noted EXTREMITIES: no peripheral edema noted, good peripheral pulses throughout NEURO: Intubated, off sedation, no agitation Laboratory Results - last 24 hr 02/16/19 02/16/19 02/16/19 13:11 17:05 22:39 WBC RBC Hgb Hct MCV MCH MCHC RDW Plt Count MPV Absolute Neuts (auto) Neutrophils % Lymphocytes % Monocytes % Eosinophils % Basophils % Nucleated RBC % PT with INR INR Sodium Potassium Chloride Carbon Dioxide Anion Gap BUN Creatinine Creat Clearance w eGFR POC Glucometer 191 191 227 Random Glucose Calcium Phosphorus Magnesium Total Bilirubin AST ALT Alkaline Phosphatase Ammonia Total Protein Albumin 02/17/19 02/17/19 02/17/19 05:30 05:30 05:30 WBC 8.5 RBC 3.20 L Hgb 10.5 L Hct 28.9 L MCV 90.3 MCH 33.0 MCHC 36.5 H RDW 17.5 H Plt Count 109 L MPV 8.3 Absolute Neuts (auto) 6.6 Neutrophils % 77.2 Lymphocytes % 11.1 D Monocytes % 9.3 Eosinophils % 2.4 D Basophils % 0.0 Nucleated RBC % 0 PT with INR 15.00 H INR 1.27 H Sodium 134 L Potassium 3.1 L Chloride 109 H Carbon Dioxide 17 L Anion Gap 8 BUN 37 H Creatinine 1.9 H Creat Clearance w eGFR 27.06 POC Glucometer Random Glucose 182 H Calcium 6.9 L* Phosphorus 2.0 L Magnesium 1.9 Total Bilirubin 2.0 H AST 105 H ALT 47 Alkaline Phosphatase 78 Ammonia Total Protein 5.6 L Albumin 1.8 L 02/17/19 02/17/19 05:30 05:39 WBC RBC Hgb Hct MCV MCH MCHC RDW Plt Count MPV Absolute Neuts (auto) Neutrophils % Lymphocytes % Monocytes % Eosinophils % Basophils % Nucleated RBC % PT with INR INR Sodium Potassium Chloride Carbon Dioxide Anion Gap BUN Creatinine Creat Clearance w eGFR POC Glucometer 165 Random Glucose Calcium Phosphorus Magnesium Total Bilirubin AST ALT Alkaline Phosphatase Ammonia 47.10 H Total Protein Albumin Active Medications Generic Name Dose Route Start Last Admin Trade Name Freq PRN Reason Stop Dose Admin Chlorhexidine Gluconate 1 applic 02/11/19 22:00 02/16/19 21:10 Hibiclens For Decolonization - TP 1 applic HS [facility] Administration Folic Acid 1 mg 02/12/19 10:00 02/16/19 09:14 Folic Acid - PO 1 mg DAILY [facility] Administration Pantoprazole Sodium 80 mg/ 100 mls @ 10 mls/hr 02/14/19 05:45 02/17/19 06:11 Sodium Chloride IVPB Not Given Q10H [facility] 8 MG/HR Ampicillin Sodium 1 gm/ Sodium 100 mls @ 200 mls/hr 02/14/19 10:00 02/17/19 02:26 Chloride IVPB 200 mls/hr Q8H-IV [facility] Administration Protocol Fentanyl 500 mcg/ Dextrose 100 mls @ 5 mls/hr 02/14/19 13:30 02/16/19 17:06 IVPB Not Given TITR [facility] Protocol 25 MCG/HR Ceftriaxone Sodium 1 gm/ 50 mls @ 100 mls/hr 02/14/19 18:30 02/16/19 09:13 Dextrose IVPB 100 mls/hr DAILY [facility] Administration Protocol Octreotide Acetate 600 mcg/ 250 mls @ 10.41 mls/hr 02/16/19 17:45 02/16/19 17 :40 Dextrose IVPB 10.41 mls/hr Q24H [facility] Administration 25 MCG/HR Insulin Aspart 1 vial 02/11/19 16:30 02/17/19 06:10 Novolog Vial Sliding Scale - SQ 2 units ACHS [facility] Administration Protocol Potassium Chloride 40 meq 02/17/19 10:00 Potassium Chloride Oral Liquid PO 02/17/19 22:01 BID [facility] Rifaximin 550 mg 02/12/19 10:00 02/16/19 21:09 Xifaxan - PO 550 mg BID [facility] Administration Zinc Oxide/Panthenol/Vitamin E 1 applic 02/11/19 16:03 Balmex Cream - TP DAILY PRN HYGEINE ASSESSMENT/PLAN: Patient is a 58 year old female who presented with altered mental status and was found to have hepatic metabolic encephalopathy and GI bleed. Patient evaluated by ICU and deemed stable for Med/Surg initially. However, patient had worsening AMS with Active GI bleed and is now transferred to ICU for further monitoring and management. NEURO/PSYCH -Toxic Metabolic encephalopathy? LP done today, will send for profile, cultures, etc... ID consult appreciated and case discussed -Hepatic Encephalopathy - resolved GI consult appreciated Ammonia resolved Head CT without significant changes/pathology/bleeding noted -Polysubstance Abuse Avoid benzo's Continue folate and thiamine Consider rehab placement once stable for d/c CARDIO -HTN Hold Anti-HTN medications for now Continue to monitor BP and will treat as needed PULMONARY -Acute Hypoxic Respiratory Failire Intubated, currently saturating well on CPAP, will maintain for now and convert to AC if needed Maintain 02 saturation >95% Will maintain airway protection with ET tube until neuro status improves GASTROENTEROLOGY -GI Bleed Ruled out Variceal bleeding Protonix drip H/H stable Initial EGD without signs of significant varices or bleeding source Repeat EGD with Colonoscopy with bleeding ulcer - clipped Lactic acid 1.9 normal -Liver Cirrhosis with Hepatic Encephalopathy - Ammonia normalized, mental status not improved History of prior SBP Ascites on U/S Diagnostic paracentesis with cytology once patient is stable -History of Hepatitis C Unsure if patient was treated Likely source of Liver cirrhosis HEMATOLOGY -Thrombocytopenia Likely secondary to liver disease Will need to continue and monitor currently > 100, maintain > 50 with active bleeding RENAL -BOB Unsure of baseline, improving Renal Consult appreciated Workup normal D/C IV fluids ENDOCRINE -IDDM II BGMs ISS PROPHYLAXIS -SCDs -Protonix BID FEN -none -Monitor and replete -Tolerating NGT feeds Disposition -Full code -Continue to monitor in the ICU Visit type - Emergency Visit Emergency Visit: Yes ED Registration Date: 02/08/19 Care time: The patient presented to the Emergency Department on the above date and was hospitalized for further evaluation of their emergent condition. - New Patient This patient is new to me today: No - Critical Care Critical Care patient: Yes Total Critical Care Time (in minutes): 50 Critical Care Statement: The care of this patient involved high complexity decision making to prevent further life threatening deterioration of the patient 's condition and/or to evaluate & treat vital organ system(s) failure or risk of failure.
--- NOTE | 2019-02-17 09:27 | PN ---
Progress Note, Physician History of Present Illness: OFF SEDATION UNRESPONSIVE ON VENTILATOR AFEBRILE WBC IMPROVED - Current Medication List Current Medications: Active Medications Chlorhexidine Gluconate (Hibiclens For Decolonization -) 1 applic TP HS [facility] Last Admin: 02/16/19 21:10 Dose: 1 applic Folic Acid (Folic Acid -) 1 mg PO DAILY [facility] Last Admin: 02/16/19 09:14 Dose: 1 mg Pantoprazole Sodium 80 mg/ (Sodium Chloride) 100 mls @ 10 mls/hr IVPB Q10H [facility] Last Admin: 02/17/19 06:11 Dose: Not Given Ampicillin Sodium 1 gm/ Sodium (Chloride) 100 mls @ 200 mls/hr IVPB Q8H-IV [facility] ; Protocol Last Admin: 02/17/19 02:26 Dose: 200 mls/hr Fentanyl 500 mcg/ Dextrose 100 mls @ 5 mls/hr IVPB TITR [facility]; Protocol Last Admin: 02/16/19 17:06 Dose: Not Given Ceftriaxone Sodium 1 gm/ (Dextrose) 50 mls @ 100 mls/hr IVPB DAILY [facility]; Protocol Last Admin: 02/16/19 09:13 Dose: 100 mls/hr Octreotide Acetate 600 mcg/ (Dextrose) 250 mls @ 10.41 mls/hr IVPB Q24H [facility] Last Admin: 02/16/19 17:40 Dose: 10.41 mls/hr Insulin Aspart (Novolog Vial Sliding Scale -) 1 vial SQ ACHS [facility]; Protocol Last Admin: 02/17/19 06:10 Dose: 2 units Potassium Chloride (Potassium Chloride Oral Liquid) 40 meq PO BID [facility] Stop: 02/17/19 22:01 Rifaximin (Xifaxan -) 550 mg PO BID [facility] Last Admin: 02/16/19 21:09 Dose: 550 mg Zinc Oxide/Panthenol/Vitamin E (Balmex Cream -) 1 applic TP DAILY PRN PRN Reason: HYGEINE - Objective Vital Signs: Vital Signs Temperature 98.5 F 02/17/19 06:00 Pulse Rate 67 02/17/19 08:06 Respiratory Rate 17 02/17/19 08:06 Blood Pressure 163/98 02/17/19 06:00 O2 Sat by Pulse Oximetry (%) 100 02/17/19 08:06 Constitutional: Yes: No Distress Cardiovascular: Yes: Regular Rate and Rhythm, S1, S2 Respiratory: Yes: Mechanically Ventilated Gastrointestinal: Yes: Normal Bowel Sounds, Soft, Other (sl distended, tympanitic). No: Tenderness Labs: CBC, BMP 02/17/19 05:30 02/17/19 05:30 INR, PTT INR 1.27 (0.83-1.09) H 02/17/19 05:30 Assessment/Plan ENTEROCOCCAL UTI DAY #6/7 AMPICILLIN RESP FAILURE HEPATIC ENCEPHALOPATHY RENAL FAILURE S/P GI BLEED CONTINUE AMPICILLIN ADDITIONAL 24HR
[2019-02-17] MEDS: FOLIC ACID 1 MG TABLET (FP) PO SCH (09:41)
[2019-02-17] MEDS: CEFTRIAXONE 1 GM in DEXTROSE 5%-WATER - 50 ML IVPB SCH (09:41)
[2019-02-17] MEDS: RIFAXIMIN 550 MG TABLET (UD) PO SCH ×2 (09:41→21:21)
[2019-02-17] MEDS: POTASSIUM CHLORIDE ORAL LIQUID 20 MEQ/15 ML PO SCH ×2 (09:41→21:21)
--- NOTE | 2019-02-17 09:46 | PN ---
Physical Exam: SUBJECTIVE: Patient seen and examined at bedside in ICU. Intubated, off sedation , remains vegetative. OBJECTIVE: Vital Signs Period Temp Pulse Resp BP Sys/Aguilar Pulse Ox Last 24 Hr 97.8 F-98.5 F 62-87 12-20 140-163/78-98 100-100 GENERAL: Intubated, off sedation, mental status is vegetative HEENT: NC/AT, PERRLA NECK: Trachea midline LUNGS: Limited exam, no adventitious sounds appreciated over ventilator HEART: RRR no m/r/g ABDOMEN: +bs, soft, increased fluid appreciated EXTREMITIES: 2+ pulses, wwp, no edema appreciated NEUROLOGICAL: non-purposeful spontaneous movement, eye opening, no response to noxious stimuli, +gag PSYCH: Unable to assess SKIN: Warm, dry, jaundiced Laboratory Results - last 24 hr 02/16/19 02/16/19 02/16/19 13:11 17:05 22:39 WBC RBC Hgb Hct MCV MCH MCHC RDW Plt Count MPV Absolute Neuts (auto) Neutrophils % Lymphocytes % Monocytes % Eosinophils % Basophils % Nucleated RBC % PT with INR INR Sodium Potassium Chloride Carbon Dioxide Anion Gap BUN Creatinine Creat Clearance w eGFR POC Glucometer 191 191 227 Random Glucose Calcium Phosphorus Magnesium Total Bilirubin AST ALT Alkaline Phosphatase Ammonia Total Protein Albumin 02/17/19 02/17/19 02/17/19 05:30 05:30 05:30 WBC 8.5 RBC 3.20 L Hgb 10.5 L Hct 28.9 L MCV 90.3 MCH 33.0 MCHC 36.5 H RDW 17.5 H Plt Count 109 L MPV 8.3 Absolute Neuts (auto) 6.6 Neutrophils % 77.2 Lymphocytes % 11.1 D Monocytes % 9.3 Eosinophils % 2.4 D Basophils % 0.0 Nucleated RBC % 0 PT with INR 15.00 H INR 1.27 H Sodium 134 L Potassium 3.1 L Chloride 109 H Carbon Dioxide 17 L Anion Gap 8 BUN 37 H Creatinine 1.9 H Creat Clearance w eGFR 27.06 POC Glucometer Random Glucose 182 H Calcium 6.9 L* Phosphorus 2.0 L Magnesium 1.9 Total Bilirubin 2.0 H AST 105 H ALT 47 Alkaline Phosphatase 78 Ammonia Total Protein 5.6 L Albumin 1.8 L 02/17/19 02/17/19 05:30 05:39 WBC RBC Hgb Hct MCV MCH MCHC RDW Plt Count MPV Absolute Neuts (auto) Neutrophils % Lymphocytes % Monocytes % Eosinophils % Basophils % Nucleated RBC % PT with INR INR Sodium Potassium Chloride Carbon Dioxide Anion Gap BUN Creatinine Creat Clearance w eGFR POC Glucometer 165 Random Glucose Calcium Phosphorus Magnesium Total Bilirubin AST ALT Alkaline Phosphatase Ammonia 47.10 H Total Protein Albumin Active Medications Generic Name Dose Route Start Last Admin Trade Name Freq PRN Reason Stop Dose Admin Chlorhexidine Gluconate 1 applic 02/11/19 22:00 02/16/19 21:10 Hibiclens For Decolonization - TP 1 applic HS SACHIN Administration Folic Acid 1 mg 02/12/19 10:00 02/16/19 09:14 Folic Acid - PO 1 mg DAILY [facility] Administration Pantoprazole Sodium 80 mg/ 100 mls @ 10 mls/hr 02/14/19 05:45 02/17/19 06:11 Sodium Chloride IVPB Not Given Q10H [facility]ACHIN 8 MG/HR Ampicillin Sodium 1 gm/ Sodium 100 mls @ 200 mls/hr 02/14/19 10:00 02/17/19 02:26 Chloride IVPB 200 mls/hr Q8H-IV [facility] Administration Protocol Fentanyl 500 mcg/ Dextrose 100 mls @ 5 mls/hr 02/14/19 13:30 02/16/19 17:06 IVPB Not Given TITR [facility] Protocol 25 MCG/HR Ceftriaxone Sodium 1 gm/ 50 mls @ 100 mls/hr 02/14/19 18:30 02/16/19 09:13 Dextrose IVPB 100 mls/hr DAILY [facility] Administration Protocol Octreotide Acetate 600 mcg/ 250 mls @ 10.41 mls/hr 02/16/19 17:45 02/16/19 17 :40 Dextrose IVPB 10.41 mls/hr Q24H [facility] Administration 25 MCG/HR Insulin Aspart 1 vial 02/11/19 16:30 02/17/19 06:10 Novolog Vial Sliding Scale - SQ 2 units ACHS [facility] Administration Protocol Potassium Chloride 40 meq 02/17/19 10:00 Potassium Chloride Oral Liquid PO 02/17/19 22:01 BID SACHIN Rifaximin 550 mg 02/12/19 10:00 02/16/19 21:09 Xifaxan - PO 550 mg BID [facility] Administration Zinc Oxide/Panthenol/Vitamin E 1 applic 02/11/19 16:03 Balmex Cream - TP DAILY PRN HYGEINE ASSESSMENT/PLAN: 58 y/o F w/ PMHx cirrhosis, hep C, polysubstance abuse including EtOH, DM, HTN, bipolar disorder, recent h/o SBP 12/14, presents from [facility] for agitation, combativeness, AMS while undergoing detox #GI -cirrhosis w/ prior SBP -ascites on US -GI consulted -albumin infusions as per ICU team -no active bleeding identified on initial EGD -on repeat EGD, colonoscopy, esophageal ulcer identified and clipped -had rebleed 02/14-02/15, Hb dropped to 6.6, received 2 further units PRBC (5U total + 1U Plts) -PTX gtt and octreotide gtt restarted in setting of portal HTN, to wean ocreotide per GI -H/H stable this AM -monitor CBC -hold steroids as hepatic stigmata improved -NPO -D51/2NS -GI to re-evaluate for paracentesis #heme -thrombocytopenia 2/2 liver disease -INR 1.29 -->1.37-->1.43 -->1.27 #CV -holding anti-hypertensives -maintain MAP > 65 -no indication for pressors at this time -hemodynamic support as per ICU team #pulmonary -vent settings as per ICU team -unable to protect airway at this time #neuro -vegetative off sedation, no response to noxious stimuli, does open eyes, pupils are reactive, movement non-purposeful -cont thiamine, folate -cont lactulose, titrate to BMs -cont IVF -neurology following -LP was attempted yesterday but unsuccessful, to re-attempt today -EEG planned today #ID -UCx growing enterococcus, BCx NGTD -ID consulted -transitioned to Ampicillin, day 6 of 7 days planned #renal -BOB improving to Cr 1.9 -monitor BMP -cont IVF -multiple immunologic/serologic panels pending #endocrine -SSI, BGM #GOC -grave prognosis -patient's children aware of condition and attempting to reach consensus on GOC : Addy (Eldest), Second child Ms. Wally Steen [phone]), Third child Ms. Johana Germain ([phone]), Fourth child Ron Germain (can call after 6 pm at [phone]), Fifth child is in [place] -initiated discussion of potential need for PEG/trach and permanent institutionalization vs. comfort care measures w/ Wally, who believes her mother would not want to be kept alive on machines #FEN -hold IVF -monitor and correct electrolytes -NPO #PPx -DVT: mechanical only -GI: PTX gtt #code -full #dispo -cont to monitor in ICU Visit type - Emergency Visit Emergency Visit: No - New Patient This patient is new to me today: No - Critical Care Critical Care patient: No
--- NOTE | 2019-02-17 10:01 | PN ---
Progress Note (short form) - Note Progress Note: NEUROLOGY F/U: Events reviewed and discussed with MACK Garcia) and CARLO Sarah. Pt had surgical clipping of duodenal ulcer and was transfused. Remains on ampicillin for UTI. Reportedly with seizure-like activity, provided IV Versed yesterday 02/16. No further events noted. Trial on CPAP post-op with consideration of weaning off vent. WBC 8.5 k 3.1 Ca 6.9 ammonia 47.10, albumin 1.8 PT=15, INR= 1.27 LEIF: Afebrile. 168/93. on vent and tube feedings. Vanegas in situ. -Kernigs. Abdomen tense. Hands appear swollen. NEURO: Facial grimace to sternal rub. + spontaneous respirations Spontaneous eye opening. Full EOM's to Doll's head. + corneal reflex Brisk reflexes. Plantars silent. Sl grimace to pinch in all fours IMP: 1. Hepatic encephalopathy/ GI Bleed (improving after correction of bleed) with decreasing Ammonia levels 2. ? New onset seizure activity (vs. Asterixis?) SUGGEST: Continue current management. Observe off seizure medication at this time. Trial wean off vent as tolerated. Lack of meningeal signs currently, would advise against L.P. at this time anais. with increased risk of bleeding due to liver failure Thank you very much, Koffi Ravi MD
[2019-02-17 11:14] LABS: ANTIGLOMERULAR BASEMENT MEN.AB 4 units (0-20)
--- NOTE | 2019-02-17 11:37 | PN ---
Teaching Attending Note Name of Resident: Huy Mejia ATTENDING PHYSICIAN STATEMENT I saw and evaluated the patient. I reviewed the resident's note and discussed the case with the resident. I agree with the resident's findings and plan as documented. SUBJECTIVE: Patient seen and examined in the ICU. Remains intubated, obtunded off sedation. AC Mode of vent. No pressors. OBJECTIVE: Intake & Output 02/14/19 02/15/19 02/16/19 02/17/19 23:59 23:59 23:59 23:59 Intake Total 3120 3726 3328 1670 Output Total 676 445 3749 300 Balance 2720 2826 1928 1370 Weight 100 lb 6 oz 120 lb 5 oz 128 lb 7 oz 129 lb 6 oz Last Vital Signs Temp Pulse Resp BP Pulse Ox 97.8 F 81 20 168/92 100 02/17/19 10:00 02/17/19 10:00 02/17/19 10:42 02/17/19 10:00 02/17/19 10:42 Active Medications Chlorhexidine Gluconate (Hibiclens For Decolonization -) 1 applic TP HS [facility] Last Admin: 02/16/19 21:10 Dose: 1 applic Folic Acid (Folic Acid -) 1 mg PO DAILY [facility] Last Admin: 02/17/19 09:41 Dose: 1 mg Pantoprazole Sodium 80 mg/ (Sodium Chloride) 100 mls @ 10 mls/hr IVPB Q10H [facility] Last Admin: 02/17/19 06:11 Dose: Not Given Ampicillin Sodium 1 gm/ Sodium (Chloride) 100 mls @ 200 mls/hr IVPB Q8H-IV [facility] ; Protocol Last Admin: 02/17/19 10:59 Dose: 200 mls/hr Fentanyl 500 mcg/ Dextrose 100 mls @ 5 mls/hr IVPB TITR [facility]; Protocol Last Admin: 02/16/19 17:06 Dose: Not Given Ceftriaxone Sodium 1 gm/ (Dextrose) 50 mls @ 100 mls/hr IVPB DAILY [facility]; Protocol Last Admin: 02/17/19 09:41 Dose: 100 mls/hr Insulin Aspart (Novolog Vial Sliding Scale -) 1 vial SQ ACHS [facility]; Protocol Last Admin: 02/17/19 11:16 Dose: Not Given Potassium Chloride (Potassium Chloride Oral Liquid) 40 meq PO BID [facility] Stop: 02/17/19 22:01 Last Admin: 02/17/19 09:41 Dose: 40 meq Rifaximin (Xifaxan -) 550 mg PO BID [facility] Last Admin: 02/17/19 09:41 Dose: 550 mg Zinc Oxide/Panthenol/Vitamin E (Balmex Cream -) 1 applic TP DAILY PRN PRN Reason: HYGEINE Gen: intubated, obtunded Heart: RRR Lung: decreased breath sounds at the bases Abd: soft, +ascites Ext: no edema [employer] REPRESENTATIVE: Obtunded Laboratory Results - last 24 hr 02/13/19 02/16/19 02/16/19 05:30 13:11 17:05 WBC RBC Hgb Hct MCV MCH MCHC RDW Plt Count MPV Absolute Neuts (auto) Neutrophils % Lymphocytes % Monocytes % Eosinophils % Basophils % Nucleated RBC % PT with INR INR Sodium Potassium Chloride Carbon Dioxide Anion Gap BUN Creatinine Creat Clearance w eGFR POC Glucometer 191 191 Random Glucose Calcium Phosphorus Magnesium Total Bilirubin AST ALT Alkaline Phosphatase Ammonia Total Protein Albumin Glomerular Base Memb Ab 4 02/16/19 02/17/19 02/17/19 22:39 05:30 05:30 WBC 8.5 RBC 3.20 L Hgb 10.5 L Hct 28.9 L MCV 90.3 MCH 33.0 MCHC 36.5 H RDW 17.5 H Plt Count 109 L MPV 8.3 Absolute Neuts (auto) 6.6 Neutrophils % 77.2 Lymphocytes % 11.1 D Monocytes % 9.3 Eosinophils % 2.4 D Basophils % 0.0 Nucleated RBC % 0 PT with INR 15.00 H INR 1.27 H Sodium Potassium Chloride Carbon Dioxide Anion Gap BUN Creatinine Creat Clearance w eGFR POC Glucometer 227 Random Glucose Calcium Phosphorus Magnesium Total Bilirubin AST ALT Alkaline Phosphatase Ammonia Total Protein Albumin Glomerular Base Memb Ab 02/17/19 02/17/19 02/17/19 05:30 05:30 05:39 WBC RBC Hgb Hct MCV MCH MCHC RDW Plt Count MPV Absolute Neuts (auto) Neutrophils % Lymphocytes % Monocytes % Eosinophils % Basophils % Nucleated RBC % PT with INR INR Sodium 134 L Potassium 3.1 L Chloride 109 H Carbon Dioxide 17 L Anion Gap 8 BUN 37 H Creatinine 1.9 H Creat Clearance w eGFR 27.06 POC Glucometer 165 Random Glucose 182 H Calcium 6.9 L* Phosphorus 2.0 L Magnesium 1.9 Total Bilirubin 2.0 H AST 105 H ALT 47 Alkaline Phosphatase 78 Ammonia 47.10 H Total Protein 5.6 L Albumin 1.8 L Glomerular Base Memb Ab 02/17/19 11:09 WBC RBC Hgb Hct MCV MCH MCHC RDW Plt Count MPV Absolute Neuts (auto) Neutrophils % Lymphocytes % Monocytes % Eosinophils % Basophils % Nucleated RBC % PT with INR INR Sodium Potassium Chloride Carbon Dioxide Anion Gap BUN Creatinine Creat Clearance w eGFR POC Glucometer 147 Random Glucose Calcium Phosphorus Magnesium Total Bilirubin AST ALT Alkaline Phosphatase Ammonia Total Protein Albumin Glomerular Base Memb Ab ASSESSMENT AND PLAN: Acute Respiratory Failure Altered Mental Status Hepatic Encephalopathy GI Bleed Acute Blood Loss Anemia Acute Kidney Injury Liver Cirrhosis Alcohol Abuse Hep C Thrombocytopenia h/o SBP UTI HTN DM - For repeat LP attempt - monitor H/H, coags - Normal transfusion thresholds - lactulose, rifaximin - protonix - continue antibiotics - monitor urine output, creatinine - spontaneous breathing trials as tolerated once mental status improved: May need Trach - DVT/GI prophylaxis - continue ICU monitoring - prognosis guarded Dr Mckeon Critical care time spent in reviewing chart, evaluating patient and formulating plan 35 min
--- NOTE | 2019-02-17 11:50 | PN ---
Progress Note (short form) - Note Progress Note: Patient seen and examined, labs reviewed NO further bleeding Is intubated, off sedation but still unresponsive Vital Signs Temp 97.8 F 02/17/19 10:00 Pulse 81 02/17/19 10:00 Resp 18 02/17/19 11:47 BP 168/92 02/17/19 10:00 Pulse Ox 100 02/17/19 10:42 Intubated, off sedation, not responsive Abdomen benign CBC, BMP 02/17/19 05:30 02/17/19 05:30 Impression: 58F with HCV cirrhosis and PSE, with UGIB from duodenal ulcer. - after 72 hours can transition PPI drip to once daily PPI per NGT - trend hgb - encephalopathy w/u per ICU team
--- NOTE | 2019-02-17 12:23 | PN ---
Progress Note, Physician History of Present Illness: Pt seen and examined at bedside. She remains in the ICU. She remains intubated. She is opening her eyes and moving today. - Current Medication List Current Medications: Active Medications Chlorhexidine Gluconate (Hibiclens For Decolonization -) 1 applic TP HS [facility] Last Admin: 02/16/19 21:10 Dose: 1 applic Folic Acid (Folic Acid -) 1 mg PO DAILY [facility] Last Admin: 02/17/19 09:41 Dose: 1 mg Pantoprazole Sodium 80 mg/ (Sodium Chloride) 100 mls @ 10 mls/hr IVPB Q10H [facility] Last Admin: 02/17/19 06:11 Dose: Not Given Ampicillin Sodium 1 gm/ Sodium (Chloride) 100 mls @ 200 mls/hr IVPB Q8H-IV [facility] ; Protocol Last Admin: 02/17/19 10:59 Dose: 200 mls/hr Fentanyl 500 mcg/ Dextrose 100 mls @ 5 mls/hr IVPB TITR [facility]; Protocol Last Admin: 02/16/19 17:06 Dose: Not Given Ceftriaxone Sodium 1 gm/ (Dextrose) 50 mls @ 100 mls/hr IVPB DAILY [facility]; Protocol Last Admin: 02/17/19 09:41 Dose: 100 mls/hr Insulin Aspart (Novolog Vial Sliding Scale -) 1 vial SQ ACHS [facility]; Protocol Last Admin: 02/17/19 11:16 Dose: Not Given Potassium Chloride (Potassium Chloride Oral Liquid) 40 meq PO BID [facility] Stop: 02/17/19 22:01 Last Admin: 02/17/19 09:41 Dose: 40 meq Rifaximin (Xifaxan -) 550 mg PO BID [facility] Last Admin: 02/17/19 09:41 Dose: 550 mg Zinc Oxide/Panthenol/Vitamin E (Balmex Cream -) 1 applic TP DAILY PRN PRN Reason: HYGEINE - Objective Vital Signs: Vital Signs Temperature 97.8 F 02/17/19 10:00 Pulse Rate 81 02/17/19 12:00 Respiratory Rate 17 02/17/19 12:00 Blood Pressure 163/128 H 02/17/19 12:00 O2 Sat by Pulse Oximetry (%) 100 02/17/19 10:42 Constitutional: Yes: Calm Eyes: Yes: Conjunctiva Clear Cardiovascular: Yes: S1, S2 Respiratory: Yes: Mechanically Ventilated Gastrointestinal: Yes: Distention Genitourinary: Yes: Vanegas Present Musculoskeletal: Yes: Muscle Weakness Edema: Yes Edema: LUE: Trace, RUE: Trace, LLE: Trace, RLE: Trace Neurological: Yes: Other (awake) Labs: CBC, BMP 02/17/19 05:30 02/17/19 05:30 INR, PTT INR 1.27 (0.83-1.09) H 02/17/19 05:30 Problem List - Problems (1) Altered mental status Code(s): R41.82 - ALTERED MENTAL STATUS, UNSPECIFIED Qualifiers: Altered mental status type: stupor Qualified Code(s): R40.1 - Stupor (2) Hepatic encephalopathy Code(s): K72.90 - HEPATIC FAILURE, UNSPECIFIED WITHOUT COMA (3) Alcohol dependence Code(s): F10.20 - ALCOHOL DEPENDENCE, UNCOMPLICATED (4) Cocaine dependence Code(s): F14.20 - COCAINE DEPENDENCE, UNCOMPLICATED Assessment/Plan Current Medications Generic Name Dose Route Start Last Admin Trade Name Jody PRN Reason Stop Dose Admin Chlorhexidine Gluconate 1 applic 02/11/19 22:00 02/16/19 21:10 Hibiclens For Decolonization - TP 1 applic HS [facility] Administration Folic Acid 1 mg 02/12/19 10:00 02/17/19 09:41 Folic Acid - PO 1 mg DAILY [facility] Administration Pantoprazole Sodium 80 mg/ 100 mls @ 10 mls/hr 02/14/19 05:45 02/17/19 06:11 Sodium Chloride IVPB Not Given Q10H [facility] 8 MG/HR Ampicillin Sodium 1 gm/ Sodium 100 mls @ 200 mls/hr 02/14/19 10:00 02/17/19 10:59 Chloride IVPB 200 mls/hr Q8H-IV [facility] Administration Protocol Fentanyl 500 mcg/ Dextrose 100 mls @ 5 mls/hr 02/14/19 13:30 02/16/19 17:06 IVPB Not Given TITR [facility] Protocol 25 MCG/HR Ceftriaxone Sodium 1 gm/ 50 mls @ 100 mls/hr 02/14/19 18:30 02/17/19 09:41 Dextrose IVPB 100 mls/hr DAILY [facility] Administration Protocol Insulin Aspart 1 vial 02/11/19 16:30 02/17/19 11:16 Novolog Vial Sliding Scale - SQ Not Given ACHS [facility] Protocol Potassium Chloride 40 meq 02/17/19 10:00 02/17/19 09:41 Potassium Chloride Oral Liquid PO 02/17/19 22:01 40 meq BID [facility] Administration Rifaximin 550 mg 02/12/19 10:00 02/17/19 09:41 Xifaxan - PO 550 mg BID [facility] Administration Zinc Oxide/Panthenol/Vitamin E 1 applic 02/11/19 16:03 Balmex Cream - TP DAILY PRN HYGEINE Impression 1. CKD 2. BOB 3. resp failure 4. etoh abuse 5. liver cirrhosis 6. bipolar 7. change in mental status 8. metabolic acidosis Plan - pt now on feeds - hold off fluids for now - renal function improving - replace potassium - discussed with ICU team - mental status seems to be improving Dr Jarrett
--- NOTE | 2019-02-17 13:04 | PN ---
Teaching Attending Note Name of Resident: Houston Melo ATTENDING PHYSICIAN STATEMENT I saw and evaluated the patient. I reviewed the resident's note and discussed the case with the resident. I agree with the resident's findings and plan as documented. SUBJECTIVE:intubated LP attempt yesterday was unsuccessful. questionable myoclonus the extremities noted yesterday by central supply manager HYDROMETEOROLOGIST. OBJECTIVE: Last Vital Signs Temp Pulse Resp BP Pulse Ox 97.8 F 81 17 163/128 H 100 02/17/19 10:00 02/17/19 12:00 02/17/19 12:02/17/19 12:02/17/19 10:42 Intake & Output 02/14/19 02/15/19 02/16/19 02/17/19 23:59 23:59 23:59 23:59 Intake Total 3120 3726 3328 1670 Output Total 314 649 8836 300 Balance 2720 2826 1928 1370 Weight 100 lb 6 oz 120 lb 5 oz 128 lb 7 oz 129 lb 6 oz General intubated, does not withdraw to pain, PERRL, +Gag non purposeful movements CV S1 S2 RRR no murmur/rub/gallop Lungs Coarse breath sounds anteriorly Abdomen soft + distended extremities no pedal edema ASSESSMENT AND PLAN: 58 year old female with history of Liver Cirrhosis, Alcohol Abuse, Hepatitis C, recent history of SBP 12/14, DM 2, HTN, Polysubstance Abuse (including Alcohol), Bipolar Disorder, sent to ED from [facility] for agitation, combativeness, and altered mental status while undergoing detox. with no improvement and was intubated 02/11 to protect airway and now in the MICU with course complicated with development of melena. 1. Acute Hepatic Encephalopathy versus Toxic Encephalopathy secondary to Ativan and decompensating liver failure- concern also remains for status ellipticus with no convulsions vs menningitis. non purposeful movement. EEG pending. plan to repeat LP today. repeat Head CT done with no acute pathology. ID and neuro on board. 2. Acute respiratory failure- s/p intubation for airway protection. became apnic during cpap trial yesterday. will need to trach if no neurological recovery soon. management per ICU team 3. Melena-repeat EGD 02/14 showing duodenal ulcer with adherent clot. can start TF via NGT. will need to consider PEG. switch PPI ggt to po via NGT. titrate off octreotide. 4. esophageal varicces- with portal HTN. no stigmata of recent bleeding. will need routine surveillance 5. Acute blood loss anemia- due to duodenal ulcer s/p 4 units PRBC this hospital stay. cont to trend Q12H. normal transfusion threshold. 6. hypocalcemia- Corrected Ca 8.1. ca via NGT 7. Acute decompensated liver failure-now improved 8. E. Faecalis UTI- ceftriaxone and ampicillin day 6 of 7 9. Ascites- seen on u/s. had recent treatment for SBP. plan was for paracentesis when medically optimized. GI and ID on board 10. Thrombocytopenia-due to cirrhosis. s/p 1 unit platelets. no signs of bleeding. resolved 11. BOB- unknown baseline Cr. slowly trending down. nephro on board. workup sent. on low dose IVF. monitor UOP. avoid nephrotoxic agents. 12. DM- hold oral agents. iss and Bgm. 13. Continuous ETOH abuse- no signs of withdrawals. counselling once medically stabilized. on thiamine/folate/MVI 14. HTN- currently normotensive off oral agents 15. DVT PPI- SCD. hold pharmacologic in setting of active bleeding 16. MICU monitoring The care of this patient involved high complexity decision making to prevent further life threatening deterioration of the patient's condition and/or to evaluate & treat vital organ system(s) failure or risk of failure. 40 mins
--- NOTE | 2019-02-17 13:46 | PROC ---
Lumbar Puncture Indication: Resolved ammonia level, mental status unimproved Risks and Benefits Explained: Yes Consent on Chart: Yes Sterile Technique: Yes Skin prep: Chlorhexidine Position: Left lateral decubitus Site: L3-L4 Local Anesthesia: 1% Lidocaine with epi Opening Pressure(mmHg): 26 Closing Pressure(mmHg): 15 CSF Color, Appearance: Clear Sterile Dressing Applied: Yes
[2019-02-17 14:29] LABS: CSF APPEARANCE CLEAR; CSF COLOR COLORLESS; CSF WBC 0
[2019-02-17] MEDS: FENTANYL INJECTION 500 MCG in DEXTROSE 5%-WATER - 90 ML IVPB SCH (16:29)
[2019-02-17] MEDS ORDERED: MIDAZOLAM HCL 2 MG/2 ML SINGLE DOSE VIAL IVPUSH ONE (17:00)
[2019-02-17] MEDS: CHLORHEXIDINE GLUCONATE 4% CLEANSER FOR DECOLONIZATION TP SCH (21:21)
[2019-02-18] MEDS: PANTOPRAZOLE SODIUM 80 MG in SODIUM CHLORIDE 100 ML IVPB SCH ×3 (01:39→23:05)
[2019-02-18] MEDS: AMPICILLIN - 1 GM in SODIUM CHLORIDE 100 ML IVPB SCH ×2 (01:42→09:40)
[2019-02-18] MEDS: INSULIN SLIDING SCALE (NOVOLOG) 1 VIAL SQ SCH ×4 (06:15→22:42)
[2019-02-18 06:58] LABS: BASO % 0.2 % (0-2.0); EOS % 1.8 % (0-4.5); HEMATOCRIT 29.7 % (32.4-45.2); HEMOGLOBIN 10.5 GM/dL (10.7-15.3); LYMPH % 7.9 % (8-40); MCH 31.7 pg (25.7-33.7); MCHC 35.4 g/dl (32.0-36.0); MEAN CELL VOLUME 89.5 fl (80-96); MEAN PLT VOLUME 8.2 fl (7.5-11.1); MONO % 9.4 % (3.8-10.2); NEUT % 80.7 % (42.8-82.8); PLATELET COUNT 134 K/MM3 (134-434); RBC 3.32 M/mm3 (3.60-5.2); RDW 18.9 % (11.6-15.6); WHITE BLOOD COUNT 10.7 K/mm3 (4.0-10.0)
[2019-02-18 07:16] LABS: ALK PHOS 113 U/L (45-117); ANION GAP 10 MMOL/L (8-16); BILIRUBIN,TOTAL 2.9 mg/dL (0.2-1); BLOOD UREA NITROGEN 36 mg/dL (7-18); CHLORIDE 111 mmol/L (98-107); CO2 16 mmol/L (21-32); GLUCOSE,RANDOM 232 mg/dL (74-106); MAGNESIUM 2.3 mg/dL (1.8-2.4); PHOSPHOROUS 2.4 mg/dL (2.5-4.9); POTASSIUM 4.4 mmol/L (3.5-5.1); SGOT/AST 85 U/L (15-37); SGPT/ALT 44 U/L (13-61); SODIUM 136 mmol/L (136-145); TOT PROT 6.1 g/dl (6.4-8.2)
[2019-02-18 07:35] LABS: CALCIUM 6.9 mg/dL (8.5-10.1)
[2019-02-18 07:50] LABS: BILIRUBIN,DIRECT 2.3 mg/dL (0.0-0.2)
--- NOTE | 2019-02-18 08:17 | PN ---
Physical Exam: SUBJECTIVE: Patient seen and examined at bedside in ICU. Intubated, off sedation , remains vegetative. OBJECTIVE: Vital Signs Period Temp Pulse Resp BP Sys/Aguilar Pulse Ox Last 24 Hr 97.8 F-98.5 F 67-88 16-26 141-175/71-128 100-100 GENERAL: Intubated, off sedation, mental status is vegetative HEENT: NC/AT, PERRLA NECK: Trachea midline LUNGS: Limited exam, no adventitious sounds appreciated over ventilator HEART: RRR no m/r/g ABDOMEN: +bs, soft, increased fluid appreciated EXTREMITIES: 2+ pulses, wwp, no edema appreciated NEUROLOGICAL: non-purposeful spontaneous movement, eye opening, no response to noxious stimuli, +gag PSYCH: Unable to assess SKIN: Warm, dry, jaundiced Laboratory Results - last 24 hr 02/13/19 02/17/19 02/17/19 05:30 11:09 12:30 WBC RBC Hgb Hct MCV MCH MCHC RDW Plt Count MPV Absolute Neuts (auto) Neutrophils % Lymphocytes % Monocytes % Eosinophils % Basophils % Nucleated RBC % Sodium Potassium Chloride Carbon Dioxide Anion Gap BUN Creatinine Creat Clearance w eGFR POC Glucometer 147 Random Glucose Calcium Phosphorus Magnesium Total Bilirubin Direct Bilirubin AST ALT Alkaline Phosphatase Total Protein Albumin CSF Appearance Clear CSF Color Colorless CSF WBC 0 CSF RBC 3 CSF Neutrophils No Result Required. CSF Lymphocytes No Result Required. CSF Eosinophils No Result Required. CSF Basophils No Result Required. CSF Macrophages No Result Required. CSF Plasma Cells No Result Required. CSF Diff Comment No Result Required. CSF Comment No Result Required. Glomerular Base Memb Ab 4 HCV Quantitation [id number] HCV RNA log copies/mL 6.785 02/17/19 02/17/19 02/18/19 16:13 22:16 05:15 WBC RBC Hgb Hct MCV MCH MCHC RDW Plt Count MPV Absolute Neuts (auto) Neutrophils % Lymphocytes % Monocytes % Eosinophils % Basophils % Nucleated RBC % Sodium Potassium Chloride Carbon Dioxide Anion Gap BUN Creatinine Creat Clearance w eGFR POC Glucometer 184 258 233 Random Glucose Calcium Phosphorus Magnesium Total Bilirubin Direct Bilirubin AST ALT Alkaline Phosphatase Total Protein Albumin CSF Appearance CSF Color CSF WBC CSF RBC CSF Neutrophils CSF Lymphocytes CSF Eosinophils CSF Basophils CSF Macrophages CSF Plasma Cells CSF Diff Comment CSF Comment Glomerular Base Memb Ab HCV Quantitation HCV RNA log copies/mL 02/18/19 02/18/19 05:30 05:30 WBC 10.7 H RBC 3.32 L Hgb 10.5 L Hct 29.7 L MCV 89.5 MCH 31.7 MCHC 35.4 RDW 18.9 H Plt Count 134 D MPV 8.2 Absolute Neuts (auto) 8.7 H Neutrophils % 80.7 Lymphocytes % 7.9 L D Monocytes % 9.4 Eosinophils % 1.8 Basophils % 0.2 D Nucleated RBC % 0 Sodium 136 Potassium 4.4 Chloride 111 H Carbon Dioxide 16 L Anion Gap 10 BUN 36 H Creatinine 2.0 H Creat Clearance w eGFR 25.50 POC Glucometer Random Glucose 232 H Calcium 6.9 L* Phosphorus 2.4 L Magnesium 2.3 Total Bilirubin 2.9 H Direct Bilirubin 2.3 H AST 85 H ALT 44 Alkaline Phosphatase 113 Total Protein 6.1 L Albumin 2.0 L CSF Appearance CSF Color CSF WBC CSF RBC CSF Neutrophils CSF Lymphocytes CSF Eosinophils CSF Basophils CSF Macrophages CSF Plasma Cells CSF Diff Comment CSF Comment Glomerular Base Memb Ab HCV Quantitation HCV RNA log copies/mL Active Medications Generic Name Dose Route Start Last Admin Trade Name Jody PRN Reason Stop Dose Admin Chlorhexidine Gluconate 1 applic 02/11/19 22:00 02/17/19 21:21 Hibiclens For Decolonization - TP 1 applic HS [facility] Administration Folic Acid 1 mg 02/12/19 10:00 02/17/19 09:41 Folic Acid - PO 1 mg DAILY [facility] Administration Pantoprazole Sodium 80 mg/ 100 mls @ 10 mls/hr 02/14/19 05:45 02/18/19 01:39 Sodium Chloride IVPB Not Given Q10H [facility] 8 MG/HR Ampicillin Sodium 1 gm/ Sodium 100 mls @ 200 mls/hr 02/14/19 10:00 02/18/19 01:42 Chloride IVPB 200 mls/hr Q8H-IV [facility] Administration Protocol Fentanyl 500 mcg/ Dextrose 100 mls @ 5 mls/hr 02/14/19 13:30 02/17/19 16:29 IVPB Not Given TITR [facility] Protocol 25 MCG/HR Insulin Aspart 1 vial 02/11/19 16:30 02/18/19 06:15 Novolog Vial Sliding Scale - SQ 4 units ACHS [facility] Administration Protocol Potassium Phos/Sodium Phos 1 packet 02/18/19 07:42 Phos-Nak Packet - PO 02/18/19 07:43 ONCE ONE Rifaximin 550 mg 02/12/19 10:00 02/17/19 21:21 Xifaxan - PO 550 mg BID [facility] Administration Zinc Oxide/Panthenol/Vitamin E 1 applic 02/11/19 16:03 Balmex Cream - TP DAILY PRN HYGEINE ASSESSMENT/PLAN: 58 y/o F w/ PMHx cirrhosis, hep C, polysubstance abuse including EtOH, DM, HTN, bipolar disorder, recent h/o SBP 12/14, presents from [facility] for agitation, combativeness, AMS while undergoing detox #GI -cirrhosis w/ prior SBP -ascites on US -GI consulted -albumin infusions as per ICU team -no active bleeding identified on initial EGD -on repeat EGD, colonoscopy, esophageal ulcer identified and clipped -had rebleed 02/14-02/15, Hb dropped to 6.6, received 2 further units PRBC (5U total + 1U Plts) -PTX gtt and octreotide gtt restarted in setting of portal HTN, to wean ocreotide per GI -H/H stable this AM -monitor CBC -NPO -GI to re-evaluate for paracentesis -NH3 and bilirubin levels climbing -on rifaximin, restarting lactulose #heme -thrombocytopenia 2/2 liver disease -INR persistently elevated #CV -holding anti-hypertensives -maintain MAP > 65 -no indication for pressors at this time -hemodynamic support as per ICU team #pulmonary -vent settings as per ICU team -doing well on CPAP mode, mental status remains a problem -consideration of extubation as per ICU team #neuro -vegetative off sedation, no response to noxious stimuli, does open eyes, pupils are reactive, movement non-purposeful -cont thiamine, folate -cont rifaximin -has been off lactulose in setting of GIB, will restart given rising NH3 -cont IVF -neurology following -LP yesterday, CSF WBC 0, further results pending -EEG planned today #ID -UCx growing enterococcus, BCx NGTD -ID consulted -Ampicillin day 7 of 7 #renal -BOB improving to Cr 1.9 -monitor BMP -cont IVF -multiple immunologic/serologic panels pending #endocrine -SSI, BGM #GOC -grave prognosis -patient's children aware of condition and attempting to reach consensus on GOC : Addy (Eldest), Second child Ms. Wally Steen [phone]), Third child Ms. Johana Germain ([phone]), Fourth child Ron Germain (can call after 6 pm at [phone]), Fifth child is in [place] -initiated discussion of potential need for PEG/trach and permanent institutionalization vs. comfort care measures w/ Wally, who believes her mother would not want to be kept alive on machines #FEN -hold IVF -monitor and correct electrolytes -NPO #PPx -DVT: mechanical only -GI: PTX gtt #code -full #dispo -cont to monitor in ICU Visit type - Emergency Visit Emergency Visit: No - New Patient This patient is new to me today: No - Critical Care Critical Care patient: Yes Total Critical Care Time (in minutes): 40 Critical Care Statement: The care of this patient involved high complexity decision making to prevent further life threatening deterioration of the patient 's condition and/or to evaluate & treat vital organ system(s) failure or risk of failure.
--- NOTE | 2019-02-18 08:34 | PN ---
Physical Exam: SUBJECTIVE: Patient seen and examined this AM. She is intubated and off sedation however not responding to voice or painful stimuli OBJECTIVE: Vital Signs Period Temp Pulse Resp BP Sys/Aguilar Pulse Ox Last 24 Hr 97.8 F-98.5 F 72-88 16-26 141-175/71-128 100-100 GEN: Intubated, off sedation, not responding or following commands. HEENT: dry mucus membranes NECK: supple HEART: Regular rate and rhythm, 5/6 systolic murmur noted LUNGS: CTA b/l ABDOMEN: Soft, nontender, distension noted EXTREMITIES: dependent edema noted in b/l UE, good peripheral pulses throughout NEURO: Intubated, off sedation, no agitation, not responsive to voice or painful stimuli including nail bed pressure or sternal rub Laboratory Results - last 24 hr 02/13/19 02/17/19 02/17/19 05:30 11:09 12:30 WBC RBC Hgb Hct MCV MCH MCHC RDW Plt Count MPV Absolute Neuts (auto) Neutrophils % Lymphocytes % Monocytes % Eosinophils % Basophils % Nucleated RBC % Sodium Potassium Chloride Carbon Dioxide Anion Gap BUN Creatinine Creat Clearance w eGFR POC Glucometer 147 Random Glucose Calcium Phosphorus Magnesium Total Bilirubin Direct Bilirubin AST ALT Alkaline Phosphatase Total Protein Albumin CSF Appearance Clear CSF Color Colorless CSF WBC 0 CSF RBC 3 CSF Neutrophils No Result Required. CSF Lymphocytes No Result Required. CSF Eosinophils No Result Required. CSF Basophils No Result Required. CSF Macrophages No Result Required. CSF Plasma Cells No Result Required. CSF Diff Comment No Result Required. CSF Comment No Result Required. Glomerular Base Memb Ab 4 HCV Quantitation [id number] HCV RNA log copies/mL 6.785 02/17/19 02/17/19 02/18/19 16:13 22:16 05:15 WBC RBC Hgb Hct MCV MCH MCHC RDW Plt Count MPV Absolute Neuts (auto) Neutrophils % Lymphocytes % Monocytes % Eosinophils % Basophils % Nucleated RBC % Sodium Potassium Chloride Carbon Dioxide Anion Gap BUN Creatinine Creat Clearance w eGFR POC Glucometer 184 258 233 Random Glucose Calcium Phosphorus Magnesium Total Bilirubin Direct Bilirubin AST ALT Alkaline Phosphatase Total Protein Albumin CSF Appearance CSF Color CSF WBC CSF RBC CSF Neutrophils CSF Lymphocytes CSF Eosinophils CSF Basophils CSF Macrophages CSF Plasma Cells CSF Diff Comment CSF Comment Glomerular Base Memb Ab HCV Quantitation HCV RNA log copies/mL 02/18/19 02/18/19 05:30 05:30 WBC 10.7 H RBC 3.32 L Hgb 10.5 L Hct 29.7 L MCV 89.5 MCH 31.7 MCHC 35.4 RDW 18.9 H Plt Count 134 D MPV 8.2 Absolute Neuts (auto) 8.7 H Neutrophils % 80.7 Lymphocytes % 7.9 L D Monocytes % 9.4 Eosinophils % 1.8 Basophils % 0.2 D Nucleated RBC % 0 Sodium 136 Potassium 4.4 Chloride 111 H Carbon Dioxide 16 L Anion Gap 10 BUN 36 H Creatinine 2.0 H Creat Clearance w eGFR 25.50 POC Glucometer Random Glucose 232 H Calcium 6.9 L* Phosphorus 2.4 L Magnesium 2.3 Total Bilirubin 2.9 H Direct Bilirubin 2.3 H AST 85 H ALT 44 Alkaline Phosphatase 113 Total Protein 6.1 L Albumin 2.0 L CSF Appearance CSF Color CSF WBC CSF RBC CSF Neutrophils CSF Lymphocytes CSF Eosinophils CSF Basophils CSF Macrophages CSF Plasma Cells CSF Diff Comment CSF Comment Glomerular Base Memb Ab HCV Quantitation HCV RNA log copies/mL Active Medications Generic Name Dose Route Start Last Admin Trade Name Jody PRN Reason Stop Dose Admin Chlorhexidine Gluconate 1 applic 02/11/19 22:00 02/17/19 21:21 Hibiclens For Decolonization - TP 1 applic HS [facility] Administration Folic Acid 1 mg 02/12/19 10:00 02/17/19 09:41 Folic Acid - PO 1 mg DAILY [facility] Administration Pantoprazole Sodium 80 mg/ 100 mls @ 10 mls/hr 02/14/19 05:45 02/18/19 01:39 Sodium Chloride IVPB Not Given Q10H [facility] 8 MG/HR Ampicillin Sodium 1 gm/ Sodium 100 mls @ 200 mls/hr 02/14/19 10:00 02/18/19 01:42 Chloride IVPB 200 mls/hr Q8H-IV [facility] Administration Protocol Fentanyl 500 mcg/ Dextrose 100 mls @ 5 mls/hr 02/14/19 13:30 02/17/19 16:29 IVPB Not Given TITR [facility] Protocol 25 MCG/HR Insulin Aspart 1 vial 02/11/19 16:30 02/18/19 06:15 Novolog Vial Sliding Scale - SQ 4 units ACHS [facility] Administration Protocol Potassium Phos/Sodium Phos 1 packet 02/18/19 08:50 Phos-Nak Packet - PO 02/18/19 08:51 ONCE ONE Rifaximin 550 mg 02/12/19 10:00 02/17/19 21:21 Xifaxan - PO 550 mg BID [facility] Administration Zinc Oxide/Panthenol/Vitamin E 1 applic 02/11/19 16:03 Balmex Cream - TP DAILY PRN HYGEINE ASSESSMENT/PLAN: Patient is a 58 year old female who presented with altered mental status and was found to have hepatic metabolic encephalopathy and GI bleed. Patient evaluated by ICU and deemed stable for Med/Surg initially. However, patient had worsening AMS with Active GI bleed and is now transferred to ICU for further monitoring and management. NEURO/PSYCH -Toxic Metabolic encephalopathy? LP without any abnormal findings ID consult appreciated and case discussed -Hepatic Encephalopathy - resolved GI consult appreciated Ammonia resolved, however noted rising again yesterday, restart lactulose as GI bleeding resolved Head CT without significant changes/pathology/bleeding noted -Polysubstance Abuse Avoid benzo's Continue folate and thiamine Consider rehab placement if pt becomes stable for d/c CARDIO -HTN Hold Anti-HTN medications for now Continue to monitor BP and will treat as needed PULMONARY -Acute Hypoxic Respiratory Failire Intubated, currently saturating well on CPAP, maintain on CPAP and convert to AC overnight and as needed Maintain 02 saturation >95% Consider extubation vs discussion about trach and PEG tube with family GASTROENTEROLOGY -GI Bleed Ruled out Variceal bleeding Protonix drip for 48 more hours as per GI H/H stable Initial EGD without signs of significant varices or bleeding source Repeat EGD with Colonoscopy with bleeding ulcer - clipped, no further bleeding noted Lactic acid normal -Elevated Tbili and direct bili, 2.9 and 2.3 respectively Repeat RUQ US ordered with recent uptrend -Liver Cirrhosis with Hepatic Encephalopathy - Ammonia normalized, mental status not improved History of prior SBP Ascites on U/S Diagnostic paracentesis with cytology ordered, discussed with IR about possible procedure today -History of Hepatitis C Unsure if patient was treated Likely source of Liver cirrhosis HEMATOLOGY -Thrombocytopenia - improving Likely secondary to liver disease Continue to monitor maintain > 50 with active bleeding RENAL -BOB Unsure of baseline, stable Renal Consult appreciated Workup normal ENDOCRINE -IDDM II BGMs ISS PROPHYLAXIS -SCDs -Protonix drip FEN -none -Monitor and replete -Tolerating NGT feeds Disposition -Full code, poor prognosis, Family meeting at 11 am tomorrow to discuss further goals of care -Continue to monitor in the ICU Visit type - Emergency Visit Emergency Visit: Yes ED Registration Date: 02/08/19 Care time: The patient presented to the Emergency Department on the above date and was hospitalized for further evaluation of their emergent condition. - New Patient This patient is new to me today: No - Critical Care Critical Care patient: Yes Total Critical Care Time (in minutes): 40 Critical Care Statement: The care of this patient involved high complexity decision making to prevent further life threatening deterioration of the patient 's condition and/or to evaluate & treat vital organ system(s) failure or risk of failure.
[2019-02-18] MEDS ORDERED: NAPH,MB-DB/K PH,MBDB POWDER PACKET PO ONE ×2 (08:50→12:19)
[2019-02-18] MEDS ORDERED: PT OWN MED DRAWER 7, Y5N ONE ×2 (09:36→21:14)
[2019-02-18] MEDS: RIFAXIMIN 550 MG TABLET (UD) PO SCH ×2 (09:39→22:43)
[2019-02-18] MEDS: FOLIC ACID 1 MG TABLET (FP) PO SCH (09:40)
--- NOTE | 2019-02-18 10:41 | PN ---
Teaching Attending Note Name of Resident: Huy Mejia ATTENDING PHYSICIAN STATEMENT I saw and evaluated the patient. I reviewed the resident's note and discussed the case with the resident. I agree with the resident's findings and plan as documented. SUBJECTIVE: Patient seen and examined in the ICU. Remains intubated, obtunded off sedation. No improvement in clinical condition. AC Mode of vent. No pressors. OBJECTIVE: Intake & Output 02/15/19 02/16/19 02/17/19 02/18/19 23:59 23:59 23:59 23:59 Intake Total 3726 3328 2290 100 Output Total 900 1400 600 300 Balance 2826 1928 1690 -200 Weight 120 lb 5 oz 128 lb 7 oz 129 lb 6 oz 128 lb 14.4 oz Last Vital Signs Temp Pulse Resp BP Pulse Ox 98.5 F 89 21 H 144/87 100 02/18/19 06:00 02/18/19 08:00 02/18/19 09:30 02/18/19 08:00 02/17/19 19:58 Active Medications Chlorhexidine Gluconate (Hibiclens For Decolonization -) 1 applic TP HS [facility] Last Admin: 02/17/19 21:21 Dose: 1 applic Folic Acid (Folic Acid -) 1 mg PO DAILY [facility] Last Admin: 02/18/19 09:40 Dose: 1 mg Pantoprazole Sodium 80 mg/ (Sodium Chloride) 100 mls @ 10 mls/hr IVPB Q10H [facility] Last Admin: 02/18/19 01:39 Dose: Not Given Ampicillin Sodium 1 gm/ Sodium (Chloride) 100 mls @ 200 mls/hr IVPB Q8H-IV [facility] ; Protocol Last Admin: 02/18/19 09:40 Dose: 200 mls/hr Fentanyl 500 mcg/ Dextrose 100 mls @ 5 mls/hr IVPB TITR [facility]; Protocol Last Admin: 02/17/19 16:29 Dose: Not Given Insulin Aspart (Novolog Vial Sliding Scale -) 1 vial SQ ACHS [facility]; Protocol Last Admin: 02/18/19 06:15 Dose: 4 units Rifaximin (Xifaxan -) 550 mg PO BID [facility] Last Admin: 02/18/19 09:39 Dose: 550 mg Zinc Oxide/Panthenol/Vitamin E (Balmex Cream -) 1 applic TP DAILY PRN PRN Reason: HYGEINE Gen: intubated, obtunded Heart: RRR Lung: decreased breath sounds at the bases Abd: soft, +ascites Ext: no edema [employer]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 CSF Lymphocytes No Result Required. CSF Eosinophils No Result Required. CSF Basophils No Result Required. CSF Macrophages No Result Required. CSF Plasma Cells No Result Required. CSF Diff Comment No Result Required. CSF Comment No Result Required. Glomerular Base Memb Ab 4 HCV Quantitation [id number] HCV RNA log copies/mL 6.785 02/17/19 02/17/19 02/18/19 16:13 22:16 05:15 WBC RBC Hgb Hct MCV MCH MCHC RDW Plt Count MPV Absolute Neuts (auto) Neutrophils % Lymphocytes % Monocytes % Eosinophils % Basophils % Nucleated RBC % Sodium Potassium Chloride Carbon Dioxide Anion Gap BUN Creatinine Creat Clearance w eGFR POC Glucometer 184 258 233 Random Glucose Calcium Phosphorus Magnesium Total Bilirubin Direct Bilirubin AST ALT Alkaline Phosphatase Total Protein Albumin CSF Appearance CSF Color CSF WBC CSF RBC CSF Neutrophils CSF Lymphocytes CSF Eosinophils CSF Basophils CSF Macrophages CSF Plasma Cells CSF Diff Comment CSF Comment Glomerular Base Memb Ab HCV Quantitation HCV RNA log copies/mL 02/18/19 02/18/19 05:30 05:30 WBC 10.7 H RBC 3.32 L Hgb 10.5 L Hct 29.7 L MCV 89.5 MCH 31.7 MCHC 35.4 RDW 18.9 H Plt Count 134 D MPV 8.2 Absolute Neuts (auto) 8.7 H Neutrophils % 80.7 Lymphocytes % 7.9 L D Monocytes % 9.4 Eosinophils % 1.8 Basophils % 0.2 D Nucleated RBC % 0 Sodium 136 Potassium 4.4 Chloride 111 H Carbon Dioxide 16 L Anion Gap 10 BUN 36 H Creatinine 2.0 H Creat Clearance w eGFR 25.50 POC Glucometer Random Glucose 232 H Calcium 6.9 L* Phosphorus 2.4 L Magnesium 2.3 Total Bilirubin 2.9 H Direct Bilirubin 2.3 H AST 85 H ALT 44 Alkaline Phosphatase 113 Total Protein 6.1 L Albumin 2.0 L CSF Appearance CSF Color CSF WBC CSF RBC CSF Neutrophils CSF Lymphocytes CSF Eosinophils CSF Basophils CSF Macrophages CSF Plasma Cells CSF Diff Comment CSF Comment Glomerular Base Memb Ab HCV Quantitation HCV RNA log copies/mL ASSESSMENT AND PLAN: Acute Respiratory Failure Altered Mental Status Hepatic Encephalopathy GI Bleed Acute Blood Loss Anemia Acute Kidney Injury Liver Cirrhosis Alcohol Abuse Hep C Thrombocytopenia h/o SBP UTI HTN DM - monitor H/H, coags - Normal transfusion thresholds - lactulose, rifaximin - protonix - continue antibiotics - monitor urine output, creatinine - spontaneous breathing trials as tolerated once mental status improved: May need Trach - DVT/GI prophylaxis - continue ICU monitoring - prognosis guarded Dr Mckeon Critical care time spent in reviewing chart, evaluating patient and formulating plan 35 min
--- NOTE | 2019-02-18 11:08 | PN ---
Teaching Attending Note Name of Resident: Houston Melo ATTENDING PHYSICIAN STATEMENT I saw and evaluated the patient. I reviewed the resident's note and discussed the case with the resident. I agree with the resident's findings and plan as documented. SUBJECTIVE:intubated s/P LP done yesterday. results negative for menningitis/encephalitis OBJECTIVE: Last Vital Signs Temp Pulse Resp BP Pulse Ox 98.5 F 89 21 H 144/87 100 02/18/19 06:00 02/18/19 08:00 02/18/19 09:30 02/18/19 08:00 02/17/19 19:58 General intubated, does not withdraw to pain, PERRL, +Gag non purposeful movements CV S1 S2 RRR no murmur/rub/gallop Lungs Coarse breath sounds anteriorly Abdomen soft + distended extremities no pedal edema ASSESSMENT AND PLAN: 58 year old female with history of Liver Cirrhosis, Alcohol Abuse, Hepatitis C, recent history of SBP 12/14, DM 2, HTN, Polysubstance Abuse (including Alcohol), Bipolar Disorder, sent to ED from [facility] for agitation, combativeness, and altered mental status while undergoing detox. with no improvement and was intubated 02/11 to protect airway and now in the MICU with course complicated with development of melena. 1. Acute Hepatic Encephalopathy versus Toxic Encephalopathy secondary to Ativan and decompensating liver failure-no improvements. concern also remains for status ellipticus with no convulsions. LP done yesterday not suggestive of infection, awaiting for full studies to return. will like to have EEG to further evaluate for subclinical seziures. will re-start lactulose as ammonia level is starting to trend up again. ID and neuro on board. 2. Acute respiratory failure- s/p intubation for airway protection. tolerating cpap trial however due to lack of mental status may require trach. will need family meeting to determine goals of care. management per ICU team 3. Melena-repeat EGD 02/14 showing duodenal ulcer with adherent clot. no signs of repeat bleeding. tolerating TF. will need to consider PEG. off octreotide/ PPI ggt 4. esophageal varicces- with portal HTN. no stigmata of recent bleeding. will need routine surveillance 5. Acute blood loss anemia- due to duodenal ulcer s/p 4 units PRBC this hospital stay. no more bleeding noted. normal transfusion threshold. 6. hypocalcemia- Corrected Ca 8.1. ca via NGT 7. Acute decompensated liver failure-now improved 8. E. Faecalis UTI- ceftriaxone and ampicillin day 7 of 7. can d/c abx after today 9. Ascites- seen on u/s. had recent treatment for SBP. plan for paracentesis today. GI and ID on board 10. Thrombocytopenia-due to cirrhosis. s/p 1 unit platelets. no signs of bleeding. resolved 11. BOB- unknown baseline Cr. slowly trending down. nephro on board. workup sent. on low dose IVF. monitor UOP. avoid nephrotoxic agents. 12. DM- hold oral agents. iss and Bgm. 13. Continuous ETOH abuse- no signs of withdrawals. counselling once medically stabilized. on thiamine/folate/MVI 14. HTN- currently normotensive off oral agents 15. DVT PPI- SCD. hold pharmacologic in setting of active bleeding 16. MICU monitoring. has 5 children. will need to have family meeting this week to discuss goals of care The care of this patient involved high complexity decision making to prevent further life threatening deterioration of the patient's condition and/or to evaluate & treat vital organ system(s) failure or risk of failure. 38 mins
[2019-02-18] MEDS: LACTULOSE 20 GM/30 ML UDC (FOR ORAL USE ONLY) NGT PRN (12:33)
--- NOTE | 2019-02-18 13:16 | PN.GI ---
GI Progress Note Subjective: No Overt bleeding. Had paracentesis today. Unclear how much removed (called down to radiology, awaiting callback) Mental status remains unimproved. Daughter present at bedside - Objective Vital Signs: Vital Signs Temperature 98.4 F 02/18/19 10:00 Pulse Rate 85 02/18/19 12:00 Respiratory Rate 21 H 02/18/19 12:00 Blood Pressure 146/133 H 02/18/19 12:00 O2 Sat by Pulse Oximetry (%) 100 02/17/19 19:58 Constitutional: Calm Eyes: Yes: Sclera Icterus Cardiovascular: Yes: Regular Rate and Rhythm, Murmur Respiratory: Yes: Diminished (at bases bilaterally with poor insp. effort) ...Auscultate: Yes: Normoactive Bowel Sounds ...Palpate: Yes: Soft (softly protuberant). No: Tenderness (No fgrimacing upon palpation) ...Percussion: No: Tympanitic Neurological: Yes: Other (Opens eyes spontaneously) Labs: CBC, BMP 02/18/19 05:30 02/18/19 05:30 INR, PTT INR 1.27 (0.83-1.09) H 02/17/19 05:30 Hepatic Panel Total Bilirubin 2.9 mg/dL (0.2-1) H 02/18/19 05:30 Direct Bilirubin 2.3 mg/dL (0.0-0.2) H 02/18/19 05:30 AST 85 U/L (15-37) H 02/18/19 05:30 ALT 44 U/L (13-61) 02/18/19 05:30 Alkaline Phosphatase 113 U/L (45-117) 02/18/19 05:30 Albumin 2.0 g/dl (3.4-5.0) L 02/18/19 05:30 Problem List - Problems (1) GI bleed Assessment/Plan: No overt bleeding with stable H/H D/C protonix drip in am and continue Protonix 40mg IVPB daily Follow-up CT scan from 04/16. No official read in chart . Discussed with ICU creative services intern Jackie Code(s): K92.2 - GASTROINTESTINAL HEMORRHAGE, UNSPECIFIED (2) Ascites Assessment/Plan: Follow-up perotineal fluid studies Nephrology on case re: renal insufficiency Code(s): R18.8 - OTHER ASCITES (3) Altered mental status Assessment/Plan: S/P LP On Lactulose . Rifaximin Avoid excessive diarrea (goal 4-5 loose BM's per day Neuro eval Daughter explained that there will be a family meeting tomorrow Code(s): R41.82 - ALTERED MENTAL STATUS, UNSPECIFIED Qualifiers: Altered mental status type: stupor Qualified Code(s): R40.1 - Stupor
--- NOTE | 2019-02-18 13:27 | PN ---
Progress Note, Physician History of Present Illness: Pt seen and examined at bedside. She remains in the ICU intubated. - Current Medication List Current Medications: Active Medications Chlorhexidine Gluconate (Hibiclens For Decolonization -) 1 applic TP HS [facility] Last Admin: 02/17/19 21:21 Dose: 1 applic Folic Acid (Folic Acid -) 1 mg PO DAILY [facility] Last Admin: 02/18/19 09:40 Dose: 1 mg Pantoprazole Sodium 80 mg/ (Sodium Chloride) 100 mls @ 10 mls/hr IVPB Q10H [facility] Last Admin: 02/18/19 12:31 Dose: 10 mls/hr Fentanyl 500 mcg/ Dextrose 100 mls @ 5 mls/hr IVPB TITR [facility]; Protocol Last Admin: 02/17/19 16:29 Dose: Not Given Insulin Aspart (Novolog Vial Sliding Scale -) 1 vial SQ ACHS [facility]; Protocol Last Admin: 02/18/19 12:29 Dose: 4 units Lactulose (Cephulac (Oral Use)) 20 gm NGT TID PRN PRN Reason: CONSTIPATION Last Admin: 02/18/19 12:33 Dose: 20 gm Rifaximin (Xifaxan -) 550 mg PO BID [facility] Last Admin: 02/18/19 09:39 Dose: 550 mg Zinc Oxide/Panthenol/Vitamin E (Balmex Cream -) 1 applic TP DAILY PRN PRN Reason: HYGEINE - Objective Vital Signs: Vital Signs Temperature 98.4 F 02/18/19 10:00 Pulse Rate 85 02/18/19 12:00 Respiratory Rate 21 H 02/18/19 12:00 Blood Pressure 146/133 H 02/18/19 12:00 O2 Sat by Pulse Oximetry (%) 100 02/17/19 19:58 Constitutional: Yes: Calm Cardiovascular: Yes: S1, S2 Respiratory: Yes: Mechanically Ventilated Gastrointestinal: Yes: Soft Genitourinary: Yes: Vanegas Present Edema: Yes Edema: LLE: 1+, RLE: 1+ Neurological: Yes: Lethargy Labs: CBC, BMP 02/18/19 05:30 02/18/19 05:30 INR, PTT INR 1.27 (0.83-1.09) H 02/17/19 05:30 Problem List - Problems (1) Altered mental status Code(s): R41.82 - ALTERED MENTAL STATUS, UNSPECIFIED Qualifiers: Altered mental status type: stupor Qualified Code(s): R40.1 - Stupor (2) Hepatic encephalopathy Code(s): K72.90 - HEPATIC FAILURE, UNSPECIFIED WITHOUT COMA (3) Alcohol dependence Code(s): F10.20 - ALCOHOL DEPENDENCE, UNCOMPLICATED (4) Cocaine dependence Code(s): F14.20 - COCAINE DEPENDENCE, UNCOMPLICATED Assessment/Plan Current Medications Generic Name Dose Route Start Last Admin Trade Name Freq PRN Reason Stop Dose Admin Chlorhexidine Gluconate 1 applic 02/11/19 22:00 02/17/19 21:21 Hibiclens For Decolonization - TP 1 applic HS [facility] Administration Folic Acid 1 mg 02/12/19 10:00 02/18/19 09:40 Folic Acid - PO 1 mg DAILY [facility] Administration Pantoprazole Sodium 80 mg/ 100 mls @ 10 mls/hr 02/14/19 05:45 02/18/19 12:31 Sodium Chloride IVPB 10 mls/hr Q10H [facility] Administration 8 MG/HR Fentanyl 500 mcg/ Dextrose 100 mls @ 5 mls/hr 02/14/19 13:30 02/17/19 16:29 IVPB Not Given TITR [facility] Protocol 25 MCG/HR Insulin Aspart 1 vial 02/11/19 16:30 02/18/19 12:29 Novolog Vial Sliding Scale - SQ 4 units ACHS [facility] Administration Protocol Lactulose 20 gm 02/18/19 11:10 02/18/19 12:33 Cephulac (Oral Use) NGT 20 gm TID PRN Administration CONSTIPATION Rifaximin 550 mg 02/12/19 10:00 02/18/19 09:39 Xifaxan - PO 550 mg BID [facility] Administration Zinc Oxide/Panthenol/Vitamin E 1 applic 02/11/19 16:03 Balmex Cream - TP DAILY PRN [facility] Laboratory Tests 02/13/19 05:30 VICENTE Screen Negative c-ANCA Pending Proteinase 3 (PR3) Pending p-ANCA Pending Atypical p-ANCA Pending Myeloperoxidase Ab Pending Double Strand DNA Ab <1 Glomerular Base Memb Ab 4 Impression 1. CKD 2. BOB 3. resp failure 4. etoh abuse 5. liver cirrhosis 6. bipolar 7. change in mental status 8. metabolic acidosis Plan - cont to monitor renal function - vent support - fluids on hold for now - renal workup in progress - monitor mental status Dr Jarrett
[2019-02-18] MEDS: FENTANYL INJECTION 500 MCG in DEXTROSE 5%-WATER - 90 ML IVPB SCH (13:31)
[2019-02-18 14:02] LABS: BF WBC & OTHER NUCLEATED CELLS 79 /mm3
[2019-02-18 14:12] LABS: ATYPICAL pANCA <1:20 titer (Neg:<1:20); C-ANCA <1:20 titer (Neg:<1:20); P-ANCA <1:20 titer (Neg:<1:20)
[2019-02-18 15:37] LABS: BODY FLUID MACROPHAGES 37 %; BODY FLUID MESOTHELIAL 9 %
[2019-02-18 15:37] LABS: BF GLUCOSE (CSF ONLY) 80 mg/dL (40-70)
[2019-02-18] MEDS ORDERED: LORazepam 2 MG/ML SDV VIAL ONE (19:17)
[2019-02-18] MEDS: CHLORHEXIDINE GLUCONATE 4% CLEANSER FOR DECOLONIZATION TP SCH (22:42)
[2019-02-19] MEDS: PANTOPRAZOLE SODIUM 80 MG in SODIUM CHLORIDE 100 ML IVPB SCH (05:57)
[2019-02-19] MEDS: INSULIN SLIDING SCALE (NOVOLOG) 1 VIAL SQ SCH ×4 (06:04→23:34)
[2019-02-19 06:50] LABS: HEMATOCRIT 27.7 % (32.4-45.2); HEMOGLOBIN 9.7 GM/dL (10.7-15.3); MEAN CELL VOLUME 91.7 fl (80-96); MEAN PLT VOLUME 8.1 fl (7.5-11.1); PLATELET COUNT 114 K/MM3 (134-434); RBC 3.02 M/mm3 (3.60-5.2); RDW 19.9 % (11.6-15.6); WHITE BLOOD COUNT 9.8 K/mm3 (4.0-10.0)
[2019-02-19 07:33] LABS: ALBUMIN 1.8 g/dl (3.4-5.0); ALK PHOS 101 U/L (45-117); ANION GAP 10 MMOL/L (8-16); BILIRUBIN,TOTAL 3.3 mg/dL (0.2-1); BLOOD UREA NITROGEN 45 mg/dL (7-18); CALCIUM 7.1 mg/dL (8.5-10.1); CHLORIDE 114 mmol/L (98-107); CO2 15 mmol/L (21-32); CREATININE 2.1 mg/dL (0.55-1.3); GLUCOSE,RANDOM 240 mg/dL (74-106); MAGNESIUM 2.2 mg/dL (1.8-2.4); PHOSPHOROUS 3.4 mg/dL (2.5-4.9); POTASSIUM 4.5 mmol/L (3.5-5.1); SGOT/AST 76 U/L (15-37); SGPT/ALT 40 U/L (13-61); SODIUM 138 mmol/L (136-145); TOT PROT 5.7 g/dl (6.4-8.2)
--- NOTE | 2019-02-19 08:40 | PN ---
Physical Exam: SUBJECTIVE: Patient seen and examined this AM. Unresponsive to voice or painful stimuli. OBJECTIVE: Vital Signs Period Temp Pulse Resp BP Sys/Aguilar Pulse Ox Last 24 Hr 98.4 F-99.5 F 70-99 17-25 139-175/72-133 100-100 GEN: Intubated, off sedation, not responding or following commands. HEENT: dry mucus membranes NECK: supple HEART: Regular rate and rhythm, 5/6 systolic murmur noted LUNGS: CTA b/l ABDOMEN: Soft, nontender, distension noted, however improved following paracentesis EXTREMITIES: dependent edema noted in b/l UE, good peripheral pulses throughout NEURO: Intubated, off sedation, no agitation, not responsive to voice or painful stimuli including nail bed pressure or sternal rub, occasionally will open eyes to repeated stimulus, gag and corneal reflex in tact Laboratory Results - last 24 hr 02/13/19 02/15/19 02/17/19 05:30 10:50 12:30 WBC RBC Hgb Hct MCV MCH MCHC RDW Plt Count MPV Sodium Potassium Chloride Carbon Dioxide Anion Gap BUN Creatinine Creat Clearance w eGFR POC Glucometer Random Glucose Calcium Phosphorus Magnesium Total Bilirubin AST ALT Alkaline Phosphatase Total Protein Albumin Fluid Source Fluid WBC Fluid RBC Fluid Neutrophils Fluid Lymphocytes CSF Glucose 80 H CSF Total Protein 39 Pleural Macrophages Pleural Mesothelial c-ANCA <1:20 Proteinase 3 (PR3) <3.5 p-ANCA <1:20 Atypical p-ANCA <1:20 Myeloperoxidase Ab <9.0 Blood Type O POSITIVE Antibody Screen Negative Crossmatch See Detail 02/18/19 02/18/19 02/18/19 12:00 12:22 17:43 WBC RBC Hgb Hct MCV MCH MCHC RDW Plt Count MPV Sodium Potassium Chloride Carbon Dioxide Anion Gap BUN Creatinine Creat Clearance w eGFR POC Glucometer 224 214 Random Glucose Calcium Phosphorus Magnesium Total Bilirubin AST ALT Alkaline Phosphatase Total Protein Albumin Fluid Source Peritoneal Fluid WBC 79 Fluid RBC 463 Fluid Neutrophils 29 Fluid Lymphocytes 25 CSF Glucose CSF Total Protein Pleural Macrophages 37 Pleural Mesothelial 9 c-ANCA Proteinase 3 (PR3) p-ANCA Atypical p-ANCA Myeloperoxidase Ab Blood Type Antibody Screen Crossmatch 02/18/19 02/19/19 02/19/19 22:20 05:30 05:30 WBC 9.8 RBC 3.02 L Hgb 9.7 L Hct 27.7 L MCV 91.7 MCH 32.0 MCHC 35.0 RDW 19.9 H Plt Count 114 L MPV 8.1 Sodium 138 Potassium 4.5 Chloride 114 H Carbon Dioxide 15 L Anion Gap 10 BUN 45 H Creatinine 2.1 H Creat Clearance w eGFR 24.11 POC Glucometer 203 Random Glucose 240 H Calcium 7.1 L Phosphorus 3.4 Magnesium 2.2 Total Bilirubin 3.3 H AST 76 H ALT 40 Alkaline Phosphatase 101 Total Protein 5.7 L Albumin 1.8 L Fluid Source Fluid WBC Fluid RBC Fluid Neutrophils Fluid Lymphocytes CSF Glucose CSF Total Protein Pleural Macrophages Pleural Mesothelial c-ANCA Proteinase 3 (PR3) p-ANCA Atypical p-ANCA Myeloperoxidase Ab Blood Type Antibody Screen Crossmatch 02/19/19 05:51 WBC RBC Hgb Hct MCV MCH MCHC RDW Plt Count MPV Sodium Potassium Chloride Carbon Dioxide Anion Gap BUN Creatinine Creat Clearance w eGFR POC Glucometer 219 Random Glucose Calcium Phosphorus Magnesium Total Bilirubin AST ALT Alkaline Phosphatase Total Protein Albumin Fluid Source Fluid WBC Fluid RBC Fluid Neutrophils Fluid Lymphocytes CSF Glucose CSF Total Protein Pleural Macrophages Pleural Mesothelial c-ANCA Proteinase 3 (PR3) p-ANCA Atypical p-ANCA Myeloperoxidase Ab Blood Type Antibody Screen Crossmatch Active Medications Generic Name Dose Route Start Last Admin Trade Name Freq PRN Reason Stop Dose Admin Chlorhexidine Gluconate 1 applic 02/11/19 22:00 02/18/19 22:42 Hibiclens For Decolonization - TP 1 applic HS [facility] Administration Folic Acid 1 mg 02/12/19 10:00 02/18/19 09:40 Folic Acid - PO 1 mg DAILY [facility] Administration Pantoprazole Sodium 80 mg/ 100 mls @ 10 mls/hr 02/14/19 05:45 02/19/19 05:57 Sodium Chloride IVPB 10 mls/hr Q10H [facility] Administration 8 MG/HR Insulin Aspart 1 vial 02/11/19 16:30 02/19/19 06:04 Novolog Vial Sliding Scale - SQ 2 units ACHS [facility] Administration Protocol Lactulose 20 gm 02/18/19 11:10 02/18/19 12:33 Cephulac (Oral Use) NGT 20 gm TID PRN Administration CONSTIPATION Rifaximin 550 mg 02/12/19 10:00 02/18/19 22:43 Xifaxan - PO 550 mg BID [facility] Administration Zinc Oxide/Panthenol/Vitamin E 1 applic 02/11/19 16:03 Balmex Cream - TP DAILY PRN HYGEINE ASSESSMENT/PLAN: Patient is a 58 year old female who presented with altered mental status and was found to have hepatic metabolic encephalopathy and GI bleed. Patient evaluated by ICU and deemed stable for Med/Surg initially. However, patient had worsening AMS with Active GI bleed and is now transferred to ICU for further monitoring and management. NEURO/PSYCH -Toxic Metabolic encephalopathy? LP without any abnormal findings ID consult appreciated and case discussed -Hepatic Encephalopathy - resolved GI consult appreciated lactulose/rifaximin as GI bleeding resolved Head CT without significant changes/pathology/bleeding noted Mental status possibly improving today, will continue to monitor for improvement -Polysubstance Abuse Avoid benzo's Continue folate and thiamine Consider rehab placement if pt becomes stable for d/c CARDIO -HTN Hold Anti-HTN medications for now Continue to monitor BP and will treat as needed PULMONARY -Acute Hypoxic Respiratory Failire Intubated, currently saturating well on CPAP, maintain on CPAP and convert to AC overnight and as needed Maintain 02 saturation >95% Will attempt to extubate in AM GASTROENTEROLOGY -GI Bleed Ruled out Variceal bleeding Protonix drip for 48 more hours as per GI H/H stable Initial EGD without signs of significant varices or bleeding source Repeat EGD with Colonoscopy with bleeding ulcer - clipped, no further bleeding noted Lactic acid normal -Elevated Tbili and direct bili Repeat RUQ US ordered with recent uptrend -Liver Cirrhosis with Hepatic Encephalopathy - Ammonia normalized, mental status not improved History of prior SBP Ascites on U/S Diagnostic paracentesis with cytology ordered, discussed with IR about possible procedure today -History of Hepatitis C Unsure if patient was treated Likely source of Liver cirrhosis HEMATOLOGY -Thrombocytopenia - improving Likely secondary to liver disease Continue to monitor maintain > 50 with active bleeding RENAL -BOB Unsure of baseline, stable Renal Consult appreciated Workup normal ENDOCRINE -IDDM II BGMs ISS PROPHYLAXIS -SCDs -Protonix drip FEN -none -Monitor and replete -Tolerating NGT feeds Disposition -Full code, poor prognosis, Family meeting today to discuss future goals of care. Family to discuss goals and plans if patient does not continue to improve -Continue to monitor in the ICU Visit type - Emergency Visit Emergency Visit: Yes ED Registration Date: 02/08/19 Care time: The patient presented to the Emergency Department on the above date and was hospitalized for further evaluation of their emergent condition. - New Patient This patient is new to me today: No - Critical Care Critical Care patient: Yes Total Critical Care Time (in minutes): 45 Critical Care Statement: The care of this patient involved high complexity decision making to prevent further life threatening deterioration of the patient 's condition and/or to evaluate & treat vital organ system(s) failure or risk of failure.
--- NOTE | 2019-02-19 09:23 | PN ---
Physical Exam: SUBJECTIVE: Patient seen and examined at bedside in ICU. Intubated, off sedation , remains vegetative. OBJECTIVE: Vital Signs Period Temp Pulse Resp BP Sys/Aguilar Pulse Ox Last 24 Hr 98.4 F-99.5 F 70-99 17-25 139-175/72-133 100-100 GENERAL: Intubated, off sedation, mental status is vegetative HEENT: NC/AT, PERRLA NECK: Trachea midline LUNGS: Limited exam, no adventitious sounds appreciated over ventilator HEART: RRR no m/r/g ABDOMEN: +bs, soft, increased fluid appreciated EXTREMITIES: 2+ pulses, wwp, no edema appreciated NEUROLOGICAL: non-purposeful spontaneous movement, eye opening, no response to noxious stimuli, +gag PSYCH: Unable to assess SKIN: Warm, dry, jaundiced Laboratory Results - last 24 hr 02/13/19 02/15/19 02/17/19 05:30 10:50 12:30 WBC RBC Hgb Hct MCV MCH MCHC RDW Plt Count MPV Sodium Potassium Chloride Carbon Dioxide Anion Gap BUN Creatinine Creat Clearance w eGFR POC Glucometer Random Glucose Calcium Phosphorus Magnesium Total Bilirubin AST ALT Alkaline Phosphatase Total Protein Albumin Fluid Source Fluid WBC Fluid RBC Fluid Neutrophils Fluid Lymphocytes CSF Glucose 80 H CSF Total Protein 39 Pleural Macrophages Pleural Mesothelial c-ANCA <1:20 Proteinase 3 (PR3) <3.5 p-ANCA <1:20 Atypical p-ANCA <1:20 Myeloperoxidase Ab <9.0 Blood Type O POSITIVE Antibody Screen Negative Crossmatch See Detail 02/18/19 02/18/19 02/18/19 12:00 12:22 17:43 WBC RBC Hgb Hct MCV MCH MCHC RDW Plt Count MPV Sodium Potassium Chloride Carbon Dioxide Anion Gap BUN Creatinine Creat Clearance w eGFR POC Glucometer 224 214 Random Glucose Calcium Phosphorus Magnesium Total Bilirubin AST ALT Alkaline Phosphatase Total Protein Albumin Fluid Source Peritoneal Fluid WBC 79 Fluid RBC 463 Fluid Neutrophils 29 Fluid Lymphocytes 25 CSF Glucose CSF Total Protein Pleural Macrophages 37 Pleural Mesothelial 9 c-ANCA Proteinase 3 (PR3) p-ANCA Atypical p-ANCA Myeloperoxidase Ab Blood Type Antibody Screen Crossmatch 02/18/19 02/19/19 02/19/19 22:20 05:30 05:30 WBC 9.8 RBC 3.02 L Hgb 9.7 L Hct 27.7 L MCV 91.7 MCH 32.0 MCHC 35.0 RDW 19.9 H Plt Count 114 L MPV 8.1 Sodium 138 Potassium 4.5 Chloride 114 H Carbon Dioxide 15 L Anion Gap 10 BUN 45 H Creatinine 2.1 H Creat Clearance w eGFR 24.11 POC Glucometer 203 Random Glucose 240 H Calcium 7.1 L Phosphorus 3.4 Magnesium 2.2 Total Bilirubin 3.3 H AST 76 H ALT 40 Alkaline Phosphatase 101 Total Protein 5.7 L Albumin 1.8 L Fluid Source Fluid WBC Fluid RBC Fluid Neutrophils Fluid Lymphocytes CSF Glucose CSF Total Protein Pleural Macrophages Pleural Mesothelial c-ANCA Proteinase 3 (PR3) p-ANCA Atypical p-ANCA Myeloperoxidase Ab Blood Type Antibody Screen Crossmatch 02/19/19 05:51 WBC RBC Hgb Hct MCV MCH MCHC RDW Plt Count MPV Sodium Potassium Chloride Carbon Dioxide Anion Gap BUN Creatinine Creat Clearance w eGFR POC Glucometer 219 Random Glucose Calcium Phosphorus Magnesium Total Bilirubin AST ALT Alkaline Phosphatase Total Protein Albumin Fluid Source Fluid WBC Fluid RBC Fluid Neutrophils Fluid Lymphocytes CSF Glucose CSF Total Protein Pleural Macrophages Pleural Mesothelial c-ANCA Proteinase 3 (PR3) p-ANCA Atypical p-ANCA Myeloperoxidase Ab Blood Type Antibody Screen Crossmatch Active Medications Generic Name Dose Route Start Last Admin Trade Name Freq PRN Reason Stop Dose Admin Chlorhexidine Gluconate 1 applic 02/11/19 22:00 02/18/19 22:42 Hibiclens For Decolonization - TP 1 applic HS SACHIN Administration Folic Acid 1 mg 02/12/19 10:00 02/18/19 09:40 Folic Acid - PO 1 mg DAILY SACHIN Administration Pantoprazole Sodium 80 mg/ 100 mls @ 10 mls/hr 02/14/19 05:45 02/19/19 05:57 Sodium Chloride IVPB 10 mls/hr Q10H SACHIN Administration 8 MG/HR Insulin Aspart 1 vial 02/11/19 16:30 02/19/19 06:04 Novolog Vial Sliding Scale - SQ 2 units ACHS SACHIN Administration Protocol Lactulose 20 gm 02/18/19 11:10 02/18/19 12:33 Cephulac (Oral Use) NGT 20 gm TID PRN Administration CONSTIPATION Rifaximin 550 mg 02/12/19 10:00 02/18/19 22:43 Xifaxan - PO 550 mg BID SACHIN Administration Zinc Oxide/Panthenol/Vitamin E 1 applic 02/11/19 16:03 Balmex Cream - TP DAILY PRN HYGEINE ASSESSMENT/PLAN: 58 y/o F w/ PMHx cirrhosis, hep C, polysubstance abuse including EtOH, DM, HTN, bipolar disorder, recent h/o SBP 12/14, presents from [facility] for agitation, combativeness, AMS while undergoing detox #GI -cirrhosis w/ prior SBP -ascites on US -GI consulted -albumin infusions as per ICU team -no active bleeding identified on initial EGD -on repeat EGD, colonoscopy, esophageal ulcer identified and clipped -had rebleed 02/14-02/15, Hb dropped to 6.6, received 2 further units PRBC (5U total + 1U Plts) -PTX gtt -H/H stable this AM -monitor CBC -NPO -had paracentesis yesterday, results pending -cont rifaximin and lactulose -Bilirubin continues rising #heme -thrombocytopenia 2/2 liver disease -INR persistently elevated #CV -holding anti-hypertensives -maintain MAP > 65 -no indication for pressors at this time -hemodynamic support as per ICU team #pulmonary -vent settings as per ICU team -doing well on CPAP mode, mental status remains a problem -consideration of extubation as per ICU team #neuro -vegetative off sedation, no response to noxious stimuli, does open eyes, pupils are reactive, movement non-purposeful -cont thiamine, folate -cont lactulose and rifaximin -cont IVF -neurology following -LP: CSF WBC 0, further results pending -EEG planned today #ID -UCx growing enterococcus, BCx NGTD -ID consulted -completed ABx #renal -remains in BOB -monitor BMP -cont IVF -multiple immunologic/serologic panels pending #endocrine -SSI, BGM #GOC -grave prognosis -patient's children aware of condition and attempting to reach consensus on GOC : Addy (Eldest), Second child Ms. Sawyerheavenlysaad Celsa [phone]), Third child Ms. Johana Germain ([phone]), Fourth child Ron Germain (can call after 6 pm at [phone]), Fifth child is in [place] -initiated discussion of potential need for PEG/trach and permanent institutionalization vs. comfort care measures w/ Wally, who believes her mother would not want to be kept alive on machines #FEN -hold IVF -monitor and correct electrolytes -NPO #PPx -DVT: mechanical only -GI: PTX gtt #code -full #dispo -cont to monitor in ICU Visit type - Emergency Visit Emergency Visit: No - New Patient This patient is new to me today: No - Critical Care Critical Care patient: Yes Total Critical Care Time (in minutes): 40 Critical Care Statement: The care of this patient involved high complexity decision making to prevent further life threatening deterioration of the patient 's condition and/or to evaluate & treat vital organ system(s) failure or risk of failure.
[2019-02-19] MEDS: FOLIC ACID 1 MG TABLET (FP) PO SCH (10:27)
--- NOTE | 2019-02-19 10:27 | PN ---
Progress Note (short form) - Note Progress Note: NEUROLOGY F/U: Events reviewed and discussed with HO (Huy, Lacy) and CARLO Sarah. S/P on ampicillin for UTI. LP done as well as paracentesis. Reportedly with seizure-like activity yesterday evening at 10pm noted with BP 200/100 and tachycardiac in 120s, given Ativan 2mg IVP. Was still lethargic and poorly responsive this AM when examined by Vicki Ramos. Trial on CPAP post-op with consideration of weaning off vent. Pt became more alert as the day progressed. CSF fluid: 3 WBC or growth x 48H. Protein=39 mg%. Glu=80 mg% Peritoneal fluid: no malignant cells CT of head repeated in eval of lethargy (reviewed): No heme or new CVA. No change from the admission study. LEIF: Afebrile. 140s-170s/80-100. on vent and tube feedings. Vanegas in situ. Abdomen obese but not tense. Hands appear swollen. NEURO: Opens eyes to name + spontaneous respirations Full roving EOM's. + corneal reflexes. [id number]. Rigidity noted in both elbows. Nl reflexes. Plantars silent. Grimaces to pinch in all fours IMP: 1. Hepatic encephalopathy/ GI Bleed (improving after correction of bleed) with decreasing Ammonia levels 2. ? New onset seizure activity vs. hypertensive encephalopathy SUGGEST: Order CT of head (C-) to R/O bleed Observe off seizure medication at this time. Avoid benzodiazepines (lorazepam) since pt will metabolize slowly due to liver impairment which possibly explains prolonged sedation Systolic BP control 120-130s (use labetolol PRN) Trial wean off vent as tolerated. Thank you very much, Koffi Ravi MD
[2019-02-19] MEDS: PANTOPRAZOLE SODIUM 40 MG VIAL IVPUSH SCH (10:36)
--- NOTE | 2019-02-19 11:42 | PN.GI ---
GI Progress Note Subjective: Pt seen/examined at bedside, remains intubated, off sedation though unresponsive to verbal or painful stimuli. No further overt bleeding reported. One small soft greenish bm per nursing staff. - Objective Vital Signs: Vital Signs Temperature 97.8 F 02/19/19 10:00 Pulse Rate 72 02/19/19 10:00 Respiratory Rate 16 02/19/19 11:05 Blood Pressure 162/74 02/19/19 10:00 O2 Sat by Pulse Oximetry (%) 100 02/19/19 07:58 Constitutional: No Distress, Calm, Other (intubated) Cardiovascular: Yes: WNL, Regular Rate and Rhythm Respiratory: Yes: WNL, Regular, CTA Bilaterally ...Palpate: Yes: Other (Abd softly distended, no tenderness elicited) Edema: No Labs: CBC, BMP 02/19/19 05:30 02/19/19 05:30 INR, PTT INR 1.27 (0.83-1.09) H 02/17/19 05:30 Problem List - Problems (1) GI bleed Assessment/Plan: 58yo female h/o polysubstance abuse, HCV/cirrhosis, DM presenting with AMS s/p intubation with melena s/p EGD on 02/12 and 02/14 revealing small EV, portal HTN gastropathy and duodenal bulb ulcer with adherent clot s/p epi and endoclip placement. No further overt bleeding, Hb stable. -Continue to closely monitor Hb and for evidence of bleeding -PPI daily (changed from gtt today) -If further bleeding with drop in Hb please notify GI for possible repeat intervention Code(s): K92.2 - GASTROINTESTINAL HEMORRHAGE, UNSPECIFIED (2) Ascites Assessment/Plan: s/p paracentesis on 02/18, no evidence of SBP. Remainder of results pending. Code(s): R18.8 - OTHER ASCITES (3) Altered mental status Assessment/Plan: Unclear exact etiology, while there may be component of hepatic encephalopathy in setting of decompensated HCV cirrhosis would continue neurology workup r/o seizure disorder vs other intracranial pathology -Continue lactulose 20mg tid titrate to 2-3 loose bms (note pt only having 1 bm daily per staff) -Continue rifaximin -Follow up CT and EEG per neurology Discussed with MICU team Code(s): R41.82 - ALTERED MENTAL STATUS, UNSPECIFIED Qualifiers: Altered mental status type: stupor Qualified Code(s): R40.1 - Stupor
--- NOTE | 2019-02-19 12:25 | PN ---
Teaching Attending Note Name of Resident: Huy Mejia ATTENDING PHYSICIAN STATEMENT I saw and evaluated the patient. I reviewed the resident's note and discussed the case with the resident. I agree with the resident's findings and plan as documented. SUBJECTIVE: Pt seen and examined in the ICU. Remains intubated, more arousable off sedation. Had family meeting with 4/5 children this AM, gave update, hope to extubate in next 1-2 days given improvement in mental status. Appears to be multiple social issues involved in snf care. OBJECTIVE: Vital Signs Period Temp Pulse Resp BP Sys/Aguilar Pulse Ox Last 24 Hr 97.8 F-99.5 F 70-99 16-22 139-170/72-100 100-100 Intake & Output 02/16/19 02/17/19 02/18/19 02/19/19 23:59 23:59 23:59 23:59 Intake Total 3328 2290 100 120 Output Total 1400 600 500 200 Balance 1928 1690 -400 -80 Weight 58.258 kg 58.684 kg 58.468 kg 57.606 kg Gen: intubated, more arousable Heart: RRR Lung: decreased breath sounds at the bases Abd: soft, nontender Ext: no edema CBC, BMP 02/19/19 05:30 02/19/19 05:30 Active Medications Chlorhexidine Gluconate (Hibiclens For Decolonization -) 1 applic TP HS [facility] Last Admin: 02/18/19 22:42 Dose: 1 applic Folic Acid (Folic Acid -) 1 mg PO DAILY [facility] Last Admin: 02/19/19 10:27 Dose: 1 mg Insulin Aspart (Novolog Vial Sliding Scale -) 1 vial SQ ACHS [facility]; Protocol Last Admin: 02/19/19 06:04 Dose: 2 units Lactulose (Cephulac (Oral Use)) 20 gm NGT TID PRN PRN Reason: CONSTIPATION Last Admin: 02/18/19 12:33 Dose: 20 gm Pantoprazole Sodium (Protonix Iv) 40 mg IVPUSH DAILY [facility] Last Admin: 02/19/19 10:36 Dose: 40 mg Zinc Oxide/Panthenol/Vitamin E (Balmex Cream -) 1 applic TP DAILY PRN PRN Reason: HYGEINE ASSESSMENT AND PLAN: Acute Respiratory Failure Altered Mental Status Hepatic Encephalopathy GI Bleed Acute Blood Loss Anemia Acute Kidney Injury Liver Cirrhosis Alcohol Abuse Hep C Thrombocytopenia h/o SBP UTI HTN DM - monitor H/H, coags - transfuse as needed - lactulose, rifaximin - protonix - continue antibiotics - monitor urine output, creatinine - keep intubated for airway protection - spontaneous breathing trials as tolerated - hope to extubate in next 1-2 days as pt with good cough reflex and improving mental status - DVT/GI prophylaxis - continue ICU monitoring critical care time spent in reviewing chart, evaluating patient and formulating plan 35 min
--- NOTE | 2019-02-19 13:42 | PN ---
Progress Note, Physician History of Present Illness: Pt seen and examined at bedside. SHe remains in the icu intubated and lethargic. - Current Medication List Current Medications: Active Medications Chlorhexidine Gluconate (Hibiclens For Decolonization -) 1 applic TP HS [facility] Last Admin: 02/18/19 22:42 Dose: 1 applic Folic Acid (Folic Acid -) 1 mg PO DAILY [facility] Last Admin: 02/19/19 10:27 Dose: 1 mg Insulin Aspart (Novolog Vial Sliding Scale -) 1 vial SQ ACHS [facility]; Protocol Last Admin: 02/19/19 12:51 Dose: 6 units Lactulose (Cephulac (Oral Use)) 20 gm NGT TID PRN PRN Reason: CONSTIPATION Last Admin: 02/18/19 12:33 Dose: 20 gm Pantoprazole Sodium (Protonix Iv) 40 mg IVPUSH DAILY [facility] Last Admin: 02/19/19 10:36 Dose: 40 mg Zinc Oxide/Panthenol/Vitamin E (Balmex Cream -) 1 applic TP DAILY PRN PRN Reason: HYGEINE - Objective Vital Signs: Vital Signs Temperature 97.8 F 02/19/19 10:00 Pulse Rate 72 02/19/19 10:00 Respiratory Rate 16 02/19/19 11:05 Blood Pressure 162/74 02/19/19 10:00 O2 Sat by Pulse Oximetry (%) 100 02/19/19 07:58 Constitutional: Yes: Calm Cardiovascular: Yes: S1, S2 Respiratory: Yes: Mechanically Ventilated Gastrointestinal: Yes: Soft Genitourinary: Yes: Vanegas Present Musculoskeletal: Yes: WNL Edema: Yes Edema: LLE: Trace, RLE: Trace Neurological: Yes: Lethargy Labs: CBC, BMP 02/19/19 05:30 02/19/19 05:30 INR, PTT INR 1.27 (0.83-1.09) H 02/17/19 05:30 Problem List - Problems (1) Altered mental status Code(s): R41.82 - ALTERED MENTAL STATUS, UNSPECIFIED Qualifiers: Altered mental status type: stupor Qualified Code(s): R40.1 - Stupor (2) Hepatic encephalopathy Code(s): K72.90 - HEPATIC FAILURE, UNSPECIFIED WITHOUT COMA (3) Alcohol dependence Code(s): F10.20 - ALCOHOL DEPENDENCE, UNCOMPLICATED (4) Cocaine dependence Code(s): F14.20 - COCAINE DEPENDENCE, UNCOMPLICATED Assessment/Plan Current Medications Generic Name Dose Route Start Last Admin Trade Name Davonq PRN Reason Stop Dose Admin Chlorhexidine Gluconate 1 applic 02/11/19 22:00 02/18/19 22:42 Hibiclens For Decolonization - TP 1 applic HS SACHIN Administration Folic Acid 1 mg 02/12/19 10:00 02/19/19 10:27 Folic Acid - PO 1 mg DAILY SACHIN Administration Insulin Aspart 1 vial 02/11/19 16:30 02/19/19 12:51 Novolog Vial Sliding Scale - SQ 6 units ACHS SACHIN Administration Protocol Lactulose 20 gm 02/18/19 11:10 02/18/19 12:33 Cephulac (Oral Use) NGT 20 gm TID PRN Administration CONSTIPATION Pantoprazole Sodium 40 mg 02/19/19 10:30 02/19/19 10:36 Protonix Iv IVPUSH 40 mg DAILY SACHIN Administration Zinc Oxide/Panthenol/Vitamin E 1 applic 02/11/19 16:03 Balmex Cream - TP DAILY PRN HYGEINE Laboratory Tests 02/13/19 05:30 VICENTE Screen Negative c-ANCA <1:20 Proteinase 3 (PR3) <3.5 p-ANCA <1:20 Atypical p-ANCA <1:20 Myeloperoxidase Ab <9.0 Double Strand DNA Ab <1 Glomerular Base Memb Ab 4 Impression 1. CKD 2. BOB 3. resp failure 4. etoh abuse 5. liver cirrhosis 6. bipolar 7. change in mental status 8. metabolic acidosis Plan - repeat ua - follow up ct head - cont to monitor renal function - serologies negative so far, noted above - monitor mental status Dr Jarrett
[2019-02-19 14:17] LABS: BODY FLUID ALBUMIN <0.2 g/dL (.)
--- NOTE | 2019-02-19 15:37 | PATH ---
Cytology Non-Gynecological Report Patient Name: MARTINA QUINTANA [facility]. Rec. #: [id number] /Age/Gender: 1960 (Age: 58) / F Account: [id number] Location: ICU [employer] Taken: 02/18/2019 Received: 02/18/2019 Reported: 02/19/2019 Physicians: Vika Conway M.D. Specimen(s) Received PERITONEAL FLUID Clinical History Ascites Final Diagnosis PERITONEAL FLUID, PARACENTESIS: SATISFACTORY FOR EVALUATION. NO MALIGNANT CELLS IDENTIFIED. MESOTHELIAL CELLS AND FEW LYMPHOCYTES PRESENT. Electronically Signed Wendy Yee M.D. Gross Description Approximately 50 cc of yellow fluid received fixed in 50% alcohol. One cytofunnel prepared and Pap stained. One cellblock prepared.
[2019-02-19 20:11] LABS: EPI CELLS 1.3 /HPF (0-5); HYALINE CASTS 26 /hpf (0-8); URINE APPEARANCE CLEAR; URINE BACTERIA 5.1 /hpf (NEGATIVE); URINE BILIRUBIN 1+ (NEGATIVE); URINE COLOR DK YELLOW; URINE GLUCOSE (UA) 3+ (NEGATIVE); URINE KETONE NEGATIVE (NEGATIVE); URINE LEUK ESTERASE 1+ (NEGATIVE); URINE NITRITE NEGATIVE (NEGATIVE); URINE PROTEIN NEGATIVE (NEGATIVE); URINE RBC 7 /hpf (0-4); URINE UROBILINOGEN 0.2 mg/dL (0.2-1.0); URINE WBC 120 /hpf (0-5)
--- NOTE | 2019-02-19 20:12 | PN ---
Teaching Attending Note Name of Resident: Houston Melo ATTENDING PHYSICIAN STATEMENT I saw and evaluated the patient. I reviewed the resident's note and discussed the case with the resident. I agree with the resident's findings and plan as documented. SUBJECTIVE: Intubated and non-participatory in medical interview OBJECTIVE: Afebrile, Hemodynamically Stable. Last Vital Signs Temp Pulse Resp BP Pulse Ox 98.1 F 78 22 H 159/77 100 02/19/19 14:00 02/19/19 19:44 02/19/19 19:44 02/19/19 19:44 02/19/19 19:44 HEENT - Intubated/Extubated. NG tube in situ Heart - S1, S2, RRR Lungs - Intubated/Ventilated. Good air entry bilaterally Abdomen - Soft, Bowel Sounds normal. Laboratory Results - last 24 hr 02/17/19 02/17/19 02/18/19 12:30 12:30 12:00 WBC RBC Hgb Hct MCV MCH MCHC RDW Plt Count MPV Sodium Potassium Chloride Carbon Dioxide Anion Gap BUN Creatinine Creat Clearance w eGFR POC Glucometer Random Glucose Calcium Phosphorus Magnesium Total Bilirubin AST ALT Alkaline Phosphatase Total Protein Albumin Fluid Glucose 251 Fluid Total Protein 0.7 Fluid Albumin <0.2 Body Fluid LDH Source 46 Fluid Amylase 23 Fluid Triglycerides 12 CSF VDRL Non-reactive CSF [place] IgG Ab Negative CSF [place] IgM Ab Negative HSV I DNA Quant (PCR) Negative HSV II DNA Quant (PCR) Negative 02/18/19 02/19/19 02/19/19 22:20 05:30 05:30 WBC 9.8 RBC 3.02 L Hgb 9.7 L Hct 27.7 L MCV 91.7 MCH 32.0 MCHC 35.0 RDW 19.9 H Plt Count 114 L MPV 8.1 Sodium 138 Potassium 4.5 Chloride 114 H Carbon Dioxide 15 L Anion Gap 10 BUN 45 H Creatinine 2.1 H Creat Clearance w eGFR 24.11 POC Glucometer 203 Random Glucose 240 H Calcium 7.1 L Phosphorus 3.4 Magnesium 2.2 Total Bilirubin 3.3 H AST 76 H ALT 40 Alkaline Phosphatase 101 Total Protein 5.7 L Albumin 1.8 L Fluid Glucose Fluid Total Protein Fluid Albumin Body Fluid LDH Source Fluid Amylase Fluid Triglycerides CSF VDRL CSF [place] IgG Ab CSF [place] IgM Ab HSV I DNA Quant (PCR) HSV II DNA Quant (PCR) 02/19/19 02/19/19 02/19/19 05:51 12:49 17:43 WBC RBC Hgb Hct MCV MCH MCHC RDW Plt Count MPV Sodium Potassium Chloride Carbon Dioxide Anion Gap BUN Creatinine Creat Clearance w eGFR POC Glucometer 219 300 318 Random Glucose Calcium Phosphorus Magnesium Total Bilirubin AST ALT Alkaline Phosphatase Total Protein Albumin Fluid Glucose Fluid Total Protein Fluid Albumin Body Fluid LDH Source Fluid Amylase Fluid Triglycerides CSF VDRL CSF [place] IgG Ab CSF [place] IgM Ab HSV I DNA Quant (PCR) HSV II DNA Quant (PCR) Current Medications Generic Name Dose Route Start Last Admin Trade Name Freq PRN Reason Stop Dose Admin Chlorhexidine Gluconate 1 applic 02/11/19 22:00 02/18/19 22:42 Hibiclens For Decolonization - TP 1 applic HS SACHIN Administration Folic Acid 1 mg 02/12/19 10:00 02/19/19 10:27 Folic Acid - PO 1 mg DAILY SACHIN Administration Insulin Aspart 1 vial 02/11/19 16:30 02/19/19 16:50 Novolog Vial Sliding Scale - SQ 8 units ACHS SACHIN Administration Protocol Lactulose 20 gm 02/18/19 11:10 02/18/19 12:33 Cephulac (Oral Use) NGT 20 gm TID PRN Administration CONSTIPATION Pantoprazole Sodium 40 mg 02/19/19 10:30 02/19/19 10:36 Protonix Iv IVPUSH 40 mg DAILY SACHIN Administration Zinc Oxide/Panthenol/Vitamin E 1 applic 02/11/19 16:03 Balmex Cream - TP DAILY PRN HYGEINE Home Medications Medication Instructions Recorded Calcium Carb/Vitamin D3/Vit K1 1 each PO DAILY 02/09/19 [Calcium + D Soft Chewable Tab] Gabapentin 100 mg PO TID 02/09/19 Multivitamins [Tab-A-Vit -] 1 tab PO DAILY 02/09/19 Sennosides/Docusate Sodium 1 each PO HS PRN 02/09/19 [Docusate Sodium-Senna Tablet] Amlodipine Besylate 10 mg PO DAILY 02/10/19 Furosemide 20 mg PO DAILY 02/10/19 Insulin Aspart [Novolog] 0.1 ml IM DAILY 02/10/19 Insulin Detemir [Levemir Flextouch] 0.25 ml IM HS 02/10/19 Spironolactone 50 mg PO DAILY 02/10/19 ASSESSMENT AND PLAN: 58 year old female with history of Liver Cirrhosis, Alcohol Abuse, Hepatitis C, recent history of SBP 12/14, DM 2, HTN, Polysubstance Abuse (including Alcohol), Bipolar Disorder, sent to ED from [facility] for agitation, combativeness, and altered mental status while undergoing detox. She had deterioration in mental status, developed melena and was intubated 02/11 to protect airway. 1. Acute Hepatic Encephalopathy secondary to Advanced Cirrhosis due to Alcohol excess and Hepatitis C s/p LP to exclude infective etiology CT Brain - no acute findings. Continue Lactulose via NG return. 2. Acute respiratory failure- s/p intubation for airway protection. Tolerating CPAP trial. Weaning trial and possible extubation if tolerates. 3. Acute Blood Loss Anemia secondary to GI Bleed secondary to Duodenal Ulcer - s /p 4 units PRBCs, s/p EGD 02/14. Off Octreotide PPI drips. No signs of ongoing bleeding. 4. Portal HTN with Ascites and Esophageal varices - no signs of SBP (s/p Paracentesis) and no signs of variceal bleeding currently. Normally on Lasix and Spironolactone, now held. 5. UTI - Urine Cx positive for E.fecalis - received ceftriaxone and ampicillin for 7 days. 6. Thrombocytopenia - sec to Cirrhosis. S/P 1 unit Platelets. No signs of ongoing bleeding. 7. BOB - IV fluids ongoing. ?Hepatorenal syndrome. Nephrology following. 8. DM 2 - maintain on Novolog sliding scale. 9. Hx of Alcohol Abuse - No signs of alcohol withdrawal. Thiamine, Multivitamin, Folate. 10. HTN - off home medications currently (Spironolactone, Norvasc). DVT Px - SCDs. GI Px -Protonix IV
[2019-02-19] MEDS: CHLORHEXIDINE GLUCONATE 4% CLEANSER FOR DECOLONIZATION TP SCH (23:34)
[2019-02-20 06:11] LABS: HEMATOCRIT 26.5 % (32.4-45.2); HEMOGLOBIN 8.9 GM/dL (10.7-15.3); MCH 31.1 pg (25.7-33.7); MCHC 33.5 g/dl (32.0-36.0); MEAN CELL VOLUME 92.7 fl (80-96); MEAN PLT VOLUME 8.3 fl (7.5-11.1); PLATELET COUNT 93 K/MM3 (134-434); RBC 2.86 M/mm3 (3.60-5.2); RDW 22.2 % (11.6-15.6); WHITE BLOOD COUNT 6.7 K/mm3 (4.0-10.0)
[2019-02-20] MEDS: INSULIN SLIDING SCALE (NOVOLOG) 1 VIAL SQ SCH ×4 (06:34→22:15)
[2019-02-20 06:37] LABS: ALBUMIN 1.6 g/dl (3.4-5.0); ALK PHOS 124 U/L (45-117); ANION GAP 6 MMOL/L (8-16); BILIRUBIN,TOTAL 1.9 mg/dL (0.2-1); BLOOD UREA NITROGEN 53 mg/dL (7-18); CALCIUM 7.2 mg/dL (8.5-10.1); CHLORIDE 116 mmol/L (98-107); CO2 19 mmol/L (21-32); MAGNESIUM 2.3 mg/dL (1.8-2.4); PHOSPHOROUS 2.6 mg/dL (2.5-4.9); POTASSIUM 4.3 mmol/L (3.5-5.1); SGOT/AST 63 U/L (15-37); SGPT/ALT 34 U/L (13-61); SODIUM 141 mmol/L (136-145); TOT PROT 5.6 g/dl (6.4-8.2)
[2019-02-20 06:39] LABS: GLUCOSE,RANDOM 305 mg/dL (74-106)
[2019-02-20] MEDS ORDERED: NAPH,MB-DB/K PH,MBDB POWDER PACKET PO ONE (07:38)
--- NOTE | 2019-02-20 09:01 | PN ---
Physical Exam: SUBJECTIVE: Patient seen and examined this AM. OBJECTIVE: Vital Signs Period Temp Pulse Resp BP Sys/Aguilar Pulse Ox Last 24 Hr 97.8 F-98.1 F 62-92 15-22 132-162/69-100 100-100 GEN: Intubated, off sedation, not responding or following commands. HEENT: dry mucus membranes NECK: supple HEART: Regular rate and rhythm, 5/6 systolic murmur noted LUNGS: CTA b/l ABDOMEN: Soft, nontender, normoactive bowel sounds EXTREMITIES: dependent edema noted in b/l UE, good peripheral pulses throughout NEURO: Intubated, off sedation, no agitation, not responsive to voice or painful stimuli including nail bed pressure or sternal rub, occasionally will open eyes to repeated stimulus, gag and corneal reflex in tact Laboratory Results - last 24 hr 02/17/19 02/17/19 02/18/19 12:30 12:30 12:00 WBC RBC Hgb Hct MCV MCH MCHC RDW Plt Count MPV Sodium Potassium Chloride Carbon Dioxide Anion Gap BUN Creatinine Creat Clearance w eGFR POC Glucometer Random Glucose Calcium Phosphorus Magnesium Total Bilirubin AST ALT Alkaline Phosphatase Total Protein Albumin Urine Color Urine Appearance Urine pH Ur Specific [place] Urine Protein Urine Glucose (UA) Urine Ketones Urine Blood Urine Nitrite Urine Bilirubin Urine Urobilinogen Ur Leukocyte Esterase Urine WBC (Auto) Urine RBC (Auto) Urine Casts (Auto) U Pathogenic Cast Auto U Epithel Cells (Auto) Urine Bacteria (Auto) Fluid Glucose 251 Fluid Total Protein 0.7 Fluid Albumin <0.2 Body Fluid LDH Source 46 Fluid Amylase 23 Fluid Triglycerides 12 CSF VDRL Non-reactive CSF [place] IgG Ab Negative CSF [place] IgM Ab Negative HSV I DNA Quant (PCR) Negative HSV II DNA Quant (PCR) Negative 02/19/19 02/19/19 02/19/19 12:49 17:43 18:43 WBC RBC Hgb Hct MCV MCH MCHC RDW Plt Count MPV Sodium Potassium Chloride Carbon Dioxide Anion Gap BUN Creatinine Creat Clearance w eGFR POC Glucometer 300 318 Random Glucose Calcium Phosphorus Magnesium Total Bilirubin AST ALT Alkaline Phosphatase Total Protein Albumin Urine Color Dk yellow Urine Appearance Clear Urine pH 5.0 Ur Specific [place] 1.020 Urine Protein Negative Urine Glucose (UA) 3+ H Urine Ketones Negative Urine Blood Trace Urine Nitrite Negative Urine Bilirubin 1+ H Urine Urobilinogen 0.2 Ur Leukocyte Esterase 1+ H Urine WBC (Auto) 120 Urine RBC (Auto) 7 Urine Casts (Auto) 26 U Pathogenic Cast Auto None seen U Epithel Cells (Auto) 1.3 Urine Bacteria (Auto) 5.1 Fluid Glucose Fluid Total Protein Fluid Albumin Body Fluid LDH Source Fluid Amylase Fluid Triglycerides CSF VDRL CSF [place] IgG Ab CSF [place] IgM Ab HSV I DNA Quant (PCR) HSV II DNA Quant (PCR) 02/19/19 02/20/19 02/20/19 23:19 05:30 05:30 WBC 6.7 RBC 2.86 L Hgb 8.9 L Hct 26.5 L MCV 92.7 MCH 31.1 MCHC 33.5 RDW 22.2 H Plt Count 93 L MPV 8.3 Sodium 141 Potassium 4.3 Chloride 116 H Carbon Dioxide 19 L Anion Gap 6 L BUN 53 H Creatinine 2.0 H Creat Clearance w eGFR 25.50 POC Glucometer 326 Random Glucose 305 H* Calcium 7.2 L Phosphorus 2.6 Magnesium 2.3 Total Bilirubin 1.9 H AST 63 H ALT 34 Alkaline Phosphatase 124 H Total Protein 5.6 L Albumin 1.6 L Urine Color Urine Appearance Urine pH Ur Specific [place] Urine Protein Urine Glucose (UA) Urine Ketones Urine Blood Urine Nitrite Urine Bilirubin Urine Urobilinogen Ur Leukocyte Esterase Urine WBC (Auto) Urine RBC (Auto) Urine Casts (Auto) U Pathogenic Cast Auto U Epithel Cells (Auto) Urine Bacteria (Auto) Fluid Glucose Fluid Total Protein Fluid Albumin Body Fluid LDH Source Fluid Amylase Fluid Triglycerides CSF VDRL CSF [place] IgG Ab CSF [place] IgM Ab HSV I DNA Quant (PCR) HSV II DNA Quant (PCR) 02/20/19 05:37 WBC RBC Hgb Hct MCV MCH MCHC RDW Plt Count MPV Sodium Potassium Chloride Carbon Dioxide Anion Gap BUN Creatinine Creat Clearance w eGFR POC Glucometer 288 Random Glucose Calcium Phosphorus Magnesium Total Bilirubin AST ALT Alkaline Phosphatase Total Protein Albumin Urine Color Urine Appearance Urine pH Ur Specific [place] Urine Protein Urine Glucose (UA) Urine Ketones Urine Blood Urine Nitrite Urine Bilirubin Urine Urobilinogen Ur Leukocyte Esterase Urine WBC (Auto) Urine RBC (Auto) Urine Casts (Auto) U Pathogenic Cast Auto U Epithel Cells (Auto) Urine Bacteria (Auto) Fluid Glucose Fluid Total Protein Fluid Albumin Body Fluid LDH Source Fluid Amylase Fluid Triglycerides CSF VDRL CSF [place] IgG Ab CSF [place] IgM Ab HSV I DNA Quant (PCR) HSV II DNA Quant (PCR) Active Medications Generic Name Dose Route Start Last Admin Trade Name Freq PRN Reason Stop Dose Admin Chlorhexidine Gluconate 1 applic 02/11/19 22:00 02/19/19 23:34 Hibiclens For Decolonization - TP 1 applic HS SACHIN Administration Folic Acid 1 mg 02/12/19 10:00 02/19/19 10:27 Folic Acid - PO 1 mg DAILY SACHIN Administration Insulin Aspart 1 vial 02/11/19 16:30 02/20/19 06:34 Novolog Vial Sliding Scale - SQ 6 units ACHS SACHIN Administration Protocol Lactulose 20 gm 02/18/19 11:10 02/18/19 12:33 Cephulac (Oral Use) NGT 20 gm TID PRN Administration CONSTIPATION Pantoprazole Sodium 40 mg 02/19/19 10:30 02/19/19 10:36 Protonix Iv IVPUSH 40 mg DAILY SACHIN Administration Rifaximin 550 mg 02/20/19 10:00 Xifaxan - PO BID SACHIN Zinc Oxide/Panthenol/Vitamin E 1 applic 02/11/19 16:03 Balmex Cream - TP DAILY PRN HYGEINE ASSESSMENT/PLAN: Patient is a 58 year old female who presented with altered mental status and was found to have hepatic metabolic encephalopathy and GI bleed. Patient evaluated by ICU and deemed stable for Med/Surg initially. However, patient had worsening AMS with Active GI bleed and is now transferred to ICU for further monitoring and management. NEURO/PSYCH -Toxic Metabolic encephalopathy? LP without any abnormal findings ID consult appreciated and case discussed -Hepatic Encephalopathy - resolved GI consult appreciated lactulose/rifaximin as GI bleeding resolved, will require NGT as OG was removed on extubation Head CT without significant changes/pathology/bleeding noted Mental status possibly improving today, will continue to monitor for improvement -Polysubstance Abuse Avoid benzo's Continue folate and thiamine Consider rehab placement if pt becomes stable for d/c CARDIO -HTN Hold Anti-HTN medications for now Continue to monitor BP and will treat as needed PULMONARY -Acute Hypoxic Respiratory Failire Extubated today successfully, wean O2 as tolerated Maintain 02 saturation >95% GASTROENTEROLOGY -GI Bleed Ruled out Variceal bleeding Protonix drip for 48 more hours as per GI H/H stable Initial EGD without signs of significant varices or bleeding source Repeat EGD with Colonoscopy with bleeding ulcer - clipped, no further bleeding noted Lactic acid normal -Elevated Tbili and direct bili, improving Repeat RUQ US ordered with recent uptrend -Liver Cirrhosis with Hepatic Encephalopathy - Ammonia normalized, mental status not improved History of prior SBP Ascites on U/S Diagnostic paracentesis with cytology ordered, discussed with IR about possible procedure today -History of Hepatitis C Unsure if patient was treated Likely source of Liver cirrhosis HEMATOLOGY -Thrombocytopenia - improving Likely secondary to liver disease Continue to monitor maintain > 50 with active bleeding RENAL -BOB Unsure of baseline, stable Renal Consult appreciated Workup normal ENDOCRINE -IDDM II BGMs ISS PROPHYLAXIS -SCDs -Protonix drip FEN -none -Monitor and replete -Tolerating NGT feeds Disposition -Full code, poor prognosis, Family to continue discussion of goals of care and plans if patient does not continue to improve -Continue to monitor in the ICU Visit type - Emergency Visit Emergency Visit: Yes ED Registration Date: 02/08/19 Care time: The patient presented to the Emergency Department on the above date and was hospitalized for further evaluation of their emergent condition. - New Patient This patient is new to me today: No - Critical Care Critical Care patient: Yes Total Critical Care Time (in minutes): 36 Critical Care Statement: The care of this patient involved high complexity decision making to prevent further life threatening deterioration of the patient 's condition and/or to evaluate & treat vital organ system(s) failure or risk of failure.
[2019-02-20] MEDS: PANTOPRAZOLE SODIUM 40 MG VIAL IVPUSH SCH (09:49)
[2019-02-20] MEDS: FOLIC ACID 1 MG TABLET (FP) PO SCH (09:49)
[2019-02-20] MEDS: RIFAXIMIN 550 MG TABLET (UD) PO SCH ×2 (09:57→22:16)
--- NOTE | 2019-02-20 10:35 | PN ---
Teaching Attending Note Name of Resident: Huy Mejia ATTENDING PHYSICIAN STATEMENT I saw and evaluated the patient. I reviewed the resident's note and discussed the case with the resident. I agree with the resident's findings and plan as documented. SUBJECTIVE: Patient seen and examined in the ICU. Remains intubated, more arousable and intermittently able to follow simple commands. On CPAP Mode of vent. No pressors. OBJECTIVE: Intake & Output 02/17/19 02/18/19 02/19/19 02/20/19 23:59 23:59 23:59 23:59 Intake Total 2290 100 550 460 Output Total 600 500 200 Balance 1690 -400 350 460 Weight 129 lb 6 oz 128 lb 14.4 oz 127 lb 122 lb 14.4 oz Last Vital Signs Temp Pulse Resp BP Pulse Ox 98.1 F 62 18 150/69 100 02/20/19 10:00 02/20/19 10:00 02/20/19 10:00 02/20/19 10:00 02/20/19 09:23 Active Medications Chlorhexidine Gluconate (Hibiclens For Decolonization -) 1 applic TP HS [facility] Last Admin: 02/19/19 23:34 Dose: 1 applic Folic Acid (Folic Acid -) 1 mg PO DAILY [facility] Last Admin: 02/20/19 09:49 Dose: 1 mg Insulin Aspart (Novolog Vial Sliding Scale -) 1 vial SQ ACHS [facility]; Protocol Last Admin: 02/20/19 06:34 Dose: 6 units Lactulose (Cephulac (Oral Use)) 20 gm NGT TID PRN PRN Reason: CONSTIPATION Last Admin: 02/18/19 12:33 Dose: 20 gm Pantoprazole Sodium (Protonix Iv) 40 mg IVPUSH DAILY [facility] Last Admin: 02/20/19 09:49 Dose: 40 mg Rifaximin (Xifaxan -) 550 mg PO BID [facility] Last Admin: 02/20/19 09:57 Dose: 550 mg Zinc Oxide/Panthenol/Vitamin E (Balmex Cream -) 1 applic TP DAILY PRN PRN Reason: HYGEINE Gen: intubated, lethargic but arousable Heart: RRR Lung: decreased breath sounds at the bases Abd: soft, +ascites Ext: no edema [employer] TENDER: Lethargic but arousbale Laboratory Results - last 24 hr 02/17/19 02/17/19 02/18/19 12:30 12:30 12:00 WBC RBC Hgb Hct MCV MCH MCHC RDW Plt Count MPV Sodium Potassium Chloride Carbon Dioxide Anion Gap BUN Creatinine Creat Clearance w eGFR POC Glucometer Random Glucose Calcium Phosphorus Magnesium Total Bilirubin AST ALT Alkaline Phosphatase Total Protein Albumin Urine Color Urine Appearance Urine pH Ur Specific [place] Urine Protein Urine Glucose (UA) Urine Ketones Urine Blood Urine Nitrite Urine Bilirubin Urine Urobilinogen Ur Leukocyte Esterase Urine WBC (Auto) Urine RBC (Auto) Urine Casts (Auto) U Pathogenic Cast Auto U Epithel Cells (Auto) Urine Bacteria (Auto) Fluid Glucose 251 Fluid Total Protein 0.7 Fluid Albumin <0.2 Body Fluid LDH Source 46 Fluid Amylase 23 Fluid Triglycerides 12 CSF VDRL Non-reactive CSF [place] IgG Ab Negative CSF [place] IgM Ab Negative HSV I DNA Quant (PCR) Negative HSV II DNA Quant (PCR) Negative 02/19/19 02/19/19 02/19/19 12:49 17:43 18:43 WBC RBC Hgb Hct MCV MCH MCHC RDW Plt Count MPV Sodium Potassium Chloride Carbon Dioxide Anion Gap BUN Creatinine Creat Clearance w eGFR POC Glucometer 300 318 Random Glucose Calcium Phosphorus Magnesium Total Bilirubin AST ALT Alkaline Phosphatase Total Protein Albumin Urine Color Dk yellow Urine Appearance Clear Urine pH 5.0 Ur Specific [place] 1.020 Urine Protein Negative Urine Glucose (UA) 3+ H Urine Ketones Negative Urine Blood Trace Urine Nitrite Negative Urine Bilirubin 1+ H Urine Urobilinogen 0.2 Ur Leukocyte Esterase 1+ H Urine WBC (Auto) 120 Urine RBC (Auto) 7 Urine Casts (Auto) 26 U Pathogenic Cast Auto None seen U Epithel Cells (Auto) 1.3 Urine Bacteria (Auto) 5.1 Fluid Glucose Fluid Total Protein Fluid Albumin Body Fluid LDH Source Fluid Amylase Fluid Triglycerides CSF VDRL CSF [place] IgG Ab CSF [place] IgM Ab HSV I DNA Quant (PCR) HSV II DNA Quant (PCR) 02/19/19 02/20/19 02/20/19 23:19 05:30 05:30 WBC 6.7 RBC 2.86 L Hgb 8.9 L Hct 26.5 L MCV 92.7 MCH 31.1 MCHC 33.5 RDW 22.2 H Plt Count 93 L MPV 8.3 Sodium 141 Potassium 4.3 Chloride 116 H Carbon Dioxide 19 L Anion Gap 6 L BUN 53 H Creatinine 2.0 H Creat Clearance w eGFR 25.50 POC Glucometer 326 Random Glucose 305 H* Calcium 7.2 L Phosphorus 2.6 Magnesium 2.3 Total Bilirubin 1.9 H AST 63 H ALT 34 Alkaline Phosphatase 124 H Total Protein 5.6 L Albumin 1.6 L Urine Color Urine Appearance Urine pH Ur Specific [place] Urine Protein Urine Glucose (UA) Urine Ketones Urine Blood Urine Nitrite Urine Bilirubin Urine Urobilinogen Ur Leukocyte Esterase Urine WBC (Auto) Urine RBC (Auto) Urine Casts (Auto) U Pathogenic Cast Auto U Epithel Cells (Auto) Urine Bacteria (Auto) Fluid Glucose Fluid Total Protein Fluid Albumin Body Fluid LDH Source Fluid Amylase Fluid Triglycerides CSF VDRL CSF [place] IgG Ab CSF [place] IgM Ab HSV I DNA Quant (PCR) HSV II DNA Quant (PCR) 02/20/19 05:37 WBC RBC Hgb Hct MCV MCH MCHC RDW Plt Count MPV Sodium Potassium Chloride Carbon Dioxide Anion Gap BUN Creatinine Creat Clearance w eGFR POC Glucometer 288 Random Glucose Calcium Phosphorus Magnesium Total Bilirubin AST ALT Alkaline Phosphatase Total Protein Albumin Urine Color Urine Appearance Urine pH Ur Specific [place] Urine Protein Urine Glucose (UA) Urine Ketones Urine Blood Urine Nitrite Urine Bilirubin Urine Urobilinogen Ur Leukocyte Esterase Urine WBC (Auto) Urine RBC (Auto) Urine Casts (Auto) U Pathogenic Cast Auto U Epithel Cells (Auto) Urine Bacteria (Auto) Fluid Glucose Fluid Total Protein Fluid Albumin Body Fluid LDH Source Fluid Amylase Fluid Triglycerides CSF VDRL CSF [place] IgG Ab CSF [place] IgM Ab HSV I DNA Quant (PCR) HSV II DNA Quant (PCR) ASSESSMENT AND PLAN: Acute Respiratory Failure Altered Mental Status Hepatic Encephalopathy GI Bleed Acute Blood Loss Anemia Acute Kidney Injury Liver Cirrhosis Alcohol Abuse Hep C Thrombocytopenia h/o SBP UTI HTN DM - Wean trials as tolerated - Normal transfusion thresholds - lactulose, rifaximin - protonix - continue antibiotics - monitor urine output, creatinine - DVT/GI prophylaxis - continue ICU monitoring - prognosis guarded Dr Mckeon Critical care time spent in reviewing chart, evaluating patient and formulating plan 35 min
--- NOTE | 2019-02-20 11:20 | PN ---
Physical Exam: SUBJECTIVE: Patient seen and examined at bedside in ICU. Extubated, off sedation , remains vegetative. OBJECTIVE: Vital Signs Period Temp Pulse Resp BP Sys/Aguilar Pulse Ox Last 24 Hr 98.0 F-98.1 F 62-92 15-22 132-159/69-84 100-100 GENERAL: Extubated on venti mask, off sedation, mental status is vegetative HEENT: NC/AT, PERRLA NECK: Trachea midline LUNGS: Limited exam, no adventitious sounds appreciated HEART: RRR no m/r/g ABDOMEN: +bs, soft, increased fluid appreciated EXTREMITIES: 2+ pulses, wwp, no edema appreciated NEUROLOGICAL: non-purposeful spontaneous movement, eye opening, no response to noxious stimuli, +gag PSYCH: Unable to assess SKIN: Warm, dry, jaundiced Laboratory Results - last 24 hr 02/17/19 02/17/19 02/18/19 12:30 12:30 12:00 WBC RBC Hgb Hct MCV MCH MCHC RDW Plt Count MPV Sodium Potassium Chloride Carbon Dioxide Anion Gap BUN Creatinine Creat Clearance w eGFR POC Glucometer Random Glucose Calcium Phosphorus Magnesium Total Bilirubin AST ALT Alkaline Phosphatase Total Protein Albumin Urine Color Urine Appearance Urine pH Ur Specific [place] Urine Protein Urine Glucose (UA) Urine Ketones Urine Blood Urine Nitrite Urine Bilirubin Urine Urobilinogen Ur Leukocyte Esterase Urine WBC (Auto) Urine RBC (Auto) Urine Casts (Auto) U Pathogenic Cast Auto U Epithel Cells (Auto) Urine Bacteria (Auto) Fluid Glucose 251 Fluid Total Protein 0.7 Fluid Albumin <0.2 Body Fluid LDH Source 46 Fluid Amylase 23 Fluid Triglycerides 12 CSF VDRL Non-reactive CSF [place] IgG Ab Negative CSF [place] IgM Ab Negative HSV I DNA Quant (PCR) Negative HSV II DNA Quant (PCR) Negative 02/19/19 02/19/19 02/19/19 12:49 17:43 18:43 WBC RBC Hgb Hct MCV MCH MCHC RDW Plt Count MPV Sodium Potassium Chloride Carbon Dioxide Anion Gap BUN Creatinine Creat Clearance w eGFR POC Glucometer 300 318 Random Glucose Calcium Phosphorus Magnesium Total Bilirubin AST ALT Alkaline Phosphatase Total Protein Albumin Urine Color Dk yellow Urine Appearance Clear Urine pH 5.0 Ur Specific [place] 1.020 Urine Protein Negative Urine Glucose (UA) 3+ H Urine Ketones Negative Urine Blood Trace Urine Nitrite Negative Urine Bilirubin 1+ H Urine Urobilinogen 0.2 Ur Leukocyte Esterase 1+ H Urine WBC (Auto) 120 Urine RBC (Auto) 7 Urine Casts (Auto) 26 U Pathogenic Cast Auto None seen U Epithel Cells (Auto) 1.3 Urine Bacteria (Auto) 5.1 Fluid Glucose Fluid Total Protein Fluid Albumin Body Fluid LDH Source Fluid Amylase Fluid Triglycerides CSF VDRL CSF [place] IgG Ab CSF [place] IgM Ab HSV I DNA Quant (PCR) HSV II DNA Quant (PCR) 02/19/19 02/20/19 02/20/19 23:19 05:30 05:30 WBC 6.7 RBC 2.86 L Hgb 8.9 L Hct 26.5 L MCV 92.7 MCH 31.1 MCHC 33.5 RDW 22.2 H Plt Count 93 L MPV 8.3 Sodium 141 Potassium 4.3 Chloride 116 H Carbon Dioxide 19 L Anion Gap 6 L BUN 53 H Creatinine 2.0 H Creat Clearance w eGFR 25.50 POC Glucometer 326 Random Glucose 305 H* Calcium 7.2 L Phosphorus 2.6 Magnesium 2.3 Total Bilirubin 1.9 H AST 63 H ALT 34 Alkaline Phosphatase 124 H Total Protein 5.6 L Albumin 1.6 L Urine Color Urine Appearance Urine pH Ur Specific [place] Urine Protein Urine Glucose (UA) Urine Ketones Urine Blood Urine Nitrite Urine Bilirubin Urine Urobilinogen Ur Leukocyte Esterase Urine WBC (Auto) Urine RBC (Auto) Urine Casts (Auto) U Pathogenic Cast Auto U Epithel Cells (Auto) Urine Bacteria (Auto) Fluid Glucose Fluid Total Protein Fluid Albumin Body Fluid LDH Source Fluid Amylase Fluid Triglycerides CSF VDRL CSF [place] IgG Ab CSF [place] IgM Ab HSV I DNA Quant (PCR) HSV II DNA Quant (PCR) 02/20/19 02/20/19 05:37 11:06 WBC RBC Hgb Hct MCV MCH MCHC RDW Plt Count MPV Sodium Potassium Chloride Carbon Dioxide Anion Gap BUN Creatinine Creat Clearance w eGFR POC Glucometer 288 271 Random Glucose Calcium Phosphorus Magnesium Total Bilirubin AST ALT Alkaline Phosphatase Total Protein Albumin Urine Color Urine Appearance Urine pH Ur Specific [place] Urine Protein Urine Glucose (UA) Urine Ketones Urine Blood Urine Nitrite Urine Bilirubin Urine Urobilinogen Ur Leukocyte Esterase Urine WBC (Auto) Urine RBC (Auto) Urine Casts (Auto) U Pathogenic Cast Auto U Epithel Cells (Auto) Urine Bacteria (Auto) Fluid Glucose Fluid Total Protein Fluid Albumin Body Fluid LDH Source Fluid Amylase Fluid Triglycerides CSF VDRL CSF [place] IgG Ab CSF [place] IgM Ab HSV I DNA Quant (PCR) HSV II DNA Quant (PCR) Active Medications Generic Name Dose Route Start Last Admin Trade Name Freq PRN Reason Stop Dose Admin Chlorhexidine Gluconate 1 applic 02/11/19 22:00 02/19/19 23:34 Hibiclens For Decolonization - TP 1 applic HS SACHIN Administration Folic Acid 1 mg 02/12/19 10:00 02/20/19 09:49 Folic Acid - PO 1 mg DAILY SACHIN Administration Insulin Aspart 1 vial 02/11/19 16:30 02/20/19 06:34 Novolog Vial Sliding Scale - SQ 6 units ACHS SACHIN Administration Protocol Lactulose 20 gm 02/18/19 11:10 02/18/19 12:33 Cephulac (Oral Use) NGT 20 gm TID PRN Administration CONSTIPATION Pantoprazole Sodium 40 mg 02/19/19 10:30 02/20/19 09:49 Protonix Iv IVPUSH 40 mg DAILY SACHIN Administration Rifaximin 550 mg 02/20/19 10:00 02/20/19 09:57 Xifaxan - PO 550 mg BID SACHIN Administration Zinc Oxide/Panthenol/Vitamin E 1 applic 02/11/19 16:03 Balmex Cream - TP DAILY PRN HYGEINE ASSESSMENT/PLAN: 58 y/o F w/ PMHx cirrhosis, hep C, polysubstance abuse including EtOH, DM, HTN, bipolar disorder, recent h/o SBP 12/14, presents from [facility] for agitation, combativeness, AMS while undergoing detox #GI -cirrhosis w/ prior SBP -ascites on US -GI consulted -albumin infusions as per ICU team -no active bleeding identified on initial EGD -on repeat EGD, colonoscopy, esophageal ulcer identified and clipped -had rebleed 02/14-02/15, Hb dropped to 6.6, received 2 further units PRBC (5U total + 1U Plts) -PTX transitioned to IVP -H/H stable this AM -monitor CBC -NPO pending NGT -will likely require PEG -paracentesis results pending -cont rifaximin and lactulose -Bilirubin continues rising #heme -thrombocytopenia 2/2 liver disease -INR persistently elevated #CV -holding anti-hypertensives -maintain MAP > 65 -no indication for pressors at this time -hemodynamic support as per ICU team #pulmonary -successfully extubated on Venti mask -keep O2 sat > 92 #neuro -vegetative off sedation, no response to noxious stimuli, does open eyes, pupils are reactive, movement non-purposeful -cont thiamine, folate -cont lactulose and rifaximin -neurology following -LP: CSF WBC 0, further results pending -hoping for EEG #ID -UCx growing enterococcus, BCx NGTD -ID consulted -completed ABx #renal -remains in BOB -monitor BMP -cont IVF -multiple immunologic/serologic panels pending #endocrine -SSI, BGM #GOC -grave prognosis -patient's children aware of condition and attempting to reach consensus on GOC : Addy (Eldest), Second child Ms. Wally Steen [phone]), Third child Ms. Johana Germain ([phone]), Fourth child Ron Germain (can call after 6 pm at [phone]), Fifth child is in [place] -initiated discussion of potential need for PEG/trach and permanent institutionalization vs. comfort care measures w/ Wally, who believes her mother would not want to be kept alive on machines #FEN -hold IVF -monitor and correct electrolytes -NPO #PPx -DVT: mechanical only -GI: IV PTX #code -full #dispo -cont to monitor in ICU Visit type - Emergency Visit Emergency Visit: No - New Patient This patient is new to me today: No - Critical Care Critical Care patient: Yes Total Critical Care Time (in minutes): 40 Critical Care Statement: The care of this patient involved high complexity decision making to prevent further life threatening deterioration of the patient 's condition and/or to evaluate & treat vital organ system(s) failure or risk of failure.
--- NOTE | 2019-02-20 14:31 | PN.GI ---
GI Progress Note Subjective: Extubated, on 40% FM No overt bleeding reported Lethargic Peritoneal fluid: SAAG > 1.1 and no evidence of SBP. Culture no growth to date - Objective Vital Signs: Vital Signs Temperature 98.1 F 02/20/19 10:00 Pulse Rate 63 02/20/19 12:00 Respiratory Rate 18 02/20/19 12:00 Blood Pressure 127/82 02/20/19 12:00 O2 Sat by Pulse Oximetry (%) 100 02/20/19 11:00 Constitutional: Calm Eyes: No: Sclera Icterus Cardiovascular: Yes: Regular Rate and Rhythm Respiratory: Yes: Diminished (at bases b/l, poor insp effort) ...Auscultate: Yes: Normoactive Bowel Sounds ...Palpate: Yes: Soft (soflty distended). No: Tenderness ...Percussion: No: Tympanitic Edema: No (No LE edema) Neurological: Yes: Lethargy Labs: CBC, BMP 02/20/19 05:30 02/20/19 05:30 INR, PTT INR 1.27 (0.83-1.09) H 02/17/19 05:30 Problem List - Problems (1) GI bleed Assessment/Plan: No overt bleeding Continue to monitor Protonix 40mg IVPB daily Code(s): K92.2 - GASTROINTESTINAL HEMORRHAGE, UNSPECIFIED (2) Ascites Assessment/Plan: SAAG > 1.1 No evidence of SBP Code(s): R18.8 - OTHER ASCITES (3) Altered mental status Assessment/Plan: Check ammonia level Lactulose / rifaximin May need NGT if cannot safely take PO Code(s): R41.82 - ALTERED MENTAL STATUS, UNSPECIFIED Qualifiers: Altered mental status type: stupor Qualified Code(s): R40.1 - Stupor
--- NOTE | 2019-02-20 15:23 | PN ---
Progress Note, Physician History of Present Illness: Pt seen and examined at bedside. She is now extubated. She is not very interactive. She does not respond to verbal stimuli. - Current Medication List Current Medications: Active Medications Chlorhexidine Gluconate (Hibiclens For Decolonization -) 1 applic TP HS [facility] Last Admin: 02/19/19 23:34 Dose: 1 applic Folic Acid (Folic Acid -) 1 mg PO DAILY [facility] Last Admin: 02/20/19 09:49 Dose: 1 mg Insulin Aspart (Novolog Vial Sliding Scale -) 1 vial SQ ACHS [facility]; Protocol Last Admin: 02/20/19 11:15 Dose: 6 units Lactulose (Cephulac (Oral Use)) 20 gm NGT TID PRN PRN Reason: CONSTIPATION Last Admin: 02/18/19 12:33 Dose: 20 gm Pantoprazole Sodium (Protonix Iv) 40 mg IVPUSH DAILY [facility] Last Admin: 02/20/19 09:49 Dose: 40 mg Rifaximin (Xifaxan -) 550 mg PO BID [facility] Last Admin: 02/20/19 09:57 Dose: 550 mg Zinc Oxide/Panthenol/Vitamin E (Balmex Cream -) 1 applic TP DAILY PRN PRN Reason: HYGEINE - Objective Vital Signs: Vital Signs Temperature 97.7 F 02/20/19 14:00 Pulse Rate 63 02/20/19 14:00 Respiratory Rate 19 02/20/19 14:00 Blood Pressure 137/89 02/20/19 14:00 O2 Sat by Pulse Oximetry (%) 100 02/20/19 11:00 Constitutional: Yes: Calm Eyes: Yes: Conjunctiva Clear HENT: Yes: Atraumatic Cardiovascular: Yes: S1, S2 Respiratory: Yes: On Venti-Mask Gastrointestinal: Yes: Soft Genitourinary: Yes: [place] Present Musculoskeletal: Yes: Muscle Weakness Edema: Yes Edema: LUE: 1+, RUE: 1+ Neurological: Yes: Lethargy Labs: CBC, BMP 02/20/19 05:30 02/20/19 05:30 INR, PTT INR 1.27 (0.83-1.09) H 02/17/19 05:30 Problem List - Problems (1) Altered mental status Code(s): R41.82 - ALTERED MENTAL STATUS, UNSPECIFIED Qualifiers: Altered mental status type: stupor Qualified Code(s): R40.1 - Stupor (2) Hepatic encephalopathy Code(s): K72.90 - HEPATIC FAILURE, UNSPECIFIED WITHOUT COMA (3) Alcohol dependence Code(s): F10.20 - ALCOHOL DEPENDENCE, UNCOMPLICATED (4) Cocaine dependence Code(s): F14.20 - COCAINE DEPENDENCE, UNCOMPLICATED Assessment/Plan Current Medications Generic Name Dose Route Start Last Admin Trade Name Freq PRN Reason Stop Dose Admin Chlorhexidine Gluconate 1 applic 02/11/19 22:00 02/19/19 23:34 Hibiclens For Decolonization - TP 1 applic HS [facility] Administration Folic Acid 1 mg 02/12/19 10:00 02/20/19 09:49 Folic Acid - PO 1 mg DAILY [facility] Administration Insulin Aspart 1 vial 02/11/19 16:30 02/20/19 11:15 Novolog Vial Sliding Scale - SQ 6 units ACHS [facility] Administration Protocol Lactulose 20 gm 02/18/19 11:10 02/18/19 12:33 Cephulac (Oral Use) NGT 20 gm TID PRN Administration CONSTIPATION Pantoprazole Sodium 40 mg 02/19/19 10:30 02/20/19 09:49 Protonix Iv IVPUSH 40 mg DAILY [facility] Administration Rifaximin 550 mg 02/20/19 10:00 02/20/19 09:57 Xifaxan - PO 550 mg BID [facility] Administration Zinc Oxide/Panthenol/Vitamin E 1 applic 02/11/19 16:03 Balmex Cream - TP DAILY PRN HYGEINE Laboratory Tests 02/19/19 18:43 Urine Protein Negative Urine Blood Trace Impression 1. CKD 2. BOB 3. resp failure 4. etoh abuse 5. liver cirrhosis 6. bipolar 7. change in mental status 8. metabolic acidosis Plan - cont to monitor renal function - avoid nsaids - cont feeds - serologies negative so far - monitor mental status Dr Jarrett
[2019-02-20 16:00] VITALS: BMI 23.0
[2019-02-20] MEDS: LACTULOSE 20 GM/30 ML UDC (FOR ORAL USE ONLY) NGT PRN ×2 (17:04→22:16)
--- NOTE | 2019-02-20 18:40 | PN ---
Teaching Attending Note Name of Resident: Housotn Melo ATTENDING PHYSICIAN STATEMENT I saw and evaluated the patient. I reviewed the resident's note and discussed the case with the resident. I agree with the resident's findings and plan as documented. SUBJECTIVE: Extubated. Still poorly responsive. OBJECTIVE: Afebrile, Hemodynamically Stable. Last Vital Signs Temp Pulse Resp BP Pulse Ox 98.5 F 63 19 119/65 100 02/20/19 18:00 02/20/19 18:00 02/20/19 18:00 02/20/19 18:00 02/20/19 18:21 HEENT - Extubated. NG tube in situ Heart - S1, S2, RRR Lungs - Intubated/Ventilated. Good air entry bilaterally Abdomen - Soft, Bowel Sounds normal. Laboratory Results - last 24 hr 02/19/19 02/19/19 02/20/19 18:43 23:19 05:30 WBC 6.7 RBC 2.86 L Hgb 8.9 L Hct 26.5 L MCV 92.7 MCH 31.1 MCHC 33.5 RDW 22.2 H Plt Count 93 L MPV 8.3 Sodium Potassium Chloride Carbon Dioxide Anion Gap BUN Creatinine Creat Clearance w eGFR POC Glucometer 326 Random Glucose Calcium Phosphorus Magnesium Total Bilirubin AST ALT Alkaline Phosphatase Total Protein Albumin Urine Color Dk yellow Urine Appearance Clear Urine pH 5.0 Ur Specific [place] 1.020 Urine Protein Negative Urine Glucose (UA) 3+ H Urine Ketones Negative Urine Blood Trace Urine Nitrite Negative Urine Bilirubin 1+ H Urine Urobilinogen 0.2 Ur Leukocyte Esterase 1+ H Urine WBC (Auto) 120 Urine RBC (Auto) 7 Urine Casts (Auto) 26 U Pathogenic Cast Auto None seen U Epithel Cells (Auto) 1.3 Urine Bacteria (Auto) 5.1 02/20/19 02/20/19 02/20/19 05:30 05:37 11:06 WBC RBC Hgb Hct MCV MCH MCHC RDW Plt Count MPV Sodium 141 Potassium 4.3 Chloride 116 H Carbon Dioxide 19 L Anion Gap 6 L BUN 53 H Creatinine 2.0 H Creat Clearance w eGFR 25.50 POC Glucometer 288 271 Random Glucose 305 H* Calcium 7.2 L Phosphorus 2.6 Magnesium 2.3 Total Bilirubin 1.9 H AST 63 H ALT 34 Alkaline Phosphatase 124 H Total Protein 5.6 L Albumin 1.6 L Urine Color Urine Appearance Urine pH Ur Specific [place] Urine Protein Urine Glucose (UA) Urine Ketones Urine Blood Urine Nitrite Urine Bilirubin Urine Urobilinogen Ur Leukocyte Esterase Urine WBC (Auto) Urine RBC (Auto) Urine Casts (Auto) U Pathogenic Cast Auto U Epithel Cells (Auto) Urine Bacteria (Auto) 02/20/19 16:54 WBC RBC Hgb Hct MCV MCH MCHC RDW Plt Count MPV Sodium Potassium Chloride Carbon Dioxide Anion Gap BUN Creatinine Creat Clearance w eGFR POC Glucometer 114 Random Glucose Calcium Phosphorus Magnesium Total Bilirubin AST ALT Alkaline Phosphatase Total Protein Albumin Urine Color Urine Appearance Urine pH Ur Specific [place] Urine Protein Urine Glucose (UA) Urine Ketones Urine Blood Urine Nitrite Urine Bilirubin Urine Urobilinogen Ur Leukocyte Esterase Urine WBC (Auto) Urine RBC (Auto) Urine Casts (Auto) U Pathogenic Cast Auto U Epithel Cells (Auto) Urine Bacteria (Auto) Current Medications Generic Name Dose Route Start Last Admin Trade Name Freq PRN Reason Stop Dose Admin Chlorhexidine Gluconate 1 applic 02/11/19 22:00 02/19/19 23:34 Hibiclens For Decolonization - TP 1 applic HS [facility] Administration Folic Acid 1 mg 02/12/19 10:00 02/20/19 09:49 Folic Acid - PO 1 mg DAILY [facility] Administration Insulin Aspart 1 vial 02/11/19 16:30 02/20/19 17:04 Novolog Vial Sliding Scale - SQ Not Given ACHS [facility] Protocol Lactulose 20 gm 02/18/19 11:10 02/20/19 17:04 Cephulac (Oral Use) NGT 20 gm TID PRN Administration CONSTIPATION Pantoprazole Sodium 40 mg 02/19/19 10:30 02/20/19 09:49 Protonix Iv IVPUSH 40 mg DAILY [facility] Administration Rifaximin 550 mg 02/20/19 10:00 02/20/19 09:57 Xifaxan - PO 550 mg BID [facility] Administration Zinc Oxide/Panthenol/Vitamin E 1 applic 02/11/19 16:03 Balmex Cream - TP DAILY PRN HYGEINE ASSESSMENT AND PLAN: 58 year old female with history of Liver Cirrhosis, Alcohol Abuse, Hepatitis C, recent history of SBP 12/14, DM 2, HTN, Polysubstance Abuse (including Alcohol), Bipolar Disorder, sent to ED from [facility] for agitation, combativeness, and altered mental status while undergoing detox. She had deterioration in mental status, developed melena and was intubated 02/11 to protect airway. 1. Acute Hepatic Encephalopathy secondary to Advanced Cirrhosis due to Alcohol excess and Hepatitis C versus Acute Toxic Encephalopathy (History of polysubstance abuse s/p LP to exclude infective etiology CT Brain - no acute findings. Continue Lactulose via NG tube. Rifaximin added. 2. Acute respiratory failure- s/p intubation for airway protection. Successfully extubated to ND 02/20. 3. Acute Blood Loss Anemia secondary to GI Bleed secondary to Duodenal Ulcer - s /p 4 units PRBCs, s/p EGD 02/14 with clipping of bleeding ulcer. Off Octreotide PPI drips. No signs of ongoing bleeding. 4. Portal HTN with Ascites and Esophageal varices - no signs of SBP (s/p Paracentesis) and no signs of variceal bleeding currently. Normally on Lasix and Spironolactone, now held. 5. UTI - Urine Cx positive for E.fecalis - received ceftriaxone and ampicillin for 7 days. 6. Thrombocytopenia - sec to Cirrhosis. S/P 1 unit Platelets. No signs of ongoing bleeding. 7. BOB - IV fluids ongoing. ?Hepatorenal syndrome. Nephrology following. 8. DM 2 - maintain on Novolog sliding scale. 9. Hx of Alcohol Abuse - No signs of alcohol withdrawal. Thiamine, Multivitamin, Folate. 10. HTN - off home medications currently (Spironolactone, Norvasc). DVT Px - SCDs. GI Px -Protonix IV
[2019-02-20] MEDS: CHLORHEXIDINE GLUCONATE 4% CLEANSER FOR DECOLONIZATION TP SCH (22:17)
[2019-02-21] MEDS: INSULIN SLIDING SCALE (NOVOLOG) 1 VIAL SQ SCH ×4 (06:00→21:59)
[2019-02-21 06:48] LABS: EOS % 1.1 % (0-4.5); HEMATOCRIT 27.4 % (32.4-45.2); HEMOGLOBIN 9.1 GM/dL (10.7-15.3); LYMPH % 10.6 % (8-40); MCH 31.2 pg (25.7-33.7); MCHC 33.4 g/dl (32.0-36.0); MEAN CELL VOLUME 93.4 fl (80-96); MEAN PLT VOLUME 8.3 fl (7.5-11.1); MONO % 5.6 % (3.8-10.2); NEUT % 82.7 % (42.8-82.8); PLATELET COUNT 83 K/MM3 (134-434); RBC 2.93 M/mm3 (3.60-5.2); RDW 22.5 % (11.6-15.6); WHITE BLOOD COUNT 7.7 K/mm3 (4.0-10.0)
[2019-02-21 07:05] LABS: ALBUMIN 1.7 g/dl (3.4-5.0); ALK PHOS 109 U/L (45-117); ANION GAP 9 MMOL/L (8-16); BILIRUBIN,TOTAL 2.5 mg/dL (0.2-1); BLOOD UREA NITROGEN 52 mg/dL (7-18); CALCIUM 7.6 mg/dL (8.5-10.1); CHLORIDE 117 mmol/L (98-107); CO2 18 mmol/L (21-32); CREATININE 1.6 mg/dL (0.55-1.3); GLUCOSE,RANDOM 245 mg/dL (74-106); MAGNESIUM 2.1 mg/dL (1.8-2.4); PHOSPHOROUS 2.8 mg/dL (2.5-4.9); POTASSIUM 4.1 mmol/L (3.5-5.1); SGOT/AST 63 U/L (15-37); SGPT/ALT 34 U/L (13-61); SODIUM 144 mmol/L (136-145); TOT PROT 5.7 g/dl (6.4-8.2)
[2019-02-21] MEDS ORDERED: NAPH,MB-DB/K PH,MBDB POWDER PACKET PO ONE (07:25)
--- NOTE | 2019-02-21 08:11 | PN ---
Physical Exam: SUBJECTIVE: Patient seen and examined this AM. Is opening her eyes to painful stimulation but not following commands. OBJECTIVE: Vital Signs Period Temp Pulse Resp BP Sys/Aguilar Pulse Ox Last 24 Hr 97.4 F-98.5 F 56-81 14-22 118-150/63-89 100-100 GEN: Extubated, off sedation, not responding or following commands, though opens eyes when stimulated HEENT: dry mucus membranes NECK: supple HEART: Regular rate and rhythm, 5/6 systolic murmur noted LUNGS: CTA b/l ABDOMEN: Soft, nontender, normoactive bowel sounds EXTREMITIES: dependent edema noted in b/l UE, good peripheral pulses throughout NEURO: off sedation, no agitation, will open eyes to repeated stimulus Laboratory Results - last 24 hr 02/18/19 02/20/19 02/20/19 12:00 11:06 16:54 WBC RBC Hgb Hct MCV MCH MCHC RDW Plt Count MPV Absolute Neuts (auto) Neutrophils % Lymphocytes % Monocytes % Eosinophils % Basophils % Nucleated RBC % Sodium Potassium Chloride Carbon Dioxide Anion Gap BUN Creatinine Creat Clearance w eGFR POC Glucometer 271 114 Random Glucose Calcium Phosphorus Magnesium Total Bilirubin AST ALT Alkaline Phosphatase Ammonia Total Protein Albumin POC Fluid pH 7.8 02/20/19 02/21/19 02/21/19 22:06 05:30 05:30 WBC 7.7 RBC 2.93 L Hgb 9.1 L Hct 27.4 L MCV 93.4 MCH 31.2 MCHC 33.4 RDW 22.5 H Plt Count 83 L MPV 8.3 Absolute Neuts (auto) 6.4 Neutrophils % 82.7 Lymphocytes % 10.6 D Monocytes % 5.6 Eosinophils % 1.1 Basophils % 0.0 Nucleated RBC % 0 Sodium 144 Potassium 4.1 Chloride 117 H Carbon Dioxide 18 L Anion Gap 9 BUN 52 H Creatinine 1.6 H Creat Clearance w eGFR 32.99 POC Glucometer 167 Random Glucose 245 H Calcium 7.6 L Phosphorus 2.8 Magnesium 2.1 Total Bilirubin 2.5 H AST 63 H ALT 34 Alkaline Phosphatase 109 Ammonia Total Protein 5.7 L Albumin 1.7 L POC Fluid pH 02/21/19 02/21/19 05:30 05:46 WBC RBC Hgb Hct MCV MCH MCHC RDW Plt Count MPV Absolute Neuts (auto) Neutrophils % Lymphocytes % Monocytes % Eosinophils % Basophils % Nucleated RBC % Sodium Potassium Chloride Carbon Dioxide Anion Gap BUN Creatinine Creat Clearance w eGFR POC Glucometer 214 Random Glucose Calcium Phosphorus Magnesium Total Bilirubin AST ALT Alkaline Phosphatase Ammonia 21.30 Total Protein Albumin POC Fluid pH Active Medications Generic Name Dose Route Start Last Admin Trade Name Freq PRN Reason Stop Dose Admin Chlorhexidine Gluconate 1 applic 02/11/19 22:00 02/20/19 22:17 Hibiclens For Decolonization - TP 1 applic HS [facility] Administration Folic Acid 1 mg 02/12/19 10:00 02/20/19 09:49 Folic Acid - PO 1 mg DAILY [facility] Administration Insulin Aspart 1 vial 02/11/19 16:30 02/20/19 22:15 Novolog Vial Sliding Scale - SQ 2 units ACHS [facility] Administration Protocol Lactulose 20 gm 02/18/19 11:10 02/20/19 22:16 Cephulac (Oral Use) NGT 20 gm TID PRN Administration CONSTIPATION Pantoprazole Sodium 40 mg 02/19/19 10:30 02/20/19 09:49 Protonix Iv IVPUSH 40 mg DAILY [facility] Administration Rifaximin 550 mg 02/20/19 10:00 02/20/19 22:16 Xifaxan - PO 550 mg BID [facility] Administration Zinc Oxide/Panthenol/Vitamin E 1 applic 02/11/19 16:03 Balmex Cream - TP DAILY PRN HYGEINE ASSESSMENT/PLAN: Patient is a 58 year old female who presented with altered mental status and was found to have hepatic metabolic encephalopathy and GI bleed. Patient evaluated by ICU and deemed stable for Med/Surg initially. However, patient had worsening AMS with Active GI bleed and is now transferred to ICU for further monitoring and management. NEURO/PSYCH -Toxic Metabolic encephalopathy? LP without any abnormal findings ID consult appreciated and case discussed -Hepatic Encephalopathy - resolved GI consult appreciated lactulose/rifaximin as GI bleeding resolved, will require NGT as OG was removed on extubation Head CT without significant changes/pathology/bleeding noted Mental status stable with slow improvement, will continue to monitor -Polysubstance Abuse Avoid benzo's Continue folate and thiamine Consider rehab placement if pt becomes stable for d/c CARDIO -HTN Hold Anti-HTN medications for now Continue to monitor BP and will treat as needed PULMONARY -Acute Hypoxic Respiratory Failire Extubated 02/20, weaned off O2 Maintain 02 saturation >95% GASTROENTEROLOGY -GI Bleed Ruled out Variceal bleeding Protonix drip no longer required, IV Protonix daily H/H stable Initial EGD without signs of significant varices or bleeding source Repeat EGD with Colonoscopy with bleeding ulcer - clipped, no further bleeding noted Lactic acid normal -Elevated Tbili and direct bili, improving Repeat RUQ US ordered with recent uptrend -Liver Cirrhosis with Hepatic Encephalopathy - Ammonia normalized, mental status not improved History of prior SBP Ascites on U/S Diagnostic paracentesis completed, no concerning signs for SBP, gram stain negative -History of Hepatitis C Unsure if patient was treated Likely source of Liver cirrhosis HEMATOLOGY -Thrombocytopenia - improving Likely secondary to liver disease Continue to monitor maintain > 50 with active bleeding RENAL -BOB Unsure of baseline, stable Renal Consult appreciated Workup normal ENDOCRINE -IDDM II BGMs ISS PROPHYLAXIS -SCDs -Protonix drip FEN -none -Monitor and replete -Tolerating NGT feeds Disposition -Full code, poor prognosis, Family to continue discussion of goals of care and plans if patient does not continue to improve -Stable for transfer to floors Visit type - Emergency Visit Emergency Visit: Yes ED Registration Date: 02/08/19 Care time: The patient presented to the Emergency Department on the above date and was hospitalized for further evaluation of their emergent condition. - New Patient This patient is new to me today: No - Critical Care Critical Care patient: No
[2019-02-21] MEDS: RIFAXIMIN 550 MG TABLET (UD) PO SCH ×2 (09:30→21:58)
[2019-02-21] MEDS: FOLIC ACID 1 MG TABLET (FP) PO SCH (09:30)
[2019-02-21] MEDS: PANTOPRAZOLE SODIUM 40 MG VIAL IVPUSH SCH ×2 (09:30→21:58)
--- NOTE | 2019-02-21 10:07 | PN ---
Teaching Attending Note Name of Resident: Huy Mejia ATTENDING PHYSICIAN STATEMENT I saw and evaluated the patient. I reviewed the resident's note and discussed the case with the resident. I agree with the resident's findings and plan as documented. SUBJECTIVE: Patient seen and examined in the ICU. Remains Extubated. Lethargic but arousable. Not following commands. No pressors. OBJECTIVE: Intake & Output 02/18/19 02/19/19 02/20/19 02/21/19 23:59 23:59 23:59 23:59 Intake Total 100 550 835 Output Total 500 200 Balance -400 350 835 Weight 128 lb 14.4 oz 127 lb 122 lb 14.4 oz Last Vital Signs Temp Pulse Resp BP Pulse Ox 97.4 F L 56 L 16 118/75 100 02/21/19 06:00 02/21/19 06:00 02/21/19 06:00 02/21/19 06:00 02/20/19 23:11 Active Medications Chlorhexidine Gluconate (Hibiclens For Decolonization -) 1 applic TP HS [facility] Last Admin: 02/20/19 22:17 Dose: 1 applic Folic Acid (Folic Acid -) 1 mg PO DAILY [facility] Last Admin: 02/21/19 09:30 Dose: 1 mg Insulin Aspart (Novolog Vial Sliding Scale -) 1 vial SQ ACHS [facility]; Protocol Last Admin: 02/20/19 22:15 Dose: 2 units Lactulose (Cephulac (Oral Use)) 20 gm NGT TID PRN PRN Reason: CONSTIPATION Last Admin: 02/20/19 22:16 Dose: 20 gm Pantoprazole Sodium (Protonix Iv) 40 mg IVPUSH DAILY [facility] Last Admin: 02/21/19 09:30 Dose: 40 mg Rifaximin (Xifaxan -) 550 mg PO BID [facility] Last Admin: 02/21/19 09:30 Dose: 550 mg Zinc Oxide/Panthenol/Vitamin E (Balmex Cream -) 1 applic TP DAILY PRN PRN Reason: HYGEINE Gen: Extubated, lethargic but arousable Heart: RRR Lung: decreased breath sounds at the bases Abd: soft, +ascites Ext: no edema SUPERVISOR FABRICATION: Lethargic but arousbale Laboratory Results - last 24 hr 02/18/19 02/20/19 02/20/19 12:00 11:06 16:54 WBC RBC Hgb Hct MCV MCH MCHC RDW Plt Count MPV Absolute Neuts (auto) Neutrophils % Lymphocytes % Monocytes % Eosinophils % Basophils % Nucleated RBC % Sodium Potassium Chloride Carbon Dioxide Anion Gap BUN Creatinine Creat Clearance w eGFR POC Glucometer 271 114 Random Glucose Calcium Phosphorus Magnesium Total Bilirubin AST ALT Alkaline Phosphatase Ammonia Total Protein Albumin POC Fluid pH 7.8 02/20/19 02/21/19 02/21/19 22:06 05:30 05:30 WBC 7.7 RBC 2.93 L Hgb 9.1 L Hct 27.4 L MCV 93.4 MCH 31.2 MCHC 33.4 RDW 22.5 H Plt Count 83 L MPV 8.3 Absolute Neuts (auto) 6.4 Neutrophils % 82.7 Lymphocytes % 10.6 D Monocytes % 5.6 Eosinophils % 1.1 Basophils % 0.0 Nucleated RBC % 0 Sodium 144 Potassium 4.1 Chloride 117 H Carbon Dioxide 18 L Anion Gap 9 BUN 52 H Creatinine 1.6 H Creat Clearance w eGFR 32.99 POC Glucometer 167 Random Glucose 245 H Calcium 7.6 L Phosphorus 2.8 Magnesium 2.1 Total Bilirubin 2.5 H AST 63 H ALT 34 Alkaline Phosphatase 109 Ammonia Total Protein 5.7 L Albumin 1.7 L POC Fluid pH 02/21/19 02/21/19 05:30 05:46 WBC RBC Hgb Hct MCV MCH MCHC RDW Plt Count MPV Absolute Neuts (auto) Neutrophils % Lymphocytes % Monocytes % Eosinophils % Basophils % Nucleated RBC % Sodium Potassium Chloride Carbon Dioxide Anion Gap BUN Creatinine Creat Clearance w eGFR POC Glucometer 214 Random Glucose Calcium Phosphorus Magnesium Total Bilirubin AST ALT Alkaline Phosphatase Ammonia 21.30 Total Protein Albumin POC Fluid pH ASSESSMENT AND PLAN: Acute Respiratory Failure Altered Mental Status Hepatic Encephalopathy GI Bleed Acute Blood Loss Anemia Acute Kidney Injury Liver Cirrhosis Alcohol Abuse Hep C Thrombocytopenia h/o SBP UTI HTN DM - Aspiration precautions - Normal transfusion thresholds - lactulose, rifaximin - PPI via NGT - Currently off antibiotics - DVT/GI prophylaxis - Floor Dr Mckeon
--- NOTE | 2019-02-21 10:57 | PN ---
Physical Exam: SUBJECTIVE: Patient seen and examined at bedside in ICU. Extubated, off sedation , showing neurologic recovery. OBJECTIVE: Vital Signs Period Temp Pulse Resp BP Sys/Aguilar Pulse Ox Last 24 Hr 97.4 F-98.5 F 56-81 14-22 118-145/63-89 100-100 GENERAL: Extubated on venti mask, off sedation, improving alertness HEENT: NC/AT, PERRLA, NGT in place NECK: Trachea midline LUNGS: Limited exam, no adventitious sounds appreciated HEART: RRR no m/r/g ABDOMEN: +bs, soft, increased fluid appreciated EXTREMITIES: 2+ pulses, wwp, no edema appreciated NEUROLOGICAL: non-purposeful spontaneous movement, eye opening, +withdraws to sternal rub, +gag PSYCH: Unable to assess SKIN: Warm, dry, jaundiced Laboratory Results - last 24 hr 02/18/19 02/20/19 02/20/19 12:00 11:06 16:54 WBC RBC Hgb Hct MCV MCH MCHC RDW Plt Count MPV Absolute Neuts (auto) Neutrophils % Lymphocytes % Monocytes % Eosinophils % Basophils % Nucleated RBC % Sodium Potassium Chloride Carbon Dioxide Anion Gap BUN Creatinine Creat Clearance w eGFR POC Glucometer 271 114 Random Glucose Calcium Phosphorus Magnesium Total Bilirubin AST ALT Alkaline Phosphatase Ammonia Total Protein Albumin POC Fluid pH 7.8 02/20/19 02/21/19 02/21/19 22:06 05:30 05:30 WBC 7.7 RBC 2.93 L Hgb 9.1 L Hct 27.4 L MCV 93.4 MCH 31.2 MCHC 33.4 RDW 22.5 H Plt Count 83 L MPV 8.3 Absolute Neuts (auto) 6.4 Neutrophils % 82.7 Lymphocytes % 10.6 D Monocytes % 5.6 Eosinophils % 1.1 Basophils % 0.0 Nucleated RBC % 0 Sodium 144 Potassium 4.1 Chloride 117 H Carbon Dioxide 18 L Anion Gap 9 BUN 52 H Creatinine 1.6 H Creat Clearance w eGFR 32.99 POC Glucometer 167 Random Glucose 245 H Calcium 7.6 L Phosphorus 2.8 Magnesium 2.1 Total Bilirubin 2.5 H AST 63 H ALT 34 Alkaline Phosphatase 109 Ammonia Total Protein 5.7 L Albumin 1.7 L POC Fluid pH 02/21/19 02/21/19 05:30 05:46 WBC RBC Hgb Hct MCV MCH MCHC RDW Plt Count MPV Absolute Neuts (auto) Neutrophils % Lymphocytes % Monocytes % Eosinophils % Basophils % Nucleated RBC % Sodium Potassium Chloride Carbon Dioxide Anion Gap BUN Creatinine Creat Clearance w eGFR POC Glucometer 214 Random Glucose Calcium Phosphorus Magnesium Total Bilirubin AST ALT Alkaline Phosphatase Ammonia 21.30 Total Protein Albumin POC Fluid pH Active Medications Generic Name Dose Route Start Last Admin Trade Name Freq PRN Reason Stop Dose Admin Chlorhexidine Gluconate 1 applic 02/11/19 22:00 02/20/19 22:17 Hibiclens For Decolonization - TP 1 applic HS [facility] Administration Folic Acid 1 mg 02/12/19 10:00 02/21/19 09:30 Folic Acid - PO 1 mg DAILY [facility] Administration Insulin Aspart 1 vial 02/11/19 16:30 02/20/19 22:15 Novolog Vial Sliding Scale - SQ 2 units ACHS [facility] Administration Protocol Lactulose 20 gm 02/18/19 11:10 02/20/19 22:16 Cephulac (Oral Use) NGT 20 gm TID PRN Administration CONSTIPATION Pantoprazole Sodium 40 mg 02/19/19 10:30 02/21/19 09:30 Protonix Iv IVPUSH 40 mg DAILY [facility] Administration Rifaximin 550 mg 02/20/19 10:00 02/21/19 09:30 Xifaxan - PO 550 mg BID [facility] Administration Zinc Oxide/Panthenol/Vitamin E 1 applic 02/11/19 16:03 Balmex Cream - TP DAILY PRN HYGEINE ASSESSMENT/PLAN: 58 y/o F w/ PMHx cirrhosis, hep C, polysubstance abuse including EtOH, DM, HTN, bipolar disorder, recent h/o SBP 12/14, presents from [facility] for agitation, combativeness, AMS while undergoing detox #GI -cirrhosis w/ prior SBP -ascites on US -GI consulted -albumin infusions as per ICU team -no active bleeding identified on initial EGD -on repeat EGD, colonoscopy, esophageal ulcer identified and clipped -had rebleed 02/14-02/15, Hb dropped to 6.6, received 2 further units PRBC (5U total + 1U Plts) -PTX transitioned to IVP -H/H stable this AM -monitor CBC -NGT in place -will likely require PEG -paracentesis results pending -cont rifaximin and lactulose #heme -thrombocytopenia 2/2 liver disease -INR persistently elevated #CV -holding anti-hypertensives -maintain MAP > 65 -no indication for pressors at this time -hemodynamic support as per ICU team #pulmonary -successfully extubated on Venti mask -keep O2 sat > 92 #neuro -improving alertness, withdrawing to noxious stimuli, spontaneous movement, vocalizes expletives -cont thiamine, folate -cont lactulose and rifaximin -neurology following -LP: CSF WBC 0, protein wnl, further results pending -hoping for EEG #ID -UCx growing enterococcus, BCx NGTD -ID consulted -completed ABx #renal -remains in BOB -monitor BMP -cont IVF -multiple immunologic/serologic panels pending #endocrine -SSI, BGM #GOC -grave prognosis -patient's children aware of condition and attempting to reach consensus on GOC : Addy (Eldest), Second child Ms. Wally Steen [phone]), Third child Ms. Johana Germain ([phone]), Fourth child Ron Germain (can call after 6 pm at [phone]), Fifth child is in [place] -initiated discussion of potential need for PEG/trach and permanent institutionalization vs. comfort care measures w/ Wally, who believes her mother would not want to be kept alive on machines #FEN -hold IVF -monitor and correct electrolytes -vital TF via NGT #PPx -DVT: mechanical only -GI: IV PTX #code -full #dispo -for transfer to med/surg Visit type - Emergency Visit Emergency Visit: No - New Patient This patient is new to me today: No - Critical Care Critical Care patient: Yes Total Critical Care Time (in minutes): 40 Critical Care Statement: The care of this patient involved high complexity decision making to prevent further life threatening deterioration of the patient 's condition and/or to evaluate & treat vital organ system(s) failure or risk of failure.
[2019-02-21] MEDS ORDERED: PANTOPRAZOLE SOD 40 MG SUSPENSION PACKET NGT SCH (11:00)
[2019-02-21 11:28] LABS: ANISOCYTOSIS 2+; MACROCYTOSIS 1+; OVALOCYTE 1+; PLATELET ESTIMATE DECREASED
[2019-02-21] MEDS ORDERED: RANITIDINE HCL 150 MG/10 ML UNIT-DOSE NGT SCH (11:30)
--- NOTE | 2019-02-21 13:54 | PN ---
Progress Note, Physician History of Present Illness: Pt seen and examined at bedside. She is awake and tracking with her eyes. - Current Medication List Current Medications: Active Medications Chlorhexidine Gluconate (Hibiclens For Decolonization -) 1 applic TP HS [facility] Last Admin: 02/20/19 22:17 Dose: 1 applic Folic Acid (Folic Acid -) 1 mg PO DAILY [facility] Last Admin: 02/21/19 09:30 Dose: 1 mg Insulin Aspart (Novolog Vial Sliding Scale -) 1 vial SQ ACHS [facility]; Protocol Last Admin: 02/21/19 12:00 Dose: 2 units Lactulose (Cephulac (Oral Use)) 20 gm NGT TID PRN PRN Reason: CONSTIPATION Last Admin: 02/20/19 22:16 Dose: 20 gm Ranitidine HCl (Zantac Oral Solution -) 150 mg NGT BID [facility] Last Admin: 02/21/19 12:30 Dose: 150 mg Rifaximin (Xifaxan -) 550 mg PO BID [facility] Last Admin: 02/21/19 09:30 Dose: 550 mg Zinc Oxide/Panthenol/Vitamin E (Balmex Cream -) 1 applic TP DAILY PRN PRN Reason: HYGEINE - Objective Vital Signs: Vital Signs Temperature 97.8 F 02/21/19 10:00 Pulse Rate 63 02/21/19 12:00 Respiratory Rate 19 02/21/19 12:00 Blood Pressure 118/53 L 02/21/19 12:00 O2 Sat by Pulse Oximetry (%) 100 02/21/19 10:00 Constitutional: Yes: Calm Eyes: Yes: Conjunctiva Clear Cardiovascular: Yes: S1, S2 Respiratory: Yes: CTA Bilaterally Gastrointestinal: Yes: Soft Genitourinary: Yes: Vanegas Present Musculoskeletal: Yes: Muscle Weakness Edema: Yes Edema: LUE: Trace, RUE: Trace, LLE: Trace, RLE: Trace Neurological: Yes: Confusion, Other (awake but not answering quesitons) Labs: CBC, BMP 02/21/19 05:30 02/21/19 05:30 INR, PTT INR 1.27 (0.83-1.09) H 02/17/19 05:30 - ....Imaging Chest X-ray: Report Reviewed Problem List - Problems (1) Altered mental status Code(s): R41.82 - ALTERED MENTAL STATUS, UNSPECIFIED Qualifiers: Altered mental status type: stupor Qualified Code(s): R40.1 - Stupor (2) Hepatic encephalopathy Code(s): K72.90 - HEPATIC FAILURE, UNSPECIFIED WITHOUT COMA (3) Alcohol dependence Code(s): F10.20 - ALCOHOL DEPENDENCE, UNCOMPLICATED (4) Cocaine dependence Code(s): F14.20 - COCAINE DEPENDENCE, UNCOMPLICATED Assessment/Plan Current Medications Generic Name Dose Route Start Last Admin Trade Name Freq PRN Reason Stop Dose Admin Chlorhexidine Gluconate 1 applic 02/11/19 22:00 02/20/19 22:17 Hibiclens For Decolonization - TP 1 applic HS SACHIN Administration Folic Acid 1 mg 02/12/19 10:00 02/21/19 09:30 Folic Acid - PO 1 mg DAILY SACHIN Administration Insulin Aspart 1 vial 02/11/19 16:30 02/21/19 12:00 Novolog Vial Sliding Scale - SQ 2 units ACHS SACHIN Administration Protocol Lactulose 20 gm 02/18/19 11:10 02/20/19 22:16 Cephulac (Oral Use) NGT 20 gm TID PRN Administration CONSTIPATION Ranitidine HCl 150 mg 02/21/19 11:30 02/21/19 12:30 Zantac Oral Solution - NGT 150 mg BID SACHIN Administration Rifaximin 550 mg 02/20/19 10:00 02/21/19 09:30 Xifaxan - PO 550 mg BID SACHIN Administration Zinc Oxide/Panthenol/Vitamin E 1 applic 02/11/19 16:03 Balmex Cream - TP DAILY PRN HYGEINE Laboratory Tests 02/13/19 02/17/19 02/19/19 05:30 12:30 18:43 Urine Protein Negative Urine Blood Trace VICENTE Screen Negative c-ANCA <1:20 Proteinase 3 (PR3) <3.5 p-ANCA <1:20 Atypical p-ANCA <1:20 Myeloperoxidase Ab <9.0 Double Strand DNA Ab <1 Glomerular Base Memb Ab 4 Hep Bs Antigen Negative Hep Bs Antibody Reactive Hep B Core Total Ab Negative HSV I DNA Quant (PCR) Negative HSV II DNA Quant (PCR) Negative Impression 1. CKD 2. BOB 3. resp failure 4. etoh abuse 5. liver cirrhosis 6. bipolar 7. change in mental status 8. metabolic acidosis Plan - renal function improving - cont feeds - she is awake, mental status appears to be improving - monitor renal function - avoid nsaids - serologies negative so far Dr Jarrett
--- NOTE | 2019-02-21 16:35 | PN ---
Teaching Attending Note Name of Resident: Houston Melo ATTENDING PHYSICIAN STATEMENT I saw and evaluated the patient. I reviewed the resident's note and discussed the case with the resident. I agree with the resident's findings and plan as documented. SUBJECTIVE: Extubated. Rousable but still poorly responsive. OBJECTIVE: Afebrile, Hemodynamically Stable. Comfortable on O2 via NC Last Vital Signs Temp Pulse Resp BP Pulse Ox 97.0 F L 61 14 133/68 100 02/21/19 14:00 02/21/19 14:00 02/21/19 14:00 02/21/19 14:00 02/21/19 10:00 HEENT - Extubated. NG tube in situ Heart - S1, S2, RRR Lungs - Extubated. Good air entry bilaterally Abdomen - Soft, Bowel Sounds normal. Neuro - minimal movement. CELY. Moving LUE more than RUE or LEs. Laboratory Results - last 24 hr 02/18/19 02/20/19 02/20/19 12:00 16:54 22:06 WBC RBC Hgb Hct MCV MCH MCHC RDW Plt Count MPV Absolute Neuts (auto) Neutrophils % Lymphocytes % Monocytes % Eosinophils % Basophils % Nucleated RBC % Hypochromia Platelet Estimate Polychromasia Poikilocytosis Anisocytosis Microcytosis Macrocytosis Ovalocytes Acanthocytes (Spur) Sodium Potassium Chloride Carbon Dioxide Anion Gap BUN Creatinine Creat Clearance w eGFR POC Glucometer 114 167 Random Glucose Calcium Phosphorus Magnesium Total Bilirubin AST ALT Alkaline Phosphatase Ammonia Total Protein Albumin POC Fluid pH 7.8 02/21/19 02/21/19 02/21/19 05:30 05:30 05:30 WBC 7.7 RBC 2.93 L Hgb 9.1 L Hct 27.4 L MCV 93.4 MCH 31.2 MCHC 33.4 RDW 22.5 H Plt Count 83 L MPV 8.3 Absolute Neuts (auto) 6.4 Neutrophils % 82.7 Lymphocytes % 10.6 D Monocytes % 5.6 Eosinophils % 1.1 Basophils % 0.0 Nucleated RBC % 0 Hypochromia 0 Platelet Estimate Decreased Polychromasia 0 Poikilocytosis 1+ Anisocytosis 2+ Microcytosis 1+ Macrocytosis 1+ Ovalocytes 1+ Acanthocytes (Spur) 1+ Sodium 144 Potassium 4.1 Chloride 117 H Carbon Dioxide 18 L Anion Gap 9 BUN 52 H Creatinine 1.6 H Creat Clearance w eGFR 32.99 POC Glucometer Random Glucose 245 H Calcium 7.6 L Phosphorus 2.8 Magnesium 2.1 Total Bilirubin 2.5 H AST 63 H ALT 34 Alkaline Phosphatase 109 Ammonia 21.30 Total Protein 5.7 L Albumin 1.7 L POC Fluid pH 02/21/19 02/21/19 05:46 11:54 WBC RBC Hgb Hct MCV MCH MCHC RDW Plt Count MPV Absolute Neuts (auto) Neutrophils % Lymphocytes % Monocytes % Eosinophils % Basophils % Nucleated RBC % Hypochromia Platelet Estimate Polychromasia Poikilocytosis Anisocytosis Microcytosis Macrocytosis Ovalocytes Acanthocytes (Spur) Sodium Potassium Chloride Carbon Dioxide Anion Gap BUN Creatinine Creat Clearance w eGFR POC Glucometer 214 157 Random Glucose Calcium Phosphorus Magnesium Total Bilirubin AST ALT Alkaline Phosphatase Ammonia Total Protein Albumin POC Fluid pH Current Medications Generic Name Dose Route Start Last Admin Trade Name Freq PRN Reason Stop Dose Admin Chlorhexidine Gluconate 1 applic 02/11/19 22:00 02/20/19 22:17 Hibiclens For Decolonization - TP 1 applic HS SACHIN Administration Folic Acid 1 mg 02/12/19 10:00 02/21/19 09:30 Folic Acid - PO 1 mg DAILY SACHIN Administration Insulin Aspart 1 vial 02/11/19 16:30 02/21/19 12:00 Novolog Vial Sliding Scale - SQ 2 units ACHS SACHIN Administration Protocol Lactulose 20 gm 02/18/19 11:10 02/20/19 22:16 Cephulac (Oral Use) NGT 20 gm TID PRN Administration CONSTIPATION Ranitidine HCl 150 mg 02/21/19 11:30 02/21/19 12:30 Zantac Oral Solution - NGT 150 mg BID [facility]ACHIN Administration Rifaximin 550 mg 02/20/19 10:00 02/21/19 09:30 Xifaxan - PO 550 mg BID SACHIN Administration Zinc Oxide/Panthenol/Vitamin E 1 applic 02/11/19 16:03 Balmex Cream - TP DAILY PRN HYGEINE ASSESSMENT AND PLAN: 58 year old female with history of Liver Cirrhosis, Alcohol Abuse, Hepatitis C, recent history of SBP 12/14, DM 2, HTN, Polysubstance Abuse (including Alcohol), Bipolar Disorder, sent to ED from [facility] for agitation, combativeness, and altered mental status while undergoing detox. She had deterioration in mental status, developed melena and was intubated 02/11 to protect airway. 1. Acute Hepatic Encephalopathy secondary to Advanced Cirrhosis due to Alcohol excess and Hepatitis C versus Acute Toxic Encephalopathy (History of polysubstance abuse) s/p LP - infective etiology excluded CT Brain - no acute findings. Continue Lactulose and Rifaximin via NG. 2. Acute respiratory failure- s/p intubation for airway protection. Successfully extubated to MA 02/20. 3. Acute Blood Loss Anemia secondary to GI Bleed secondary to Duodenal Ulcer - s /p 4 units PRBCs, s/p EGD 02/14 with clipping of bleeding ulcer. Off Octreotide PPI drips. No signs of ongoing bleeding. 4. Portal HTN with Ascites and Esophageal varices - no signs of SBP (s/p Paracentesis) and no signs of variceal bleeding currently. Normally on Lasix and Spironolactone, now held. 5. UTI - Urine Cx positive for E.fecalis - received ceftriaxone and ampicillin for 7 days. 6. Thrombocytopenia - sec to Cirrhosis. S/P 1 unit Platelets. No signs of ongoing bleeding. 7. BOB - Creat improving. IV fluids ongoing. ?Hepatorenal syndrome. Nephrology following. 8. DM 2 - maintain on Novolog sliding scale. 9. Hx of Alcohol Abuse - No signs of alcohol withdrawal. Thiamine, Multivitamin, Folate. 10. HTN - off home medications currently (Spironolactone, Norvasc). DVT Px - SCDs. GI Px - Ranitidine via NGT
[2019-02-21] MEDS ORDERED: ZINC OXIDE/PANTHENOL/VITAMIN E 56 GM TUBE TP PRN (17:02)
[2019-02-21] MEDS ORDERED: LACTULOSE 20 GM/30 ML UDC (FOR ORAL USE ONLY) NGT PRN (17:02)
--- NOTE | 2019-02-21 19:05 | PN.GI ---
GI Progress Note Subjective: No acute events Still lethargic No overt bleeding Being NGT fed Downgraded today - Objective Vital Signs: Vital Signs Temperature 97.0 F L 02/21/19 14:00 Pulse Rate 62 02/21/19 16:00 Respiratory Rate 16 02/21/19 16:00 Blood Pressure 122/72 02/21/19 16:00 O2 Sat by Pulse Oximetry (%) 98 02/21/19 17:51 Constitutional: Calm Eyes: No: Sclera Icterus Cardiovascular: Yes: Regular Rate and Rhythm Respiratory: Yes: Diminished (at bases, poor insp effort) Gastrointestinal Inspection: Yes: Distention (softly distended). No: Scars ...Auscultate: Yes: Normoactive Bowel Sounds ...Palpate: Yes: Soft ...Percussion: No: Tympanitic Neurological: Yes: Lethargy Labs: CBC, BMP 02/21/19 05:30 02/21/19 05:30 INR, PTT INR 1.27 (0.83-1.09) H 02/17/19 05:30 Laboratory Tests 02/21/19 05:30 Ammonia 21.30 Problem List - Problems (1) GI bleed Assessment/Plan: No overt bleeding Continue protonix. I changed the PO order of H2 [place] and continued protonix 40mg IVPB daily. PPI better choice for significant ulcer healing Code(s): K92.2 - GASTROINTESTINAL HEMORRHAGE, UNSPECIFIED (2) Ascites Assessment/Plan: No SBP on paracentesis c/w portal HTN etiology Abdomen softly distended curently Code(s): R18.8 - OTHER ASCITES (3) Altered mental status Assessment/Plan: Continue altered MS despite normalized Ammonia Continued evaluation per primary team Continue rifaximin. Change the lactulose order to standing as opposed to as needed for constipation as it is being given for hepatic encephalopathy not constipation. Adjust dosing accoring to bowel movements. goal, 3-4 loose BM's per day. Code(s): R41.82 - ALTERED MENTAL STATUS, UNSPECIFIED Qualifiers: Altered mental status type: stupor Qualified Code(s): R40.1 - Stupor
[2019-02-22] MEDS: INSULIN SLIDING SCALE (NOVOLOG) 1 VIAL SQ SCH ×4 (06:41→22:06)
--- NOTE | 2019-02-22 08:14 | PN ---
Progress Note (short form) - Note Progress Note: RENAL Pt seen and examined appears acutely ill awake and makes eye contact but does not always respond Last Vital Signs Temp Pulse Resp BP Pulse Ox 97.8 F 64 18 135/74 96 02/22/19 05:19 02/22/19 05:19 02/22/19 05:19 02/22/19 05:19 02/21/19 21:00 lungs bilat air entry, some rhonchi cvs s1s2 rr abd soft ext +edema neuro awake skin has an erythematous area periorally on right Current Medications Generic Name Dose Route Start Last Admin Trade Name Freq PRN Reason Stop Dose Admin Folic Acid 1 mg 02/22/19 10:00 Folic Acid - PO DAILY SACHIN Insulin Aspart 1 vial 02/21/19 22:00 02/22/19 06:41 Novolog Vial Sliding Scale - SQ 8 units ACHS SACHIN Administration Protocol Lactulose 20 gm 02/21/19 17:02 Cephulac (Oral Use) NGT TID PRN CONSTIPATION Pantoprazole Sodium 40 mg 02/21/19 19:15 02/21/19 21:58 Protonix Iv IVPUSH 40 mg DAILY SACHIN Administration Rifaximin 550 mg 02/21/19 22:00 02/21/19 21:58 Xifaxan - PO 550 mg BID SACHIN Administration Zinc Oxide/Panthenol/Vitamin E 1 applic 02/21/19 17:02 Balmex Cream - TP DAILY PRN HYGEINE CBC, BMP 02/21/19 05:30 02/21/19 05:30 Impression 1. CKD non proteinuric, previously had high urine sodium so HRS is not likely 2. BOB 3. resp failure 4. etoh abuse 5. liver cirrhosis- Hep C positive 6. bipolar 7. change in mental status- hepatic encephalopathy 8. metabolic acidosis Plan - renal function improving- had normal sized kidneys - cont feeds - monitor renal function - avoid nsaids - serologies negative so far - ?treatment of hep c once more stable -continue lactulose and xifaxan MV
[2019-02-22 08:59] LABS: BASO % 0.1 % (0-2.0); EOS % 1.5 % (0-4.5); HEMATOCRIT 28.8 % (32.4-45.2); HEMOGLOBIN 9.7 GM/dL (10.7-15.3); LYMPH % 8.6 % (8-40); MCH 32.3 pg (25.7-33.7); MCHC 33.6 g/dl (32.0-36.0); MEAN CELL VOLUME 95.9 fl (80-96); MEAN PLT VOLUME 8.7 fl (7.5-11.1); MONO % 5.7 % (3.8-10.2); NEUT % 84.1 % (42.8-82.8); PLATELET COUNT 86 K/MM3 (134-434); RBC 3.01 M/mm3 (3.60-5.2); RDW 24.2 % (11.6-15.6); WHITE BLOOD COUNT 8.5 K/mm3 (4.0-10.0)
[2019-02-22] MEDS ORDERED: PT OWN MED DRAWER 7, Y5N ONE (09:16)
--- NOTE | 2019-02-22 09:17 | PN ---
Physical Exam: SUBJECTIVE: Patient seen and examined at bedside. Patient reacts to physical stimulation, but is not able to follow commands. NGT in place and feeds running OBJECTIVE: Vital Signs Period Temp Pulse Resp BP Sys/Aguilar Pulse Ox Last 24 Hr 97.0 F-97.8 F 60-86 14-19 118-145/53-82 96-100 GENERAL: The patient is lethargic, minimally arousable to physical stimuli. Patient speaking intelligible words, but they do not make sense. HEAD: Normal with no signs of trauma. NECK: Trachea midline, full range of motion, supple. LUNGS: Breath sounds equal, clear to auscultation bilaterally, no wheezes, no crackles, no accessory muscle use. HEART: Regular rate and rhythm, S1, S2. Systolic murmur heard ABDOMEN: Soft, nontender, nondistended, normoactive bowel sounds, no guarding, no rebound, no hepatosplenomegaly, no masses. EXTREMITIES: 2+ pulses, warm, well-perfused, no edema. NEUROLOGICAL: unable to perfom due to clinical status; patient withdraws from pain on the left, but not on the right. PSYCH: Normal mood, normal affect. SKIN: Warm, dry, normal turgor, no rashes or lesions noted Laboratory Results - last 24 hr 02/21/19 02/21/19 02/21/19 05:30 11:54 16:50 WBC RBC Hgb Hct MCV MCH MCHC RDW Plt Count MPV Absolute Neuts (auto) Neutrophils % Lymphocytes % Monocytes % Eosinophils % Basophils % Nucleated RBC % Hypochromia 0 Platelet Estimate Decreased Polychromasia 0 Poikilocytosis 1+ Anisocytosis 2+ Microcytosis 1+ Macrocytosis 1+ Ovalocytes 1+ Acanthocytes (Spur) 1+ POC Glucometer 157 215 02/21/19 02/22/19 02/22/19 21:47 06:40 08:30 WBC 8.5 RBC 3.01 L Hgb 9.7 L Hct 28.8 L MCV 95.9 MCH 32.3 MCHC 33.6 RDW 24.2 H Plt Count 86 L MPV 8.7 Absolute Neuts (auto) 7.2 Neutrophils % 84.1 H Lymphocytes % 8.6 Monocytes % 5.7 Eosinophils % 1.5 Basophils % 0.1 D Nucleated RBC % 0 Hypochromia Platelet Estimate Polychromasia Poikilocytosis Anisocytosis Microcytosis Macrocytosis Ovalocytes Acanthocytes (Spur) POC Glucometer 205 322 Active Medications Generic Name Dose Route Start Last Admin Trade Name Jody PRN Reason Stop Dose Admin Folic Acid 1 mg 02/22/19 10:00 Folic Acid - PO DAILY SACHIN Insulin Aspart 1 vial 02/21/19 22:00 02/22/19 06:41 Novolog Vial Sliding Scale - SQ 8 units ACHS SACHIN Administration Protocol Lactulose 20 gm 02/21/19 17:02 Cephulac (Oral Use) NGT TID PRN CONSTIPATION Pantoprazole Sodium 40 mg 02/21/19 19:15 02/21/19 21:58 Protonix Iv IVPUSH 40 mg DAILY SACHIN Administration Rifaximin 550 mg 02/21/19 22:00 02/21/19 21:58 Xifaxan - PO 550 mg BID SACHIN Administration Zinc Oxide/Panthenol/Vitamin E 1 applic 02/21/19 17:02 Balmex Cream - TP DAILY PRN HYGEINE ASSESSMENT/PLAN: 58 y/o F w/ PMHx cirrhosis, hep C, polysubstance abuse including EtOH, DM, HTN, bipolar disorder, admitted for acute metabolic encephalopathy. #Acute metabolic encephalopathy 2/2 cirrhosis 2/2 ETOH abuse -Patient's neurological status slowly improving; new baseline unknown at this time -GI consulted -NGT in place -will likely require PEG -cont rifaximin and lactulose -thrombocytopenia 2/2 liver disease -INR persistently elevated #UGIB -on EGD, colonoscopy, esophageal ulcer identified and clipped -s/p 5U PRBC total this admission + 1U Plts -monitor CBC #HTN -holding anti-hypertensives -maintain MAP > 65 #UTI -UCx growing enterococcus -ID consulted -completed course of ABX #BOB; baselike unknown -monitor BMP -cont IVF -multiple immunologic/serologic panels pending #DM -BGM ACHS -ISS ACHS #FEN -hold IVF -monitor and correct electrolytes -vital TF via NGT #prophy -SCDs -IV protonix #dispo -admit med/surg -ongoing GOC discussion with patient's family -PEG vs comfort care Visit type - Emergency Visit Emergency Visit: Yes ED Registration Date: 02/08/19 Care time: The patient presented to the Emergency Department on the above date and was hospitalized for further evaluation of their emergent condition. - New Patient This patient is new to me today: Yes Date on this admission: 02/23/19 - Critical Care Critical Care patient: No - Discharge Referral Referred to [facility] Med P.C.: No
[2019-02-22 09:24] LABS: ALBUMIN 1.8 g/dl (3.4-5.0); ALK PHOS 164 U/L (45-117); ANION GAP 5 MMOL/L (8-16); BILIRUBIN,TOTAL 1.6 mg/dL (0.2-1); BLOOD UREA NITROGEN 60 mg/dL (7-18); CALCIUM 7.5 mg/dL (8.5-10.1); CHLORIDE 117 mmol/L (98-107); CO2 21 mmol/L (21-32); CREATININE 1.8 mg/dL (0.55-1.3); MAGNESIUM 2.1 mg/dL (1.8-2.4); PHOSPHOROUS 2.8 mg/dL (2.5-4.9); POTASSIUM 4.2 mmol/L (3.5-5.1); SGOT/AST 73 U/L (15-37); SGPT/ALT 40 U/L (13-61); SODIUM 143 mmol/L (136-145); TOT PROT 6.2 g/dl (6.4-8.2)
[2019-02-22 09:52] LABS: GLUCOSE,RANDOM 375 mg/dL (74-106)
[2019-02-22] MEDS: FOLIC ACID 1 MG TABLET (FP) PO SCH (11:02)
[2019-02-22] MEDS: RIFAXIMIN 550 MG TABLET (UD) PO SCH ×2 (11:03→22:07)
[2019-02-22] MEDS: PANTOPRAZOLE SODIUM 40 MG VIAL IVPUSH SCH (11:03)
[2019-02-22] MEDS ORDERED: INSULIN (NOVOLOG) ASPART 100 UNITS/ML 10ML VIAL ONE (11:05)
--- NOTE | 2019-02-22 12:26 | PN ---
Progress Note (short form) - Note Progress Note: Remains lethargic but arousable. No acute events overnight. Not following commands. OBJECTIVE: Intake & Output 02/19/19 02/20/19 02/21/19 02/22/19 23:59 23:59 23:59 23:59 Intake Total 550 835 275 Output Total 200 Balance 350 835 275 Weight 127 lb 122 lb 14.4 oz Last Vital Signs Temp Pulse Resp BP Pulse Ox 97.4 F L 64 19 145/78 96 02/22/19 09:00 02/22/19 05:19 02/22/19 09:00 02/22/19 09:00 02/21/19 21:00 Active Medications Folic Acid (Folic Acid -) 1 mg PO DAILY [facility] Last Admin: 02/22/19 11:02 Dose: 1 mg Insulin Aspart (Novolog Vial Sliding Scale -) 1 vial SQ ACHS [facility]; Protocol Last Admin: 02/22/19 11:20 Dose: 8 units Lactulose (Cephulac (Oral Use)) 20 gm NGT TID PRN PRN Reason: CONSTIPATION Pantoprazole Sodium (Protonix Iv) 40 mg IVPUSH DAILY [facility] Last Admin: 02/22/19 11:03 Dose: 40 mg Rifaximin (Xifaxan -) 550 mg PO BID [facility] Last Admin: 02/22/19 11:03 Dose: 550 mg Zinc Oxide/Panthenol/Vitamin E (Balmex Cream -) 1 applic TP DAILY PRN PRN Reason: HYGEINE Gen: Lethargic but arousable Heart: RRR Lung: decreased breath sounds at the bases Abd: soft, +ascites Ext: no edema [employer]: Lethargic but arousbale Laboratory Results - last 24 hr 02/21/19 02/21/19 02/22/19 16:50 21:47 06:40 WBC RBC Hgb Hct MCV MCH MCHC RDW Plt Count MPV Absolute Neuts (auto) Neutrophils % Lymphocytes % Monocytes % Eosinophils % Basophils % Nucleated RBC % Sodium Potassium Chloride Carbon Dioxide Anion Gap BUN Creatinine Creat Clearance w eGFR POC Glucometer 215 205 322 Random Glucose Calcium Phosphorus Magnesium Total Bilirubin AST ALT Alkaline Phosphatase Ammonia Total Protein Albumin 02/22/19 02/22/19 02/22/19 08:30 08:30 08:30 WBC 8.5 RBC 3.01 L Hgb 9.7 L Hct 28.8 L MCV 95.9 MCH 32.3 MCHC 33.6 RDW 24.2 H Plt Count 86 L MPV 8.7 Absolute Neuts (auto) 7.2 Neutrophils % 84.1 H Lymphocytes % 8.6 Monocytes % 5.7 Eosinophils % 1.5 Basophils % 0.1 D Nucleated RBC % 0 Sodium 143 Potassium 4.2 Chloride 117 H Carbon Dioxide 21 Anion Gap 5 L BUN 60 H Creatinine 1.8 H Creat Clearance w eGFR 28.80 POC Glucometer Random Glucose 375 H* Calcium 7.5 L Phosphorus 2.8 Magnesium 2.1 Total Bilirubin 1.6 H AST 73 H ALT 40 Alkaline Phosphatase 164 H Ammonia < 10.00 L Total Protein 6.2 L Albumin 1.8 L 02/22/19 11:18 WBC RBC Hgb Hct MCV MCH MCHC RDW Plt Count MPV Absolute Neuts (auto) Neutrophils % Lymphocytes % Monocytes % Eosinophils % Basophils % Nucleated RBC % Sodium Potassium Chloride Carbon Dioxide Anion Gap BUN Creatinine Creat Clearance w eGFR POC Glucometer 350 Random Glucose Calcium Phosphorus Magnesium Total Bilirubin AST ALT Alkaline Phosphatase Ammonia Total Protein Albumin ASSESSMENT AND PLAN: Acute Respiratory Failure Altered Mental Status Hepatic Encephalopathy GI Bleed Acute Blood Loss Anemia Acute Kidney Injury Liver Cirrhosis Alcohol Abuse Hep C Thrombocytopenia h/o SBP UTI HTN DM - Aspiration precautions - Normal transfusion thresholds - lactulose, rifaximin - PPI via NGT - Currently off antibiotics - DVT/GI prophylaxis Dr Mckeon
--- NOTE | 2019-02-22 18:05 | PN ---
Teaching Attending Note Name of Resident: Kris Mari ATTENDING PHYSICIAN STATEMENT I saw and evaluated the patient. I reviewed the resident's note and discussed the case with the resident. I agree with the resident's findings and plan as documented. SUBJECTIVE: Extubated. Rousable but still poorly responsive. OBJECTIVE: Afebrile, Hemodynamically Stable. Comfortable on O2 via NC Last Vital Signs Temp Pulse Resp BP Pulse Ox 97.1 F L 70 18 137/67 100 02/22/19 14:59 02/22/19 14:59 02/22/19 14:59 02/22/19 14:59 02/22/19 09:00 HEENT - Extubated. NG tube in situ Heart - S1, S2, RRR Lungs - Extubated. Good air entry bilaterally Abdomen - Soft, Bowel Sounds normal. Neuro - minimal movement. CELY. Verbal response to painful stimuli. CELY. Laboratory Results - last 24 hr 02/21/19 02/22/19 02/22/19 21:47 06:40 08:30 WBC 8.5 RBC 3.01 L Hgb 9.7 L Hct 28.8 L MCV 95.9 MCH 32.3 MCHC 33.6 RDW 24.2 H Plt Count 86 L MPV 8.7 Absolute Neuts (auto) 7.2 Neutrophils % 84.1 H Lymphocytes % 8.6 Monocytes % 5.7 Eosinophils % 1.5 Basophils % 0.1 D Nucleated RBC % 0 Sodium Potassium Chloride Carbon Dioxide Anion Gap BUN Creatinine Creat Clearance w eGFR POC Glucometer 205 322 Random Glucose Calcium Phosphorus Magnesium Total Bilirubin AST ALT Alkaline Phosphatase Ammonia Total Protein Albumin 02/22/19 02/22/19 02/22/19 08:30 08:30 11:18 WBC RBC Hgb Hct MCV MCH MCHC RDW Plt Count MPV Absolute Neuts (auto) Neutrophils % Lymphocytes % Monocytes % Eosinophils % Basophils % Nucleated RBC % Sodium 143 Potassium 4.2 Chloride 117 H Carbon Dioxide 21 Anion Gap 5 L BUN 60 H Creatinine 1.8 H Creat Clearance w eGFR 28.80 POC Glucometer 350 Random Glucose 375 H* Calcium 7.5 L Phosphorus 2.8 Magnesium 2.1 Total Bilirubin 1.6 H AST 73 H ALT 40 Alkaline Phosphatase 164 H Ammonia < 10.00 L Total Protein 6.2 L Albumin 1.8 L 02/22/19 16:19 WBC RBC Hgb Hct MCV MCH MCHC RDW Plt Count MPV Absolute Neuts (auto) Neutrophils % Lymphocytes % Monocytes % Eosinophils % Basophils % Nucleated RBC % Sodium Potassium Chloride Carbon Dioxide Anion Gap BUN Creatinine Creat Clearance w eGFR POC Glucometer 355 Random Glucose Calcium Phosphorus Magnesium Total Bilirubin AST ALT Alkaline Phosphatase Ammonia Total Protein Albumin Current Medications Generic Name Dose Route Start Last Admin Trade Name Freq PRN Reason Stop Dose Admin Folic Acid 1 mg 02/22/19 10:00 02/22/19 11:02 Folic Acid - PO 1 mg DAILY SACHIN Administration Insulin Aspart 1 vial 02/21/19 22:00 02/22/19 16:24 Novolog Vial Sliding Scale - SQ 10 units ACHS SACHIN Administration Protocol Lactulose 20 gm 02/21/19 17:02 Cephulac (Oral Use) NGT TID PRN CONSTIPATION Pantoprazole Sodium 40 mg 02/21/19 19:15 02/22/19 11:03 Protonix Iv IVPUSH 40 mg DAILY SACHIN Administration Rifaximin 550 mg 02/21/19 22:00 02/22/19 11:03 Xifaxan - PO 550 mg BID SACHIN Administration Zinc Oxide/Panthenol/Vitamin E 1 applic 02/21/19 17:02 Balmex Cream - TP DAILY PRN HYGEINE ASSESSMENT AND PLAN: 58 year old female with history of Liver Cirrhosis, Alcohol Abuse, Hepatitis C, recent history of SBP 12/14, DM 2, HTN, Polysubstance Abuse (including Alcohol), Bipolar Disorder, sent to ED from [facility] for agitation, combativeness, and altered mental status while undergoing detox. She had deterioration in mental status, developed melena and was intubated 02/11 to protect airway. 1. Acute Hepatic Encephalopathy secondary to Advanced Cirrhosis due to Alcohol excess and Hepatitis C versus Acute Toxic Encephalopathy (History of polysubstance abuse) s/p LP - infective etiology excluded CT Brain - no acute findings. Continue Lactulose and Rifaximin via NG. 2. Acute respiratory failure- s/p intubation for airway protection. Successfully extubated to SD 02/20. 3. Acute Blood Loss Anemia secondary to GI Bleed secondary to Duodenal Ulcer - s /p 4 units PRBCs, s/p EGD 02/14 with clipping of bleeding ulcer. Off Octreotide PPI drips. No signs of ongoing bleeding. IV Protonix. 4. Liver Cirrhosis Portal HTN with Ascites and Esophageal varices - no signs of SBP (s/p Paracentesis) and no signs of variceal bleeding currently. Normally on Lasix and Spironolactone, now held. LFTs improving. 5. UTI - Urine Cx positive for E.fecalis - received ceftriaxone and ampicillin for 7 days. 6. Thrombocytopenia - sec to Cirrhosis. S/P 1 unit Platelets. No signs of ongoing bleeding. 7. BOB on CKD 3 - Creat improving. IV fluids ongoing. ?Hepatorenal syndrome. Nephrology following. 8. DM 2 - maintain on Novolog sliding scale. 9. Hx of Alcohol Abuse - No signs of alcohol withdrawal. Thiamine, Multivitamin, Folate. 10. HTN - off home medications currently (Spironolactone, Norvasc). 11. Hypoalbuminemia sec to Malnutrition and Liver Cirrhosis - NG feeds ongoing as per Nutrition recommendations. DVT Px - SCDs. GI Px - IV Protonix
[2019-02-22] MEDS: THIAMINE HCL 100 MG TABLET (FP) PO SCH (18:44)
[2019-02-23] MEDS: INSULIN SLIDING SCALE (NOVOLOG) 1 VIAL SQ SCH ×3 (06:05→17:02)
[2019-02-23] MEDS ORDERED: PT OWN MED DRAWER 7, Y5N ONE ×2 (06:21→10:14)
[2019-02-23 07:00] LABS: HEMOGLOBIN 9.5 GM/dL (10.7-15.3); MCH 31.2 pg (25.7-33.7); MCHC 32.9 g/dl (32.0-36.0); MEAN PLT VOLUME 8.6 fl (7.5-11.1); PLATELET COUNT 82 K/MM3 (134-434); RBC 3.06 M/mm3 (3.60-5.2); RDW 23.5 % (11.6-15.6)
[2019-02-23 07:27] LABS: ANION GAP 6 MMOL/L (8-16); BLOOD UREA NITROGEN 56 mg/dL (7-18); CALCIUM 7.4 mg/dL (8.5-10.1); CHLORIDE 119 mmol/L (98-107); CO2 21 mmol/L (21-32); CREATININE 1.7 mg/dL (0.55-1.3); GLUCOSE,RANDOM 270 mg/dL (74-106); PHOSPHOROUS 2.9 mg/dL (2.5-4.9); SODIUM 145 mmol/L (136-145)
--- NOTE | 2019-02-23 09:16 | PN ---
Progress Note (short form) - Note Progress Note: RENAL Pt seen and examined appears acutely ill awake and makes eye contact but does not always respond Last Vital Signs Temp Pulse Resp BP Pulse Ox 98.4 F 75 18 154/77 96 02/23/19 05:46 02/23/19 05:46 02/23/19 05:46 02/23/19 05:46 02/22/19 21:00 lungs bilat air entry, some rhonchi cvs s1s2 rr abd soft, distended ext +edema neuro awake skin has an erythematous area periorally on right Current Medications Generic Name Dose Route Start Last Admin Trade Name Freq PRN Reason Stop Dose Admin Folic Acid 1 mg 02/22/19 10:00 02/22/19 11:02 Folic Acid - PO 1 mg DAILY SACHIN Administration Insulin Aspart 1 vial 02/21/19 22:00 02/23/19 06:05 Novolog Vial Sliding Scale - SQ 2 units ACHS SACHIN Administration Protocol Lactulose 20 gm 02/21/19 17:02 Cephulac (Oral Use) NGT TID PRN CONSTIPATION Pantoprazole Sodium 40 mg 02/21/19 19:15 02/22/19 11:03 Protonix Iv IVPUSH 40 mg DAILY SACHIN Administration Rifaximin 550 mg 02/21/19 22:00 02/22/19 22:07 Xifaxan - PO 550 mg BID SACHIN Administration Thiamine HCl 100 mg 02/22/19 18:30 02/22/19 18:44 Vitamin B1 - PO 100 mg DAILY SACHIN Administration Zinc Oxide/Panthenol/Vitamin E 1 applic 02/21/19 17:02 Balmex Cream - TP DAILY PRN HYGEINE CBC, BMP 02/23/19 06:00 02/23/19 06:00 Impression 1. CKD non proteinuric, previously had high urine sodium so HRS is not likely 2. BOB- stable 3. resp failure 4. etoh abuse 5. liver cirrhosis- Hep C positive 6. bipolar 7. change in mental status- hepatic encephalopathy 8. metabolic acidosis Plan - renal function improving- had normal sized kidneys - would hold feeds - monitor renal function - avoid nsaids - serologies negative so far - ?treatment of hep c once more stable - continue lactulose and xifaxan -cxr, hold feedings for now MV MV
[2019-02-23] MEDS: PANTOPRAZOLE SODIUM 40 MG VIAL IVPUSH SCH (10:23)
[2019-02-23] MEDS: FOLIC ACID 1 MG TABLET (FP) PO SCH (10:24)
[2019-02-23] MEDS: THIAMINE HCL 100 MG TABLET (FP) PO SCH (10:25)
[2019-02-23] MEDS: RIFAXIMIN 550 MG TABLET (UD) PO SCH (10:25)
--- NOTE | 2019-02-23 11:03 | PN ---
Progress Note (short form) - Note Progress Note: No significant change in overall condition. Remains lethargic but arousable. No acute events overnight. OBJECTIVE: Intake & Output 02/20/19 02/21/19 02/22/19 02/23/19 23:59 23:59 23:59 23:59 Intake Total 835 275 660 780 Balance 835 275 660 780 Weight 122 lb 14.4 oz Last Vital Signs Temp Pulse Resp BP Pulse Ox 98.4 F 75 18 154/77 100 02/23/19 05:46 02/23/19 05:46 02/23/19 05:46 02/23/19 05:46 02/23/19 09:00 Active Medications Folic Acid (Folic Acid -) 1 mg PO DAILY [facility] Last Admin: 02/23/19 10:24 Dose: 1 mg Insulin Aspart (Novolog Vial Sliding Scale -) 1 vial SQ ACHS [facility]; Protocol Last Admin: 02/23/19 06:05 Dose: 2 units Lactulose (Cephulac (Oral Use)) 20 gm NGT TID PRN PRN Reason: CONSTIPATION Pantoprazole Sodium (Protonix Iv) 40 mg IVPUSH DAILY [facility] Last Admin: 02/23/19 10:23 Dose: 40 mg Rifaximin (Xifaxan -) 550 mg PO BID [facility] Last Admin: 02/23/19 10:25 Dose: 550 mg Thiamine HCl (Vitamin B1 -) 100 mg PO DAILY [facility] Last Admin: 02/23/19 10:25 Dose: 100 mg Zinc Oxide/Panthenol/Vitamin E (Balmex Cream -) 1 applic TP DAILY PRN PRN Reason: HYGEINE Gen: Lethargic but arousable Heart: RRR Lung: decreased breath sounds at the bases Abd: soft, +ascites Ext: no edema LOSS PREVENTION ANALYST: Lethargic but arousbale Laboratory Results - last 24 hr 02/22/19 02/22/19 02/22/19 11:18 16:19 22:04 WBC RBC Hgb Hct MCV MCH MCHC RDW Plt Count MPV Sodium Potassium Chloride Carbon Dioxide Anion Gap BUN Creatinine Creat Clearance w eGFR POC Glucometer 350 355 364 Random Glucose Calcium Phosphorus Magnesium 02/23/19 02/23/19 02/23/19 05:54 06:00 06:00 WBC 10.0 RBC 3.06 L Hgb 9.5 L Hct 29.0 L MCV 95.0 MCH 31.2 MCHC 32.9 RDW 23.5 H Plt Count 82 L MPV 8.6 Sodium 145 Potassium 4.0 Chloride 119 H Carbon Dioxide 21 Anion Gap 6 L BUN 56 H Creatinine 1.7 H Creat Clearance w eGFR 30.76 POC Glucometer 237 Random Glucose 270 H Calcium 7.4 L Phosphorus 2.9 Magnesium 2.0 ASSESSMENT AND PLAN: Acute Respiratory Failure Altered Mental Status Hepatic Encephalopathy GI Bleed Acute Blood Loss Anemia Acute Kidney Injury Liver Cirrhosis Alcohol Abuse Hep C Thrombocytopenia h/o SBP UTI HTN DM - Aspiration precautions - Normal transfusion thresholds - lactulose, rifaximin - PPI via NGT - Currently off antibiotics - DVT/GI prophylaxis Dr Mckeon
--- NOTE | 2019-02-23 11:17 | PN ---
Progress Note (short form) - Note Progress Note: SUBJECTIVE: Extubated. Rousable but still poorly responsive. Unable to participate in interview. OBJECTIVE: Afebrile, Hemodynamically Stable. Appears comfortable on O2 via NC Last Vital Signs Temp Pulse Resp BP Pulse Ox 98.4 F 75 18 154/77 100 02/23/19 05:46 02/23/19 05:46 02/23/19 05:46 02/23/19 05:46 02/23/19 09:00 HEENT - Extubated. NG tube in situ Heart - S1, S2, SM Lungs - Extubated. Good air entry bilaterally, few crackles Abdomen - Soft, mild distension, Bowel Sounds normal. Neuro - minimal movement. CELY. Verbal response to painful stimuli. Does not appear to be moving RUE or LEs. Repeats words said to her but not answering questions appropriately or following commands. Laboratory Results - last 24 hr 02/22/19 02/22/19 02/22/19 11:18 16:19 22:04 WBC RBC Hgb Hct MCV MCH MCHC RDW Plt Count MPV Sodium Potassium Chloride Carbon Dioxide Anion Gap BUN Creatinine Creat Clearance w eGFR POC Glucometer 350 355 364 Random Glucose Calcium Phosphorus Magnesium 02/23/19 02/23/19 02/23/19 05:54 06:00 06:00 WBC 10.0 RBC 3.06 L Hgb 9.5 L Hct 29.0 L MCV 95.0 MCH 31.2 MCHC 32.9 RDW 23.5 H Plt Count 82 L MPV 8.6 Sodium 145 Potassium 4.0 Chloride 119 H Carbon Dioxide 21 Anion Gap 6 L BUN 56 H Creatinine 1.7 H Creat Clearance w eGFR 30.76 POC Glucometer 237 Random Glucose 270 H Calcium 7.4 L Phosphorus 2.9 Magnesium 2.0 Current Medications Generic Name Dose Route Start Last Admin Trade Name Freq PRN Reason Stop Dose Admin Folic Acid 1 mg 02/22/19 10:00 02/23/19 10:24 Folic Acid - PO 1 mg DAILY SACHIN Administration Insulin Aspart 1 vial 02/21/19 22:00 02/23/19 06:05 Novolog Vial Sliding Scale - SQ 2 units ACHS SACHIN Administration Protocol Lactulose 20 gm 02/21/19 17:02 Cephulac (Oral Use) NGT TID PRN CONSTIPATION Pantoprazole Sodium 40 mg 02/21/19 19:15 02/23/19 10:23 Protonix Iv IVPUSH 40 mg DAILY SACHIN Administration Rifaximin 550 mg 02/21/19 22:00 02/23/19 10:25 Xifaxan - PO 550 mg BID SACHIN Administration Thiamine HCl 100 mg 02/22/19 18:30 02/23/19 10:25 Vitamin B1 - PO 100 mg DAILY SACHIN Administration Zinc Oxide/Panthenol/Vitamin E 1 applic 02/21/19 17:02 Balmex Cream - TP DAILY PRN HYGEINE ASSESSMENT AND PLAN: 58 year old female with history of Liver Cirrhosis, Alcohol Abuse, Hepatitis C, recent history of SBP 12/14, DM 2, HTN, Polysubstance Abuse (including Alcohol), Bipolar Disorder, sent to ED from [facility] for agitation, combativeness, and altered mental status while undergoing detox. She had deterioration in mental status, developed melena and was intubated 02/11 to protect airway. 1. Acute/Chronic Hepatic Encephalopathy secondary to Advanced Cirrhosis due to Alcohol excess and Hepatitis C versus Acute Toxic Encephalopathy (History of polysubstance abuse) s/p LP - infective etiology excluded CT Brain - no acute findings. Continue Lactulose and Rifaximin via NG. 2. Acute respiratory failure - resolved. s/p intubation for airway protection. Successfully extubated to IA 02/20. 3. Acute Blood Loss Anemia secondary to GI Bleed secondary to Duodenal Ulcer - s /p 4 units PRBCs, s/p EGD 02/14 with clipping of bleeding ulcer. Off Octreotide PPI drips. No signs of ongoing bleeding. IV Protonix. H/H stable. 4. Liver Cirrhosis Portal HTN with Ascites and Esophageal varices - no signs of SBP (s/p Paracentesis) and no signs of variceal bleeding currently. Normally on Lasix and Spironolactone, now held. LFTs improving. Abdomen mildly distended today, soft, likely re-accumulation of ascites, AXR ordered by Nephrology. 5. UTI - Urine Cx positive for E.fecalis - received ceftriaxone and ampicillin for 7 days. Afebrile, Hemodynamically Stable. 6. Thrombocytopenia - sec to Cirrhosis. S/P 1 unit Platelets. No signs of ongoing bleeding. 7. BOB on CKD 3 - Creat improving. ?Hepatorenal syndrome. Nephrology following. 8. DM 2 - maintain on Novolog sliding scale. 9. Hx of Alcohol Abuse - No signs of alcohol withdrawal. Thiamine, Multivitamin, Folate. 10. HTN - off home medications currently (Spironolactone, Norvasc). 11. Hypoalbuminemia sec to Malnutrition and Liver Cirrhosis - NG feeds ongoing as per Nutrition recommendations. DVT Px - SCDs. GI Px - IV Protonix Visit type - Emergency Visit Emergency Visit: Yes ED Registration Date: 02/08/19 Care time: The patient presented to the Emergency Department on the above date and was hospitalized for further evaluation of their emergent condition. - New Patient This patient is new to me today: No - Critical Care Critical Care patient: No - Discharge Referral Referred to [facility] Med P.C.: No
--- NOTE | 2019-02-23 11:22 | PN ---
Progress Note (short form) - Note Progress Note: Had discussion with , Bernard Norman , ) regarding patient's poor prognosis and poor mental status recovery, as well as her current inability to swallow requiring NG feeds. Options were discussed including possibility of PEG placement if she continues to fail swallow eval with Speech therapy. He understands and will discuss with their daughters. Visit type - Emergency Visit Emergency Visit: Yes ED Registration Date: 02/08/19 Care time: The patient presented to the Emergency Department on the above date and was hospitalized for further evaluation of their emergent condition. - New Patient This patient is new to me today: No - Critical Care Critical Care patient: No - Discharge Referral Referred to [facility] Med P.C.: No
--- NOTE | 2019-02-23 13:05 | RAPID ---
Physical Examination Vital Signs: Vital Signs Temperature 98.4 F 02/23/19 05:46 Pulse Rate 75 02/23/19 05:46 Respiratory Rate 18 02/23/19 05:46 Blood Pressure 154/77 02/23/19 05:46 O2 Sat by Pulse Oximetry (%) 100 02/23/19 09:00 Findings/Remarks: Rapid response called overhead as pt was nonresponsive per RN Upon entering exam room, pt in bed on venti mask. Nonresposnive, NG tube in place Rapid called at 12:58 pm 02/23/19 VS before Rapid: 145/53, RR 18, Os SAT 98% VS after Rapid 133/77, HR 86, RR 18, T 98, O2 SAT 100% ABG: PH 7.44, PCO2 28.5, pO2 44.85, ABG O2 9.8% Physical Exam: Nonresponsive Tachycardic New Diffuse Rhonchi Distended abdomen. No CCE Test ordered: ABG STAT EKG STAT Chest XRAY STAT Urine Drug Screen Ammonia level CBC CMP Vanegas insert Urine Culture HOB elevated 45 degrees Differentials include but not limited to; Aspiration, Hepatic Encephalopathy secondary to Advanced Cirrhosis Labs: CBC, BMP 02/23/19 06:00 02/23/19 06:00
[2019-02-23 13:20] LABS: ARTERIAL BLD GAS O2 SATURATION 80.1 % (95-98); ARTERIAL BLOOD GAS BASE EXCESS -4.1 meq/l (-2-2); ARTERIAL BLOOD GAS PCO2 28.5 mmHg (35-45); ARTERIAL BLOOD GAS PO2 44.8 mmHg (80-105); ARTERIAL BLOOD GAS pH 7.44 (7.35-7.45)
[2019-02-23 13:24] LABS: ALLENS TEST POSITIVE
[2019-02-23] MEDS ORDERED: NALOXONE HCL 0.4 MG/ML VIAL IVPUSH ONE (13:30)
[2019-02-23 14:11] LABS: HEMATOCRIT 30.8 % (32.4-45.2); HEMOGLOBIN 9.9 GM/dL (10.7-15.3); MCH 30.7 pg (25.7-33.7); MEAN CELL VOLUME 95.8 fl (80-96); MEAN PLT VOLUME 8.9 fl (7.5-11.1); PLATELET COUNT 84 K/MM3 (134-434); RBC 3.21 M/mm3 (3.60-5.2); WHITE BLOOD COUNT 12.2 K/mm3 (4.0-10.0)
[2019-02-23 14:33] LABS: ALBUMIN 1.9 g/dl (3.4-5.0); ALK PHOS 167 U/L (45-117); ANION GAP 7 MMOL/L (8-16); BILIRUBIN,TOTAL 1.6 mg/dL (0.2-1); BLOOD UREA NITROGEN 54 mg/dL (7-18); CALCIUM 7.5 mg/dL (8.5-10.1); CHLORIDE 120 mmol/L (98-107); CO2 20 mmol/L (21-32); CREATININE 1.5 mg/dL (0.55-1.3); GLUCOSE,RANDOM 223 mg/dL (74-106); POTASSIUM 4.2 mmol/L (3.5-5.1); SGOT/AST 62 U/L (15-37); SGPT/ALT 35 U/L (13-61); SODIUM 146 mmol/L (136-145); TOT PROT 6.3 g/dl (6.4-8.2)
[2019-02-23 14:33] LABS: COCAINE, UR NEGATIVE ng/ml (CUTOFF=300); METHADONE, UR NEGATIVE ng/ml (CUTOFF=300); OPIATES, URI NEGATIVE ng/ml (CUTOFF=300); PHENCYCLIDINE,URINE NEGATIVE ng/ml (CUTOFF=25); URINE AMPHETAMINES NEGATIVE ng/ml (CUTOFF=500); URINE BARBITURATES NEGATIVE ng/ml (CUTOFF=200); URINE BENZODIAZEPINES NEGATIVE ng/ml (CUTOFF=200)
[2019-02-24 00:11] LABS: LYME PCR CSF Negative (Negative)
[2019-02-24] MEDS: RIFAXIMIN 550 MG TABLET (UD) PO SCH ×3 (00:16→21:29)
[2019-02-24] MEDS: INSULIN SLIDING SCALE (NOVOLOG) 1 VIAL SQ SCH ×5 (00:16→21:28)
[2019-02-24 08:09] LABS: BASO % 0.1 % (0-2.0); EOS % 0.3 % (0-4.5); HEMATOCRIT 27.5 % (32.4-45.2); HEMOGLOBIN 8.8 GM/dL (10.7-15.3); MCH 30.9 pg (25.7-33.7); MCHC 32.1 g/dl (32.0-36.0); MEAN CELL VOLUME 96.3 fl (80-96); MEAN PLT VOLUME 8.6 fl (7.5-11.1); MONO % 4.3 % (3.8-10.2); NEUT % 85.3 % (42.8-82.8); PLATELET COUNT 72 K/MM3 (134-434); RBC 2.86 M/mm3 (3.60-5.2); RDW 24.1 % (11.6-15.6); WHITE BLOOD COUNT 11.4 K/mm3 (4.0-10.0)
[2019-02-24 08:36] LABS: ANION GAP 6 MMOL/L (8-16); BLOOD UREA NITROGEN 61 mg/dL (7-18); CALCIUM 7.7 mg/dL (8.5-10.1); CHLORIDE 121 mmol/L (98-107); CO2 18 mmol/L (21-32); CREATININE 1.6 mg/dL (0.55-1.3); MAGNESIUM 2.1 mg/dL (1.8-2.4); PHOSPHOROUS 4.3 mg/dL (2.5-4.9); POTASSIUM 4.6 mmol/L (3.5-5.1); SODIUM 145 mmol/L (136-145)
[2019-02-24 08:48] LABS: GLUCOSE,RANDOM 323 mg/dL (74-106)
--- NOTE | 2019-02-24 10:01 | EKG ---
Test Reason : Blood Pressure : / mmHG Vent. Rate : 075 BPM Atrial Rate : 075 BPM P-R Int : 132 ms QRS Dur : 082 ms QT Int : 394 ms P-R-T Axes : 059 040 063 degrees QTc Int : 439 ms NORMAL SINUS RHYTHM MINIMAL VOLTAGE CRITERIA FOR LVH, MAY BE NORMAL VARIANT BORDERLINE ECG WHEN COMPARED WITH ECG OF 09-FEB-2019 12:21, T WAVE VARIATION Confirmed by SAUL BAILEY, ASHLEY ([id number]) on 02/24/2019 10:00:27 AM Referred By: Nhan SAMANIEGO Confirmed By:ASHLEY HUGHES MD
[2019-02-24] MEDS ORDERED: PT OWN MED DRAWER 7, Y5N ONE ×2 (10:38→21:01)
[2019-02-24] MEDS ORDERED: INSULIN (NOVOLOG) ASPART 100 UNITS/ML 10ML VIAL ONE (10:54)
[2019-02-24] MEDS: FOLIC ACID 1 MG TABLET (FP) PO SCH (11:38)
[2019-02-24] MEDS: THIAMINE HCL 100 MG TABLET (FP) PO SCH (11:38)
[2019-02-24] MEDS: PANTOPRAZOLE SODIUM 40 MG VIAL IVPUSH SCH (11:38)
[2019-02-24 11:46] LABS: ANISOCYTOSIS 2+; MACROCYTOSIS 1+; PLATELET ESTIMATE DECREASED
--- NOTE | 2019-02-24 13:24 | PN ---
Physical Exam: SUBJECTIVE: Patient seen and examined at bedside in ICU. Showing minimal neurologic recovery. OBJECTIVE: Vital Signs Period Temp Pulse Resp BP Sys/Aguilar Pulse Ox Last 24 Hr 98.0 F-98.6 F 72-91 16-20 129-137/64-80 98 GENERAL: On RA, minimally responsive, verbalizes expletives unclear if purposeful HEENT: NC/AT, PERRLA, NGT in place NECK: Trachea midline LUNGS: Limited exam, no adventitious sounds appreciated HEART: RRR no m/r/g ABDOMEN: +bs, soft, increased fluid appreciated EXTREMITIES: 2+ pulses, wwp, no edema appreciated NEUROLOGICAL: spontaneous movement, eye opening, +withdraws to sternal rub, +gag PSYCH: Unable to assess SKIN: Warm, dry, jaundiced Laboratory Results - last 24 hr 02/17/19 02/23/19 02/23/19 12:30 13:05 13:09 WBC RBC Hgb Hct MCV MCH MCHC RDW Plt Count MPV Absolute Neuts (auto) Neutrophils % Lymphocytes % Monocytes % Eosinophils % Basophils % Nucleated RBC % Hypochromia Platelet Estimate Polychromasia Poikilocytosis Anisocytosis Microcytosis Macrocytosis Puncture Site Right radial ABG pH 7.44 ABG pCO2 at Pt Temp 28.5 L ABG pO2 at Pt Temp 44.8 L ABG HCO3 18.9 L ABG O2 Sat (Measured) 80.1 L ABG O2 Content 9.8 L* ABG Base Excess -4.1 L Sumit Test Positive O2 Delivery Device Venti mask Oxygen Flow Rate 40% Sodium 146 H Potassium 4.2 Chloride 120 H Carbon Dioxide 20 L Anion Gap 7 L BUN 54 H Creatinine 1.5 H Creat Clearance w eGFR 35.54 POC Glucometer Random Glucose 223 H Calcium 7.5 L Phosphorus Magnesium Total Bilirubin 1.6 H AST 62 H ALT 35 Alkaline Phosphatase 167 H Ammonia Total Protein 6.3 L Albumin 1.9 L CSF Lyme Disease DNA Negative Opiates Screen Methadone Screen Barbiturate Screen Phencyclidine Screen Ur Amphetamines Screen MDMA (Ecstasy) Screen Benzodiazepines Screen Cocaine Screen U Marijuana (THC) Screen 02/23/19 02/23/19 02/23/19 13:14 13:28 13:28 WBC 12.2 H RBC 3.21 L Hgb 9.9 L Hct 30.8 L MCV 95.8 MCH 30.7 MCHC 32.0 RDW 24.0 H Plt Count 84 L MPV 8.9 Absolute Neuts (auto) Neutrophils % Lymphocytes % Monocytes % Eosinophils % Basophils % Nucleated RBC % Hypochromia Platelet Estimate Polychromasia Poikilocytosis Anisocytosis Microcytosis Macrocytosis Puncture Site ABG pH ABG pCO2 at Pt Temp ABG pO2 at Pt Temp ABG HCO3 ABG O2 Sat (Measured) ABG O2 Content ABG Base Excess Sumit Test O2 Delivery Device Oxygen Flow Rate Sodium Potassium Chloride Carbon Dioxide Anion Gap BUN Creatinine Creat Clearance w eGFR POC Glucometer Random Glucose Calcium Phosphorus Magnesium Total Bilirubin AST ALT Alkaline Phosphatase Ammonia < 10.00 L Total Protein Albumin CSF Lyme Disease DNA Opiates Screen Negative Methadone Screen Negative Barbiturate Screen Negative Phencyclidine Screen Negative Ur Amphetamines Screen Negative MDMA (Ecstasy) Screen Negative Benzodiazepines Screen Negative Cocaine Screen Negative U Marijuana (THC) Screen Negative 02/23/19 02/24/19 02/24/19 17:01 00:14 04:57 WBC RBC Hgb Hct MCV MCH MCHC RDW Plt Count MPV Absolute Neuts (auto) Neutrophils % Lymphocytes % Monocytes % Eosinophils % Basophils % Nucleated RBC % Hypochromia Platelet Estimate Polychromasia Poikilocytosis Anisocytosis Microcytosis Macrocytosis Puncture Site ABG pH ABG pCO2 at Pt Temp ABG pO2 at Pt Temp ABG HCO3 ABG O2 Sat (Measured) ABG O2 Content ABG Base Excess Sumit Test O2 Delivery Device Oxygen Flow Rate Sodium Potassium Chloride Carbon Dioxide Anion Gap BUN Creatinine Creat Clearance w eGFR POC Glucometer 233 258 304 Random Glucose Calcium Phosphorus Magnesium Total Bilirubin AST ALT Alkaline Phosphatase Ammonia Total Protein Albumin CSF Lyme Disease DNA Opiates Screen Methadone Screen Barbiturate Screen Phencyclidine Screen Ur Amphetamines Screen MDMA (Ecstasy) Screen Benzodiazepines Screen Cocaine Screen U Marijuana (THC) Screen 02/24/19 02/24/19 02/24/19 07:50 07:50 11:53 WBC 11.4 H RBC 2.86 L Hgb 8.8 L Hct 27.5 L MCV 96.3 H MCH 30.9 MCHC 32.1 RDW 24.1 H Plt Count 72 L MPV 8.6 Absolute Neuts (auto) 9.7 H Neutrophils % 85.3 H Lymphocytes % 10.0 Monocytes % 4.3 Eosinophils % 0.3 Basophils % 0.1 Nucleated RBC % 0 Hypochromia 0 Platelet Estimate Decreased Polychromasia 0 Poikilocytosis 0 Anisocytosis 2+ Microcytosis 0 Macrocytosis 1+ Puncture Site ABG pH ABG pCO2 at Pt Temp ABG pO2 at Pt Temp ABG HCO3 ABG O2 Sat (Measured) ABG O2 Content ABG Base Excess Sumit Test O2 Delivery Device Oxygen Flow Rate Sodium 145 Potassium 4.6 Chloride 121 H Carbon Dioxide 18 L Anion Gap 6 L BUN 61 H Creatinine 1.6 H Creat Clearance w eGFR 32.99 POC Glucometer 301 Random Glucose 323 H* Calcium 7.7 L Phosphorus 4.3 Magnesium 2.1 Total Bilirubin AST ALT Alkaline Phosphatase Ammonia Total Protein Albumin CSF Lyme Disease DNA Opiates Screen Methadone Screen Barbiturate Screen Phencyclidine Screen Ur Amphetamines Screen MDMA (Ecstasy) Screen Benzodiazepines Screen Cocaine Screen U Marijuana (THC) Screen Active Medications Generic Name Dose Route Start Last Admin Trade Name Freq PRN Reason Stop Dose Admin Folic Acid 1 mg 02/22/19 10:00 02/24/19 11:38 Folic Acid - PO 1 mg DAILY SACHIN Administration Insulin Aspart 1 vial 02/21/19 22:00 02/24/19 11:55 Novolog Vial Sliding Scale - SQ 8 units ACHS SACHIN Administration Protocol Lactulose 20 gm 02/21/19 17:02 Cephulac (Oral Use) NGT TID PRN CONSTIPATION Pantoprazole Sodium 40 mg 02/21/19 19:15 02/24/19 11:38 Protonix Iv IVPUSH 40 mg DAILY SACHIN Administration Rifaximin 550 mg 02/21/19 22:00 02/24/19 11:38 Xifaxan - PO 550 mg BID SACHIN Administration Thiamine HCl 100 mg 02/22/19 18:30 02/24/19 11:38 Vitamin B1 - PO 100 mg DAILY SACHIN Administration Zinc Oxide/Panthenol/Vitamin E 1 applic 02/21/19 17:02 Balmex Cream - TP DAILY PRN HYGEINE ASSESSMENT/PLAN: 58 y/o F w/ PMHx cirrhosis, hep C, polysubstance abuse including EtOH, DM, HTN, bipolar disorder, recent h/o SBP 12/14, presents from [facility] for agitation, combativeness, AMS while undergoing detox #GI -cirrhosis w/ prior SBP -ascites on US -GI consulted -no active bleeding identified on initial EGD -on repeat EGD, colonoscopy, esophageal ulcer identified and clipped -had rebleed 02/14-02/15, Hb dropped to 6.6, received 2 further units PRBC (5U total + 1U Plts) -PTX transitioned to IVP -H/H stable this AM -monitor CBC -NGT in place -will likely require PEG -paracentesis results pending -cont rifaximin and lactulose #heme -thrombocytopenia 2/2 liver disease -INR persistently elevated #pulmonary -successfully extubated -keep O2 sat > 92 #neuro -improving alertness, withdrawing to noxious stimuli, spontaneous movement, vocalizes expletives -cont thiamine, folate -cont lactulose and rifaximin -neurology following -LP: CSF WBC 0, protein wnl -EEG abnormal showing both signs of diffuse encephalopathy and epileptiform disturbances in L temporal region #ID -UCx growing enterococcus, BCx NGTD -ID consulted -completed ABx #renal -BOB gradually improving -nephrology following -monitor BMP #endocrine -SSI, BGM #GOC -grave prognosis -family meeting required to discuss GOC: : Bernard Norman , ); Children: Addy (Eldest), Second child Ms. Wally Germain [phone]), Third child Ms. Johana Germain ([phone]), Fourth child Ron Germain (can call after 6 pm at [phone]), Fifth child is in [place] #FEN -hold IVF -monitor and correct electrolytes -vital TF via NGT #PPx -DVT: mechanical only -GI: IV PTX #code -full #dispo -monitor on med/surg Visit type - Emergency Visit Emergency Visit: No - New Patient This patient is new to me today: No - Critical Care Critical Care patient: No
--- NOTE | 2019-02-24 13:29 | PN ---
Progress Note (short form) - Note Progress Note: Patient seen and examined Labs reviewed Had [employer] yesterday for unresponsiveness Is awake but still unresponsive today Vital Signs Temp 98.0 F 02/24/19 09:00 Pulse 72 02/24/19 09:00 Resp 16 02/24/19 09:00 BP 129/73 02/24/19 09:00 Pulse Ox 98 02/23/19 21:00 NAD, lethargic NGT in place Abdomen nontender, mildly distended CBC, BMP 02/24/19 07:50 02/24/19 07:50 Hepatic Panel Total Bilirubin 1.6 mg/dL (0.2-1) H 02/23/19 13:05 Direct Bilirubin 2.3 mg/dL (0.0-0.2) H 02/18/19 05:30 AST 62 U/L (15-37) H 02/23/19 13:05 ALT 35 U/L (13-61) 02/23/19 13:05 Alkaline Phosphatase 167 U/L (45-117) H 02/23/19 13:05 Albumin 1.9 g/dl (3.4-5.0) L 02/23/19 13:05 INR, PTT INR 1.27 (0.83-1.09) H 02/17/19 05:30 Duodenal ulcer bleed - continue once daily PPI IV HCV cirrhosis - PSE, unclear why persistently altered - paracentesis negative for SBP - continue lactulose and rifaximin, titrate to 3 bm per day Would discuss goals of care with family as pt persistently altered and no etiology identified
--- NOTE | 2019-02-24 13:58 | PN ---
Progress Note, Physician History of Present Illness: Pt seen and examined at bedside. She is now in the medical [facility]. She is minimally responsive. She is however awake. - Current Medication List Current Medications: Active Medications Folic Acid (Folic Acid -) 1 mg PO DAILY [facility] Last Admin: 02/24/19 11:38 Dose: 1 mg Insulin Aspart (Novolog Vial Sliding Scale -) 1 vial SQ ACHS [facility]; Protocol Last Admin: 02/24/19 11:55 Dose: 8 units Lactulose (Cephulac (Oral Use)) 20 gm NGT TID PRN PRN Reason: CONSTIPATION Pantoprazole Sodium (Protonix Iv) 40 mg IVPUSH DAILY [facility] Last Admin: 02/24/19 11:38 Dose: 40 mg Rifaximin (Xifaxan -) 550 mg PO BID [facility] Last Admin: 02/24/19 11:38 Dose: 550 mg Thiamine HCl (Vitamin B1 -) 100 mg PO DAILY [facility] Last Admin: 02/24/19 11:38 Dose: 100 mg Zinc Oxide/Panthenol/Vitamin E (Balmex Cream -) 1 applic TP DAILY PRN PRN Reason: HYGEINE - Objective Vital Signs: Vital Signs Temperature 98.0 F 02/24/19 09:00 Pulse Rate 72 02/24/19 09:00 Respiratory Rate 16 02/24/19 09:00 Blood Pressure 129/73 02/24/19 09:00 O2 Sat by Pulse Oximetry (%) 98 02/23/19 21:00 Constitutional: Yes: Calm Eyes: Yes: Sclera Icterus Cardiovascular: Yes: S1, S2 Respiratory: Yes: CTA Bilaterally Gastrointestinal: Yes: Soft Genitourinary: Yes: Vanegas Present, Incontinence Musculoskeletal: Yes: Muscle Weakness Edema: Yes Edema: LUE: Trace, RUE: Trace, LLE: Trace, RLE: Trace Neurological: Yes: Lethargy Labs: CBC, BMP 02/24/19 07:50 02/24/19 07:50 INR, PTT INR 1.27 (0.83-1.09) H 02/17/19 05:30 Problem List - Problems (1) Altered mental status Code(s): R41.82 - ALTERED MENTAL STATUS, UNSPECIFIED Qualifiers: Altered mental status type: stupor Qualified Code(s): R40.1 - Stupor (2) Hepatic encephalopathy Code(s): K72.90 - HEPATIC FAILURE, UNSPECIFIED WITHOUT COMA (3) Alcohol dependence Code(s): F10.20 - ALCOHOL DEPENDENCE, UNCOMPLICATED (4) Cocaine dependence Code(s): F14.20 - COCAINE DEPENDENCE, UNCOMPLICATED Assessment/Plan Current Medications Generic Name Dose Route Start Last Admin Trade Name Freq PRN Reason Stop Dose Admin Folic Acid 1 mg 02/22/19 10:00 02/24/19 11:38 Folic Acid - PO 1 mg DAILY [facility]ACHIN Administration Insulin Aspart 1 vial 02/21/19 22:00 02/24/19 11:55 Novolog Vial Sliding Scale - SQ 8 units ACHS [facility]IN Administration Protocol Lactulose 20 gm 02/21/19 17:02 Cephulac (Oral Use) NGT TID PRN CONSTIPATION Pantoprazole Sodium 40 mg 02/21/19 19:15 02/24/19 11:38 Protonix Iv IVPUSH 40 mg DAILY [facility]IN Administration Rifaximin 550 mg 02/21/19 22:00 02/24/19 11:38 Xifaxan - PO 550 mg BID SACHIN Administration Thiamine HCl 100 mg 02/22/19 18:30 02/24/19 11:38 Vitamin B1 - PO 100 mg DAILY [facility]ACHIN Administration Zinc Oxide/Panthenol/Vitamin E 1 applic 02/21/19 17:02 Balmex Cream - TP DAILY PRN HYGEINE Impression 1. CKD 2. BOB 3. resp failure 4. etoh abuse 5. liver cirrhosis 6. bipolar 7. change in mental status 8. metabolic acidosis 9. hep C Plan - cont to monitor renal function - cont feeds - GI follow up for hep C - monitor mental status - avoid nsaids - serologies negative so far Dr Jarrett
--- NOTE | 2019-02-24 14:40 | PN ---
Teaching Attending Note Name of Resident: Houston Melo ATTENDING PHYSICIAN STATEMENT I saw and evaluated the patient. I reviewed the resident's note and discussed the case with the resident. I agree with the resident's findings and plan as documented. SUBJECTIVE: Extubated. Rousable but still poorly responsive. Unable to participate in interview. FORGE HEATER called yesterday for decreased responsiveness, patient appears at new baseline mental status since her intubation/extubation and ICU course. OBJECTIVE: Afebrile, Hemodynamically Stable. Appears comfortable on O2 via NC Last Vital Signs Temp Pulse Resp BP Pulse Ox 98.0 F 72 16 129/73 96 02/24/19 09:00 02/24/19 09:00 02/24/19 09:00 02/24/19 09:00 02/24/19 09:00 HEENT - Extubated. NG tube in situ Heart - S1, S2, SM Lungs - Extubated. Good air entry bilaterally, few ronchi Abdomen - Soft, mild distension, Bowel Sounds normal. Neuro - minimal movement. CELY. Opens eyes spontaneously but appears to have right sided neglect and does not appear to be moving RUE or LEs. Repeats words said to her but not answering questions appropriately or following commands. Laboratory Results - last 24 hr 02/17/19 02/23/19 02/24/19 12:30 17:01 00:14 WBC RBC Hgb Hct MCV MCH MCHC RDW Plt Count MPV Absolute Neuts (auto) Neutrophils % Lymphocytes % Monocytes % Eosinophils % Basophils % Nucleated RBC % Hypochromia Platelet Estimate Polychromasia Poikilocytosis Anisocytosis Microcytosis Macrocytosis Sodium Potassium Chloride Carbon Dioxide Anion Gap BUN Creatinine Creat Clearance w eGFR POC Glucometer 233 258 Random Glucose Calcium Phosphorus Magnesium CSF Lyme Disease DNA Negative 02/24/19 02/24/19 02/24/19 04:57 07:50 07:50 WBC 11.4 H RBC 2.86 L Hgb 8.8 L Hct 27.5 L MCV 96.3 H MCH 30.9 MCHC 32.1 RDW 24.1 H Plt Count 72 L MPV 8.6 Absolute Neuts (auto) 9.7 H Neutrophils % 85.3 H Lymphocytes % 10.0 Monocytes % 4.3 Eosinophils % 0.3 Basophils % 0.1 Nucleated RBC % 0 Hypochromia 0 Platelet Estimate Decreased Polychromasia 0 Poikilocytosis 0 Anisocytosis 2+ Microcytosis 0 Macrocytosis 1+ Sodium 145 Potassium 4.6 Chloride 121 H Carbon Dioxide 18 L Anion Gap 6 L BUN 61 H Creatinine 1.6 H Creat Clearance w eGFR 32.99 POC Glucometer 304 Random Glucose 323 H* Calcium 7.7 L Phosphorus 4.3 Magnesium 2.1 CSF Lyme Disease DNA 02/24/19 11:53 WBC RBC Hgb Hct MCV MCH MCHC RDW Plt Count MPV Absolute Neuts (auto) Neutrophils % Lymphocytes % Monocytes % Eosinophils % Basophils % Nucleated RBC % Hypochromia Platelet Estimate Polychromasia Poikilocytosis Anisocytosis Microcytosis Macrocytosis Sodium Potassium Chloride Carbon Dioxide Anion Gap BUN Creatinine Creat Clearance w eGFR POC Glucometer 301 Random Glucose Calcium Phosphorus Magnesium CSF Lyme Disease DNA Current Medications Generic Name Dose Route Start Last Admin Trade Name Freq PRN Reason Stop Dose Admin Folic Acid 1 mg 02/22/19 10:00 02/24/19 11:38 Folic Acid - PO 1 mg DAILY [facility]ACHIN Administration Insulin Aspart 1 vial 02/21/19 22:00 02/24/19 11:55 Novolog Vial Sliding Scale - SQ 8 units ACHS [facility]IN Administration Protocol Lactulose 20 gm 02/21/19 17:02 Cephulac (Oral Use) NGT TID PRN CONSTIPATION Pantoprazole Sodium 40 mg 02/21/19 19:15 02/24/19 11:38 Protonix Iv IVPUSH 40 mg DAILY [facility] Administration Rifaximin 550 mg 02/21/19 22:00 02/24/19 11:38 Xifaxan - PO 550 mg BID [facility]ACHIN Administration Thiamine HCl 100 mg 02/22/19 18:30 02/24/19 11:38 Vitamin B1 - PO 100 mg DAILY [facility]IN Administration Zinc Oxide/Panthenol/Vitamin E 1 applic 02/21/19 17:02 Balmex Cream - TP DAILY PRN HYGEINE ASSESSMENT AND PLAN: 58 year old female with history of Liver Cirrhosis, Alcohol Abuse, Hepatitis C, recent history of SBP 12/14, DM 2, HTN, Polysubstance Abuse (including Alcohol), Bipolar Disorder, sent to ED from [facility] for agitation, combativeness, and altered mental status while undergoing detox. She had deterioration in mental status, developed melena and was intubated 02/11 to protect airway. 1. Acute/Chronic Hepatic Encephalopathy secondary to Advanced Cirrhosis due to Alcohol excess and Hepatitis C versus Acute Toxic Encephalopathy (History of polysubstance abuse) s/p LP - infective etiology excluded CT Brain - no acute findings. Continue Lactulose and Rifaximin via NG. GI to comment on timing of possible Hep C treatment/referral to Hepatology. EEG - abnormal diffuse encephalopathy, possible epileptiform activity - EEG findings consistent with Hepatic Encephalopathy as per Dr. Ravi. Neuro to follow up re: mental status. 2. Acute respiratory failure - resolved. s/p intubation for airway protection. Successfully extubated to NH 02/20. 3. Acute Blood Loss Anemia secondary to GI Bleed secondary to Duodenal Ulcer - s /p 4 units PRBCs, s/p EGD 02/14 with clipping of bleeding ulcer. Off Octreotide PPI drips. No signs of ongoing bleeding. IV Protonix. H/H stable. 4. Liver Cirrhosis Portal HTN with Ascites and Esophageal varices - no signs of SBP (s/p Paracentesis) and no signs of variceal bleeding currently. Normally on Lasix and Spironolactone, now held. LFTs improving. Abdomen mildly distended, soft, likely re-accumulation of ascites. GI following. 5. UTI - Urine Cx positive for E.fecalis - received ceftriaxone and ampicillin for 7 days. Afebrile, Hemodynamically Stable. 6. Thrombocytopenia - sec to Cirrhosis. S/P 1 unit Platelets. No signs of ongoing bleeding. 7. BOB on CKD 3 - Creat plateaued at 1.6. ?Hepatorenal syndrome. Nephrology following. 8. DM 2 - glucose readings running high. Will intensify Novolog sliding scale. 9. Hx of Alcohol Abuse - No signs of alcohol withdrawal. Thiamine, Multivitamin, Folate. 10. HTN - off home medications currently (Spironolactone, Norvasc). 11. Hypoalbuminemia sec to Malnutrition and Liver Cirrhosis - NG feeds resumed after [employer]GE HEATER yesterday. CXR shows possible early infiltrate in L hilum ?? possible aspiration - will hold off Abx as she is afebrile and hemodynamically stable. Will monitor respiratory status and will stop feeds if any further suspicion of aspiration. DVT Px - SCDs. GI Px - IV Protonix. Erica (Palliative Care consulted for further family discussions re: PEG feeds and goals of care) Discussion with SW/CM re: placement, possible LTAC with NG tube versus possible SNF if family/GI agrees for PEG insertion
--- NOTE | 2019-02-24 20:37 | PN ---
Progress Note (short form) - Note Progress Note: NEUROLOGY PROGRESS: Events reviewed and discussed with Dr. Corrigan this AM. Pt remains unresponsive in spite of gradual normalization of Ammonia levels (< 10 x 3 days). Off antibiotics for UTI. On lactulose CT of head (02/19/19): Mild diffuse brain swelling without focal lesions. EEG reviewed: Diffuse changes c/w hepatic encephalopathy but also focal Left temporal epileptiform changes. EXAM: Neck supple. Unresponsive to name. Min grimacing to sternal pressure and pinch each arm Right conjugate gaze deviation but full EOM. Some isolated left eye and eyelid Nystagmus, intermittently. IMP: Moderately severe, B/L cerebral dysfunction. Possible seizures/ non-convulsive status epilepticus? Suggest: Add levetiracetam 1 gm IVPB tonight then 500 mg IVPB BID and observe. Repeat EEG in 48 hrs. Thank you very much, Koffi Ravi MD
[2019-02-24] MEDS ORDERED: levETIRAcetam 500 MG/5 ML INJECTION VIAL IVPB ONE (20:38)
[2019-02-24] MEDS ORDERED: INSULIN (LEVEMIR) 100 UNITS/ML UNITS SQ ONE (21:20)
[2019-02-25] MEDS: INSULIN SLIDING SCALE (NOVOLOG) 1 VIAL SQ SCH ×4 (06:02→23:10)
[2019-02-25] MEDS ORDERED: INSULIN (NOVOLOG) ASPART 100 UNITS/ML 10ML VIAL ONE ×2 (06:09→11:59)
[2019-02-25] MEDS ORDERED: PT OWN MED DRAWER 7, Y5N ONE ×2 (06:10→09:03)
[2019-02-25] MEDS ORDERED: INSULIN (LEVEMIR) 100 UNITS/ML UNITS SQ ONE (06:10)
[2019-02-25 07:27] LABS: BASO % 0.1 % (0-2.0); EOS % 0.8 % (0-4.5); HEMATOCRIT 27.5 % (32.4-45.2); HEMOGLOBIN 9.1 GM/dL (10.7-15.3); LYMPH % 7.9 % (8-40); MCH 32.5 pg (25.7-33.7); MCHC 32.9 g/dl (32.0-36.0); MEAN CELL VOLUME 98.8 fl (80-96); MEAN PLT VOLUME 9.4 fl (7.5-11.1); NEUT % 87.2 % (42.8-82.8); PLATELET COUNT 70 K/MM3 (134-434); RBC 2.78 M/mm3 (3.60-5.2); RDW 24.4 % (11.6-15.6); WHITE BLOOD COUNT 10.4 K/mm3 (4.0-10.0)
[2019-02-25 08:55] LABS: ALBUMIN 1.7 g/dl (3.4-5.0); ALK PHOS 139 U/L (45-117); ANION GAP 7 MMOL/L (8-16); BILIRUBIN,TOTAL 1.4 mg/dL (0.2-1); BLOOD UREA NITROGEN 74 mg/dL (7-18); CALCIUM 7.4 mg/dL (8.5-10.1); CHLORIDE 120 mmol/L (98-107); CO2 19 mmol/L (21-32); CREATININE 1.8 mg/dL (0.55-1.3); MAGNESIUM 2.1 mg/dL (1.8-2.4); PHOSPHOROUS 3.1 mg/dL (2.5-4.9); POTASSIUM 4.6 mmol/L (3.5-5.1); SGOT/AST 54 U/L (15-37); SGPT/ALT 30 U/L (13-61); SODIUM 146 mmol/L (136-145); TOT PROT 6.2 g/dl (6.4-8.2)
[2019-02-25 09:23] LABS: GLUCOSE,RANDOM 448 mg/dL (74-106)
[2019-02-25] MEDS: PANTOPRAZOLE SODIUM 40 MG VIAL IVPUSH SCH (09:44)
[2019-02-25] MEDS: THIAMINE HCL 100 MG TABLET (FP) PO SCH (09:44)
[2019-02-25] MEDS: RIFAXIMIN 550 MG TABLET (UD) PO SCH ×2 (09:44→22:10)
[2019-02-25] MEDS: FOLIC ACID 1 MG TABLET (FP) PO SCH (09:44)
[2019-02-25] MEDS: levETIRAcetam 500 MG/5 ML INJECTION VIAL IVPB SCH ×2 (09:45→22:08)
[2019-02-25 10:12] LABS: MUMPS AB IGG CSF < 5.0 AU/mL (<=10.9)
[2019-02-25] MEDS: FLUCONAZOLE 100 MG TABLET (UD) NGT SCH (12:06)
--- NOTE | 2019-02-25 12:16 | PN ---
Physical Exam: SUBJECTIVE: Patient seen and examined at bedside. Increasingly complex verbalizations, increased psychomotor activity, still minimally responsive to environment and stimuli. OBJECTIVE: Vital Signs Period Temp Pulse Resp BP Sys/Aguilar Pulse Ox Last 24 Hr 97.0 F-99.1 F 72-86 17-18 120-141/71-76 100 GENERAL: On RA, minimally responsive, verbalizes coherent phrases HEENT: NC/AT, PERRLA, NGT in place NECK: Trachea midline LUNGS: Limited exam, no adventitious sounds appreciated HEART: RRR no m/r/g ABDOMEN: +bs, soft, increased fluid appreciated EXTREMITIES: 2+ pulses, wwp, no edema appreciated NEUROLOGICAL: spontaneous movement, eye opening, +withdraws to sternal rub, +gag PSYCH: Unable to assess SKIN: Warm, dry Laboratory Results - last 24 hr 02/17/19 02/18/19 02/24/19 12:30 12:00 16:18 WBC RBC Hgb Hct MCV MCH MCHC RDW Plt Count MPV Absolute Neuts (auto) Neutrophils % Lymphocytes % Monocytes % Eosinophils % Basophils % Nucleated RBC % Sodium Potassium Chloride Carbon Dioxide Anion Gap BUN Creatinine Creat Clearance w eGFR POC Glucometer 249 Random Glucose Calcium Phosphorus Magnesium Total Bilirubin AST ALT Alkaline Phosphatase Total Protein Albumin Fluid Cholesterol 8 CSF Herpes II IgG Ab 0.17 02/24/19 02/25/19 02/25/19 21:25 05:58 06:30 WBC 10.4 H RBC 2.78 L Hgb 9.1 L Hct 27.5 L MCV 98.8 H MCH 32.5 MCHC 32.9 RDW 24.4 H Plt Count 70 L MPV 9.4 Absolute Neuts (auto) 9.0 H Neutrophils % 87.2 H Lymphocytes % 7.9 L D Monocytes % 4.0 Eosinophils % 0.8 D Basophils % 0.1 Nucleated RBC % 0 Sodium Potassium Chloride Carbon Dioxide Anion Gap BUN Creatinine Creat Clearance w eGFR POC Glucometer 317 388 Random Glucose Calcium Phosphorus Magnesium Total Bilirubin AST ALT Alkaline Phosphatase Total Protein Albumin Fluid Cholesterol CSF Herpes II IgG Ab 02/25/19 02/25/19 06:30 11:43 WBC RBC Hgb Hct MCV MCH MCHC RDW Plt Count MPV Absolute Neuts (auto) Neutrophils % Lymphocytes % Monocytes % Eosinophils % Basophils % Nucleated RBC % Sodium 146 H Potassium 4.6 Chloride 120 H Carbon Dioxide 19 L Anion Gap 7 L BUN 74 H Creatinine 1.8 H Creat Clearance w eGFR 28.80 POC Glucometer 420 Random Glucose 448 H* Calcium 7.4 L Phosphorus 3.1 Magnesium 2.1 Total Bilirubin 1.4 H AST 54 H ALT 30 Alkaline Phosphatase 139 H Total Protein 6.2 L Albumin 1.7 L Fluid Cholesterol CSF Herpes II IgG Ab Active Medications Generic Name Dose Route Start Last Admin Trade Name Freq PRN Reason Stop Dose Admin Fluconazole 200 mg 02/25/19 11:30 02/25/19 12:06 Diflucan - NGT 200 mg DAILY SACHIN Administration Folic Acid 1 mg 02/22/19 10:00 02/25/19 09:44 Folic Acid - PO 1 mg DAILY [facility]ACHIN Administration Insulin Aspart 1 vial 02/24/19 15:58 02/25/19 12:04 Novolog Vial Sliding Scale - SQ 14 units ACHS SACHIN Administration Protocol Insulin Detemir 5 units 02/25/19 22:00 Levemir Vial SQ HS [facility]IN Lactulose 20 gm 02/21/19 17:02 Cephulac (Oral Use) NGT TID PRN CONSTIPATION Levetiracetam 500 mg 02/25/19 10:00 02/25/19 09:45 Keppra Injection - IVPB 500 mg BID [facility]ACHIN Administration Pantoprazole Sodium 40 mg 02/21/19 19:15 02/25/19 09:44 Protonix Iv IVPUSH 40 mg DAILY [facility]IN Administration Rifaximin 550 mg 02/21/19 22:00 02/25/19 09:44 Xifaxan - PO 550 mg BID [facility]ACHIN Administration Thiamine HCl 100 mg 02/22/19 18:30 02/25/19 09:44 Vitamin B1 - PO 100 mg DAILY [facility]IN Administration Zinc Oxide/Panthenol/Vitamin E 1 applic 02/21/19 17:02 02/25/19 12:04 Balmex Cream - TP 1 applic DAILY PRN Administration HYGEINE ASSESSMENT/PLAN: 58 y/o F w/ PMHx cirrhosis, hep C, polysubstance abuse including EtOH, DM, HTN, bipolar disorder, recent h/o SBP 12/14, presents from [facility] for agitation, combativeness, AMS while undergoing detox #GI -cirrhosis w/ prior SBP -ascites on US -GI consulted -no active bleeding identified on initial EGD -on repeat EGD, colonoscopy, esophageal ulcer identified and clipped -had rebleed 02/14-02/15, Hb dropped to 6.6, received 2 further units PRBC (5U total + 1U Plts) -PTX transitioned to IVP -H/H stable this AM -monitor CBC -NGT in place -will likely require PEG -paracentesis unrevealing -cont rifaximin and lactulose #heme -thrombocytopenia 2/2 liver disease -INR persistently elevated #pulmonary -successfully extubated -keep O2 sat > 92 #neuro -improving alertness, withdrawing to noxious stimuli, spontaneous movement, vocalizes expletives -cont thiamine, folate -cont lactulose and rifaximin -neurology following -LP unrevealing -EEG abnormal showing both signs of diffuse encephalopathy and epileptiform disturbances in L temporal region -started on Keppra by neurology, will repeat EEG 48 hours from Keppra induction #ID -UCx growing enterococcus, BCx NGTD -ID consulted -completed ABx -repeat UCx growing yeast-like organism >100k CFUs #renal -BOB gradually improving -nephrology following -monitor BMP #endocrine -SSI, BGM #GOC -grave prognosis -family now agrees to PEG placement, seeking long-term SNF placement in [place] #FEN -hold IVF -monitor and correct electrolytes -vital TF via NGT #PPx -DVT: mechanical only -GI: IV PTX #code -full #dispo -monitor on med/surg Visit type - Emergency Visit Emergency Visit: No - New Patient This patient is new to me today: No - Critical Care Critical Care patient: No
--- NOTE | 2019-02-25 13:30 | PN ---
Teaching Attending Note Name of Resident: Houston Melo ATTENDING PHYSICIAN STATEMENT I saw and evaluated the patient. I reviewed the resident's note and discussed the case with the resident. I agree with the resident's findings and plan as documented. SUBJECTIVE:resting comfortable. tracks, says a few incomprehensible words OBJECTIVE: Last Vital Signs Temp Pulse Resp BP Pulse Ox 99.1 F 79 18 127/74 100 02/25/19 07:59 02/25/19 07:59 02/25/19 07:59 02/25/19 07:59 02/24/19 21:00 General NAD, says a few words, does not follow simple commands CV S1 S2 RRR no murmur/rub/gallop Lungs Coarse breath sounds anteriorly Abdomen soft + distended extremities B/L UE 1+pitting edema, sensation intact, does not withdraw to pain ASSESSMENT AND PLAN: 58 year old female with history of Liver Cirrhosis, Alcohol Abuse, Hepatitis C, recent history of SBP 12/14, DM 2, HTN, Polysubstance Abuse (including Alcohol), Bipolar Disorder, sent to ED from [facility] for agitation, combativeness, and altered mental status while undergoing detox. with no improvement and was intubated 02/11 to protect airway and now in the MICU with course complicated with development of melena. 1. Acute Hepatic Encephalopathy versus Toxic Encephalopathy secondary to Ativan and decompensating liver failure-alert but does not follow commands, says a few words but does not repsond appropriately. EEG done showing combination of hepatic encephalopathy and seizure activity. Ammonia level is normal. started on keppra. will need frequent neurochecks and monitoring for improvement. neuro on board. 2. Acute respiratory failure- s/p extubation. saturating well on NC. titrate down oxygen requirements as tolerated. 3. Melena-repeat EGD 02/14 showing duodenal ulcer with adherent clot. no signs of repeat bleeding. tolerating TF. will need to consider PEG. 4. esophageal varicces- with portal HTN. no stigmata of recent bleeding. will need routine surveillance 5. Acute blood loss anemia- due to duodenal ulcer s/p 4 units PRBC this hospital stay. no more bleeding noted. normal transfusion threshold. 6. hypocalcemia- Corrected Ca 8.1. ca via NGT 7. Acute decompensated liver failure-now improved 8. E. Faecalis UTI- completed abx treatment 9. Ascites- s/p paracentesis. negative for SBP. concern for fluid reaccumulation. lasix and aldactone on hold. trend LFT. therapetuic tap as needed. GI and ID on board 10. Thrombocytopenia-due to cirrhosis. s/p 1 unit platelets. no signs of bleeding. resolved 11. BOB- unknown baseline Cr. slowly trending down. nephro on board. workup sent. on low dose IVF. monitor UOP. avoid nephrotoxic agents. 12. DM- hold oral agents. iss and Bgm. 13. Continuous ETOH abuse- no signs of withdrawals. counselling once medically stabilized. on thiamine/folate/MVI 14. HTN- currently normotensive off oral agents 15. DVT PPI- SCD. hold pharmacologic in setting of active bleeding 16. plan for PEG and then SNF for placement
--- NOTE | 2019-02-25 14:04 | PN ---
Progress Note, Physician History of Present Illness: Pt seen and examined at bedside. She is more awake today. She looks to her left side and mumbles words. - Current Medication List Current Medications: Active Medications Fluconazole (Diflucan -) 200 mg NGT DAILY [facility] Last Admin: 02/25/19 12:06 Dose: 200 mg Folic Acid (Folic Acid -) 1 mg PO DAILY [facility] Last Admin: 02/25/19 09:44 Dose: 1 mg Insulin Aspart (Novolog Vial Sliding Scale -) 1 vial SQ ACHS [facility]; Protocol Last Admin: 02/25/19 12:04 Dose: 14 units Insulin Detemir (Levemir Vial) 5 units SQ HS [facility] Lactulose (Cephulac (Oral Use)) 20 gm NGT TID PRN PRN Reason: CONSTIPATION Levetiracetam (Keppra Injection -) 500 mg IVPB BID [facility] Last Admin: 02/25/19 09:45 Dose: 500 mg Pantoprazole Sodium (Protonix Iv) 40 mg IVPUSH DAILY [facility] Last Admin: 02/25/19 09:44 Dose: 40 mg Rifaximin (Xifaxan -) 550 mg PO BID [facility] Last Admin: 02/25/19 09:44 Dose: 550 mg Thiamine HCl (Vitamin B1 -) 100 mg PO DAILY [facility] Last Admin: 02/25/19 09:44 Dose: 100 mg Zinc Oxide/Panthenol/Vitamin E (Balmex Cream -) 1 applic TP DAILY PRN PRN Reason: HYGEINE Last Admin: 02/25/19 12:04 Dose: 1 applic - Objective Vital Signs: Vital Signs Temperature 99.1 F 02/25/19 07:59 Pulse Rate 79 02/25/19 07:59 Respiratory Rate 18 02/25/19 07:59 Blood Pressure 127/74 02/25/19 07:59 O2 Sat by Pulse Oximetry (%) 100 02/24/19 21:00 Constitutional: Yes: Calm HENT: Yes: Atraumatic Cardiovascular: Yes: S1, S2 Respiratory: Yes: CTA Bilaterally Gastrointestinal: Yes: Soft Genitourinary: Yes: Vanegas Present Musculoskeletal: Yes: Muscle Weakness Edema: Yes Edema: LLE: Trace, RLE: Trace Neurological: Yes: Lethargy Labs: CBC, BMP 02/25/19 06:30 02/25/19 06:30 INR, PTT INR 1.27 (0.83-1.09) H 02/17/19 05:30 Problem List - Problems (1) Altered mental status Code(s): R41.82 - ALTERED MENTAL STATUS, UNSPECIFIED Qualifiers: Altered mental status type: stupor Qualified Code(s): R40.1 - Stupor (2) Hepatic encephalopathy Code(s): K72.90 - HEPATIC FAILURE, UNSPECIFIED WITHOUT COMA (3) Alcohol dependence Code(s): F10.20 - ALCOHOL DEPENDENCE, UNCOMPLICATED (4) Cocaine dependence Code(s): F14.20 - COCAINE DEPENDENCE, UNCOMPLICATED Assessment/Plan Current Medications Generic Name Dose Route Start Last Admin Trade Name Freq PRN Reason Stop Dose Admin Fluconazole 200 mg 02/25/19 11:30 02/25/19 12:06 Diflucan - NGT 200 mg DAILY SACHIN Administration Folic Acid 1 mg 02/22/19 10:00 02/25/19 09:44 Folic Acid - PO 1 mg DAILY SACHIN Administration Insulin Aspart 1 vial 02/24/19 15:58 02/25/19 12:04 Novolog Vial Sliding Scale - SQ 14 units ACHS SACHIN Administration Protocol Insulin Detemir 5 units 02/25/19 22:00 Levemir Vial SQ HS SACHIN Lactulose 20 gm 02/21/19 17:02 Cephulac (Oral Use) NGT TID PRN CONSTIPATION Levetiracetam 500 mg 02/25/19 10:00 02/25/19 09:45 Keppra Injection - IVPB 500 mg BID SACHIN Administration Pantoprazole Sodium 40 mg 02/21/19 19:15 02/25/19 09:44 Protonix Iv IVPUSH 40 mg DAILY SACHIN Administration Rifaximin 550 mg 02/21/19 22:00 02/25/19 09:44 Xifaxan - PO 550 mg BID SACHIN Administration Thiamine HCl 100 mg 02/22/19 18:30 02/25/19 09:44 Vitamin B1 - PO 100 mg DAILY SACHIN Administration Zinc Oxide/Panthenol/Vitamin E 1 applic 02/21/19 17:02 02/25/19 12:04 Balmex Cream - TP 1 applic DAILY PRN Administration HYGEINE Impression 1. CKD 2. BOB 3. resp failure 4. etoh abuse 5. liver cirrhosis 6. bipolar 7. change in mental status 8. metabolic acidosis 9. hep C 10. hyperglycemia Plan - will need to adjust feeds as glucose is elevated - renal function is worse - will give hydration for the day - monitor renal function - GI follow up for hep C - monitor mental status - avoid nsaids Dr Jarrett
[2019-02-25] MEDS ORDERED: SODIUM CHLORIDE 0.45% 1,000 ML IV SCH (14:15)
--- NOTE | 2019-02-25 17:44 | PN.GI ---
GI Progress Note Subjective: limited - secondary to patient's mental status -- denies complaints. - Objective Vital Signs: Vital Signs Temperature 98.5 F 02/25/19 14:39 Pulse Rate 86 02/25/19 14:39 Respiratory Rate 18 02/25/19 14:39 Blood Pressure 144/75 02/25/19 14:39 O2 Sat by Pulse Oximetry (%) 100 02/25/19 09:00 Constitutional: No Distress, Calm Eyes: Yes: Sclera Icterus HENT: Yes: WNL Neck: Yes: WNL Cardiovascular: Yes: WNL Respiratory: Yes: WNL Gastrointestinal Inspection: Yes: Ascites, Other (shifting dullness ; nml bowel sounds; non tender) Musculoskeletal: Yes: WNL Extremities: Yes: WNL Edema: No Neurological: Yes: Other (awakens when spoken to) Labs: CBC, BMP 02/25/19 06:30 02/25/19 06:30 INR, PTT INR 1.27 (0.83-1.09) H 02/17/19 05:30 Assessment/Plan Called to evaluate for peg tube placement In short Mrs. Germain is a 58 year old woman with decompensated HCV cirrhosis / GI bleed / polysubstance abuse/ htn / bipolar disorder now with ngt for nutrition. I would recommend palliative evaluation - I do not believe she is a good candidate for peg tube placement considering her comorbidities. Peg tubes have not been proven to increase survival benefit in this subset of patients. In addition, peg tube can not be placed endoscopically considering she has ascites. Please feel free to re-consult with any questions or concerns
--- NOTE | 2019-02-25 20:58 | PN ---
Progress Note (short form) - Note Progress Note: Paged for family requesting to know exact date of PEG placement. Family states they would like to know the day/night before so that they can notify their job about taking time off. Family "lives in [place] so it will take some time to arrive at the hospital."
[2019-02-25] MEDS: INSULIN (LEVEMIR) 100 UNITS/ML UNITS SQ SCH (22:08)
[2019-02-26] MEDS: INSULIN SLIDING SCALE (NOVOLOG) 1 VIAL SQ SCH ×4 (06:21→23:40)
[2019-02-26 08:01] LABS: ALBUMIN 1.8 g/dl (3.4-5.0); ALK PHOS 170 U/L (45-117); ANION GAP 6 MMOL/L (8-16); BILIRUBIN,TOTAL 1.1 mg/dL (0.2-1); BLOOD UREA NITROGEN 64 mg/dL (7-18); CALCIUM 7.1 mg/dL (8.5-10.1); CHLORIDE 122 mmol/L (98-107); CO2 21 mmol/L (21-32); CREATININE 1.6 mg/dL (0.55-1.3); GLUCOSE,RANDOM 254 mg/dL (74-106); PHOSPHOROUS 2.4 mg/dL (2.5-4.9); POTASSIUM 4.4 mmol/L (3.5-5.1); SGOT/AST 57 U/L (15-37); SGPT/ALT 32 U/L (13-61); SODIUM 149 mmol/L (136-145); TOT PROT 6.2 g/dl (6.4-8.2)
[2019-02-26 08:06] LABS: BASO % 0.2 % (0-2.0); HEMATOCRIT 26.3 % (32.4-45.2); HEMOGLOBIN 8.7 GM/dL (10.7-15.3); LYMPH % 10.5 % (8-40); MCH 32.4 pg (25.7-33.7); MCHC 33.1 g/dl (32.0-36.0); MEAN CELL VOLUME 97.9 fl (80-96); MEAN PLT VOLUME 9.3 fl (7.5-11.1); NEUT % 81.3 % (42.8-82.8); PLATELET COUNT 63 K/MM3 (134-434); RBC 2.68 M/mm3 (3.60-5.2); RDW 25.8 % (11.6-15.6); WHITE BLOOD COUNT 8.5 K/mm3 (4.0-10.0)
[2019-02-26] MEDS ORDERED: SODIUM CHLORIDE 0.45% 1,000 ML IV SCH ×2 (08:30→12:45)
[2019-02-26] MEDS: FOLIC ACID 1 MG TABLET (FP) PO SCH (10:08)
[2019-02-26] MEDS: PANTOPRAZOLE SODIUM 40 MG VIAL IVPUSH SCH (10:08)
[2019-02-26] MEDS: FLUCONAZOLE 100 MG TABLET (UD) NGT SCH (10:08)
[2019-02-26] MEDS: THIAMINE HCL 100 MG TABLET (FP) PO SCH (10:09)
[2019-02-26] MEDS: levETIRAcetam 500 MG/5 ML INJECTION VIAL IVPB SCH ×2 (10:09→23:33)
[2019-02-26] MEDS: RIFAXIMIN 550 MG TABLET (UD) PO SCH ×2 (10:09→23:33)
--- NOTE | 2019-02-26 11:14 | PN ---
Teaching Attending Note Name of Resident: Houston Melo ATTENDING PHYSICIAN STATEMENT I saw and evaluated the patient. I reviewed the resident's note and discussed the case with the resident. I agree with the resident's findings and plan as documented. SUBJECTIVE:more alert, does not respond to questions appropriately. more vocal OBJECTIVE: Last Vital Signs Temp Pulse Resp BP Pulse Ox 97.7 F 75 18 142/85 98 02/26/19 06:00 02/26/19 06:00 02/26/19 06:00 02/26/19 06:00 02/25/19 21:00 General NAD, repeats phrases, does not respond to questions CV S1 S2 RRR no murmur/rub/gallop Lungs Coarse breath sounds anteriorly Abdomen soft + distended extremities B/L UE 1+pitting edema, sensation intact, does not withdraw to pain ASSESSMENT AND PLAN: 58 year old female with history of Liver Cirrhosis, Alcohol Abuse, Hepatitis C, recent history of SBP 12/14, DM 2, HTN, Polysubstance Abuse (including Alcohol), Bipolar Disorder, sent to ED from [facility] for agitation, combativeness, and altered mental status while undergoing detox. with no improvement and was intubated 02/11 to protect airway and now in the MICU with course complicated with development of melena. 1. Acute Hepatic Encephalopathy versus Toxic Encephalopathy secondary to Ativan and decompensating liver failure-alert but does not follow commands, will attempt repeat swallowing eval now that she is more alert. GI unable to place PEG due to ascites. will see if this is possible with IR. if unable to place PEG for nutrition will need to have goals of care conversation with family. cont to monitor for neurological recovery. on [facility]. neuro on board. 2. Hypernatremia- started on 2NS. increase free water flushes. trend Na 3. Acute respiratory failure- s/p extubation. saturating well on NC. titrate down oxygen requirements as tolerated. 4. Melena-repeat EGD 02/14 showing duodenal ulcer with adherent clot. no signs of repeat bleeding. 5. esophageal varicces- with portal HTN. no stigmata of recent bleeding. will need routine surveillance 6. Acute blood loss anemia- due to duodenal ulcer s/p 4 units PRBC this hospital stay. no more bleeding noted. normal transfusion threshold. 7. hypocalcemia- Corrected Ca 8.1. ca via NGT 8. Acute decompensated liver failure-now improved 9. E. Faecalis UTI- completed abx treatment 10. Ascites- s/p paracentesis. negative for SBP. concern for fluid reaccumulation. lasix and aldactone on hold, will consider re-starting at this time. trend LFT. therapetuic tap as needed. GI and ID on board 11. Thrombocytopenia-due to cirrhosis. s/p 1 unit platelets. no signs of bleeding. resolved 12. BOB- unknown baseline Cr. slowly trending down. nephro on board. workup sent. on low dose IVF. monitor UOP. avoid nephrotoxic agents. 13. DM- hold oral agents. iss and Bgm. 14. Continuous ETOH abuse- no signs of withdrawals. counselling once medically stabilized. on thiamine/folate/MVI 15. HTN- currently normotensive off oral agents 16. DVT PPI- SCD. hold pharmacologic in setting of active bleeding 17. will need termite helper placement
--- NOTE | 2019-02-26 11:46 | PN.GI ---
GI Progress Note Subjective: Pt seen/examined at bedside, awake, vocal though not responding appropriately to questions. - Objective Vital Signs: Vital Signs Temperature 97.7 F 02/26/19 06:00 Pulse Rate 75 02/26/19 06:00 Respiratory Rate 18 02/26/19 06:00 Blood Pressure 142/85 02/26/19 06:00 O2 Sat by Pulse Oximetry (%) 98 02/25/19 21:00 Constitutional: No Distress, Calm Cardiovascular: Yes: WNL, Regular Rate and Rhythm Respiratory: Yes: WNL, Regular, CTA Bilaterally ...Palpate: Yes: Other (Abd softly distended, no tenderness elicited) Edema: No Labs: CBC, BMP 02/26/19 07:00 02/26/19 07:00 INR, PTT INR 1.27 (0.83-1.09) H 02/17/19 05:30 Problem List - Problems (1) GI bleed Assessment/Plan: 58yo female h/o polysubstance abuse, HCV/cirrhosis, DM presenting with AMS s/p intubation with melena s/p EGD on 02/12 and 02/14 revealing small EV, portal HTN gastropathy and duodenal bulb ulcer with adherent clot s/p epi and endoclip placement. No further overt bleeding, Hb stable. Stool H pylori negative. -Continue PPI daily in setting of duodenal ulceration -Avoid NSAIDs Code(s): K92.2 - GASTROINTESTINAL HEMORRHAGE, UNSPECIFIED (2) Ascites Assessment/Plan: No evidence of SBP. Not candidate for PEG placement in setting of ascites. Code(s): R18.8 - OTHER ASCITES (3) Altered mental status Assessment/Plan: Exact etiology unclear, ?toxic/metabolic encephalopathy vs seizure disorder vs component of hepatic encephalopathy though not likely to fully explain extent of altered mentation -Continue rifaximin -Continue lactulose titrate to 2-3 loose bms -Neuro follow up/recommendations -Continue GOC discussion Code(s): R41.82 - ALTERED MENTAL STATUS, UNSPECIFIED Qualifiers: Altered mental status type: stupor Qualified Code(s): R40.1 - Stupor
--- NOTE | 2019-02-26 12:01 | PN ---
Physical Exam: SUBJECTIVE: Patient seen and examined at bedside. Increasingly complex verbalizations, increased psychomotor activity, increasingly interactive. OBJECTIVE: Vital Signs Period Temp Pulse Resp BP Sys/Aguilar Pulse Ox Last 24 Hr 97.7 F-98.5 F 68-86 18-18 139-144/71-85 98 GENERAL: On RA, increased responsiveness and interactivity with environment, verbalizes coherent phrases HEENT: NC/AT, PERRLA, NGT in place NECK: Trachea midline LUNGS: Limited exam, no adventitious sounds appreciated HEART: RRR no m/r/g ABDOMEN: +bs, soft, increased fluid appreciated EXTREMITIES: 2+ pulses, wwp, no edema appreciated NEUROLOGICAL: spontaneous movement, eye opening, +withdraws to sternal rub, +gag PSYCH: Unable to assess SKIN: Warm, dry Laboratory Results - last 24 hr 02/17/19 02/25/19 02/25/19 12:30 17:13 23:05 WBC RBC Hgb Hct MCV MCH MCHC RDW Plt Count MPV Absolute Neuts (auto) Neutrophils % Lymphocytes % Monocytes % Eosinophils % Basophils % Nucleated RBC % Sodium Potassium Chloride Carbon Dioxide Anion Gap BUN Creatinine Creat Clearance w eGFR POC Glucometer 330 336 Random Glucose Calcium Phosphorus Magnesium Total Bilirubin AST ALT Alkaline Phosphatase Total Protein Albumin CSF Lyme IgG [place] Negative CSF Lyme IgG Ab 18 kDa Absent CSF Lyme IgG Ab 23 kDa Absent CSF Lyme IgG Ab 28 kDa Absent CSF Lyme IgG Ab 30 kDa Absent CSF Lyme IgG Ab 39 kDa Absent CSF Lyme IgG Ab 41 kDa Absent CSF Lyme IgG Ab 45 kDa Absent CSF Lyme IgG Ab 58 kDa Absent CSF Lyme IgG Ab 66 kDa Absent CSF Lyme IgG Ab 93 kDa Absent CSF Lyme IgM [place] Negative CSF Lyme IgM Ab 23 kDa Absent CSF Lyme IgM Ab 39 kDa Absent CSF Lyme IgM Ab 41 kDa Absent Lyme IgG Ab Interpret Negative Lyme IgM Ab Index Negative 02/26/19 02/26/19 02/26/19 06:20 07:00 07:00 WBC 8.5 RBC 2.68 L Hgb 8.7 L Hct 26.3 L MCV 97.9 H MCH 32.4 MCHC 33.1 RDW 25.8 H Plt Count 63 L MPV 9.3 Absolute Neuts (auto) 6.9 Neutrophils % 81.3 Lymphocytes % 10.5 D Monocytes % 5.0 Eosinophils % 3.0 D Basophils % 0.2 Nucleated RBC % 0 Sodium 149 H Potassium 4.4 Chloride 122 H Carbon Dioxide 21 Anion Gap 6 L BUN 64 H Creatinine 1.6 H Creat Clearance w eGFR 32.99 POC Glucometer 220 Random Glucose 254 H Calcium 7.1 L Phosphorus 2.4 L Magnesium 2.0 Total Bilirubin 1.1 H AST 57 H ALT 32 Alkaline Phosphatase 170 H Total Protein 6.2 L Albumin 1.8 L CSF Lyme IgG [place] CSF Lyme IgG Ab 18 kDa CSF Lyme IgG Ab 23 kDa CSF Lyme IgG Ab 28 kDa CSF Lyme IgG Ab 30 kDa CSF Lyme IgG Ab 39 kDa CSF Lyme IgG Ab 41 kDa CSF Lyme IgG Ab 45 kDa CSF Lyme IgG Ab 58 kDa CSF Lyme IgG Ab 66 kDa CSF Lyme IgG Ab 93 kDa CSF Lyme IgM [place] CSF Lyme IgM Ab 23 kDa CSF Lyme IgM Ab 39 kDa CSF Lyme IgM Ab 41 kDa Lyme IgG Ab Interpret Lyme IgM Ab Index Active Medications Generic Name Dose Route Start Last Admin Trade Name Freq PRN Reason Stop Dose Admin Fluconazole 200 mg 02/25/19 11:30 02/26/19 10:08 Diflucan - NGT 200 mg DAILY SACHIN Administration Folic Acid 1 mg 02/22/19 10:00 02/26/19 10:08 Folic Acid - PO 1 mg DAILY SACHIN Administration Sodium Chloride 1,000 mls @ 42 mls/hr 02/26/19 08:30 02/26/19 10:14 1/2 Normal Saline IV 42 mls/hr ASDIR SACHIN Administration Insulin Aspart 1 vial 02/24/19 15:58 02/26/19 06:21 Novolog Vial Sliding Scale - SQ 6 units ACHS [facility] Administration Protocol Insulin Detemir 5 units 02/25/19 22:00 02/25/19 22:08 Levemir Vial SQ 5 units HS [facility] Administration Lactulose 20 gm 02/21/19 17:02 Cephulac (Oral Use) NGT TID PRN CONSTIPATION Levetiracetam 500 mg 02/25/19 10:00 02/26/19 10:09 Keppra Injection - IVPB 500 mg BID SACHIN Administration Ranitidine HCl 150 mg 02/27/19 10:00 Zantac Oral Solution - NGT BID [facility] Rifaximin 550 mg 02/21/19 22:00 02/26/19 10:09 Xifaxan - PO 550 mg BID SACHIN Administration Thiamine HCl 100 mg 02/22/19 18:30 02/26/19 10:09 Vitamin B1 - PO 100 mg DAILY SACHIN Administration Zinc Oxide/Panthenol/Vitamin E 1 applic 02/21/19 17:02 02/25/19 12:04 Balmex Cream - TP 1 applic DAILY PRN Administration HYGEINE ASSESSMENT/PLAN: 58 y/o F w/ PMHx cirrhosis, hep C, polysubstance abuse including EtOH, DM, HTN, bipolar disorder, recent h/o SBP 12/14, presents from [facility] for agitation, combativeness, AMS while undergoing detox #GI -cirrhosis w/ prior SBP -ascites on US -GI consulted -no active bleeding identified on initial EGD -on repeat EGD, colonoscopy, esophageal ulcer identified and clipped -had rebleed 02/14-02/15, Hb dropped to 6.6, received 2 further units PRBC (5U total + 1U Plts) -PTX transitioned to IVP -H/H stable this AM -monitor CBC -NGT in place -cont rifaximin and lactulose -IR consulted for PEG placement: requests 1U platelets, plan for pigtail drainage of ascites tomorrow with prep for PEG on Friday 03/02 and PEG placement anticipated 03/03 -speech/swallow to evaluate for prospects of PO intake; unlikely to provided sustenance nutrition by PO #heme -thrombocytopenia 2/2 liver disease -INR persistently elevated #pulmonary -successfully extubated -keep O2 sat > 92 #neuro -improving alertness, withdrawing to noxious stimuli, spontaneous movement, vocalizes expletives -cont thiamine, folate -cont lactulose and rifaximin -neurology following -LP unrevealing -EEG abnormal showing both signs of diffuse encephalopathy and epileptiform disturbances in L temporal region -started on Keppra by neurology, will repeat EEG 48 hours from Keppra induction #ID -UCx growing enterococcus, BCx NGTD -ID consulted -completed ABx -repeat UCx growing yeast-like organism >100k CFUs #renal -BOB gradually improving -nephrology following -monitor BMP #endocrine -SSI, BGM #GOC -grave prognosis -family now agrees to PEG placement, seeking long-term SNF placement in [place] #FEN -hold IVF -monitor and correct electrolytes -vital TF via NGT #PPx -DVT: mechanical only -GI: IV PTX #code -full #dispo -monitor on med/surg Visit type - Emergency Visit Emergency Visit: No - New Patient This patient is new to me today: No - Critical Care Critical Care patient: No
--- NOTE | 2019-02-26 12:44 | PN ---
Progress Note, Physician History of Present Illness: Pt seen and examined at bedside. She is more awake but confused. She still looks to her left side and speaks but is confused. - Current Medication List Current Medications: Active Medications Fluconazole (Diflucan -) 200 mg NGT DAILY [facility] Last Admin: 02/26/19 10:08 Dose: 200 mg Folic Acid (Folic Acid -) 1 mg PO DAILY [facility] Last Admin: 02/26/19 10:08 Dose: 1 mg Sodium Chloride (1/2 Normal Saline) 1,000 mls @ 42 mls/hr IV ASDIR [facility] Last Admin: 02/26/19 10:14 Dose: 42 mls/hr Insulin Aspart (Novolog Vial Sliding Scale -) 1 vial SQ ACHS [facility]; Protocol Last Admin: 02/26/19 06:21 Dose: 6 units Insulin Detemir (Levemir Vial) 5 units SQ HS [facility] Last Admin: 02/25/19 22:08 Dose: 5 units Lactulose (Cephulac (Oral Use)) 20 gm NGT TID PRN PRN Reason: CONSTIPATION Levetiracetam (Keppra Injection -) 500 mg IVPB BID [facility] Last Admin: 02/26/19 10:09 Dose: 500 mg Ranitidine HCl (Zantac Oral Solution -) 150 mg NGT BID [facility] Rifaximin (Xifaxan -) 550 mg PO BID [facility] Last Admin: 02/26/19 10:09 Dose: 550 mg Thiamine HCl (Vitamin B1 -) 100 mg PO DAILY [facility] Last Admin: 02/26/19 10:09 Dose: 100 mg Zinc Oxide/Panthenol/Vitamin E (Balmex Cream -) 1 applic TP DAILY PRN PRN Reason: HYGEINE Last Admin: 02/25/19 12:04 Dose: 1 applic - Objective Vital Signs: Vital Signs Temperature 97.7 F 02/26/19 06:00 Pulse Rate 75 02/26/19 06:00 Respiratory Rate 18 02/26/19 06:00 Blood Pressure 142/85 02/26/19 06:00 O2 Sat by Pulse Oximetry (%) 98 02/25/19 21:00 Constitutional: Yes: Calm HENT: Yes: Atraumatic Neck: Yes: Supple Cardiovascular: Yes: S1, S2 Respiratory: Yes: On Nasal O2 Gastrointestinal: Yes: Soft Genitourinary: Yes: [place] Present Musculoskeletal: Yes: Muscle Weakness Edema: Yes Edema: LLE: Trace, RLE: Trace Neurological: Yes: Confusion Labs: CBC, BMP 02/26/19 07:00 02/26/19 07:00 INR, PTT INR 1.27 (0.83-1.09) H 02/17/19 05:30 Problem List - Problems (1) Altered mental status Code(s): R41.82 - ALTERED MENTAL STATUS, UNSPECIFIED Qualifiers: Altered mental status type: stupor Qualified Code(s): R40.1 - Stupor (2) Hepatic encephalopathy Code(s): K72.90 - HEPATIC FAILURE, UNSPECIFIED WITHOUT COMA (3) Alcohol dependence Code(s): F10.20 - ALCOHOL DEPENDENCE, UNCOMPLICATED (4) Cocaine dependence Code(s): F14.20 - COCAINE DEPENDENCE, UNCOMPLICATED Assessment/Plan Current Medications Generic Name Dose Route Start Last Admin Trade Name Freq PRN Reason Stop Dose Admin Fluconazole 200 mg 02/25/19 11:30 02/26/19 10:08 Diflucan - NGT 200 mg DAILY SACHIN Administration Folic Acid 1 mg 02/22/19 10:00 02/26/19 10:08 Folic Acid - PO 1 mg DAILY SACHIN Administration Sodium Chloride 1,000 mls @ 42 mls/hr 02/26/19 08:30 02/26/19 10:14 1/2 Normal Saline IV 42 mls/hr ASDIR SACHIN Administration Insulin Aspart 1 vial 02/24/19 15:58 02/26/19 06:21 Novolog Vial Sliding Scale - SQ 6 units ACHS [facility] Administration Protocol Insulin Detemir 5 units 02/25/19 22:00 02/25/19 22:08 Levemir Vial SQ 5 units HS [facility] Administration Lactulose 20 gm 02/21/19 17:02 Cephulac (Oral Use) NGT TID PRN CONSTIPATION Levetiracetam 500 mg 02/25/19 10:00 02/26/19 10:09 Keppra Injection - IVPB 500 mg BID SACHIN Administration Ranitidine HCl 150 mg 02/27/19 10:00 Zantac Oral Solution - NGT BID [facility] Rifaximin 550 mg 02/21/19 22:00 02/26/19 10:09 Xifaxan - PO 550 mg BID SACHIN Administration Thiamine HCl 100 mg 02/22/19 18:30 02/26/19 10:09 Vitamin B1 - PO 100 mg DAILY [facility]ACHIN Administration Zinc Oxide/Panthenol/Vitamin E 1 applic 02/21/19 17:02 02/25/19 12:04 Balmex Cream - TP 1 applic DAILY PRN Administration HYGEINE Impression 1. CKD 2. BOB 3. resp failure 4. etoh abuse 5. liver cirrhosis 6. bipolar 7. change in mental status 8. metabolic acidosis 9. hep C 10. hyperglycemia Plan - increase free water with feeds - avoid hyperglycemia - monitor sodium level - will give more fluids today - monitor renal function - GI follow up for hep C - monitor mental status - avoid nsaids Dr Jarrett
[2019-02-26] MEDS ORDERED: INSULIN (NOVOLOG) ASPART 100 UNITS/ML 10ML VIAL ONE ×2 (13:12→21:12)
--- NOTE | 2019-02-26 13:25 | PN ---
Progress Note, [employer] - Note Progress Note: Asked to reassess swallowing function. Impaired speech initiation but with tactile stimuli pt speaks, curses, with fair (+) intelligibility. Accepted puree with delayed swallow. With thin liquid, pt drank rapidly from a straw with responsive harsh cough, c/w aspiration. PEG was considered but deferred. Consider trial of Dys puree/ honey thick liquid on a tsp/tell pt to swallow and palpate larynx for reflex before next bite given. Alternate puree with nectar, conmplete with nectar. Feed only when alert, HOB elevated, chin tucked down. Monitor tolerance.
--- NOTE | 2019-02-26 20:45 | PN ---
Progress Note (short form) - Note Progress Note: NEUROLOGY FOLLOW-UP: Events reviewed and discussed with at bedside. On Levetiracetam 500 BID since Sunday. confirms Pt is much more awake, alert, talking. Exam: Awake, alert, confused. Follows simple commands. Not oriented to [facility], etc. Brief, fluent, perseverative speech. Full guadarrama to threat. Full EOM's. Gag present. Diffuse proximal weakness. Depressed reflexes Grimaces to pinch all 4's No chewing, automatisms, nystagmus or other possible signs of seizures. IMP: Moderately severe, B/L, cerebral dysfunction (OMS) Non-focal exam LOC much improved since Sunday, possible due to cessation of subclinical seizure activity. SUGGEST: Continue Levetiracetam 500 mg IV or via NGT q 12 hrs Defer G Tube placement for now as Pt is much more alert Swallowing evaluation. Try sips of H2O with Pt sitting upright and observed Thank you very much, Koffi Ravi MD
[2019-02-26] MEDS: INSULIN (LEVEMIR) 100 UNITS/ML UNITS SQ SCH (23:35)
[2019-02-27] MEDS: INSULIN SLIDING SCALE (NOVOLOG) 1 VIAL SQ SCH ×4 (06:17→21:56)
--- NOTE | 2019-02-27 07:25 | PN ---
Physical Exam: SUBJECTIVE: Patient seen and examined. Lethargic this morning. May be too early in the AM to assess. OBJECTIVE: Vital Signs Period Temp Pulse Resp BP Sys/Aguilar Pulse Ox Last 24 Hr 97 F-98.2 F 61-75 18-20 139-156/74-91 99-99 GENERAL: On RA, increased responsiveness and interactivity with environment, verbalizes coherent phrases HEENT: NC/AT, PERRLA, NGT in place NECK: Trachea midline LUNGS: Limited exam, no adventitious sounds appreciated HEART: RRR no m/r/g ABDOMEN: +bs, soft, increased fluid appreciated EXTREMITIES: 2+ pulses, wwp, no edema appreciated NEUROLOGICAL: spontaneous movement, eye opening, +withdraws to sternal rub, +gag PSYCH: Unable to assess SKIN: Warm, dry Laboratory Results - last 24 hr 02/17/19 02/26/19 02/26/19 12:30 07:00 07:00 WBC 8.5 RBC 2.68 L Hgb 8.7 L Hct 26.3 L MCV 97.9 H MCH 32.4 MCHC 33.1 RDW 25.8 H Plt Count 63 L MPV 9.3 Absolute Neuts (auto) 6.9 Neutrophils % 81.3 Lymphocytes % 10.5 D Monocytes % 5.0 Eosinophils % 3.0 D Basophils % 0.2 Nucleated RBC % 0 Sodium 149 H Potassium 4.4 Chloride 122 H Carbon Dioxide 21 Anion Gap 6 L BUN 64 H Creatinine 1.6 H Creat Clearance w eGFR 32.99 POC Glucometer Random Glucose 254 H Calcium 7.1 L Phosphorus 2.4 L Magnesium 2.0 Total Bilirubin 1.1 H AST 57 H ALT 32 Alkaline Phosphatase 170 H Total Protein 6.2 L Albumin 1.8 L CSF Lyme IgG [place] Negative CSF Lyme IgG Ab 18 kDa Absent CSF Lyme IgG Ab 23 kDa Absent CSF Lyme IgG Ab 28 kDa Absent CSF Lyme IgG Ab 30 kDa Absent CSF Lyme IgG Ab 39 kDa Absent CSF Lyme IgG Ab 41 kDa Absent CSF Lyme IgG Ab 45 kDa Absent CSF Lyme IgG Ab 58 kDa Absent CSF Lyme IgG Ab 66 kDa Absent CSF Lyme IgG Ab 93 kDa Absent CSF Lyme IgM [place] Negative CSF Lyme IgM Ab 23 kDa Absent CSF Lyme IgM Ab 39 kDa Absent CSF Lyme IgM Ab 41 kDa Absent Lyme IgG Ab Interpret Negative Lyme IgM Ab Index Negative Blood Type Antibody Screen 02/26/19 02/26/19 02/26/19 11:53 13:09 17:02 WBC RBC Hgb Hct MCV MCH MCHC RDW Plt Count MPV Absolute Neuts (auto) Neutrophils % Lymphocytes % Monocytes % Eosinophils % Basophils % Nucleated RBC % Sodium Potassium Chloride Carbon Dioxide Anion Gap BUN Creatinine Creat Clearance w eGFR POC Glucometer 277 252 Random Glucose Calcium Phosphorus Magnesium Total Bilirubin AST ALT Alkaline Phosphatase Total Protein Albumin CSF Lyme IgG [place] CSF Lyme IgG Ab 18 kDa CSF Lyme IgG Ab 23 kDa CSF Lyme IgG Ab 28 kDa CSF Lyme IgG Ab 30 kDa CSF Lyme IgG Ab 39 kDa CSF Lyme IgG Ab 41 kDa CSF Lyme IgG Ab 45 kDa CSF Lyme IgG Ab 58 kDa CSF Lyme IgG Ab 66 kDa CSF Lyme IgG Ab 93 kDa CSF Lyme IgM [place] CSF Lyme IgM Ab 23 kDa CSF Lyme IgM Ab 39 kDa CSF Lyme IgM Ab 41 kDa Lyme IgG Ab Interpret Lyme IgM Ab Index Blood Type O POSITIVE Antibody Screen Negative 02/26/19 02/27/19 23:40 06:16 WBC RBC Hgb Hct MCV MCH MCHC RDW Plt Count MPV Absolute Neuts (auto) Neutrophils % Lymphocytes % Monocytes % Eosinophils % Basophils % Nucleated RBC % Sodium Potassium Chloride Carbon Dioxide Anion Gap BUN Creatinine Creat Clearance w eGFR POC Glucometer 215 211 Random Glucose Calcium Phosphorus Magnesium Total Bilirubin AST ALT Alkaline Phosphatase Total Protein Albumin CSF Lyme IgG [place] CSF Lyme IgG Ab 18 kDa CSF Lyme IgG Ab 23 kDa CSF Lyme IgG Ab 28 kDa CSF Lyme IgG Ab 30 kDa CSF Lyme IgG Ab 39 kDa CSF Lyme IgG Ab 41 kDa CSF Lyme IgG Ab 45 kDa CSF Lyme IgG Ab 58 kDa CSF Lyme IgG Ab 66 kDa CSF Lyme IgG Ab 93 kDa CSF Lyme IgM [place] CSF Lyme IgM Ab 23 kDa CSF Lyme IgM Ab 39 kDa CSF Lyme IgM Ab 41 kDa Lyme IgG Ab Interpret Lyme IgM Ab Index Blood Type Antibody Screen Active Medications Generic Name Dose Route Start Last Admin Trade Name Freq PRN Reason Stop Dose Admin Fluconazole 200 mg 02/25/19 11:30 02/26/19 10:08 Diflucan - NGT 200 mg DAILY SACHIN Administration Folic Acid 1 mg 02/22/19 10:00 02/26/19 10:08 Folic Acid - PO 1 mg DAILY SACHIN Administration Sodium Chloride 1,000 mls @ 42 mls/hr 02/26/19 08:30 02/26/19 10:14 1/2 Normal Saline IV 42 mls/hr ASDIR SACHIN Administration Insulin Aspart 1 vial 02/24/19 15:58 02/27/19 06:17 Novolog Vial Sliding Scale - SQ 6 units ACHS SACHIN Administration Protocol Insulin Detemir 5 units 02/25/19 22:00 02/26/19 23:35 Levemir Vial SQ 5 units HS SACHIN Administration Lactulose 20 gm 02/21/19 17:02 Cephulac (Oral Use) NGT TID PRN CONSTIPATION Levetiracetam 500 mg 02/25/19 10:00 02/26/19 23:33 Keppra Injection - IVPB 500 mg BID SACHIN Administration Ranitidine HCl 150 mg 02/27/19 10:00 Zantac Oral Solution - NGT BID SACHIN Rifaximin 550 mg 02/21/19 22:00 02/26/19 23:33 Xifaxan - PO 550 mg BID SACHIN Administration Thiamine HCl 100 mg 02/22/19 18:30 02/26/19 10:09 Vitamin B1 - PO 100 mg DAILY SACHIN Administration Zinc Oxide/Panthenol/Vitamin E 1 applic 02/21/19 17:02 02/25/19 12:04 Balmex Cream - TP 1 applic DAILY PRN Administration HYGEINE ASSESSMENT/PLAN: 58 y/o F w/ PMHx cirrhosis, hep C, polysubstance abuse including EtOH, DM, HTN, bipolar disorder, recent h/o SBP 12/14, presents from [facility] for agitation, combativeness, AMS while undergoing detox #GI -cirrhosis w/ prior SBP -ascites on US -GI consulted -no active bleeding identified on initial EGD -on repeat EGD, colonoscopy, esophageal ulcer identified and clipped -had rebleed 02/14-02/15, Hb dropped to 6.6, received 2 further units PRBC (5U total + 1U Plts) -PTX transitioned to IVP -H/H stable this AM -monitor CBC -NGT in place -cont rifaximin and lactulose -IR consulted for PEG placement: requests 1U platelets, plan for pigtail drainage of ascites tomorrow with prep for PEG on Friday 03/02 and PEG placement anticipated 03/03 -PO feed trial parameters per S/S: "trial of Dys puree/ honey thick liquid on a tsp/tell pt to swallow and palpate larynx for reflex before next bite given. Alternate puree with nectar, complete with nectar. Feed only when alert, HOB elevated, chin tucked down. Monitor tolerance." #heme -thrombocytopenia 2/2 liver disease -INR persistently elevated #pulmonary -successfully extubated -keep O2 sat > 92 #neuro -improving alertness, withdrawing to noxious stimuli, spontaneous movement, vocalizes expletives -cont thiamine, folate -cont lactulose and rifaximin -neurology following -LP unrevealing -EEG abnormal showing both signs of diffuse encephalopathy and epileptiform disturbances in L temporal region -started on Keppra by neurology, awaiting repeat EEG #ID -UCx growing enterococcus, BCx NGTD -ID consulted -completed ABx -repeat UCx 02/23 growing yeast-like organism >100k CFUs -on fluconazole day 3 of 14 #renal -BOB gradually improving -nephrology following -monitor BMP #endocrine -SSI, BGM #GOC -grave prognosis -family now agrees to PEG placement, seeking long-term SNF placement in [place] #FEN -hold IVF -monitor and correct electrolytes -vital TF via NGT #PPx -DVT: mechanical only -GI: IV PTX #code -full #dispo -monitor on med/surg Visit type - Emergency Visit Emergency Visit: No - New Patient This patient is new to me today: No - Critical Care Critical Care patient: No
[2019-02-27 07:26] LABS: BASO % 0.2 % (0-2.0); EOS % 3.1 % (0-4.5); HEMATOCRIT 24.6 % (32.4-45.2); HEMOGLOBIN 8.1 GM/dL (10.7-15.3); LYMPH % 14.4 % (8-40); MCH 32.5 pg (25.7-33.7); MCHC 33.1 g/dl (32.0-36.0); MEAN CELL VOLUME 98.1 fl (80-96); MEAN PLT VOLUME 9.7 fl (7.5-11.1); MONO % 3.5 % (3.8-10.2); NEUT % 78.8 % (42.8-82.8); PLATELET COUNT 55 K/MM3 (134-434); RDW 25.8 % (11.6-15.6); WHITE BLOOD COUNT 5.7 K/mm3 (4.0-10.0)
[2019-02-27 07:51] LABS: ALBUMIN 1.7 g/dl (3.4-5.0); ALK PHOS 178 U/L (45-117); ANION GAP 8 MMOL/L (8-16); BLOOD UREA NITROGEN 63 mg/dL (7-18); CALCIUM 7.3 mg/dL (8.5-10.1); CHLORIDE 121 mmol/L (98-107); CO2 21 mmol/L (21-32); CREATININE 1.4 mg/dL (0.55-1.3); GLUCOSE,RANDOM 243 mg/dL (74-106); MAGNESIUM 1.9 mg/dL (1.8-2.4); PHOSPHOROUS 2.3 mg/dL (2.5-4.9); POTASSIUM 4.2 mmol/L (3.5-5.1); SGOT/AST 49 U/L (15-37); SGPT/ALT 26 U/L (13-61); SODIUM 150 mmol/L (136-145); TOT PROT 5.9 g/dl (6.4-8.2)
[2019-02-27] MEDS ORDERED: SODIUM CHLORIDE 0.45% 1,000 ML IV SCH (07:57)
[2019-02-27] MEDS ORDERED: RANITIDINE HCL 150 MG/10 ML UNIT-DOSE NGT SCH (10:00)
[2019-02-27] MEDS: FLUCONAZOLE 100 MG TABLET (UD) NGT SCH (10:57)
[2019-02-27] MEDS: levETIRAcetam 500 MG/5 ML INJECTION VIAL IVPB SCH ×2 (10:57→21:56)
[2019-02-27] MEDS: FOLIC ACID 1 MG TABLET (FP) PO SCH (10:57)
[2019-02-27] MEDS: RIFAXIMIN 550 MG TABLET (UD) PO SCH ×2 (10:57→21:57)
[2019-02-27] MEDS: THIAMINE HCL 100 MG TABLET (FP) PO SCH (10:57)
--- NOTE | 2019-02-27 11:10 | PN ---
Teaching Attending Note Name of Resident: Houston Melo ATTENDING PHYSICIAN STATEMENT I saw and evaluated the patient. I reviewed the resident's note and discussed the case with the resident. I agree with the resident's findings and plan as documented. SUBJECTIVE:lethargic. minimally responsive to painful stimuli OBJECTIVE: Last Vital Signs Temp Pulse Resp BP Pulse Ox 97.6 F 63 20 132/59 L 99 02/27/19 09:00 02/27/19 09:00 02/27/19 09:00 02/27/19 09:00 02/26/19 21:00 General obtunded, not responsive to verbal/tactile stimuli CV S1 S2 RRR no murmur/rub/gallop Lungs Coarse breath sounds anteriorly Abdomen soft + distended extremities B/L UE 1+pitting edema, sensation intact, does not withdraw to pain ASSESSMENT AND PLAN: 58 year old female with history of Liver Cirrhosis, Alcohol Abuse, Hepatitis C, recent history of SBP 12/14, DM 2, HTN, Polysubstance Abuse (including Alcohol), Bipolar Disorder, sent to ED from [facility] for agitation, combativeness, and altered mental status while undergoing detox. with no improvement and was intubated 02/11 to protect airway and now in the MICU with course complicated with development of melena. 1. Acute Hepatic Encephalopathy versus Toxic Encephalopathy secondary to Ativan and decompensating liver failure-obtuneded today, reported to be alert early this AM. concern for acute mental status change, possible waxing/waning vs unwitnessed seizure and currently post-ictal. check lactate, ammonia and keppra level. EEG reported to be done last night, will f/u on results. frequent neurochecks and consider CT head if no improvement in mentation. on keppra. neuro on board. 2. Hypernatremia- worsening. will hold IVF as pt appears volume overloaded. increase free water flushes. 3. Acute respiratory failure- s/p extubation. saturating well on NC. titrate down oxygen requirements as tolerated. 4. Melena-repeat EGD 02/14 showing duodenal ulcer with adherent clot. no signs of repeat bleeding. 5. esophageal varicces- with portal HTN. no stigmata of recent bleeding. will need routine surveillance 6. Acute blood loss anemia- due to duodenal ulcer s/p 4 units PRBC this hospital stay. no more bleeding noted. normal transfusion threshold. 7. hypocalcemia- Corrected Ca 8.1. ca via NGT 8. Acute decompensated liver failure-now improved 9. E. Faecalis UTI- completed abx treatment 10. Ascites- s/p paracentesis. reaccumulation of ascites. plan for possible paracentesis today. will test for SBP. GI and ID on board 11. Thrombocytopenia-due to cirrhosis. s/p 2 unit platelets. will need a unit of platelets prior to paracentesis 12. BOB- unknown baseline Cr. slowly trending down. nephro on board. workup sent. monitor UOP. avoid nephrotoxic agents. 13. DM- hold oral agents. iss and Bgm. 14. Continuous ETOH abuse- no signs of withdrawals. counselling once medically stabilized. on thiamine/folate/MVI 15. HTN- currently normotensive off oral agents 16. DVT PPI- SCD. hold pharmacologic in setting of active bleeding 17. will need intermediate designer placement
--- NOTE | 2019-02-27 11:39 | PN ---
Progress Note, [employer] - Note Progress Note: Laboratory Tests 02/25/19 02/26/19 02/27/19 06:30 07:00 06:00 WBC 10.4 H 8.5 5.7 Puree diet/nectar thick liquid ordered. Pt tolerating first meal at this time. Monitor tolerance. Magic cup/ensure pudding b/n meals.
[2019-02-27] MEDS ORDERED: PANTOPRAZOLE SODIUM 80 MG in SODIUM CHLORIDE 100 ML IVPB SCH (14:00)
--- NOTE | 2019-02-27 14:21 | PN ---
Progress Note (short form) - Note Progress Note: Contacted by nurse at 1:45pm regarding possible large volume bloody bowel movement. On inspection, significant gross blood was visible. Ordered stat cbc, type and screen, fobt, CXR, initiated PTX gtt. Contacted Dr. Monge of GI service, transfered to ICU on his recommendation
[2019-02-27 15:15] LABS: BASO % 0.2 % (0-2.0); EOS % 2.2 % (0-4.5); HEMATOCRIT 24.9 % (32.4-45.2); HEMOGLOBIN 8.2 GM/dL (10.7-15.3); LYMPH % 9.6 % (8-40); MCHC 32.9 g/dl (32.0-36.0); MEAN CELL VOLUME 100.3 fl (80-96); MEAN PLT VOLUME 8.8 fl (7.5-11.1); MONO % 2.5 % (3.8-10.2); NEUT % 85.5 % (42.8-82.8); PLATELET COUNT 75 K/MM3 (134-434); RBC 2.48 M/mm3 (3.60-5.2); RDW 25.5 % (11.6-15.6); WHITE BLOOD COUNT 8.4 K/mm3 (4.0-10.0)
[2019-02-27] MEDS ORDERED: DEXTROSE 5%-WATER - 1,000 ML IV SCH ×2 (15:15→15:30)
--- NOTE | 2019-02-27 15:15 | PN ---
Progress Note, Physician History of Present Illness: Pt seen and examined at bedside. She remains confused. She is being transferred to ICU for GI bleed. - Current Medication List Current Medications: Active Medications Chlorhexidine Gluconate (Hibiclens For Decolonization -) 1 applic TP HS [facility] Fluconazole (Diflucan -) 200 mg NGT DAILY [facility] Last Admin: 02/27/19 10:57 Dose: 200 mg Folic Acid (Folic Acid -) 1 mg PO DAILY [facility] Last Admin: 02/27/19 10:57 Dose: 1 mg Pantoprazole Sodium 80 mg/ (Sodium Chloride) 100 mls @ 10 mls/hr IVPB Q10H [facility] Insulin Aspart (Novolog Vial Sliding Scale -) 1 vial SQ ACHS [facility]; Protocol Last Admin: 02/27/19 12:13 Dose: 6 units Insulin Detemir (Levemir Vial) 5 units SQ HS [facility] Last Admin: 02/26/19 23:35 Dose: 5 units Lactulose (Cephulac (Oral Use)) 20 gm NGT TID PRN PRN Reason: CONSTIPATION Levetiracetam (Keppra Injection -) 500 mg IVPB BID [facility] Last Admin: 02/27/19 10:57 Dose: 500 mg Mupirocin (Bactroban Ointment (For Decolonization) -) 1 applic NS BID [facility] Stop: 03/04/19 21:59 Ranitidine HCl (Zantac Oral Solution -) 150 mg NGT BID [facility] Last Admin: 02/27/19 10:57 Dose: 150 mg Rifaximin (Xifaxan -) 550 mg PO BID [facility] Last Admin: 02/27/19 10:57 Dose: 550 mg Thiamine HCl (Vitamin B1 -) 100 mg PO DAILY [facility] Last Admin: 02/27/19 10:57 Dose: 100 mg Zinc Oxide/Panthenol/Vitamin E (Balmex Cream -) 1 applic TP DAILY PRN PRN Reason: HYGEINE Last Admin: 02/25/19 12:04 Dose: 1 applic - Objective Vital Signs: Vital Signs Temperature 97.6 F 02/27/19 09:00 Pulse Rate 63 02/27/19 09:00 Respiratory Rate 20 02/27/19 09:00 Blood Pressure 132/59 L 02/27/19 09:00 O2 Sat by Pulse Oximetry (%) 97 02/27/19 09:00 Eyes: Yes: Sclera Icterus Cardiovascular: Yes: S1, S2 Respiratory: Yes: On Nasal O2 Gastrointestinal: Yes: Soft Genitourinary: Yes: Incontinence Musculoskeletal: Yes: Muscle Weakness Edema: LLE: Trace, RLE: Trace Neurological: Yes: Confusion Labs: CBC, BMP 02/27/19 06:00 INR, PTT INR 1.27 (0.83-1.09) H 02/17/19 05:30 - ....Imaging Chest X-ray: Report Reviewed Problem List - Problems (1) Altered mental status Code(s): R41.82 - ALTERED MENTAL STATUS, UNSPECIFIED Qualifiers: Altered mental status type: stupor Qualified Code(s): R40.1 - Stupor (2) Hepatic encephalopathy Code(s): K72.90 - HEPATIC FAILURE, UNSPECIFIED WITHOUT COMA (3) Alcohol dependence Code(s): F10.20 - ALCOHOL DEPENDENCE, UNCOMPLICATED (4) Cocaine dependence Code(s): F14.20 - COCAINE DEPENDENCE, UNCOMPLICATED Assessment/Plan Current Medications Generic Name Dose Route Start Last Admin Trade Name Freq PRN Reason Stop Dose Admin Chlorhexidine Gluconate 1 applic 02/27/19 22:00 Hibiclens For Decolonization - TP HS SACHIN Fluconazole 200 mg 02/25/19 11:30 02/27/19 10:57 Diflucan - NGT 200 mg DAILY SACHIN Administration Folic Acid 1 mg 02/22/19 10:00 02/27/19 10:57 Folic Acid - PO 1 mg DAILY SACHIN Administration Pantoprazole Sodium 80 mg/ 100 mls @ 10 mls/hr 02/27/19 14:00 Sodium Chloride IVPB Q10H SACHIN 8 MG/HR Insulin Aspart 1 vial 02/24/19 15:58 02/27/19 12:13 Novolog Vial Sliding Scale - SQ 6 units ACHS SACHIN Administration Protocol Insulin Detemir 5 units 02/25/19 22:00 02/26/19 23:35 Levemir Vial SQ 5 units HS SACHIN Administration Lactulose 20 gm 02/21/19 17:02 Cephulac (Oral Use) NGT TID PRN CONSTIPATION Levetiracetam 500 mg 02/25/19 10:00 02/27/19 10:57 Keppra Injection - IVPB 500 mg BID SACHIN Administration Mupirocin 1 applic 02/27/19 22:00 Bactroban Ointment (For Decolonization) - NS 03/04/19 21:59 BID SACHIN Ranitidine HCl 150 mg 02/27/19 10:00 02/27/19 10:57 Zantac Oral Solution - NGT 150 mg BID SACHIN Administration Rifaximin 550 mg 02/21/19 22:00 02/27/19 10:57 Xifaxan - PO 550 mg BID SACHIN Administration Thiamine HCl 100 mg 02/22/19 18:30 02/27/19 10:57 Vitamin B1 - PO 100 mg DAILY SACHIN Administration Zinc Oxide/Panthenol/Vitamin E 1 applic 02/21/19 17:02 02/25/19 12:04 Balmex Cream - TP 1 applic DAILY PRN Administration HYGEINE Impression 1. CKD 2. BOB 3. resp failure 4. etoh abuse 5. liver cirrhosis 6. bipolar 7. change in mental status 8. metabolic acidosis 9. hep C 10. hyperglycemia Plan - start d5w as sodium is rising. pt does not have ng tube - congestive changes improved on cxr mildly - monitor blood sugar - cont to monitor sodium - discussed with medical team - sodium did not respond to 1/2 ns - start free water if ng tube is placed - monitor renal function - GI follow up for hep C - monitor mental status - avoid nsaids Dr Jarrett
--- NOTE | 2019-02-27 15:22 | PN.GI ---
GI Progress Note Subjective: Called by resident re: rectal bleeding Patient awake but speaking incoherently Vitals have remained stable Complains of abdominal pain - Objective Vital Signs: Vital Signs Temperature 97.6 F 02/27/19 09:00 Pulse Rate 63 02/27/19 09:00 Respiratory Rate 20 02/27/19 09:00 Blood Pressure 132/59 L 02/27/19 09:00 O2 Sat by Pulse Oximetry (%) 97 02/27/19 09:00 Constitutional: Calm Eyes: No: Sclera Icterus HENT: Yes: Other (NGT in left nare was barely in nare. Advanced to 55cm, airauscultated in LUQ. Patient tolerated well. Lavaged 1000cc sterile water. No blood, scant bile, no blood) Cardiovascular: Yes: Regular Rate and Rhythm Respiratory: Yes: Diminished (at bases bilterally, poor insp. effort) Gastrointestinal Inspection: Yes: Distention (softly protuberant). No: Scars ...Auscultate: Yes: Normoactive Bowel Sounds ...Palpate: No: Tenderness (No grimacing upon palpation) ...Rectal Exam: Yes: Other (liquid brown stool (observed with nurse), possibly blood tinged. + large external hemoirrhoids) Edema: No (No LE edema) Neurological: Yes: Alert, Confusion Labs: CBC, BMP 02/27/19 14:48 02/27/19 06:00 INR, PTT INR 1.27 (0.83-1.09) H 02/17/19 05:30 Problem List - Problems (1) GI bleed Assessment/Plan: On my exam, the stool was liquid brown. her nurse explained that it looked grossly bloodly previously. Given prior bleeding history, transfer to monitored setting, Monitor H/H. Check stool for C. Diff given extremely liquid BM. hold feeds for now. Need clarification as to what ultimate goals of cre will be or what interventiojns family will want at this point if bleeding continues/persists. Code(s): K92.2 - GASTROINTESTINAL HEMORRHAGE, UNSPECIFIED (2) Ascites Code(s): R18.8 - OTHER ASCITES (3) Altered mental status Code(s): R41.82 - ALTERED MENTAL STATUS, UNSPECIFIED Qualifiers: Altered mental status type: stupor Qualified Code(s): R40.1 - Stupor
[2019-02-27 15:48] LABS: ANISOCYTOSIS 1+; MACROCYTOSIS 1+
--- NOTE | 2019-02-27 16:20 | PN ---
Progress Note (short form) - Note Progress Note: ICU PROGRESS NOTE Called by the primary team to evaluate patient for ICU readmission due to rectal bleeding. Patient currently lethargic and drowsy, unable to provide information. As per nurse, primary care and medical records, patient had loose bloody bowel movement associated with abdominal pain. Patient however maintained stable hemodynamics and repeat CBC revealed stable hbg >8.0. VITALS: BP: 121/69 HR: 70's BPM 02%: 98% on RA PHYSICAL EXAMINATION: GENERAL: Lethargic and drowsy. Responds to painful stimuli LUNGS: Decreased breath sounds bilaterally due to poor inspiratory effort HEART:RRR ABDOMEN: +bs, soft, distended RECTAL: Liquid brown stool, (+) external hemorrhoids. EXTREMITIES: No peripheral edema NEUROLOGICAL: Lethargic. Unable to appropriately assess PSYCH: Unable to assess 02/27/19 14:48 02/27/19 06:00 ASSESSMENT AND PLAN: GI Bleed: -On my examination patient had Dark brown extremely liquid bowel movement. Did not appreciate blood when smearing it. But due to GI bleed history and liver cirrhosis, patient accepted to ICU for further monitoring. -Protonix drip ordered -Repeat CBC stable. Will repeat at 2100 tonight -C.diff ordered due to patient having extremely liquid bowel movements -Tube feeds held and patient placed NPO -Hold all AC and chemical prophylaxis -Vitals currently stable and will continue to monitor. -Ruled out Variceal bleeding as Initial EGD without signs of significant varices or bleeding source -Repeat EGD with Colonoscopy with bleeding ulcer that was clipped -GI recommendations appreciated -Will continue to monitor for any overt bleeding as patient may require urgent interventions. Liver Cirrhosis with Hepatic Encephalopathy -Ammonia levels normal -History of prior SBP with Ascites on previous U/S. Diagnostic paracentesis completed, no concerning signs for SBP, gram stain negative History of Hepatitis C -Unsure if patient was treated -Likely source of Liver cirrhosis F/E/N -D5W @65cc/hr -Electrolytes wnl -NPO Prophylaxis -Hold AC due to Possible GI bleed -Protonix drip for GI Disposition -Full code -Requires ICU monitoring to monitor H/H, vitals or signs of overt bleeding. Dr. Melo spoke to family on the phone on goals of are and still unsure what they want to do. stated that he will gather all the kids and have another family discussion.
[2019-02-27] MEDS ORDERED: ZINC OXIDE/PANTHENOL/VITAMIN E 56 GM TUBE TP PRN (16:29)
[2019-02-27] MEDS ORDERED: LACTULOSE 20 GM/30 ML UDC (FOR ORAL USE ONLY) NGT PRN (16:29)
[2019-02-27] MEDS: PANTOPRAZOLE SODIUM 80 MG in SODIUM CHLORIDE 100 ML IVPB SCH (20:00)
--- NOTE | 2019-02-27 21:54 | PN ---
Progress Note (short form) - Note Progress Note: Around 8:15 pm today , patient started having massive bleeding per rectum, bright red in color. Patient complaining of abdominal pain. Vitals: BP 126/80 mmHg, P-106 bpm, RR-16, Spo2 100 % Patient continued to have bleeding, started becoming hypotensive. Patient's family at bed side- Patient's mother, , sister Quonda, brother. Call placed to patient's eldest daughter Addy and made aware. Call placed to Dr. Goldstein who came in and evaluated the patient. Consent for Central line placed in the chart, with the help of ED physician, central line placed. Stat CXR done. Bolus of 1 L LR given without improvement in BP 86/32 MAP 44, HR 84. Levophed started. Continue IV LR @ 125 mls/hr, 1 PRBC, Octreotide drip and PPI drip to be continued. Case discussed with Addy (patients daughter) over the phone.
[2019-02-27] MEDS: RANITIDINE HCL 150 MG/10 ML UNIT-DOSE NGT SCH (21:57)
[2019-02-27] MEDS: MUPIROCIN 2% TOPICAL OINTMENT FOR DECOLONIZATION NS SCH (21:58)
[2019-02-27] MEDS ORDERED: CHLORHEXIDINE GLUCONATE 4% CLEANSER FOR DECOLONIZATION TP SCH (22:00)
[2019-02-27] MEDS ORDERED: INSULIN (LEVEMIR) 100 UNITS/ML UNITS SQ SCH (22:00)
--- NOTE | 2019-02-27 22:47 | ED.PROV ---
Physicial Exam I saw and examined the patient. - Vital Signs Last Vital Signs Temp Pulse Resp BP Pulse Ox 98.2 F 93 H 23 H 61/35 L 95 02/27/19 22:00 02/27/19 22:00 02/27/19 22:00 02/27/19 22:00 02/27/19 20:20 Procedure Note Procedure: Called to the ICU at 10:05 pm for hypotensive GIB patient with active GI bleeding. Request was for CVC placement, patient consent signed. Left IJ identified with bedside US and left EJ removed just prior to procedure. Sterile PPE donned per procedure protocol. Site cleaned with chloraprep, patient sterile draped, anesthetized with 1% lido wo epi. Seldinger technique utilized to introduce triple lumen CVC in LIJ, good blood return all 3 lumens. Subsequently flushed and sutured in place and sterile dressing applied. Patient tolerated procedure well. Portable CXR ordered by ICU team and XR called for STAT study. Proper placement verified with CXR, tip of CVC in the SVC, no PTX or other abnormality.
[2019-02-27] MEDS ORDERED: NOREPINEPHRINE BITARTRATE 4 MG/4 ML ML IV ONE (23:00)
[2019-02-27] MEDS ORDERED: LACTATED RINGERS SOLUTION 1,000 ML/1,000 ML INFUS.BAG IV SCH (23:00)
[2019-02-27] MEDS ORDERED: OCTREOTIDE ACETATE 1,200 MCG in DEXTROSE 5%-WATER - 488 ML IVPB SCH (23:00)
[2019-02-27] MEDS ORDERED: NOREPINEPHRINE BITARTRATE 4,000 MCG in DEXTROSE 5%-WATER - 496 ML IV SCH (23:00)
[2019-02-27 23:07] LABS: HEMATOCRIT 15.3 % (32.4-45.2); MCH 32.5 pg (25.7-33.7); MEAN CELL VOLUME 101.6 fl (80-96); MEAN PLT VOLUME 9.9 fl (7.5-11.1); PLATELET COUNT 80 K/MM3 (134-434); RBC 1.51 M/mm3 (3.60-5.2); RDW 24.8 % (11.6-15.6); WHITE BLOOD COUNT 8.1 K/mm3 (4.0-10.0)
--- NOTE | 2019-02-27 23:07 | PN.GI ---
GI Progress Note Subjective: called that patient was bleeding: rectal bleeding with clots Had been transferred to the ICU earlier in afternoon Not tachycardic, now hypotensive Hgb 8.1 in afternoon, now 4.9 - Objective Vital Signs: Vital Signs Temperature 98.2 F 02/27/19 22:00 Pulse Rate 93 H 02/27/19 22:00 Respiratory Rate 23 H 02/27/19 22:00 Blood Pressure 61/35 L 02/27/19 22:00 O2 Sat by Pulse Oximetry (%) 95 02/27/19 20:20 Constitutional: Calm Eyes: No: Sclera Icterus HENT: Yes: Other (NGT in place. this had been lavaged earlier in afternoon with 1 Liter sterile water. Currently, the NGT was on high suction. There was some blood in the NGT. Lavage performed tonight revealed blood in NGT.) Cardiovascular: Yes: Regular Rate and Rhythm Respiratory: Yes: Diminished (at bases bilaterally) Gastrointestinal Inspection: Yes: Distention ...Auscultate: Yes: Normoactive Bowel Sounds ...Palpate: Yes: Soft. No: Tenderness ...Percussion: No: Tympanitic Edema: No (No LE edema) Neurological: Yes: Confusion, Lethargy Labs: CBC, BMP 02/27/19 21:00 02/27/19 06:00 INR, PTT INR 1.27 (0.83-1.09) H 02/17/19 05:30 Hepatic Panel Total Bilirubin 1.0 mg/dL (0.2-1) 02/27/19 06:00 Direct Bilirubin 2.3 mg/dL (0.0-0.2) H 02/18/19 05:30 AST 49 U/L (15-37) H 02/27/19 06:00 ALT 26 U/L (13-61) 02/27/19 06:00 Alkaline Phosphatase 178 U/L (45-117) H 02/27/19 06:00 Albumin 1.7 g/dl (3.4-5.0) L 02/27/19 06:00 Problem List - Problems (1) GI bleed Assessment/Plan: There is blood in the NGT this evening. Both brisk upper GI bleed and LGIB need to remain in the differential diagnosis. Given her medical history variceal bleeding / recurrent ulcer bleed need to remain in the differential. Had long discussion with her family who was present. Discussed that Ms. Germain is critically ill. Explained that EGD and colonoscopy could be undertaken for further evaluation once She has been resuscitated and vitals permit. A daughter , a son, Ms. Germain's mother, and Ms. Germain's significant other Bernard was present. They were in agreement with pursuing further interventions but were also aware of ms. Germain's overall poor clinical status. We also discussed performing CTA to help localize a bleeding source. I did explain that the use of IV contrast dye could lead to renal failure and the need for hemodialysis. At their request, I called Addy, her daughter, who has been making decisions for Ms. Gar. I reiterated the above and discussed EGD/Colonoscopy. We discussed potential risks os the procedures like but not limited to bleeding, perforation requiring surgery top repair, infection, sedation medication effects all of which could be potentially life threatening. She has agreed to the procedures. Consents obtained. For now: Continued resuscitative efforts NPO Octreotide drip Protonix drip IV Abx Transfuse as needed Dosed Vitamin k 10mg SC x 1 Will likely need intubation prior to any procedures. Family aware. Code(s): K92.2 - GASTROINTESTINAL HEMORRHAGE, UNSPECIFIED (2) Ascites Code(s): R18.8 - OTHER ASCITES (3) Altered mental status Code(s): R41.82 - ALTERED MENTAL STATUS, UNSPECIFIED Qualifiers: Altered mental status type: stupor Qualified Code(s): R40.1 - Stupor
[2019-02-27 23:08] LABS: HEMOGLOBIN 4.9 GM/dL (10.7-15.3)
[2019-02-27 23:26] LABS: ALBUMIN 1.2 g/dl (3.4-5.0); ALK PHOS 94 U/L (45-117); ANION GAP 9 MMOL/L (8-16); BILIRUBIN,TOTAL 1.1 mg/dL (0.2-1); BLOOD UREA NITROGEN 62 mg/dL (7-18); CHLORIDE 121 mmol/L (98-107); CO2 17 mmol/L (21-32); CREATININE 1.6 mg/dL (0.55-1.3); MAGNESIUM 1.9 mg/dL (1.8-2.4); PHOSPHOROUS 3.5 mg/dL (2.5-4.9); POTASSIUM 4.6 mmol/L (3.5-5.1); SGOT/AST 52 U/L (15-37); SGPT/ALT 25 U/L (13-61); SODIUM 147 mmol/L (136-145); TOT PROT 4.3 g/dl (6.4-8.2)
[2019-02-27 23:27] LABS: GLUCOSE,RANDOM 356 mg/dL (74-106)
[2019-02-27 23:28] LABS: CALCIUM 6.8 mg/dL (8.5-10.1); INR 1.51 (0.83-1.09); PROTHROMBIN TIME (PATIENT) 17.9 SEC (9.7-13.0)
[2019-02-27 23:30] LABS: ACTIVATED PTT 48.4 SECONDS (25.2-36.5)
[2019-02-27] MEDS ORDERED: PHYTONADIONE 10 MG/1 ML AMP SQ ONE (23:32)
[2019-02-28] MEDS ORDERED: PANTOPRAZOLE SODIUM 80 MG in SODIUM CHLORIDE 100 ML IVPB SCH
[2019-02-28] MEDS ORDERED: DEXTROSE 5%-WATER 100 ML IVPB ONE ×2 (00:16→11:09)
[2019-02-28] MEDS: CEFTRIAXONE 2 GM in DEXTROSE 5%-WATER 100 ML IVPB SCH ×2 (00:17→11:48)
[2019-02-28] MEDS: PANTOPRAZOLE SODIUM 80 MG in SODIUM CHLORIDE 100 ML IVPB SCH ×2 (05:30→15:34)
[2019-02-28 06:23] LABS: BASO % 0.3 % (0-2.0); EOS % 0.4 % (0-4.5); HEMATOCRIT 24.6 % (32.4-45.2); HEMOGLOBIN 7.7 GM/dL (10.7-15.3); LYMPH % 14.1 % (8-40); MCH 28.7 pg (25.7-33.7); MCHC 31.2 g/dl (32.0-36.0); MEAN CELL VOLUME 91.9 fl (80-96); MEAN PLT VOLUME 9.6 fl (7.5-11.1); MONO % 3.5 % (3.8-10.2); NEUT % 81.7 % (42.8-82.8); PLATELET COUNT 58 K/MM3 (134-434); RBC 2.67 M/mm3 (3.60-5.2); RDW 15.3 % (11.6-15.6); WHITE BLOOD COUNT 16.1 K/mm3 (4.0-10.0)
[2019-02-28] MEDS ORDERED: VASOPRESSIN 50 UNITS in SODIUM CHLORIDE 97.5 ML IVPB SCH (06:30)
[2019-02-28] MEDS ORDERED: NOREPINEPHRINE BITARTRATE 4 MG/4 ML ML IV ONE ×2 (06:33→12:08)
[2019-02-28] MEDS ORDERED: VASOPRESSIN 20 UNITS/ML VIAL IV ONE ×2 (06:34→14:14)
[2019-02-28] MEDS: INSULIN SLIDING SCALE (NOVOLOG) 1 VIAL SQ SCH ×4 (06:49→17:02)
[2019-02-28 06:59] LABS: ALBUMIN 0.9 g/dl (3.4-5.0); ALK PHOS 73 U/L (45-117); ANION GAP 18 MMOL/L (8-16); BILIRUBIN,TOTAL 1.8 mg/dL (0.2-1); BLOOD UREA NITROGEN 57 mg/dL (7-18); CHLORIDE 117 mmol/L (98-107); CO2 10 mmol/L (21-32); CREATININE 1.8 mg/dL (0.55-1.3); MAGNESIUM 1.9 mg/dL (1.8-2.4); PHOSPHOROUS 5.7 mg/dL (2.5-4.9); SGOT/AST 542 U/L (15-37); SGPT/ALT 163 U/L (13-61); SODIUM 144 mmol/L (136-145); TOT PROT 3.1 g/dl (6.4-8.2)
[2019-02-28] MEDS: HYDROCORTISONE SOD SUCCINATE 100 MG/2 ML VIAL IVPB SCH ×3 (07:05→18:03)
[2019-02-28 07:13] LABS: CALCIUM 6.3 mg/dL (8.5-10.1); GLUCOSE,RANDOM 423 mg/dL (74-106)
[2019-02-28] MEDS ORDERED: LACTATED RINGERS SOLUTION 1,000 ML/1,000 ML INFUS.BAG IV SCH (08:13)
--- NOTE | 2019-02-28 08:25 | PN ---
Physical Exam: SUBJECTIVE: Patient seen and examined at bedside in ICU. Lethargic, non- responsive to stimuli. OBJECTIVE: Vital Signs Period Temp Pulse Resp BP Sys/Aguilar Pulse Ox Last 24 Hr 94.5 F-98.2 F 57-93 17-26 61-143/30-77 95-100 GENERAL: Lethargic, no response to noxious stimuli, no verbalizations appreciated. HEENT: NC/AT, PERRLA, NGT in place NECK: Trachea midline LUNGS: Limited exam, no adventitious sounds appreciated HEART: RRR no m/r/g ABDOMEN: +bs, soft, increased fluid appreciated EXTREMITIES: 2+ pulses, wwp, diffuse edema NEUROLOGICAL: has regressed to non-responsiveness, +gag PSYCH: Unable to assess SKIN: Warm, dry Laboratory Results - last 24 hr 02/27/19 02/27/19 02/27/19 10:24 10:24 12:00 WBC Corrected WBC (auto) RBC Hgb Hct MCV MCH MCHC RDW Plt Count MPV Absolute Neuts (auto) Neutrophils % Lymphocytes % Monocytes % Eosinophils % Basophils % Nucleated RBC % Platelet Estimate Platelet Comment Anisocytosis Macrocytosis PT with INR INR PTT (Actin FS) Sodium Potassium Chloride Carbon Dioxide Anion Gap BUN Creatinine Creat Clearance w eGFR POC Glucometer 204 Random Glucose Lactic Acid 1.8 Calcium Phosphorus Magnesium Total Bilirubin AST ALT Alkaline Phosphatase Ammonia 29.00 Total Protein Albumin Stool Occult Blood Blood Type Antibody Screen Crossmatch 02/27/19 02/27/19 02/27/19 13:45 14:48 14:48 WBC 8.4 Corrected WBC (auto) RBC 2.48 L Hgb 8.2 L Hct 24.9 L MCV 100.3 H MCH 33.0 MCHC 32.9 RDW 25.5 H Plt Count 75 L D MPV 8.8 Absolute Neuts (auto) 7.2 Neutrophils % 85.5 H Lymphocytes % 9.6 D Monocytes % 2.5 L Eosinophils % 2.2 Basophils % 0.2 Nucleated RBC % 0 Platelet Estimate Platelet Comment Anisocytosis 1+ Macrocytosis 1+ PT with INR INR PTT (Actin FS) Sodium Potassium Chloride Carbon Dioxide Anion Gap BUN Creatinine Creat Clearance w eGFR POC Glucometer Random Glucose Lactic Acid Calcium Phosphorus Magnesium Total Bilirubin AST ALT Alkaline Phosphatase Ammonia Total Protein Albumin Stool Occult Blood Trace Blood Type O POSITIVE Antibody Screen Negative Crossmatch See Detail 02/27/19 02/27/1902/27/19 16:47 21:00 21:25 WBC Cancelled Corrected WBC (auto) Cancelled RBC Cancelled Hgb Cancelled Hct Cancelled MCV Cancelled MCH Cancelled MCHC Cancelled RDW Cancelled Plt Count Cancelled MPV Cancelled Absolute Neuts (auto) Cancelled Neutrophils % Cancelled Lymphocytes % Cancelled Monocytes % Cancelled Eosinophils % Cancelled Basophils % Cancelled Nucleated RBC % Cancelled Platelet Estimate Cancelled Platelet Comment Cancelled Anisocytosis Macrocytosis PT with INR INR PTT (Actin FS) Sodium Potassium Chloride Carbon Dioxide Anion Gap BUN Creatinine Creat Clearance w eGFR POC Glucometer 213 258 Random Glucose Lactic Acid Calcium Phosphorus Magnesium Total Bilirubin AST ALT Alkaline Phosphatase Ammonia Total Protein Albumin Stool Occult Blood Blood Type Antibody Screen Crossmatch 02/27/19 02/27/19 02/27/19 22:45 22:45 22:45 WBC 8.1 Corrected WBC (auto) RBC 1.51 L Hgb 4.9 L* Hct 15.3 L D MCV 101.6 H MCH 32.5 MCHC 32.0 RDW 24.8 H Plt Count 80 L MPV 9.9 D Absolute Neuts (auto) Neutrophils % Lymphocytes % Monocytes % Eosinophils % Basophils % Nucleated RBC % Platelet Estimate Platelet Comment Anisocytosis Macrocytosis PT with INR 17.90 H INR 1.51 H PTT (Actin FS) 48.4 H Sodium 147 H Potassium 4.6 Chloride 121 H Carbon Dioxide 17 L Anion Gap 9 BUN 62 H Creatinine 1.6 H Creat Clearance w eGFR 32.99 POC Glucometer Random Glucose 356 H* Lactic Acid Calcium 6.8 L* Phosphorus 3.5 Magnesium 1.9 Total Bilirubin 1.1 H AST 52 H ALT 25 Alkaline Phosphatase 94 Ammonia Total Protein 4.3 L Albumin 1.2 L Stool Occult Blood Blood Type Antibody Screen Crossmatch 02/27/19 02/28/19 02/28/19 22:45 05:30 05:30 WBC 16.1 H Corrected WBC (auto) RBC 2.67 L Hgb 7.7 L Hct 24.6 L D MCV 91.9 D MCH 28.7 D MCHC 31.2 L RDW 15.3 D Plt Count 58 L D MPV 9.6 Absolute Neuts (auto) 13.1 H Neutrophils % 81.7 Lymphocytes % 14.1 D Monocytes % 3.5 L Eosinophils % 0.4 D Basophils % 0.3 Nucleated RBC % 1 H Platelet Estimate Platelet Comment Anisocytosis Macrocytosis PT with INR INR PTT (Actin FS) Sodium 144 Potassium 6.0 H Chloride 117 H Carbon Dioxide 10 L Anion Gap 18 H BUN 57 H Creatinine 1.8 H Creat Clearance w eGFR 28.80 POC Glucometer Random Glucose 423 H* Lactic Acid 7.4 H* Calcium 6.3 L* Phosphorus 5.7 H Magnesium 1.9 Total Bilirubin 1.8 H AST 542 H ALT 163 H Alkaline Phosphatase 73 Ammonia Total Protein 3.1 L Albumin 0.9 L Stool Occult Blood Blood Type Antibody Screen Crossmatch 02/28/19 02/28/19 05:30 05:45 WBC Corrected WBC (auto) RBC Hgb Hct MCV MCH MCHC RDW Plt Count MPV Absolute Neuts (auto) Neutrophils % Lymphocytes % Monocytes % Eosinophils % Basophils % Nucleated RBC % Platelet Estimate Platelet Comment Anisocytosis Macrocytosis PT with INR INR PTT (Actin FS) Sodium Potassium Chloride Carbon Dioxide Anion Gap BUN Creatinine Creat Clearance w eGFR POC Glucometer 343 Random Glucose Lactic Acid 15.0 H* Calcium Phosphorus Magnesium Total Bilirubin AST ALT Alkaline Phosphatase Ammonia Total Protein Albumin Stool Occult Blood Blood Type Antibody Screen Crossmatch Active Medications Generic Name Dose Route Start Last Admin Trade Name Freq PRN Reason Stop Dose Admin Chlorhexidine Gluconate 1 applic 02/27/19 22:00 02/27/19 21:58 Hibiclens For Decolonization - TP 1 applic HS SACHIN Administration Fluconazole 200 mg 02/28/19 10:00 Diflucan - NGT DAILY SACHIN Fludrocortisone Acetate 0.1 mg 02/28/19 10:00 Florinef - PO DAILY SACHIN Folic Acid 1 mg 02/28/19 10:00 Folic Acid - PO DAILY SACHIN Hydrocortisone Sodium Succinate 100 mg 02/28/19 06:30 02/28/19 07:05 Solu-Cortef - IVPB 100 mg Q8H-IV SACHIN Administration Pantoprazole Sodium 80 mg/ 100 mls @ 10 mls/hr 02/27/19 18:06 02/28/19 05:30 Sodium Chloride IVPB 10 mls/hr Q10H SACHIN Administration 8 MG/HR Octreotide Acetate 1,200 mcg/ 500 mls @ 20.83 mls/hr 02/27/19 23:00 02/28/19 00:14 Dextrose IVPB 20.83 mls/hr ASDIR SACHIN Administration 50 MCG/HR Norepinephrine Bitartrate 4, 500 mls @ 37.5 mls/hr 02/27/19 23:00 02/28/19 04 :00 000 mcg/ Dextrose IV 40 mcg/min TITR SACHIN 300 mls/hr Titration Protocol 5 MCG/MIN Ceftriaxone Sodium 2 gm/ 100 mls @ 200 mls/hr 02/27/19 23:45 02/28/19 00:17 Dextrose IVPB 200 mls/hr DAILY SACHIN Administration Protocol Vasopressin 50 units/ Sodium 100 mls @ 4 mls/hr 02/28/19 06:30 02/28/19 06:49 Chloride IVPB 6 units/hr ASDIR SACHIN 12 mls/hr Administration Protocol 2 UNITS/HR Lactated Ringer's 1,000 ml in 1,000 mls @ 200 mls/hr 02/28/19 08:13 Lactated Ringers Solution IV ASDIR [facility] Insulin Aspart 1 vial 02/27/19 16:30 02/28/19 07:38 Novolog Vial Sliding Scale - SQ 14 units ACHS [facility] Administration Protocol Insulin Detemir 5 units 02/27/19 22:00 02/27/19 21:56 Levemir Vial SQ Not Given HS [facility] Levetiracetam 500 mg 02/27/19 22:00 02/27/19 21:56 Keppra Injection - IVPB 500 mg BID [facility] Administration Mupirocin 1 applic 02/27/19 22:00 02/27/19 21:58 Bactroban Ointment (For Decolonization) - NS 03/04/19 21:59 1 applic BID [facility] Administration Ranitidine HCl 150 mg 02/27/19 22:00 02/27/19 21:57 Zantac Oral Solution - NGT Not Given BID [facility] Rifaximin 550 mg 02/27/19 22:00 02/27/19 21:57 Xifaxan - PO Not Given BID [facility] Thiamine HCl 100 mg 02/28/19 10:00 Vitamin B1 - PO DAILY [facility] Zinc Oxide/Panthenol/Vitamin E 1 applic 02/27/19 16:29 Balmex Cream - TP DAILY PRN HYGEINE ASSESSMENT/PLAN: 58 y/o F w/ PMHx cirrhosis, hep C, polysubstance abuse including EtOH, DM, HTN, bipolar disorder, recent h/o SBP 12/14, presents from [facility] for agitation, combativeness, AMS while undergoing detox #GI -cirrhosis w/ prior SBP -ascites on US -GI consulted -no active bleeding identified on initial EGD -on repeat EGD, colonoscopy, esophageal ulcer identified and clipped -had rebleed 02/14-02/15, Hb dropped to 6.6 -new rebleeding episode yesterday 02/27, Hb dropped to 4.9, readmitted to ICU, received 3 further PRBCs -restarted on PTX and Octreotide gtt -GI aware, for consideration of endoscopic evaluation -brisk exacerbation of LFT elevation overnight -cont rifaximin and lactulose #CV -in hemorrhagic shock -hypotensive and hypothermic -CL placed in [facility] -pressors x 2: Levophed, Vasopressin -on shock steroids hydrocortisone/fludrocortisone -spiking lactate 7.4-->15 #heme -thrombocytopenia 2/2 liver disease -INR persistently elevated #pulmonary -maintaining saturation on RA at this time -keep O2 sat > 92 #neuro -cont thiamine, folate -cont lactulose and rifaximin -neurology following -LP unrevealing -EEG abnormal showing both signs of diffuse encephalopathy and epileptiform disturbances in L temporal region -started on Keppra by neurology, awaiting repeat EEG results #ID -repeat UCx 02/23 growing yeast-like organism >100k CFUs -on fluconazole day 4 of 14 -now restarted on empiric Ceftriaxone #renal -BOB gradually improving -nephrology following -monitor BMP #endocrine -SSI, BGM #GOC -grave prognosis -family considering comfort measures #FEN -hold IVF -monitor and correct electrolytes -vital TF via NGT #PPx -DVT: mechanical only -GI: PTX/Octreotide gtt #code -full #dispo -monitor on med/surg Visit type - Emergency Visit Emergency Visit: No - New Patient This patient is new to me today: No - Critical Care Critical Care patient: Yes Total Critical Care Time (in minutes): 40 Critical Care Statement: The care of this patient involved high complexity decision making to prevent further life threatening deterioration of the patient 's condition and/or to evaluate & treat vital organ system(s) failure or risk of failure.
[2019-02-28] MEDS ORDERED: CALCIUM GLUCONATE 10% - 1,000 MG/10 ML VIAL IVPB ONE (09:00)
--- NOTE | 2019-02-28 09:28 | PN.GI ---
GI Progress Note Subjective: Events noted, maxed out on pressors 3 U PRBC transfused overnight Bloody NGT output increased in AM More lethargic Son and daughter Mireya are present today - Objective Vital Signs: Vital Signs Temperature 94.5 F L 02/28/19 06:00 Pulse Rate 82 02/28/19 08:58 Respiratory Rate 33 H 02/28/19 08:58 Blood Pressure 103/52 L 02/28/19 08:58 O2 Sat by Pulse Oximetry (%) 95 02/27/19 20:20 Eyes: No: Sclera Icterus Cardiovascular: Yes: Regular Rate and Rhythm Respiratory: Yes: Diminished (at bases) Gastrointestinal Inspection: Yes: Distention ...Auscultate: Yes: Normoactive Bowel Sounds ...Palpate: Yes: Soft. No: Tenderness (no grimacing upon palpation) Edema: No (No LE edema) Neurological: Yes: Lethargy Labs: CBC, BMP 02/28/19 05:30 02/28/19 05:30 INR, PTT INR 1.51 (0.83-1.09) H 02/27/19 22:45 Problem List - Problems (1) GI bleed Assessment/Plan: Worsened clinical status. Discussed this with her Son Ron and daughter Joyce who were present this morning. The reminader of her family was waiting for them to come up from [place]. Explained that Ms. Germain is critically ill. Explained that she is too unstable for procedures at this point and will likely need to be intubated given worsening mental status. Mireya expressed wishes to pursue comfort measures as opposed to continued aggressive measures. I explained that I would talk with the ICU team regarding this wishes and recall palliative care. I called Addy, Ms. Germain's daughter as well, who was in agreement. Continue supportive measures for now. Code(s): K92.2 - GASTROINTESTINAL HEMORRHAGE, UNSPECIFIED
[2019-02-28 09:56] LABS: ANISOCYTOSIS 0; MACROCYTOSIS 0; OVALOCYTE 1+; PLATELET ESTIMATE DECREASED
[2019-02-28] MEDS ORDERED: THIAMINE HCL 100 MG TABLET (FP) PO SCH (10:00)
[2019-02-28] MEDS ORDERED: FOLIC ACID 1 MG TABLET (FP) PO SCH (10:00)
[2019-02-28] MEDS ORDERED: FLUCONAZOLE 100 MG TABLET (UD) NGT SCH (10:00)
[2019-02-28] MEDS ORDERED: FLUDROCORTISONE ACETATE 0.1 MG TABLET (FP) PO SCH (10:00)
--- NOTE | 2019-02-28 10:42 | PN ---
Teaching Attending Note Name of Resident: Houston Melo ATTENDING PHYSICIAN STATEMENT I saw and evaluated the patient. I reviewed the resident's note and discussed the case with the resident. I agree with the resident's findings and plan as documented. Past 24H: Pt became more alert later in the day. then noted to have copious amounts of BRBPR and was c/o of abdominal pain. Pt was transferred to MICU, started on PPI, octreotide adn received 3 units PRBC. pressures dropped requiring Central line placement and initiation of 2 pressors. Bleeding continues to persist and pt is unresponsive at this time OBJECTIVE: Last Vital Signs Temp Pulse Resp BP Pulse Ox 94.5 F L 82 33 H 103/52 L 95 02/28/19 06:00 02/28/19 08:58 02/28/19 08:58 02/28/19 08:58 02/27/19 20:20 Intake & Output 02/25/19 02/26/19 02/27/19 02/28/19 23:59 23:59 23:59 23:59 Intake Total 495 7710 399 8813 Output Total 1300 800 650 200 Balance -805 1186 -161 5112 General obtunded, not responsive to verbal/tactile stimuli CV S1 S2 RRR no murmur/rub/gallop Lungs Coarse breath sounds anteriorly Abdomen soft + distended extremities B/L UE 1+pitting edema, sensation intact, does not withdraw to pain ASSESSMENT AND PLAN: 58 year old female with history of Liver Cirrhosis, Alcohol Abuse, Hepatitis C, recent history of SBP 12/14, DM 2, HTN, Polysubstance Abuse (including Alcohol), Bipolar Disorder, sent to ED from [facility] for agitation, combativeness, and altered mental status while undergoing detox. with no improvement and was intubated 02/11 to protect airway and now in the MICU with course complicated with development of melena. 1. Hypovolemic shock- currently on levo 40mcg and vaso 8mg to maintain MAP. started on fludricortisone and hydrocortisone, on ceftriaxone prophylactically. will need to consider cdiff of developing as been having copious BM. hold lactulose. check stools for cdiff. received 3 units of PRBC overnight and FFP. pt continues to have BRBPR and noted to be bleeding at central catheter site. possibly developing DIC at htis time. pt would benefit from EGD/Colonoscopy but is too unstable for any procedures. family discussion planned today with children to determine goals of care. with family 2. Acute toxic/metabolic encephalopathy- due to issues listed in 1st problem. has no mental status and will liekly require intubation to protect airway. 3. Hyperkalemia- medically treatment with insulin. no indication for HD at this time 4. AGMA- due to lactic acidosis in setting of shock 5. Thrombocytopenia- due to shock. concern for development of DIC. check fibrinogen 6. MICU. poor overall prognosis. palliative care re-consulted to aid in family discussion for goals of care The care of this patient involved high complexity decision making to prevent further life threatening deterioration of the patient's condition and/or to evaluate & treat vital organ system(s) failure or risk of failure. 50 mins
[2019-02-28] MEDS: RANITIDINE HCL 150 MG/10 ML UNIT-DOSE NGT SCH (11:04)
[2019-02-28] MEDS: levETIRAcetam 500 MG/5 ML INJECTION VIAL IVPB SCH (11:48)
[2019-02-28] MEDS: RIFAXIMIN 550 MG TABLET (UD) PO SCH (11:49)
--- NOTE | 2019-02-28 12:13 | EKG ---
Test Reason : Blood Pressure : / mmHG Vent. Rate : 090 BPM Atrial Rate : 090 BPM P-R Int : 134 ms QRS Dur : 088 ms QT Int : 350 ms P-R-T Axes : 058 043 074 degrees QTc Int : 428 ms NORMAL SINUS RHYTHM NONSPECIFIC T WAVE ABNORMALITY ABNORMAL ECG WHEN COMPARED WITH ECG OF 23-FEB-2019 13:26, NO SIGNIFICANT CHANGE WAS FOUND Confirmed by JESSICA BAILEY, BEBETO ([id number]) on 02/28/2019 12:13:34 PM Referred By: SILVESTRE MUÑOZ Confirmed By:BEBETO LOPEZ MD
--- NOTE | 2019-02-28 12:34 | PN ---
Teaching Attending Note Name of Resident: Huy Mejia ATTENDING PHYSICIAN STATEMENT I saw and evaluated the patient. I reviewed the resident's note and discussed the case with the resident. I agree with the resident's findings and plan as documented. SUBJECTIVE: Patient seen and examined in the ICU. Further clinical decompensation. CVC inserted and currently on NE And Vasopressin for hemodynamic support. Poorly responsive with what appears to be a new right lateral gaze. Significant bleeding from NGT, CVC, and other sites. Multiple attempts have been made to gather her family. We have been directed that until further collaborative decisions from the family to pursue any interventions that may be required. Intake & Output 02/25/19 02/26/19 02/27/19 02/28/19 23:59 23:59 23:59 23:59 Intake Total 495 1573 909 8401 Output Total 1300 800 650 200 Balance -805 1186 -161 5112 Last Vital Signs Temp Pulse Resp BP Pulse Ox 94.5 F L 117 H 34 H 109/35 L 95 02/28/19 06:00 02/28/19 12:17 02/28/19 12:17 02/28/19 12:17 02/27/19 20:20 Active Medications Chlorhexidine Gluconate (Hibiclens For Decolonization -) 1 applic TP HS [facility] Last Admin: 02/27/19 21:58 Dose: 1 applic Fluconazole (Diflucan -) 200 mg NGT DAILY [facility] Last Admin: 02/28/19 11:04 Dose: Not Given Fludrocortisone Acetate (Florinef -) 0.1 mg PO DAILY [facility] Last Admin: 02/28/19 11:04 Dose: Not Given Folic Acid (Folic Acid -) 1 mg PO DAILY [facility] Last Admin: 02/28/19 11:04 Dose: Not Given Hydrocortisone Sodium Succinate (Solu-Cortef -) 100 mg IVPB Q8H-IV [facility] Last Admin: 02/28/19 07:05 Dose: 100 mg Pantoprazole Sodium 80 mg/ (Sodium Chloride) 100 mls @ 10 mls/hr IVPB Q10H [facility] Last Admin: 02/28/19 05:30 Dose: 10 mls/hr Octreotide Acetate 1,200 mcg/ (Dextrose) 500 mls @ 20.83 mls/hr IVPB ASDIR [facility] Last Admin: 02/28/19 00:14 Dose: 20.83 mls/hr Norepinephrine Bitartrate 4, (000 mcg/ Dextrose) 500 mls @ 37.5 mls/hr IV TITR [facility]; Protocol Last Titration: 02/28/19 04:00 Dose: 40 mcg/min, 300 mls/hr Ceftriaxone Sodium 2 gm/ (Dextrose) 100 mls @ 200 mls/hr IVPB DAILY [facility]; Protocol Last Admin: 02/28/19 11:48 Dose: 200 mls/hr Vasopressin 50 units/ Sodium (Chloride) 100 mls @ 4 mls/hr IVPB ASDIR [facility]; Protocol Last Admin: 02/28/19 06:49 Dose: 6 units/hr, 12 mls/hr Lactated Ringer's (Lactated Ringers Solution) 1,000 ml in 1,000 mls @ 200 mls/ hr IV ASDIR [facility] Last Admin: 02/28/19 08:39 Dose: 200 mls/hr Insulin Aspart (Novolog Vial Sliding Scale -) 1 vial SQ ACHS [facility]; Protocol Last Admin: 02/28/19 07:38 Dose: 14 units Insulin Detemir (Levemir Vial) 5 units SQ HS [facility] Last Admin: 02/27/19 21:56 Dose: Not Given Levetiracetam (Keppra Injection -) 500 mg IVPB BID [facility] Last Admin: 02/28/19 11:48 Dose: 500 mg Mupirocin (Bactroban Ointment (For Decolonization) -) 1 applic NS BID [facility] Stop: 03/04/19 21:59 Last Admin: 02/27/19 21:58 Dose: 1 applic Ranitidine HCl (Zantac Oral Solution -) 150 mg NGT BID [facility] Last Admin: 02/28/19 11:04 Dose: Not Given Rifaximin (Xifaxan -) 550 mg PO BID [facility] Last Admin: 02/28/19 11:49 Dose: Not Given Zinc Oxide/Panthenol/Vitamin E (Balmex Cream -) 1 applic TP DAILY PRN PRN Reason: HYGEINE Gen: Poorly responsive, bleeding from multiple sites Heart: Tachycardia Lung: Agonal breathing, coarse breath sounds Abd: soft, +ascites Ext: no edema GUEST ADVISOR: Poorly responsive Laboratory Results - last 24 hr 02/27/19 02/27/19 02/27/19 13:45 14:48 14:48 WBC 8.4 Corrected WBC (auto) RBC 2.48 L Hgb 8.2 L Hct 24.9 L MCV 100.3 H MCH 33.0 MCHC 32.9 RDW 25.5 H Plt Count 75 L D MPV 8.8 Absolute Neuts (auto) 7.2 Neutrophils % 85.5 H Neutrophils % (Manual) Band Neutrophils % Lymphocytes % 9.6 D Lymphocytes % (Manual) Monocytes % 2.5 L Monocytes % (Manual) Eosinophils % 2.2 Eosinophils % (Manual) Basophils % 0.2 Basophils % (Manual) Myelocytes % (Man) Promyelocytes % (Man) Blast Cells % (Manual) Nucleated RBC % 0 Metamyelocytes Hypochromia Platelet Estimate Platelet Comment Polychromasia Poikilocytosis Anisocytosis 1+ Microcytosis Macrocytosis 1+ Ovalocytes PT with INR INR PTT (Actin FS) Sodium Potassium Chloride Carbon Dioxide Anion Gap BUN Creatinine Creat Clearance w eGFR POC Glucometer Random Glucose Lactic Acid Calcium Phosphorus Magnesium Total Bilirubin AST ALT Alkaline Phosphatase Total Protein Albumin Stool Occult Blood Trace Blood Type O POSITIVE Antibody Screen Negative Crossmatch See Detail 02/27/19 02/27/19 02/27/19 16:47 21:00 21:25 WBC Cancelled Corrected WBC (auto) Cancelled RBC Cancelled Hgb Cancelled Hct Cancelled MCV Cancelled MCH Cancelled MCHC Cancelled RDW Cancelled Plt Count Cancelled MPV Cancelled Absolute Neuts (auto) Cancelled Neutrophils % Cancelled Neutrophils % (Manual) Band Neutrophils % Lymphocytes % Cancelled Lymphocytes % (Manual) Monocytes % Cancelled Monocytes % (Manual) Eosinophils % Cancelled Eosinophils % (Manual) Basophils % Cancelled Basophils % (Manual) Myelocytes % (Man) Promyelocytes % (Man) Blast Cells % (Manual) Nucleated RBC % Cancelled Metamyelocytes Hypochromia Platelet Estimate Cancelled Platelet Comment Cancelled Polychromasia Poikilocytosis Anisocytosis Microcytosis Macrocytosis Ovalocytes PT with INR INR PTT (Actin FS) Sodium Potassium Chloride Carbon Dioxide Anion Gap BUN Creatinine Creat Clearance w eGFR POC Glucometer 213 258 Random Glucose Lactic Acid Calcium Phosphorus Magnesium Total Bilirubin AST ALT Alkaline Phosphatase Total Protein Albumin Stool Occult Blood Blood Type Antibody Screen Crossmatch 02/27/19 02/27/19 02/27/19 22:45 22:45 22:45 WBC 8.1 Corrected WBC (auto) RBC 1.51 L Hgb 4.9 L* Hct 15.3 L D MCV 101.6 H MCH 32.5 MCHC 32.0 RDW 24.8 H Plt Count 80 L MPV 9.9 D Absolute Neuts (auto) Neutrophils % Neutrophils % (Manual) Band Neutrophils % Lymphocytes % Lymphocytes % (Manual) Monocytes % Monocytes % (Manual) Eosinophils % Eosinophils % (Manual) Basophils % Basophils % (Manual) Myelocytes % (Man) Promyelocytes % (Man) Blast Cells % (Manual) Nucleated RBC % Metamyelocytes Hypochromia Platelet Estimate Platelet Comment Polychromasia Poikilocytosis Anisocytosis Microcytosis Macrocytosis Ovalocytes PT with INR 17.90 H INR 1.51 H PTT (Actin FS) 48.4 H Sodium 147 H Potassium 4.6 Chloride 121 H Carbon Dioxide 17 L Anion Gap 9 BUN 62 H Creatinine 1.6 H Creat Clearance w eGFR 32.99 POC Glucometer Random Glucose 356 H* Lactic Acid Calcium 6.8 L* Phosphorus 3.5 Magnesium 1.9 Total Bilirubin 1.1 H AST 52 H ALT 25 Alkaline Phosphatase 94 Total Protein 4.3 L Albumin 1.2 L Stool Occult Blood Blood Type Antibody Screen Crossmatch 02/27/19 02/28/19 02/28/19 22:45 05:30 05:30 WBC 16.1 H Corrected WBC (auto) RBC 2.67 L Hgb 7.7 L Hct 24.6 L D MCV 91.9 D MCH 28.7 D MCHC 31.2 L RDW 15.3 D Plt Count 58 L D MPV 9.6 Absolute Neuts (auto) 13.1 H Neutrophils % 81.7 Neutrophils % (Manual) 84.0 H Band Neutrophils % 0.0 Lymphocytes % 14.1 D Lymphocytes % (Manual) 8.0 D Monocytes % 3.5 L Monocytes % (Manual) 7 D Eosinophils % 0.4 D Eosinophils % (Manual) 0.0 D Basophils % 0.3 Basophils % (Manual) 0.0 Myelocytes % (Man) 0 Promyelocytes % (Man) 0 Blast Cells % (Manual) 0 Nucleated RBC % 1 H Metamyelocytes 0 Hypochromia 0 Platelet Estimate Decreased Platelet Comment Polychromasia 1+ Poikilocytosis 3+ Anisocytosis 0 Microcytosis 0 Macrocytosis 0 Ovalocytes 1+ PT with INR INR PTT (Actin FS) Sodium 144 Potassium 6.0 H Chloride 117 H Carbon Dioxide 10 L Anion Gap 18 H BUN 57 H Creatinine 1.8 H Creat Clearance w eGFR 28.80 POC Glucometer Random Glucose 423 H* Lactic Acid 7.4 H* Calcium 6.3 L* Phosphorus 5.7 H Magnesium 1.9 Total Bilirubin 1.8 H AST 542 H ALT 163 H Alkaline Phosphatase 73 Total Protein 3.1 L Albumin 0.9 L Stool Occult Blood Blood Type Antibody Screen Crossmatch 02/28/19 02/28/19 05:30 05:45 WBC Corrected WBC (auto) RBC Hgb Hct MCV MCH MCHC RDW Plt Count MPV Absolute Neuts (auto) Neutrophils % Neutrophils % (Manual) Band Neutrophils % Lymphocytes % Lymphocytes % (Manual) Monocytes % Monocytes % (Manual) Eosinophils % Eosinophils % (Manual) Basophils % Basophils % (Manual) Myelocytes % (Man) Promyelocytes % (Man) Blast Cells % (Manual) Nucleated RBC % Metamyelocytes Hypochromia Platelet Estimate Platelet Comment Polychromasia Poikilocytosis Anisocytosis Microcytosis Macrocytosis Ovalocytes PT with INR INR PTT (Actin FS) Sodium Potassium Chloride Carbon Dioxide Anion Gap BUN Creatinine Creat Clearance w eGFR POC Glucometer 343 Random Glucose Lactic Acid 15.0 H* Calcium Phosphorus Magnesium Total Bilirubin AST ALT Alkaline Phosphatase Total Protein Albumin Stool Occult Blood Blood Type Antibody Screen Crossmatch ASSESSMENT AND PLAN: Acute Respiratory Failure Altered Mental Status (?) GUEST ADVISOR hemorrhage Suspected DIC Hepatic Encephalopathy GI Bleed Acute Blood Loss Anemia Acute Kidney Injury Liver Cirrhosis Alcohol Abuse Hep C Thrombocytopenia h/o SBP UTI HTN DM The family has requested all interventions until they have made further collaborative decisions: At this time requires Endotracheal intubation Aspiration precautions Transfusional thresholds Lactulose, rifaximin PPI Octreotide If stabilized may need CT head imaging Given overall condition and repeated decompensation, would recommend only comfort/supportive measures if family is willing Overall prognosis for meaningful survival is grave. Dr Mckeon Critical care time spent in reviewing chart, evaluating patient and formulating plan - 36 minutes.
[2019-02-28] MEDS ORDERED: PROPOFOL 1,000,000 MCG/100 ML VIAL ONE (12:50)
--- NOTE | 2019-02-28 13:02 | PROC ---
Intubation - Intubation Reason for Intubation: Respiratory Failure, Airway Protection Intubation Method: orotracheal Blade used: Glidescope Tube Size (cm): 7.5 Tube position @ lip (cm): 22 Tube position confirmed by: Direct visualization, CO2 detector, Chest x-ray, Breath sounds Breath Sounds after Intubation: equal Post Intubation Xray: Yes Remarks: Intubated with Glidescope. Good visualization of cords following repeated suctioning of bloody contents. 7.5 ET tube placed at 22 cm at the lip. CXR pending.
--- NOTE | 2019-02-28 13:40 | PN ---
Progress Note (short form) - Note Progress Note: covering dr romero Problems 1. CKD 2. BOB 3. resp failure 4. etoh abuse 5. liver cirrhosis 6. bipolar 7. change in mental status 8. metabolic acidosis 9. hep C 10. hyperglycemia Current Medications Chlorhexidine Gluconate (Hibiclens For Decolonization -) 1 applic TP HS [facility] Last Admin: 02/27/19 21:58 Dose: 1 applic Fluconazole (Diflucan -) 200 mg NGT DAILY [facility] Last Admin: 02/28/19 11:04 Dose: Not Given Fludrocortisone Acetate (Florinef -) 0.1 mg PO DAILY [facility] Last Admin: 02/28/19 11:04 Dose: Not Given Folic Acid (Folic Acid -) 1 mg PO DAILY [facility] Last Admin: 02/28/19 11:04 Dose: Not Given Hydrocortisone Sodium Succinate (Solu-Cortef -) 100 mg IVPB Q8H-IV [facility] Last Admin: 02/28/19 13:24 Dose: 100 mg Pantoprazole Sodium 80 mg/ (Sodium Chloride) 100 mls @ 10 mls/hr IVPB Q10H [facility] Last Admin: 02/28/19 05:30 Dose: 10 mls/hr Octreotide Acetate 1,200 mcg/ (Dextrose) 500 mls @ 20.83 mls/hr IVPB ASDIR [facility] Last Admin: 02/28/19 00:14 Dose: 20.83 mls/hr Norepinephrine Bitartrate 4, (000 mcg/ Dextrose) 500 mls @ 37.5 mls/hr IV TITR [facility]; Protocol Last Titration: 02/28/19 04:00 Dose: 40 mcg/min, 300 mls/hr Ceftriaxone Sodium 2 gm/ (Dextrose) 100 mls @ 200 mls/hr IVPB DAILY [facility]; Protocol Last Admin: 02/28/19 11:48 Dose: 200 mls/hr Vasopressin 50 units/ Sodium (Chloride) 100 mls @ 4 mls/hr IVPB ASDIR [facility]; Protocol Last Admin: 02/28/19 06:49 Dose: 6 units/hr, 12 mls/hr Lactated Ringer's (Lactated Ringers Solution) 1,000 ml in 1,000 mls @ 200 mls/ hr IV ASDIR [facility] Last Admin: 02/28/19 08:39 Dose: 200 mls/hr Insulin Aspart (Novolog Vial Sliding Scale -) 1 vial SQ ACHS [facility]; Protocol Last Admin: 02/28/19 13:24 Dose: 12 units Insulin Detemir (Levemir Vial) 5 units SQ HS [facility] Last Admin: 02/27/19 21:56 Dose: Not Given Levetiracetam (Keppra Injection -) 500 mg IVPB BID [facility] Last Admin: 02/28/19 11:48 Dose: 500 mg Mupirocin (Bactroban Ointment (For Decolonization) -) 1 applic NS BID [facility] Stop: 03/04/19 21:59 Last Admin: 02/27/19 21:58 Dose: 1 applic Ranitidine HCl (Zantac Oral Solution -) 150 mg NGT BID [facility] Last Admin: 02/28/19 11:04 Dose: Not Given Rifaximin (Xifaxan -) 550 mg PO BID [facility] Last Admin: 02/28/19 11:49 Dose: Not Given Zinc Oxide/Panthenol/Vitamin E (Balmex Cream -) 1 applic TP DAILY PRN PRN Reason: HYGEINE Last Vital Signs Temp Pulse Resp BP Pulse Ox 94.5 F L 118 H 33 H 132/44 L 100 02/28/19 06:00 02/28/19 13:29 02/28/19 13:29 02/28/19 13:29 02/28/19 12:57 on vent agonal breathing Lungs vented sounds Heart tachy Abd soft, ascites Ext no edema CBC, BMP 02/28/19 05:30 02/28/19 05:30 BOB metabolic acidosis hyperglycemia Hyperkalemia 2/2 bob and blood in gi tract Plan- conitinue hemodynamic support monitor urine output fluid resuscitation as needed prognosis is poor
--- NOTE | 2019-02-28 14:03 | PN ---
Physical Exam: SUBJECTIVE: Patient seen and examined this AM. Unresponsive to verbal or painful stimuli. OBJECTIVE: Vital Signs Period Temp Pulse Resp BP Sys/Aguilar Pulse Ox Last 24 Hr 94.5 F-98.2 F 57-124 17-34 61-150/30-86 95-100 GEN: Intubated, not responsive to verbal or painful stimuli HEENT: Rightward lateral gaze, ET tube in place NECK: supple, Left IJ, constantly oozing blood, despite repeated dressing changes and surgicel dressing HEART: Tachycardic, regular rhythm, systolic murmur LUNGS: Intubated, Sonorous/rhonchorous breath sounds ABDOMEN: Distended EXTREMITIES: dependent edema noted NEURO: unresponsive to verbal or painful stimuli Laboratory Results - last 24 hr 02/27/19 02/27/19 02/27/19 13:45 14:48 14:48 WBC 8.4 Corrected WBC (auto) RBC 2.48 L Hgb 8.2 L Hct 24.9 L MCV 100.3 H MCH 33.0 MCHC 32.9 RDW 25.5 H Plt Count 75 L D MPV 8.8 Absolute Neuts (auto) 7.2 Neutrophils % 85.5 H Neutrophils % (Manual) Band Neutrophils % Lymphocytes % 9.6 D Lymphocytes % (Manual) Monocytes % 2.5 L Monocytes % (Manual) Eosinophils % 2.2 Eosinophils % (Manual) Basophils % 0.2 Basophils % (Manual) Myelocytes % (Man) Promyelocytes % (Man) Blast Cells % (Manual) Nucleated RBC % 0 Metamyelocytes Hypochromia Platelet Estimate Platelet Comment Polychromasia Poikilocytosis Anisocytosis 1+ Microcytosis Macrocytosis 1+ Ovalocytes PT with INR INR PTT (Actin FS) Sodium Potassium Chloride Carbon Dioxide Anion Gap BUN Creatinine Creat Clearance w eGFR POC Glucometer Random Glucose Lactic Acid Calcium Phosphorus Magnesium Total Bilirubin AST ALT Alkaline Phosphatase Total Protein Albumin Stool Occult Blood Trace Blood Type O POSITIVE Antibody Screen Negative Crossmatch See Detail 02/27/19 02/27/19 02/27/19 16:47 21:00 21:25 WBC Cancelled Corrected WBC (auto) Cancelled RBC Cancelled Hgb Cancelled Hct Cancelled MCV Cancelled MCH Cancelled MCHC Cancelled RDW Cancelled Plt Count Cancelled MPV Cancelled Absolute Neuts (auto) Cancelled Neutrophils % Cancelled Neutrophils % (Manual) Band Neutrophils % Lymphocytes % Cancelled Lymphocytes % (Manual) Monocytes % Cancelled Monocytes % (Manual) Eosinophils % Cancelled Eosinophils % (Manual) Basophils % Cancelled Basophils % (Manual) Myelocytes % (Man) Promyelocytes % (Man) Blast Cells % (Manual) Nucleated RBC % Cancelled Metamyelocytes Hypochromia Platelet Estimate Cancelled Platelet Comment Cancelled Polychromasia Poikilocytosis Anisocytosis Microcytosis Macrocytosis Ovalocytes PT with INR INR PTT (Actin FS) Sodium Potassium Chloride Carbon Dioxide Anion Gap BUN Creatinine Creat Clearance w eGFR POC Glucometer 213 258 Random Glucose Lactic Acid Calcium Phosphorus Magnesium Total Bilirubin AST ALT Alkaline Phosphatase Total Protein Albumin Stool Occult Blood Blood Type Antibody Screen Crossmatch 02/27/19 02/27/19 02/27/19 22:45 22:45 22:45 WBC 8.1 Corrected WBC (auto) RBC 1.51 L Hgb 4.9 L* Hct 15.3 L D MCV 101.6 H MCH 32.5 MCHC 32.0 RDW 24.8 H Plt Count 80 L MPV 9.9 D Absolute Neuts (auto) Neutrophils % Neutrophils % (Manual) Band Neutrophils % Lymphocytes % Lymphocytes % (Manual) Monocytes % Monocytes % (Manual) Eosinophils % Eosinophils % (Manual) Basophils % Basophils % (Manual) Myelocytes % (Man) Promyelocytes % (Man) Blast Cells % (Manual) Nucleated RBC % Metamyelocytes Hypochromia Platelet Estimate Platelet Comment Polychromasia Poikilocytosis Anisocytosis Microcytosis Macrocytosis Ovalocytes PT with INR 17.90 H INR 1.51 H PTT (Actin FS) 48.4 H Sodium 147 H Potassium 4.6 Chloride 121 H Carbon Dioxide 17 L Anion Gap 9 BUN 62 H Creatinine 1.6 H Creat Clearance w eGFR 32.99 POC Glucometer Random Glucose 356 H* Lactic Acid Calcium 6.8 L* Phosphorus 3.5 Magnesium 1.9 Total Bilirubin 1.1 H AST 52 H ALT 25 Alkaline Phosphatase 94 Total Protein 4.3 L Albumin 1.2 L Stool Occult Blood Blood Type Antibody Screen Crossmatch 02/27/19 02/28/19 02/28/19 22:45 05:30 05:30 WBC 16.1 H Corrected WBC (auto) RBC 2.67 L Hgb 7.7 L Hct 24.6 L D MCV 91.9 D MCH 28.7 D MCHC 31.2 L RDW 15.3 D Plt Count 58 L D MPV 9.6 Absolute Neuts (auto) 13.1 H Neutrophils % 81.7 Neutrophils % (Manual) 84.0 H Band Neutrophils % 0.0 Lymphocytes % 14.1 D Lymphocytes % (Manual) 8.0 D Monocytes % 3.5 L Monocytes % (Manual) 7 D Eosinophils % 0.4 D Eosinophils % (Manual) 0.0 D Basophils % 0.3 Basophils % (Manual) 0.0 Myelocytes % (Man) 0 Promyelocytes % (Man) 0 Blast Cells % (Manual) 0 Nucleated RBC % 1 H Metamyelocytes 0 Hypochromia 0 Platelet Estimate Decreased Platelet Comment Polychromasia 1+ Poikilocytosis 3+ Anisocytosis 0 Microcytosis 0 Macrocytosis 0 Ovalocytes 1+ PT with INR INR PTT (Actin FS) Sodium 144 Potassium 6.0 H Chloride 117 H Carbon Dioxide 10 L Anion Gap 18 H BUN 57 H Creatinine 1.8 H Creat Clearance w eGFR 28.80 POC Glucometer Random Glucose 423 H* Lactic Acid 7.4 H* Calcium 6.3 L* Phosphorus 5.7 H Magnesium 1.9 Total Bilirubin 1.8 H AST 542 H ALT 163 H Alkaline Phosphatase 73 Total Protein 3.1 L Albumin 0.9 L Stool Occult Blood Blood Type Antibody Screen Crossmatch 02/28/19 02/28/19 02/28/19 05:30 05:45 13:18 WBC Corrected WBC (auto) RBC Hgb Hct MCV MCH MCHC RDW Plt Count MPV Absolute Neuts (auto) Neutrophils % Neutrophils % (Manual) Band Neutrophils % Lymphocytes % Lymphocytes % (Manual) Monocytes % Monocytes % (Manual) Eosinophils % Eosinophils % (Manual) Basophils % Basophils % (Manual) Myelocytes % (Man) Promyelocytes % (Man) Blast Cells % (Manual) Nucleated RBC % Metamyelocytes Hypochromia Platelet Estimate Platelet Comment Polychromasia Poikilocytosis Anisocytosis Microcytosis Macrocytosis Ovalocytes PT with INR INR PTT (Actin FS) Sodium Potassium Chloride Carbon Dioxide Anion Gap BUN Creatinine Creat Clearance w eGFR POC Glucometer 343 357 Random Glucose Lactic Acid 15.0 H* Calcium Phosphorus Magnesium Total Bilirubin AST ALT Alkaline Phosphatase Total Protein Albumin Stool Occult Blood Blood Type Antibody Screen Crossmatch Active Medications Generic Name Dose Route Start Last Admin Trade Name Freq PRN Reason Stop Dose Admin Chlorhexidine Gluconate 1 applic 02/27/19 22:00 02/27/19 21:58 Hibiclens For Decolonization - TP 1 applic HS [facility] Administration Fluconazole 200 mg 02/28/19 10:00 02/28/19 11:04 Diflucan - NGT Not Given DAILY [facility] Fludrocortisone Acetate 0.1 mg 02/28/19 10:00 02/28/19 11:04 Florinef - PO Not Given DAILY [facility] Folic Acid 1 mg 02/28/19 10:00 02/28/19 11:04 Folic Acid - PO Not Given DAILY [facility] Hydrocortisone Sodium Succinate 100 mg 02/28/19 06:30 02/28/19 13:24 Solu-Cortef - IVPB 100 mg Q8H-IV [facility] Administration Pantoprazole Sodium 80 mg/ 100 mls @ 10 mls/hr 02/27/19 18:06 02/28/19 05:30 Sodium Chloride IVPB 10 mls/hr Q10H [facility] Administration 8 MG/HR Octreotide Acetate 1,200 mcg/ 500 mls @ 20.83 mls/hr 02/27/19 23:00 02/28/19 00:14 Dextrose IVPB 20.83 mls/hr ASDIR [facility] Administration 50 MCG/HR Norepinephrine Bitartrate 4, 500 mls @ 37.5 mls/hr 02/27/19 23:00 02/28/19 04 :00 000 mcg/ Dextrose IV 40 mcg/min TITR [facility] 300 mls/hr Titration Protocol 5 MCG/MIN Ceftriaxone Sodium 2 gm/ 100 mls @ 200 mls/hr 02/27/19 23:45 02/28/19 11:48 Dextrose IVPB 200 mls/hr DAILY [facility] Administration Protocol Vasopressin 50 units/ Sodium 100 mls @ 4 mls/hr 02/28/19 06:30 02/28/19 06:49 Chloride IVPB 6 units/hr ASDIR [facility] 12 mls/hr Administration Protocol 2 UNITS/HR Lactated Ringer's 1,000 ml in 1,000 mls @ 200 mls/hr 02/28/19 08:13 02/28/19 08:39 Lactated Ringers Solution IV 200 mls/hr [facility] Administration Insulin Aspart 1 vial 02/27/19 16:30 02/28/19 13:24 Novolog Vial Sliding Scale - SQ 12 units ACHS [facility] Administration Protocol Insulin Detemir 5 units 02/27/19 22:00 02/27/19 21:56 Levemir Vial SQ Not Given HS [facility] Levetiracetam 500 mg 02/27/19 22:00 02/28/19 11:48 Keppra Injection - IVPB 500 mg BID [facility] Administration Mupirocin 1 applic 02/27/19 22:00 02/27/19 21:58 Bactroban Ointment (For Decolonization) - NS 03/04/19 21:59 1 applic BID [facility] Administration Ranitidine HCl 150 mg 02/27/19 22:00 02/28/19 11:04 Zantac Oral Solution - NGT Not Given BID [facility] Rifaximin 550 mg 02/27/19 22:00 02/28/19 11:49 Xifaxan - PO Not Given BID [facility] Zinc Oxide/Panthenol/Vitamin E 1 applic 02/27/19 16:29 Balmex Cream - TP DAILY PRN HYGEINE ASSESSMENT/PLAN: Patient is a 58 year old female who presented with altered mental status and was found to have hepatic metabolic encephalopathy and GI bleed. Patient monitored in the ICU and deemed stable for Med/Surg previously. Readmitted to ICU for active GI bleed requiring numerous transfusions and blood products. Prognosis poor GI Bleed: -Protonix drip -Trend CBC -C.diff pending -NPO hold feeds -Hold all AC/Chemical prophylaxis -LR @ 200 -Prior EGD with Colonoscopy with bleeding ulcer that was clipped -GI recommendations noted, unstable for any procedure at this time -Hypovolemic shock requiring fluids, multiple pressors, and steroids -Prognosis poor, extensive family discussions continued, leaning towards comfort measures, however continue full care at this point -Required Intubation earlier today -Lactic acid noted 15, trend with CBC Liver Cirrhosis with Hepatic Encephalopathy -Ammonia levels normal -History of prior SBP with Ascites on previous U/S. Diagnostic paracentesis completed, no concerning signs for SBP, gram stain negative History of Hepatitis C -Unsure if patient was treated -Likely source of Liver cirrhosis FEN -LR @ 200 cc/hr -Monitor and replete -NPO Prophylaxis -Hold AC due to Possible GI bleed -Protonix drip for GI Disposition -Full code for now, further family discussions for goals of care warranted, family being gathered and informed at this point -Monitor in ICU Visit type - Emergency Visit Emergency Visit: Yes ED Registration Date: 02/08/19 Care time: The patient presented to the Emergency Department on the above date and was hospitalized for further evaluation of their emergent condition. - New Patient This patient is new to me today: No - Critical Care Critical Care patient: Yes Total Critical Care Time (in minutes): 50 Critical Care Statement: The care of this patient involved high complexity decision making to prevent further life threatening deterioration of the patient 's condition and/or to evaluate & treat vital organ system(s) failure or risk of failure.
[2019-02-28 15:10] VITALS: TEMP 95.2
[2019-02-28 15:10] LABS: INR 3.37 (0.83-1.09); PROTHROMBIN TIME (PATIENT) 40.2 SEC (9.7-13.0)
[2019-02-28 15:14] LABS: BASO % 1.2 % (0-2.0); EOS % 0.1 % (0-4.5); LYMPH % 13.3 % (8-40); MCH 27.8 pg (25.7-33.7); MEAN CELL VOLUME 96.1 fl (80-96); MEAN PLT VOLUME 9.5 fl (7.5-11.1); MONO % 4.5 % (3.8-10.2); NEUT % 80.9 % (42.8-82.8); PLATELET COUNT 92 K/MM3 (134-434); RBC 1.56 M/mm3 (3.60-5.2); RDW 16.7 % (11.6-15.6)
[2019-02-28 15:18] LABS: HEMOGLOBIN 4.4 GM/dL (10.7-15.3); WHITE BLOOD COUNT 30.7 K/mm3 (4.0-10.0)
[2019-02-28 15:23] LABS: ACTIVATED PTT 105.5 SECONDS (25.2-36.5)
[2019-02-28] MEDS: MUPIROCIN 2% TOPICAL OINTMENT FOR DECOLONIZATION NS SCH (15:34)
[2019-02-28 15:42] LABS: ALK PHOS 120 U/L (45-117); ANION GAP 23 MMOL/L (8-16); BILIRUBIN,TOTAL 3.4 mg/dL (0.2-1); BLOOD UREA NITROGEN 55 mg/dL (7-18); CHLORIDE 114 mmol/L (98-107); CO2 5 mmol/L (21-32); CREATININE 2.2 mg/dL (0.55-1.3); MAGNESIUM 1.8 mg/dL (1.8-2.4); PHOSPHOROUS 7.7 mg/dL (2.5-4.9); SGOT/AST 2432 U/L (15-37); SGPT/ALT 704 U/L (13-61); SODIUM 142 mmol/L (136-145)
[2019-02-28 15:50] LABS: GLUCOSE,RANDOM 390 mg/dL (74-106); POTASSIUM 6.7 mmol/L (3.5-5.1)
[2019-02-28 15:51] LABS: CALCIUM 6.6 mg/dL (8.5-10.1)
[2019-02-28] MEDS ORDERED: NOREPINEPHRINE BITARTRATE 8,000 MCG in DEXTROSE 5%-WATER - 492 ML IV SCH (16:00)
[2019-02-28 17:02] VITALS: BP 80/31; PULSE 126
[2019-02-28] MEDS ORDERED: morphine CARPU-JECT 2 MG/1 ML DISP.SYRIN IVPUSH ONE (17:02)
[2019-02-28] MEDS ORDERED: LORazepam 2 MG/ML SDV VIAL IVPUSH PRN (17:03)
[2019-02-28] MEDS ORDERED: SCOPOLAMINE HYDROBROMIDE 1 PATCH PATCH.TD72 TD SCH (17:15)
[2019-02-28] MEDS ORDERED: MORPHINE 100 MG in SODIUM CHLORIDE 98 ML IVPB SCH (17:15)
[2019-02-28] MEDS ORDERED: MORPHINE SULFATE 2 MG/ML VIAL IVPUSH ONE (17:30)
[2019-02-28 18:22] LABS: ANISOCYTOSIS 2+; MACROCYTOSIS 2+; OVALOCYTE 1+
[2019-02-28 18:23] LABS: PLATELET ESTIMATE DECREASED
--- NOTE | 2019-02-28 20:49 | PN ---
Progress Note (short form) - Note Progress Note: After thorough discussion with full family including children and , it was decided to make the patient comfort measures only. All vasoactive meds were stopped and patient was placed on a morphine drip for comfort. pt noted asystole on the monitor around 20:34. PE NEURO: Unresponsive to verbal or painful stimuli HEENT: no corneal reflex, pupils fixed HEART: no heart sounds for 2 minutes of auscultation LUNGS: no breath sounds noted once ventilator turned off for exam Daughter at bedside informed that her mother had . Time of called at 20:38. Primary team made aware.
--- NOTE | 2019-02-28 22:36 | DS ---
Physical Exam: SUBJECTIVE: Patient at 8:38 pm on 02/28/19. Please refer to Dr. Mejia's note for relevant details and findings. OBJECTIVE: Vital Signs Period Temp Pulse Resp BP Sys/Aguilar Pulse Ox Last 24 Hr 94.5 F-96.8 F 66-126 14-34 67-150/30-86 100-100 PHYSICAL EXAM LABS Laboratory Results - last 24 hr 02/27/19 02/27/19 02/27/19 14:48 22:45 22:45 WBC RBC Hgb Hct MCV MCH MCHC RDW Plt Count MPV Absolute Neuts (auto) Neutrophils % Neutrophils % (Manual) Band Neutrophils % Lymphocytes % Lymphocytes % (Manual) Monocytes % Monocytes % (Manual) Eosinophils % Eosinophils % (Manual) Basophils % Basophils % (Manual) Myelocytes % (Man) Promyelocytes % (Man) Blast Cells % (Manual) Nucleated RBC % Metamyelocytes Hypochromia Platelet Estimate Platelet Comment Polychromasia Poikilocytosis Anisocytosis Microcytosis Macrocytosis Ovalocytes [place] Cells PT with INR 17.90 H INR 1.51 H PTT (Actin FS) 48.4 H Fibrinogen Sodium 147 H Potassium 4.6 Chloride 121 H Carbon Dioxide 17 L Anion Gap 9 BUN 62 H Creatinine 1.6 H Creat Clearance w eGFR 32.99 POC Glucometer Random Glucose 356 H* Lactic Acid Calcium 6.8 L* Phosphorus 3.5 Magnesium 1.9 Total Bilirubin 1.1 H AST 52 H ALT 25 Alkaline Phosphatase 94 Total Protein 4.3 L Albumin 1.2 L Blood Type O POSITIVE Antibody Screen Negative Crossmatch See Detail 02/27/19 02/27/19 02/28/19 22:45 22:45 05:30 WBC 8.1 16.1 H RBC 1.51 L 2.67 L Hgb 4.9 L* 7.7 L Hct 15.3 L D 24.6 L D MCV 101.6 H 91.9 D MCH 32.5 28.7 D MCHC 32.0 31.2 L RDW 24.8 H 15.3 D Plt Count 80 L 58 L D MPV 9.9 D 9.6 Absolute Neuts (auto) 13.1 H Neutrophils % 81.7 Neutrophils % (Manual) 84.0 H Band Neutrophils % 0.0 Lymphocytes % 14.1 D Lymphocytes % (Manual) 8.0 D Monocytes % 3.5 L Monocytes % (Manual) 7 D Eosinophils % 0.4 D Eosinophils % (Manual) 0.0 D Basophils % 0.3 Basophils % (Manual) 0.0 Myelocytes % (Man) 0 Promyelocytes % (Man) 0 Blast Cells % (Manual) 0 Nucleated RBC % 1 H Metamyelocytes 0 Hypochromia 0 Platelet Estimate Decreased Platelet Comment Polychromasia 1+ Poikilocytosis 3+ Anisocytosis 0 Microcytosis 0 Macrocytosis 0 Ovalocytes 1+ [place] Cells PT with INR INR PTT (Actin FS) Fibrinogen Sodium Potassium Chloride Carbon Dioxide Anion Gap BUN Creatinine Creat Clearance w eGFR POC Glucometer Random Glucose Lactic Acid 7.4 H* Calcium Phosphorus Magnesium Total Bilirubin AST ALT Alkaline Phosphatase Total Protein Albumin Blood Type Antibody Screen Crossmatch 02/28/19 02/28/19 02/28/19 05:30 05:30 05:45 WBC RBC Hgb Hct MCV MCH MCHC RDW Plt Count MPV Absolute Neuts (auto) Neutrophils % Neutrophils % (Manual) Band Neutrophils % Lymphocytes % Lymphocytes % (Manual) Monocytes % Monocytes % (Manual) Eosinophils % Eosinophils % (Manual) Basophils % Basophils % (Manual) Myelocytes % (Man) Promyelocytes % (Man) Blast Cells % (Manual) Nucleated RBC % Metamyelocytes Hypochromia Platelet Estimate Platelet Comment Polychromasia Poikilocytosis Anisocytosis Microcytosis Macrocytosis Ovalocytes [place] Cells PT with INR INR PTT (Actin FS) Fibrinogen Sodium 144 Potassium 6.0 H Chloride 117 H Carbon Dioxide 10 L Anion Gap 18 H BUN 57 H Creatinine 1.8 H Creat Clearance w eGFR 28.80 POC Glucometer 343 Random Glucose 423 H* Lactic Acid 15.0 H* Calcium 6.3 L* Phosphorus 5.7 H Magnesium 1.9 Total Bilirubin 1.8 H AST 542 H ALT 163 H Alkaline Phosphatase 73 Total Protein 3.1 L Albumin 0.9 L Blood Type Antibody Screen Crossmatch 02/28/19 02/28/19 02/28/19 13:18 14:18 14:30 WBC RBC Hgb Hct MCV MCH MCHC RDW Plt Count MPV Absolute Neuts (auto) Neutrophils % Neutrophils % (Manual) Band Neutrophils % Lymphocytes % Lymphocytes % (Manual) Monocytes % Monocytes % (Manual) Eosinophils % Eosinophils % (Manual) Basophils % Basophils % (Manual) Myelocytes % (Man) Promyelocytes % (Man) Blast Cells % (Manual) Nucleated RBC % Metamyelocytes Hypochromia Platelet Estimate Platelet Comment Polychromasia Poikilocytosis Anisocytosis Microcytosis Macrocytosis Ovalocytes [place] Cells PT with INR INR PTT (Actin FS) Fibrinogen < 100.0 L* Sodium 142 Potassium 6.7 H* Chloride 114 H Carbon Dioxide 5 L Anion Gap 23 H BUN 55 H Creatinine 2.2 H Creat Clearance w eGFR 22.85 POC Glucometer 357 Random Glucose 390 H* Lactic Acid Calcium 6.6 L* Phosphorus 7.7 H Magnesium 1.8 Total Bilirubin 3.4 H AST 2432 H ALT 704 H Alkaline Phosphatase 120 H Total Protein 3.0 L Albumin 1.0 L Blood Type Antibody Screen Crossmatch 02/28/19 02/28/19 14:30 14:50 WBC 30.7 H* RBC 1.56 L Hgb 4.4 L* Hct 15.0 L D MCV 96.1 H MCH 27.8 MCHC 29.0 L RDW 16.7 H Plt Count 92 L D MPV 9.5 Absolute Neuts (auto) 23.2 H Neutrophils % 80.9 Neutrophils % (Manual) 77.0 Band Neutrophils % 3.0 Lymphocytes % 13.3 Lymphocytes % (Manual) 11.0 D Monocytes % 4.5 Monocytes % (Manual) 7 Eosinophils % 0.1 Eosinophils % (Manual) 1.0 D Basophils % 1.2 D Basophils % (Manual) 1.0 D Myelocytes % (Man) Promyelocytes % (Man) Blast Cells % (Manual) Nucleated RBC % 1 H Metamyelocytes Hypochromia 2+ Platelet Estimate Decreased Platelet Comment No clumping noted Polychromasia Poikilocytosis 3+ Anisocytosis 2+ Microcytosis 1+ Macrocytosis 2+ Ovalocytes 1+ [place] Cells 1+ PT with INR 40.20 H INR 3.37 H PTT (Actin FS) 105.5 H Fibrinogen Sodium Potassium Chloride Carbon Dioxide Anion Gap BUN Creatinine Creat Clearance w eGFR POC Glucometer Random Glucose Lactic Acid Calcium Phosphorus Magnesium Total Bilirubin AST ALT Alkaline Phosphatase Total Protein Albumin Blood Type Antibody Screen Crossmatch HOSPITAL COURSE: Date of Admission:02/08/19 Patient was a 58 y/o F w/ PMHx cirrhosis, hep C, polysubstance abuse including EtOH, DM, HTN, bipolar disorder, recent h/o SBP 12/14, who presented from [facility] for agitation, combativeness, AMS while undergoing detox. Empiric treatment for EtOH withdrawal and hepatic encephalopathy were initiated. Hospitalization was complicated by repeated development of GIB for which GI was consulted. Multiple endoscopic evaluations eventually resulted in identification and clipping of esophageal ulcer. Patient additionally experienced further deterioration of her mental status although had periods of waxing and waning with responsiveness and interactivity alternating with total non-responsiveness. Neurology was consulted. Mental status was presumed to be due to hepatic encephalopathy although EEG findings were additionally consistent with epileptiform activity and treatment with Keppra was initiated. Patient deteriorated into hepatorenal status and nephrology was additionally consulted. Prognosis was seen to be grave. Patient was stabilized with transfusion of multiple units of blood products and was upgraded to floors. Mental status did see improvement and respiratory status was strong throughout. It was hoped that patient would be suitable for PEG placement by IR and long- term placement in SNF near her family. However, on 02/27/19 significant GIB recurred. Hb deteriorated rapidly despite medical optimization and further transfusion of blood products. Patient was transferred back to ICU. She was deemed not to be a candidate for further endoscopic intervention. Cardiovascular status then deteriorated, patient became hypotensive and was eventually maxed out on multiple pressors and given shock steroids. Intubation was required to secure airway. Laboratory studies eventually confirmed progression to DIC. At this point, Pt's family opted for comfort care measures and she in the ICU on 02/28/19. Date of Discharge: 02/28/19 Minutes to complete discharge: 40 Discharge Summary Reason For Visit: HEPATIC ENCEPHALOPATHY Current Active Problems Altered mental status (Acute) Ascites (Acute) CKD (chronic kidney disease) (Acute) Decompensated cirrhosis related to hepatitis C virus (HCV) (Acute) Diabetes (Acute) Duodenal ulcer (Acute) Esophageal varices determined by endoscopy (Acute) GI bleed (Acute) Hepatic encephalopathy (Acute) UTI (urinary tract infection) (Acute) - Instructions Disposition: - Home Medications Comprehensive Discharge Medication List: Ambulatory Orders Calcium Carb/Vitamin D3/Vit K1 [Calcium + D Soft Chewable Tab] 1 each PO DAILY 02/09/19 Gabapentin 100 mg PO TID 02/09/19 Multivitamins [Tab-A-Vit -] 1 tab PO DAILY 02/09/19 Sennosides/Docusate Sodium [Docusate Sodium-Senna Tablet] 1 each PO HS PRN 02/09 Amlodipine Besylate 10 mg PO DAILY 02/10/19 Furosemide 20 mg PO DAILY 02/10/19 Insulin Aspart [Novolog] 0.1 ml IM DAILY 02/10/19 Insulin Detemir [Levemir Flextouch] 0.25 ml IM HS 02/10/19 Spironolactone 50 mg PO DAILY 02/10/19 This patient is new to me today: No Emergency Visit: No Critical Care patient: Yes Total Critical Care Time (in minutes): 40 Critical Care Statement: The care of this patient involved high complexity decision making to prevent further life threatening deterioration of the patient 's condition and/or to evaluate & treat vital organ system(s) failure or risk of failure. - Discharge Referral Referred to [facility] No
== END 2019-02-28 20:38 | disposition expired | DRG 264 ==
LOC: JER 16:18 → JERBED 20:02 → OBSVTOIN 21:40 → JERBED 21:40 → J6S 02-09 08:00 → JICU 02-11 15:00 → J7W 02-21 17:15 → JICU 02-27 16:27
PROVIDERS: ADMIT Internal Medicine; ATTEND Internal Medicine
PROC: 0W9G3ZX Drainage of Peritoneal Cavity, Percutaneous Approach, Diagnostic (ICD-10-PCS; principal; 2019-02-08)
PROC: 0DH67UZ Insertion of Feeding Device into Stomach, Via Natural or Artificial Opening (ICD-10-PCS; 2019-02-09)
PROC: 3E0G76Z Introduction of Nutritional Substance into Upper GI, Via Natural or Artificial Opening (ICD-10-PCS; 2019-02-09)
PROC: 0T9B70Z Drainage of Bladder with Drainage Device, Via Natural or Artificial Opening (ICD-10-PCS; 2019-02-11)
PROC: 0BH17EZ Insertion of Endotracheal Airway into Trachea, Via Natural or Artificial Opening (ICD-10-PCS; 2019-02-11)
PROC: 5A1945Z Respiratory Ventilation, 24-96 Consecutive Hours (ICD-10-PCS; 2019-02-11)
PROC: 5A1955Z Respiratory Ventilation, Greater than 96 Consecutive Hours (ICD-10-PCS; 2019-02-11)
PROC: 30233N1 Transfusion of Nonautologous Red Blood Cells into Peripheral Vein, Percutaneous Approach (ICD-10-PCS; 2019-02-12)
PROC: 30233R1 Transfusion of Nonautologous Platelets into Peripheral Vein, Percutaneous Approach (ICD-10-PCS; 2019-02-12)
PROC: 0DJ08ZZ Inspection of Upper Intestinal Tract, Via Natural or Artificial Opening Endoscopic (ICD-10-PCS; 2019-02-12)
PROC: 5A09357 Assistance with Respiratory Ventilation, Less than 24 Consecutive Hours, Continuous Positive Airway Pressure (ICD-10-PCS; 2019-02-14)
PROC: 3E0G8GC Introduction of Other Therapeutic Substance into Upper GI, Via Natural or Artificial Opening Endoscopic (ICD-10-PCS; 2019-02-17)
PROC: 0W3P8ZZ Control Bleeding in Gastrointestinal Tract, Via Natural or Artificial Opening Endoscopic (ICD-10-PCS; 2019-02-17)
PROC: 0J9M3ZX Drainage of Left Upper Leg Subcutaneous Tissue and Fascia, Percutaneous Approach, Diagnostic (ICD-10-PCS; 2019-02-17)
PROC: 05HN33Z Insertion of Infusion Device into Left Internal Jugular Vein, Percutaneous Approach (ICD-10-PCS; 2019-02-27)
PROC: B514YZA Fluoroscopy of Left Jugular Veins using Other Contrast, Guidance (ICD-10-PCS; 2019-02-27)
PROC: 0BH17EZ Insertion of Endotracheal Airway into Trachea, Via Natural or Artificial Opening (ICD-10-PCS; 2019-02-28)
PROC: 5A1935Z Respiratory Ventilation, Less than 24 Consecutive Hours (ICD-10-PCS; 2019-02-28)
DX: K72.90 Hepatic failure, unspecified without coma (principal); J96.01 Acute respiratory failure with hypoxia; R57.8 Other shock; G92 Toxic encephalopathy; E43 Unspecified severe protein-calorie malnutrition; E87.4 Mixed disorder of acid-base balance; N17.9 Acute kidney failure, unspecified; K26.4 Chronic or unspecified duodenal ulcer with hemorrhage; R64 Cachexia; I95.89 Other hypotension; I50.9 Heart failure, unspecified; D69.59 Other secondary thrombocytopenia; K70.31 Alcoholic cirrhosis of liver with ascites; D69.6 Thrombocytopenia, unspecified; E11.22 Type 2 diabetes mellitus with diabetic chronic kidney disease; K76.6 Portal hypertension; I13.0 Hypertensive heart and chronic kidney disease with heart failure and stage 1 through stage 4 chronic kidney disease, or unspecified chronic kidney disease; Z78.1 Physical restraint status; E88.09 Other disorders of plasma-protein metabolism, not elsewhere classified; D62 Acute posthemorrhagic anemia; F14.20 Cocaine dependence, uncomplicated; E83.51 Hypocalcemia; E11.65 Type 2 diabetes mellitus with hyperglycemia; N18.3 Chronic kidney disease, stage 3 (moderate); I85.10 Secondary esophageal varices without bleeding; N39.0 Urinary tract infection, site not specified; E86.0 Dehydration; B95.2 Enterococcus as the cause of diseases classified elsewhere; F10.239 Alcohol dependence with withdrawal, unspecified; R45.1 Restlessness and agitation; Z79.4 Long term (current) use of insulin; Z68.23 Body mass index [BMI] 23.0-23.9, adult; K62.89 Other specified diseases of anus and rectum; D64.9 Anemia, unspecified; B19.20 Unspecified viral hepatitis C without hepatic coma; F17.210 Nicotine dependence, cigarettes, uncomplicated; F31.9 Bipolar disorder, unspecified; K64.4 Residual hemorrhoidal skin tags; R68.0 Hypothermia, not associated with low environmental temperature; K92.1 Melena
CPT/HCPCS: 31500; 36415; 36430; 36511; 36600; 70450-TC; 71045-TC-FY; 74018-TC-FY; 74176-TC; 76098-TC-FY; 76700-TC; 76705-TC; 76775-TC; 76942-TC; 80048; 80053; 80177; 80307; 81003; 81015; 82042; 82140; 82150; 82248; 82272; 82436; 82465; 82570; 82728; 82803; 82945; 82962; 83516; 83520; 83540; 83550; 83605; 83615; 83735; 83986; 84100; 84133; 84157; 84300; 84478; 84540; 85025; 85027; 85044; 85362; 85384; 85610; 85730; 86038; 86225; 86256; 86592; 86617; 86644; 86663; 86664; 86665; 86694; 86704; 86706; 86708; 86735; 86765; 86787; 86788; 86789; 86850; 86900; 86901; 86922; 87040; 87070; 87075; 87077; 87086; 87102; 87116; 87186; 87205; 87206; 87210; 87338; 87340; 87476; 87522; 87529; 87899; 88108; 88305-TC; 93005; 93010; 93306-TC; 94002; 95816; 97161-GP; 99284-25; G0378; G0480; J7030; P9017; P9034; P9038; P9047; P9058; Q9967